=== PATIENT | male | born 1985 | race Caucasian/White ===

== ENCOUNTER 2023-02-18 16:45 | Emergency (ER) | payer MEDICARE, MEDICAID, SELFPAY ==
[2023-02-18 17:31] VITALS: BP 145/98; PULSE 99; RESP 16; TEMP 36.6; O2SAT 96; BMI 38.1
[2023-02-18 19:08] LABS: Basophils Percent Auto 0.4 % (0.2-2.0); Eosinophils Absolute Auto 0.1 10^3/uL (0.0-0.7); Eosinophils Percent Auto 1.4 % (0.9-7.0); Hematocrit 43.2 % (42.0-54.0); Hemoglobin 15.4 g/dL (14.0-18.0); Immature Granulocytes Abs Auto 0.06 10^3/uL (0.00-0.03); Immature Granulocytes Pct Auto 0.6 % (0.0-0.5); Lymphocytes Absolute Auto 2.7 10^3/uL (1.2-3.8); Mean Corpuscular HGB Conc 35.6 g/dL (29.9-35.2); Mean Corpuscular Hemoglobin 29.4 pg (25.9-34.0); Mean Corpuscular Volume 82.4 fL (80.0-94.0); Monocytes Absolute Auto 0.6 10^3/uL (0.3-0.8); Monocytes Percent Auto 6.5 % (1.7-12.0); Neutrophils Absolute Auto 5.8 10^3/uL (1.4-6.5); Neutrophils Percent Auto 62.1 % (43.0-75.0); Platelet Count 236 10^3/uL (150-450); Red Blood Count 5.24 10^6/uL (4.70-6.10); Red Cell Distribution Width 13.1 % (11.0-15.0); White Blood Count 9.4 10^3/uL (4.0-11.0)
--- NOTE | 2023-02-18 19:10 | ED_ITS ---
Documented by User: Melissa Treadwell 02/18/23 19:13 HPI - General Adult General Chief complaint: Skin/Abscess/Foreign Body Stated complaint: diabetic sore on leg Time Seen by Provider: 02/18/23 19:01 Source: patient Mode of arrival: walk-in Limitations: no limitations History of Present Illness HPI narrative: 37-year-old male presents here with a chief complaint of a wound to the left posterior leg. He states he had three mosquito bites that he scratched open. Small area of induration noted. He denies a fevers or chills. Patient is type I diabetic and states his sugars have been elevated but he recently has had medication changes causing his sugars to be elevated. Patient has mosquito bites that are scratched and raw to the posterior leg. No drainage swelling no sign of cellulitis. Related Data Allergies Allergy/AdvReac Type Severity Reaction Status Date / Time No Known Drug Allergies Allergy Verified 02/18/23 17:30 Review of Systems ROS Narrative All Systems are negative except as noted/marked.All systems reviewed and otherwise negative PFSH PFSH Social History Smoking status: Never smoker Exam Narrative Exam Narrative: Nurses note and vital signs reviewed and patient is not hypoxic. General: The patient appears well and in no apparent distress. Patient is resting comfortably on cart. Skin: Warm, dry, no pallor noted. Left posterior leg 2 x 3 cm area of redness with infected mosquito bite no drainage or discharge scabbing noted Head: Normocephalic, atraumatic Eye: Normal conjunctiva, no drainage, EOMI. PERRL Ears, Nose, Mouth, and Throat: oral mucosa is moist. Nares patent. Mouth without vesicles. Ear canals patent. Tm's without Erythema Musculoskeletal: The patient has no evidence of calf tenderness, no pitting edema, symmetrical pulses noted bilaterally Neurological: A&O x4, normal speech Psychiatric: Cooperative Constitutional Vital Signs, click to edit/add: Last Vital Signs Temp 98.1 F 02/18/23 19:34 Pulse 91 H 02/18/23 19:34 Resp 16 02/18/23 19:34 BP 133/80 02/18/23 19:34 Pulse Ox 96 02/18/23 19:34 O2 Del Method Room Air 02/18/23 19:34 Course Vital Signs Vital signs: Vital Signs Temperature 97.9 F 02/18/23 17:31 Pulse Rate 99 H 02/18/23 17:31 Respiratory Rate 16 02/18/23 17:31 Blood Pressure 145/98 H 02/18/23 17:31 Pulse Oximetry 96 02/18/23 17:31 Oxygen Delivery Method Room Air 02/18/23 17:31 Temperature 98.1 F 02/18/23 19:34 Pulse Rate 91 H 02/18/23 19:34 Respiratory Rate 16 02/18/23 19:34 Blood Pressure 133/80 02/18/23 19:34 Pulse Oximetry 96 02/18/23 19:34 Oxygen Delivery Method Room Air 02/18/23 19:34 Medical Decision Making MDM Narrative Medical decision making narrative: She presented with chief complaint of redness to where he had three mosquito bites. He has scratched Demerol. The area is slightly reddened there is no drainage or discharge no infection appreciated. He is a diabetic she will be placed on Keflex. Medicated here with one Keflex and discharged home area cleaned with saline and Hibiclens covered with bacitracin dressing. Lab Data Labs: Lab Results 02/18/23 Range/Units 18:55 WBC 9.4 (4.0-11.0) 10^3/uL RBC 5.24 (4.70-6.10) 10^6/uL Hgb 15.4 (14.0-18.0) g/dL Hct 43.2 (42.0-54.0) % MCV 82.4 (80.0-94.0) fL MCH 29.4 (25.9-34.0) pg MCHC 35.6 H (29.9-35.2) g/dL RDW 13.1 (11.0-15.0) % Plt Count 236 (150-450) 10^3/uL MPV 11.0 (9.5-13.5) fL Neut % (Auto) 62.1 (43.0-75.0) % Lymph % (Auto) 29.0 (20.5-60.0) % [place] % (Auto) 6.5 (1.7-12.0) % Eos % (Auto) 1.4 (0.9-7.0) % Baso % (Auto) 0.4 (0.2-2.0) % Neut # (Auto) 5.8 (1.4-6.5) 10^3/uL Lymph # (Auto) 2.7 (1.2-3.8) 10^3/uL [place] # (Auto) 0.6 (0.3-0.8) 10^3/uL Eos # (Auto) 0.1 (0.0-0.7) 10^3/uL Baso # (Auto) 0.0 (0.0-0.1) 10^3/uL Abs Immat Gran (auto) 0.06 H (0.00-0.03) 10^3/uL Imm/Tot Granulo (auto) 0.6 H (0.0-0.5) % Sodium 136 (136-145) mmol/L Potassium 3.9 (3.5-5.1) mmol/L Chloride 101 (98-107) mmol/L Carbon Dioxide 26.5 (21.0-32.0) mmol/L Anion Gap 12.4 BUN 16.0 (7.0-18.0) mg/dL Creatinine 1.13 (0.70-1.30) mg/dL Est GFR ( Amer) >60 (>=60) Est GFR (Non-Af Amer) >60 (>=60) BUN/Creatinine Ratio 14.2 Glucose 277 H (74-106) mg/dL Calcium 8.8 (8.5-10.1) mg/dL Discharge Plan Discharge Chief Complaint: Skin/Abscess/Foreign Body Clinical Impression: Insect bites Patient Disposition: Home, Self-Care Time of Disposition Decision: 19:05 Condition: Good Mode of Transportation: Private Vehicle Instructions: Dermatitis (ED) Stand Alone Forms: Portal Instructions Referrals: Benji Kulkarni DO [Primary Care Provider] - 1 week Discharge Date/Time: 02/18/23 19:37 Documented by User: Iam Adame MD 02/18/23 20:05 HPI - General Adult General Chief complaint: Skin/Abscess/Foreign Body Stated complaint: diabetic sore on leg Time Seen by Provider: 02/18/23 19:01 Related Data Allergies Allergy/AdvReac Type Severity Reaction Status Date / Time No Known Drug Allergies Allergy Verified 02/18/23 17:30 PFSH PFS Social History Smoking status: Never smoker Exam Constitutional Vital Signs, click to edit/add: Last Vital Signs Temp 98.1 F 02/18/23 19:34 Pulse 91 H 02/18/23 19:34 Resp 16 02/18/23 19:34 BP 133/80 02/18/23 19:34 Pulse Ox 96 02/18/23 19:34 O2 Del Method Room Air 02/18/23 19:34 Course Vital Signs Vital signs: Vital Signs Temperature 97.9 F 02/18/23 17:31 Pulse Rate 99 H 02/18/23 17:31 Respiratory Rate 16 02/18/23 17:31 Blood Pressure 145/98 H 02/18/23 17:31 Pulse Oximetry 96 02/18/23 17:31 Oxygen Delivery Method Room Air 02/18/23 17:31 Temperature 98.1 F 02/18/23 19:34 Pulse Rate 91 H 02/18/23 19:34 Respiratory Rate 16 02/18/23 19:34 Blood Pressure 133/80 02/18/23 19:34 Pulse Oximetry 96 02/18/23 19:34 Oxygen Delivery Method Room Air 02/18/23 19:34 Medical Decision Making MDM Narrative Medical decision making narrative: She presented with chief complaint of redness to where he had three mosquito b ites. He has scratched Demerol. The area is slightly reddened there is no drainage or discharge no infection appreciated. He is a diabetic she will be placed on Keflex. Medicated here with one Keflex and discharged home area cleaned with saline and Hibiclens covered with bacitracin dressing. I, Dr Adame, have reviewed the above progress note and course of action in the ER; agree with the above. I have personally seen and evaluated this patient, gone over history and physical, and discussed disposition and treatment plan with the patient. Lab Data Labs: Lab Results 02/18/23 Range/Units 18:55 WBC 9.4 (4.0-11.0) 10^3/uL RBC 5.24 (4.70-6.10) 10^6/uL Hgb 15.4 (14.0-18.0) g/dL Hct 43.2 (42.0-54.0) % MCV 82.4 (80.0-94.0) fL MCH 29.4 (25.9-34.0) pg MCHC 35.6 H (29.9-35.2) g/dL RDW 13.1 (11.0-15.0) % Plt Count 236 (150-450) 10^3/uL MPV 11.0 (9.5-13.5) fL Neut % (Auto) 62.1 (43.0-75.0) % Lymph % (Auto) 29.0 (20.5-60.0) % [place] % (Auto) 6.5 (1.7-12.0) % Eos % (Auto) 1.4 (0.9-7.0) % Baso % (Auto) 0.4 (0.2-2.0) % Neut # (Auto) 5.8 (1.4-6.5) 10^3/uL Lymph # (Auto) 2.7 (1.2-3.8) 10^3/uL [place] # (Auto) 0.6 (0.3-0.8) 10^3/uL Eos # (Auto) 0.1 (0.0-0.7) 10^3/uL Baso # (Auto) 0.0 (0.0-0.1) 10^3/uL Abs Immat Gran (auto) 0.06 H (0.00-0.03) 10^3/uL Imm/Tot Granulo (auto) 0.6 H (0.0-0.5) % Sodium 136 (136-145) mmol/L Potassium 3.9 (3.5-5.1) mmol/L Chloride 101 (98-107) mmol/L Carbon Dioxide 26.5 (21.0-32.0) mmol/L Anion Gap 12.4 BUN 16.0 (7.0-18.0) mg/dL Creatinine 1.13 (0.70-1.30) mg/dL Est GFR ( Amer) >60 (>=60) Est GFR (Non-Af Amer) >60 (>=60) BUN/Creatinine Ratio 14.2 Glucose 277 H (74-106) mg/dL Calcium 8.8 (8.5-10.1) mg/dL Discharge Plan Discharge Chief Complaint: Skin/Abscess/Foreign Body Clinical Impression: Insect bites Patient Disposition: Home, Self-Care Time of Disposition Decision: 19:05 Condition: Good Mode of Transportation: Private Vehicle Instructions: Dermatitis (ED) Stand Alone Forms: Portal Instructions Referrals: Benji Kulkarni DO [Primary Care Provider] - 1 week Discharge Date/Time: 02/18/23 19:37
--- NOTE | 2023-02-18 19:14 | PC.NURSE ---
States had an insect bite lower calf left leg that he scratched till it opened up and then put rubbing alcohol on it. Small area is scabbed over with red border. Area marked
[2023-02-18 19:23] LABS: Anion Gap 12.4; BUN Creatinine Ratio 14.2; Calcium 8.8 mg/dL (8.5-10.1); Carbon Dioxide 26.5 mmol/L (21.0-32.0); Chloride 101 mmol/L (98-107); Estimated GFR (African America >60 (>=60); Estimated GFR (Non-African Ame >60 (>=60); Glucose 277 mg/dL (74-106); Potassium 3.9 mmol/L (3.5-5.1); Sodium 136 mmol/L (136-145)
[2023-02-18] MEDS: CEPHALEXIN 500 MG CAPSULE PO (19:24)
[2023-02-18] MEDS: BACITRACIN 0.9 GM PACKET 1 PACKET TOPICAL (19:24)
[2023-02-18 19:34] VITALS: BP 133/80; PULSE 91; RESP 16; TEMP 36.7; O2SAT 96
--- NOTE | 2023-02-18 19:35 | PC.NURSE ---
Wound cleansed with Hibicleanse rinsed and dried. Bacitracin, adaptic and Coban placed
== END 2023-02-18 19:37 | disposition home or self-care (01) ==
PROVIDERS: Emergency Provider Emergency Medicine; PCP Internal Medicine
DX: S80.862A Insect bite (nonvenomous), left lower leg, initial encounter (principal); W57.XXXA Bitten or stung by nonvenomous insect and other nonvenomous arthropods, initial encounter
CPT/HCPCS: 36415; 80048; 85025; 99284

== ENCOUNTER 2023-03-04 10:54 | Outpatient (OUT) | payer MEDICARE, MEDICAID, SELFPAY ==
[2023-03-04 12:17] LABS: Chol HDL Ratio 8.4; Cholesterol 253 mg/dL (<=200); Glucose 278 mg/dL (74-106); HDL Cholesterol 30 mg/dL (40-60); Thyroid Stimulating Hormone 3.039 uIU/mL (0.358-3.740); Triglycerides 435 mg/dL (<=150)
[2023-03-04 12:22] LABS: LDL Cholesterol Direct 143 mg/dL
[2023-03-05 13:08] LABS: C-Peptide, Serum 4.2 ng/mL (1.1-4.4)
[2023-03-13 02:07] LABS: Insulin Antibodies 80 uU/mL (.)
== END 2023-03-04 10:55 | disposition home or self-care (01) ==
LOC: LAB 10:54
PROVIDERS: PCP Internal Medicine
DX: E11.65 Type 2 diabetes mellitus with hyperglycemia (principal); E55.9 Vitamin D deficiency, unspecified
CPT/HCPCS: 36415; 80061; 82306; 82607; 82947; 83721; 84443; 84681; 86337; 86341

== ENCOUNTER 2024-01-05 00:22 | Emergency (ER) | payer MEDICARE, MEDICAID, SELFPAY ==
[2024-01-05 00:32] VITALS: BP 174/100; PULSE 97; TEMP 36.8; BMI 39.7
[2024-01-05 00:50] LABS: Glucometer 160 mg/dL (74-106)
--- NOTE | 2024-01-05 01:12 | ED_ITS ---
HPI HPI - General Adult General Chief complaint: Extremity Injury, Lower Stated complaint: RT FOOT SWELLING Time Seen by Provider: 01/05/24 00:58 Source: patient Mode of arrival: walk-in Limitations: no limitations History of Present Illness HPI narrative: This 38-year-old male who is a diabetic presents for evaluation of a small area on the dorsal aspect of his right foot approximately 2 x 1.5 cm where there are 5 small circular scabs. The patient was out in the grass on Tuesday and has multiple mosquito bites on his leg. His states he always wears his socks and shoes in the grass. It looks like he has 5 small bites on the dorsal aspect of his foot with a local inflammatory reaction. The foot is also moderately swollen. There is no lymphangitic streaking. He has not had a fever. His glucose in the emergency department was 160. He explained to me that he is concerned because his 's uncle lost her foot due to diabetic foot infections. He does not have any notable infections of his toe or the remainder of his foot. He has been applying ice but not soaking the foot. He states that this time the foot is throbbing and stabbing and aching. Related Data Home Medications ?Medication ?Instructions ?Recorded ?Confirmed atorvastatin 20 mg tablet 20 mg PO DAILY 01/05/24 01/05/24 empagliflozin 25 mg tablet 25 mg PO DAILY 01/05/24 01/05/24 (Jardiance) insulin degludec 200 unit/mL (3 67 unit subcut DAILY 01/05/24 01/05/24 mL) subcutaneous pen (Tresiba FlexTouch U-200 insulin) insulin lispro 100 unit/mL 45 unit subcut AC 01/05/24 01/05/24 subcutaneous pen (Humalog KwikPen (U-100) Insulin) insulin lispro 200 unit/mL (3 mL) 1 sliding scale dose subcut DAILY 01/05/24 01/05/24 subcutaneous pen (Humalog KwikPen U-200 Insulin) Allergies Allergy/AdvReac Type Severity Reaction Status Date / Time No Known Drug Allergies Allergy Verified 01/05/24 00:37 Opioid HPI Opioid Management Most Recent Opioid Data: Last Pain Scale 6 01/05/24 00:55 Last ED Pain Assessment 01/05/24 00:55 Review of Systems ROS Status of ROS 10 or more systems reviewed and unremark able except as noted in history and below [facility] Medical History (Updated 01/05/24 @ 01:19 by Margret Ji MD) Diabetic acidosis, type I ?E10.10 - Type 1 diabetes mellitus with ketoacidosis without coma (ICD-10) Surgical History (Updated 01/05/24 @ 00:38 by Smiley Blake) H/O knee surgery ?Z98.890 - Other specified postprocedural states (ICD-10) Previous back surgery ?Z98.890 - Other specified postprocedural states (ICD-10) Social History Smoking status: Never smoker Exam Narrative Exam Narrative: Vital signs and Nursing Notes reviewed: Patient is afebrile with a normal pulse, blood pressure is elevated 174/100 General: Awake, alert, oriented, overweight male, no respiratory distress HEENT: Normocephalic atraumatic, mucous membranes are moist and pink, eyes are clear, normal conjunctiva, vision is grossly intact Chest: Lungs are clear to auscultation with good air entry, there is no wheezing rhonchi or rales appreciated no accessory muscle use, patient is speaking in complete sentences-no chest wall tenderness to palpation CVS: Regular rate and rhythm S1-S2, no murmurs rubs or gallops, pulses are brisk and equal bilaterally Extremities: There is an approximately 1.5 x 2 cm area of redness with 5 small circular scabs in the center of this area. They appear to be some kind of bug bite. There is mild swelling of the foot without lymphangitic streaking or other notable abnormality. Toes are warm and sensate. There is no appreciable diabetic foot ulcer in addition to this area on the dorsal aspect of the foot. Skin: There are multiple small circular sores on the patient's right lower leg that he explains are mosquito bites from being outside with his dog Neuro: No focal deficits Constitutional Vital Signs, click to edit/add: Last Vital Signs Temp 98.3 F 01/05/24 00:32 Pulse 97 H 01/05/24 00:32 Resp 16 01/05/24 00:32 BP 174/100 H 01/05/24 00:32 Course Vital Signs Vital signs: Vital Signs Temperature 98.3 F 01/05/24 00:32 Pulse Rate 97 H 01/05/24 00:32 Respiratory Rate 16 01/05/24 00:32 Blood Pressure 174/100 H 01/05/24 00:32 Temperature 98.3 F 01/05/24 00:32 Pulse Rate 97 H 01/05/24 00:32 Respiratory Rate 16 01/05/24 00:32 Blood Pressure 174/100 H 01/05/24 00:32 Medical Decision Making MDM Narrative Medical decision making narrative: This 38-year-old male presents for evaluation of a small erythematous area on the right foot with some localized swelling. The symptoms have been present for the past several days after the patient was outside over the weekend. He has multiple mosquito bites on his right lower leg and an approximately 2 cm x 1.5 cm area of redness that appears to be somewhat excoriated with 5 small circular scabs in the center of this area that in my opinion are likely some kind of bug bite or irritation from his shoe. There is mild swelling of the foot as well. There is no lymphangitic streaking or sign of ascending infection. He has not had a fever. Vital signs are stable with exception of elevated blood pressure at 174/100. His glucose here was 160. He was medicated emergency department with a dose of Augmentin. I suggested that he soak the foot in warm Epsom salt water and continue taking the antibiotics for the next 10 days. He was given the first dose of Augmentin in the emergency department as well as 1 dose of Howell and Zofran for his discomfort. He was encouraged to return the emergency department for enlarging redness, fever, lymphangitic streaking or any concerns. Lab Data Labs: Lab Results 01/05/24 Range/Units 00:46 POC Glucose 160 H (74-106) mg/dL Discharge Plan Discharge Stand Alone Forms: Portal Instructions Chief Complaint: Extremity Injury, Lower Clinical Impression: Local skin infection Patient Disposition: Home, Self-Care Time of Disposition Decision: 01:18 Condition: Good Prescriptions / Home Meds: No Action atorvastatin 20 mg tablet 20 mg PO DAILY Jardiance 25 mg tablet 25 mg PO DAILY insulin degludec [Tresiba FlexTouch U-200] 200 unit/mL (3 mL) insulin pen 67 unit SUBCUT DAILY insulin lispro [Humalog KwikPen Insulin] 100 unit/mL insulin pen 45 unit SUBCUT AC Humalog KwikPen Insulin 200 unit/mL (3 mL) insulin pen 1 sliding scale dose SUBCUT DAILY Print Language: Lebanese Instructions: Acute Wounds (ED) Additional Instructions: Soak your foot in warm Epsom salt water 3-4 times a day for at least 20 to 30 minutes. Use antibiotics as directed. Return to the emergency department for increasing redness, swelling, streaks up your legs or fever. Referrals: Benji Kulkarni DO [Primary Care Provider] - 1 week
[2024-01-05] MEDS: HYDROCODONE/ACET 5-325 MG TABLET 1 TAB PO (01:19)
[2024-01-05] MEDS: AMOXICILLIN/POTASSIUM CLAV 1 TAB TABLET PO (01:19)
[2024-01-05] MEDS: ONDANSETRON 4 MG RAPDIS TABLET SL (01:19)
[2024-01-05 01:36] VITALS: BP 151/83; PULSE 92; O2SAT 16
== END 2024-01-05 01:38 | disposition home or self-care (01) ==
PROVIDERS: Emergency Provider Emergency Medicine; PCP Internal Medicine
DX: L08.9 Local infection of the skin and subcutaneous tissue, unspecified (principal); E11.9 Type 2 diabetes mellitus without complications; Z79.4 Long term (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 insulin
CPT/HCPCS: 36415; 99284; Q0162

== ENCOUNTER 2024-05-28 14:29 | Outpatient (OUT) | payer MEDICARE, MEDICAID, SELFPAY ==
--- NOTE | 2024-05-28 14:36 | XR_ITS ---
The [address] [address] Patient Name: KALEIGH MOTLEY MRN: [id number] date: 1985 Sex: M Assigned Patient Location: [facility] Current Patient Location: [facility] Accession/Order Number: [id number] Exam Date: 05/28/2024 14:43 Report Date: 05/28/2024 15:28 At the request of: CLAIRE ACUÑA Procedure: XR chest 2V EXAM: XR chest 2V HISTORY: Cough COMPARISON: 05/16/2021 TECHNIQUE: Upright PA and lateral chest x-ray FINDINGS: The heart is not enlarged and the vasculature is not distended. No acute infiltrate, effusion or pneumothorax is identified. The osseous structures are grossly intact. XR/XR chest 2V IMPRESSION: No acute infiltrate or evidence of cardiac decompensation. The overall appearance of the chest has not changed significantly. Electronically authenticated by: ALEN CARR Date: 05/28/2024 15:28
--- OUTSIDE RECORDS SUMMARY | 2024-05-28 14:41 | XMS_ITS | CCD ---
Author Organization 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 Name Role Phone WARREN CARLSON Attending Unavailable WARREN CARLSON Admitting Unavailable ROSALINE Referring Unavailable BENJI KULKARNI Primary Care Unavailable SHAD, DR SAWYER Admitting Unavailable SHAD, DR SAWYER Attending Unavailable SHAD, DR SAWYER Primary Care Unavailable SHAD, DR SAWYER Admitting Unavailable BALL, DR SAWYER Attending Unavailable BALL, DR SAWYER Primary Care Unavailable BALL, DR SAWYER Consulting Unavailable BALL, DR SAWYER Admitting Unavailable SHAD, DR SAWYER Attending Unavailable SHAD, DR SAWYER Primary Care Unavailable SHAD, DR SAWYER Primary Care Unavailable ISAURA, DR DEV Odell Consulting Unavailable HOY, DR VIDALES Admitting Unavailable HOY, DR VIDALES Attending Unavailable WIECEK, DR MELINA Medina Consulting Unavailable ZIEBER, DR TREMAYNE Odell Consulting Unavailable ADDISON, JEAN CLAUDE Consulting Unavailable FAWWAD, SHAIKH Izzy Consulting Unavailable SAID, SEVERO Consulting Unavailable DARAMOLA, IAN Consulting Unavailable Benji Kulkarni Unavailable Efren, Alycia Unavailable Kaylynn Nova Unavailable DO Benji Kulkarni Primary Care Provider [phone] NICKI Schwartz Attending Provider Unavailable Primary Care Provider UnavailBenji Ortega Primary Care Unavailable Alycia Schwartz Attending Unavailable Alycia Schwartz Admitting Unavailable Unavailable Primary Care Provider UnavailAZEB Villela Attending Unavailable Allergies Allergy Classification Reported Allergen(s) Allergy Type Date of Onset Reaction(s) Facility (2 sources) Naproxen Drug Allergy 3 The [facility] (20 sources) Acarbose Drug Allergy 4 Other: See Comments [facility] (20 sources) liraglutide Drug Allergy 4 Other: See Comments [facility] (20 sources) metFORMIN Drug Allergy 4 Unknown [facility] (9 sources) patient allergy list reviewed by nurse or physicia Propensity to adverse reactions 9 Comment:Done [place] Other (20 sources) Precose *ANTIDIABETICS* Propensity to adverse reactions 4 Comment:ACARAB OSE [facility] (5 sources) Naproxen; Translations: [naproxen] Drug Allergy 3 Hives [facility] Medications Current Medications Medication Drug Class(es) Dates Sig (Normalized) Sig (Original) acetaminophen 325 mg / HYDROcodone bitartrate 5 mg oral tablet (1 source) Opioid Agonist Start: 01-10-2018 take 1 tablet by mouth every six hours Hydrocodone-Acetam inophen (Palmer) 5-325 mg tablet Active 1 TAB PO Q6H 10 3 January 10, 2018 atorvastatin 20 mg oral tablet (20 sources) HMG-CoA Reductase Inhibitor Start: 01-10-2018 take 1 tablet by mouth once daily at bedtime atorvastatin (LIPITOR) 20 mg tablet Take 20 mg by mouth daily at bedtime. 08/25/2023 Active Comment on above: Take 20 mg by mouth daily at bedtime. BD Ultra-Fine Micro Pen Needle (20 sources) BD Ultra-Fine Micro Pen Needle 1 each In vitro 4 times daily for 90 days Okay to dispense insurance preferred equivalent Dx E11.65 Active BD Ultra-Fine Mi microsoft infrastructure consultant Pen Needle 1 each In vitro 6 times per day for 90 days Okay to dispense insurance preferred equivalent Active BD Ultra-Fine Mi microsoft infrastructure consultant Pen Needle Active benazepril hydrochloride 5 mg oral tablet (1 source) Angiotensin Converting Enzyme Inhibitor Start: 01-10-2018 take 5 mg by mouth once daily Benazepril Active 5 MG PO Daily January 09, 2018 11:00pm cefuroxime 500 mg oral tablet (1 source) Cephalosporin Antibacterial Start: 08-29-2023 take 1 tablet by mouth every twelve hours Cefuroxime Axetil 500 MG 1 tablet Orally every 12 hrs for 5 days Aug, Active cephalexin 500 mg oral capsule (1 source) Cephalosporin Antibacterial Start: 01-10-2018 take 1 capsule by mouth four times daily Cephalexin (Keflex) 500 mg capsule Active 500 MG PO Four times daily 40 January 09, 2018 11:00pm Dexcom G7 Sensor - (20 sources) Start: 02-14-2023 Dexcom G7 Sensor - as directed in vitro every 10 days for 90 [place] [facility] [place] Basal Bolus insulin / mdi Jan, Active Dexcom G7 Sensor - as directed in vitro every 10 days [place] [facility] [place] Basal Bolus insulin / mdi Active Dexcom G7 Sensor - as directed in vitro every 10 days for 90 days [place] [facility] [place] Basal Bolus insulin / mdi Active diazePAM 2 mg oral tablet (1 source) Benzodiazepine Start: 09-09-2023 End: 09-12-2023 take 1 tablet by mouth once daily as needed for anxiety diazePAM (VALIUM) 2 mg tablet Indications: Demyelinating disease of central nervous system (HCC) Take 1 tablet by mouth once daily as needed for anxiety or sedation (for MRI) for up to 3 days. 3 tablet 0 09/09/2023 09/12/2023 Active Comment on above: Take 1 tablet by santiago th once daily as needed for anxiety or sedation (for MRI) for up to 3 days. 0.5 ml dulaglutide 1.5 mg/ml auto-injector (1 source) GLP-1 Receptor Agonist Start: 01-10-2018 Dulaglutide (Trulicity) 0.75 mg/0.5 mL pen injector Active 0.75 UNITS SUBCUT January 09, 2018 11:00pm empagliflozin 25 mg oral tablet (11 sources) Sodium-Glucose Cotransporter 2 Inhibitor Start: 07-14-2023 take 10 mg by mouth once daily JARDIANCE 10 mg daily orally Jun, Active Start: 01-10-2018 take 1 tablet by mouth once JA RDIANCE 25 mg tablet Take 1 tablet by mouth every afternoon. 08/04/2023 Active Comment on above: Take 1 tablet by santiago th every afternoon. 3 ml insulin aspart, human 100 unt/ml pen injector (10 sources) Insulin Analog Start: inject 45 [IU] by subcutaneous injection three times daily before mealtime Fiasp FlexTouch 100 UNIT/ML 45 units Subcutaneous before meals tid for 30 days sliding scale with meals Jan, Active Start: 01-19-2023 NovoLOG FlexPe n 100 UNIT/ML 45 units Subcutaneous before each meal for 30 days Jan, Active 3 ml insulin degludec 200 unt/ml pen injector (9 sources) Insulin Analog Start: 08-04-2023 insulin deglud ec (TRESIBA) 200 unit/mL (3 mL) injection Inject subcutaneously every 24 hours. 08/04/2023 Active Start: 08-04-2023 inject 67 [IU] by avalos bcutaneous injection once daily Tresiba FlexTouch 200 UNIT/ML 67 u Subcutaneous daily for 90 days Titrate to 80 u daily (E11.65) Jul, Active Start: 06-28-2023 inject 55 [IU] by avalos bcutaneous injection once daily, then inject 80 [IU] by subcutaneous injection once daily TRESIBA FLEXTOUCH U-200 200 unit/mL (3 mL) injection INJECT 55 UNITS SUBCUTANEOUSLY ONCE DAILY - TITRATE TO 80 UNITS PER DAY 06/28/2023 Active Comment on above: INJECT 55 UNITS SUBC UTANEOUSLY ONCE DAILY - TITRATE TO 80 UNITS PER DAY Inject subcutaneousl y every 24 hours. 3 ml insulin detemir 100 unt/ml pen injector (19 sources) Insulin Analog Start: 02-14-2023 Levemir FlexPen 100 UNIT/ML 25 u Subcutaneous twice daily Jan, Active Levemir FlexPen 100 UNIT/ML 67 units Subcutaneous bid for 90 days Not-Taking/PRN 3 ml insulin glargine 100 unt/ml pen injector (1 source) Insulin Analog Start: 01-10-2018 Insulin Glargi ne (Basaglar Kwikpen U-100 Insulin) 100 unit/mL (3 mL) insulin pen Active 36 UNITS SUBCUT 1-2 TIMES DAILY January 09, 2018 11:00pm 3 ml insulin lispro 200 unt/ml pen injector (20 sources) Insulin Analog Start: 02-09-2023 HUMALOG KWIKPE N INSULIN 200 unit/mL (3 mL) injection inject subcutaneously four times a day ACCORDING TO ISS 1:7, ICR 1:2, EXPECT 220 UNITS PER DAY 08/29/2023 Active HumaLOG KwikPen 200 UNIT/ML ISS 1: 7, ICR 1:2 EXPECT 220 UNITS PER DAY Subcutaneous 4 x daily Not-Taking/PRN HumaLOG KwikPen 200 UNIT/ML ISS 1: 7, ICR 1:2 subcutaneously 4 TIMES A DAY for 90 DAYS EXPECT 220 UNITS PER DAY Subcutaneous 4 x daily for 30 days Expect up to 220 u per day Active HumaLOG KwikPen 200 UNIT/ML ISS 1: 7, ICR 1:2 subcutaneously 4 TIMES A DAY for 90 DAYS EXPECT 200 UNITS PER DAY Subcutaneous 4 x daily Expect up to 200 u per day Active HumaLOG KwikPen 100 UNIT/ML 45 units SC before each meal Subcutaneous daily Active HumaLOG KwikPen 100 UNIT/ML 39 units SC before each meal, 10 additional units as needed Subcutaneous daily for 30 days Active Comment on above: inject subcutaneousl y four times a day ACCORDING TO ISS 1:7, ICR 1:2, EXPECT 220 UNITS PER DAY iv contrast (will be provided with radiology test) (1 source) Start: 2023 End: 2023 inject 1 dose intravenously once iv contrast (will be provided with radiology test) Indications: Demyelinating disease of central nervous system (HCC) MRI Brain Inject, intravenously, once for 1 dose.No IV access, insert saline lock prior to beginning of sedation, infusion, injection of imaging exam.Discontinue saline lock post exam. If Pt. has a central line or IVAD, may access for administration according to line specific nursing protocol.Once exam is complete flush line and de-access according to line specific nursing protocol in the MR contrast administration guidelines link 1 Each 0 09/09/2023 09/10/2023 Active Comment on above: MRI Brain Inject, in travenously, once for 1 dose.No IV access, insert saline lock prior to beginning of sedation, infusion, injection of imaging exam.Discontinue saline lock post exam. If Pt. has a central line or IVAD, may access for administration according to line specific nursing protocol.Once exam is complete flush line and de-access according to line specific nursing protocol in the MR contrast administration guidelines link Multivitamin preparation (8 sources) take 1 tablet by mouth once daily Multivitamin - 1 tablet Orally Once a day Active One Touch Glucometer (20 sources) Start: 2022 One Touch Glucometer test blood sugar invitro 4 times daily for 365 days or insurance preferred Dx E11.65 Jan, Active semaglutide 3 mg oral tablet (20 sources) Start: 2022 take 3 mg by mouth once daily Rybelsus 3 MG as directed Orally Once a day Jan, Active sildenafil 25 mg oral tablet (2 sources) Phosphodiesterase 5 Inhibitor Start: 2023 End: 2023 take 1 tablet by mouth once daily as needed sildenafil (VIAGRA) 25 mg tablet Take 1 tablet by mouth once daily as needed. 30 tablet 5 09/30/2023 03/28/2024 Active Tresiba U-200 solution injectable 3ml/ 600 units (14 sources) Tresiba U-200 solution injectable 3ml/ 600 units 67 units injectable DAILY for 90 days E 11.65, Z 79.4. Titrate to 100 u per day Active Tresiba U-200 so lution injectable 3ml/ 600 units 67 u injectable DAILY for 90 days E 11.65, Z 79.4. Titrate to 80 u per day Active Tresiba U-200 so lution injectable 3ml/ 600 units 55 u injectable DAILY E 11.65, Z 79.4. Titrate to 80 u per day Active Tresiba U-200 so lution injectable 3ml/ 600 units 65 u injectable DAILY E 11.65, Z 79.4. Titrate to 80 u per day Active Tresiba U-200 so lution injectable 3ml/ 600 units 55 u injectable DAILY for 90 days E 11.65, Z 79.4. Titrate to 80 u per day Active Vit B Comp and C-Vit E-FA-Se l-Zn 0.4 mg tab (3 sources) Vit B Comp and C -Vit E-FA-Shanda-Zn 0.4 mg tab Take by mouth every 24 hours. Active Vit B Comp and C -Vit E-FA-Shanda-Zn 0.4 mg tab Take by mouth every 24 hours. 0 Active Comment on above: Take by mouth every 24 hours. Completed/Discontinued Medications Medication Drug Class(es) Dates Sig (Normalized) Sig (Original) amoxicillin 875 mg oral tablet (20 sources) Penicillin-class Antibacterial Start: 08-09-2022 take 1 tablet by mouth every twelve hours Amoxicillin 875 MG 1 tablet Orally Twice a day for 7 days Jul, Not-Taking/PRN azithromycin 250 mg oral tablet (10 sources) Macrolide Antimicrobial Start: 05-30-2023 Azithromycin 250 MG as directed Orally daily for 5 days May, Not-Taking/PRN Cholecalciferol (20 sources) Vitamin D Start: 04-06-2023 take 1 capsule by mouth every week as needed Cholecalciferol 1.25 MG (37510 UT) 1 capsule Orally weekly for 56 days follow with 4000 ut OTC Mar, Not-Taking/PRN Start: 04-06-2023 take 1 capsule by mo uth every week Cholecalciferol 1.25 MG (47853 UT) 1 capsule Orally weekly for 56 days follow with 4000 ut OTC Mar, Not-Taking Start: 04-06-2023 take 1 capsule by mo uth every week Cholecalciferol 1.25 MG (21284 UT) 1 capsule Orally weekly for 56 days follow with 4000 ut OTC Mar, Active Start: 03-29-2023 take 1 capsule by mo uth every week Cholecalciferol 1.25 MG (60690 UT) 1 capsule Orally WEEKLY for 56 days when RX complete, start D3 4000 ut once daily OTC Mar, Not-Taking/PRN Start: 03-29-2023 take 1 capsule by mo uth every week Cholecalciferol 1.25 MG (30080 UT) 1 capsule Orally WEEKLY for 56 days when RX complete, start D3 4000 ut once daily OTC Mar, Not-Taking Start: 03-29-2023 take 1 capsule by mo uth every week Cholecalciferol 1.25 MG (65787 UT) 1 capsule Orally WEEKLY for 56 days when RX complete, start D3 4000 ut once daily OTC Mar, Active take 2 tablets by mo uth every twenty-four hours Vitamin D3 50 MCG (2000 UT) 2 tablets Orally Once a day Active Dexcom 7 (20 sources) Start: 02-08-2023 Dexcom 7 senso rs for 30 days Dx E11.65 Jan, Not-Taking/PRN Start: 02-08-2023 Dexcom 7 senso rs for 30 days Dx E11.65 Jan, Not-Taking Start: 09-13-2022 Dexcom 7 Use f or testing home BS transcutaneous 6x daily for 365 days 1 sensor and 1 reader Aug, Active Dexcom 7 Use to test home BS SC continuous monitoring - Travel Registered Nurse Oncology for 365 days DX E11.65 Not-Taking/PRN Dexcom 7 Use to test home BS SC continuous monitoring - Travel Registered Nurse Oncology for 365 days DX E11.65 Not-Taking Dexcom 7 Use to test home BS SC continuous monitoring for 365 days Active Dexcom G6 Sensor - (20 sources) Dexcom G6 Sensor - as directed Not-Taking/PRN Dexcom G6 Sensor - as directed Not-Taking Dexcom G6 Sensor - as directed Active Dexcom G6 Transmitter - (20 sources) Dexcom G6 Transm itter - as directed Not-Taking/PRN Dexcom G6 Transm itter - as directed Not-Taking Dexcom G6 Transm itter - as directed Active fenofibrate 145 mg oral tablet (20 sources) Peroxisome Proliferator Receptor alpha Agonist take 1 tablet by mouth every twenty-four hours Fenofibrate 145 MG 1 tablet Orally Once a day Not-Taking/PRN LEVEMIR FLEXTOUCH 100 UNIT/ ML (20 sources) LEVEMIR FLEXTOUC H 100 UNIT/ ML 50 units Subcutaneous hs for 30 days Not-Taking/PRN LEVEMIR FLEXTOUC H 100 UNIT/ ML 50 units Subcutaneous hs for 30 days Not-Taking LEVEMIR FLEXTOUC H 100 UNIT/ ML 50 units Subcutaneous hs for 30 days Active LEVEMIR FLEXTOUC H 100 UNIT/ ML 50 units SC q HS, 15 EACH Subcutaneous daily Active OneTouch Ultra Blue (20 sources) OneTouch Ultra B lue strips Not-Taking/PRN OneTouch Ultra B lue strips Not-Taking OneTouch Ultra B lue strips Active tiZANidine 4 mg oral tablet (20 sources) Central alpha-2 Adrenergic Agonist take 1 tablet by mouth every eight hours tiZANidine HCl 4 MG 1 tablet as needed Orally Three times a day Not-Taking/PRN Problems Active Problems Problem Classification Problem Date Documented Date Episodic/Chronic Abdominal pain (20 sources) Unspecified abdominal pain; Translations: [Periumbilical pain] Onset: 12-31-2021 Episodic Acute bronchitis (9 sources) Acute bronchitis; Translations: [Acute bronchitis due to other specified organisms] Episodic Administrative/social admission (4 sources) Dietary counseling and surveillance Episodic Chronic obstructive pulmonary disease and bronchiectasis (1 source) Bronchitis, not specified as acute or chronic Episodic Developmental disorders (20 sources) Developmental academic disorder; Translations: [Developmental disorder of scholastic skills, unspecified] Chronic Diabetes mellitus with complications (20 sources) Type 2 diabetes mellitus; Translations: [Type 2 diabetes mellitus with hyperglycemia] Onset: 01-07-2014 Chronic Diabetes mellitus with complications (1 source) Diabetes mellitus with complications; Translations: [Diabetes mellitus without mention of complication, type II or unspecified type, uncontrolled] Onset: 01-07-2014 Diabetes mellitus without complication (20 sources) Type 2 diabetes mellitus without complications; Translations: [Diabetes mellitus without complication] Onset: 01-06-2022 Chronic Disorders of lipid metabolism (20 sources) Hyperlipidemia, unspecified; Translations: [Mixed hyperlipidemia] Onset: 01-06-2022 Chronic Essential hypertension (20 sources) Essential hypertension; Translations: [Essential (primary) hypertension] Onset: 02-07-2014 Chronic Essential hypertension (1 source) Essential hypertension; Translations: [Essential hypertension, benign] Onset: 02-07-2014 Genitourinary symptoms and ill-defined conditions (18 sources) Urinary incontinence; Translations: [Unspecified urinary incontinence] Onset: 07-03-2014 Chronic Intestinal obstruction without hernia (20 sources) Other intestinal obstruction unspecified as to partial versus complete obstruction; Translations: [Intestinal obstruction] Onset: 01-06-2022 Episodic Joint disorders and dislocations; trauma-related (9 sources) Derangement of knee; Translations: [Unspecified internal derangement of knee] Chronic Nutritional deficiencies (20 sources) Vitamin D deficiency; Translations: [Vitamin D deficiency, unspecified] Chronic Osteoarthritis (9 sources) Osteoarthritis; Translations: [Polyosteoarthritis, unspecified] Chronic Other aftercare (10 sources) microsoft dynamics ax developer (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 insulin; Translations: [HYDROELECTRIC MECHANIC CURRENT USE OF INSULIN] Onset: 08-10-2022 Episodic Other aftercare (20 sources) Long-term current use of insulin; Translations: [FCI (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 insulin] Episodic Other connective tissue disease (2 sources) Fibromyalgia; Translations: [FIBROMYALGIA] Onset: 01-06-2022 Episodic Other connective tissue disease (20 sources) Lateral epicondylitis; Translations: [Lateral epicondylitis, left elbow] Episodic Other connective tissue disease (20 sources) Fibromyalgia; Translations: [Fibromyalgia] Episodic Other connective tissue disease (2 sources) Lateral epicondylitis, left elbow; Translations: [Epicondylitis, lateral, left] Episodic Other hereditary and degenerative nervous system conditions (8 sources) Mild cognitive disorder ; Translations: [Mild cognitive impairment, so stated] Onset: 06-02-2016 Chronic Other hereditary and degenerative nervous system conditions (1 source) Mild cognitive impairment, so stated; Translations: [Mild cognitive impairment, so stated] Onset: 06-02-2016 Chronic Other nervous system disorders (1 source) Demyelinating disease of central nervous system; Translations: [Demyelinating disease of central nervous system, unspecified] 09-09-2023 Chronic Other nutritional; endocrine; and metabolic disorders (5 sources) Morbid (severe) obesity due to excess calories; Translations: [MORBID SEVERE OBES D/T EXCESS CAITLIN] Onset: 01-06-2022 Chronic Other nutritional; endocrine; and metabolic disorders (1 source) Body mass index (BMI) 33.0-33.9, adult; Translations: [BODY MASS INDEX BMI 33.0-33.9 ADULT] Onset: 01-06-2022 Chronic Other nutritional; endocrine; and metabolic disorders (20 sources) Morbid obesity; Translations: [Morbid (severe) obesity due to excess calories] Chronic Other nutritional; endocrine; and metabolic disorders (20 sources) Body mass index 30+ - obesity; Translations: [Body mass index (BMI) 38.0-38.9, adult] Chronic Other nutritional; endocrine; and metabolic disorders (20 sources) Severe obesity; Translations: [Morbid (severe) obesity due to excess calories] Chronic Other nutritional; endocrine; and metabolic disorders (9 sources) Simple obesity ; Translations: [Other obesity due to excess calories] Onset: 06-18-2014 Chronic Other nutritional; endocrine; and metabolic disorders (9 sources) Obesity; Translations: [Obesity, unspecified] Onset: 06-18-2014 Chronic Other nutritional; endocrine; and metabolic disorders (20 sources) Obese class II; Translations: [Body mass index 35.0-35.9, adult] Onset: 08-25-2015 Chronic Other nutritional; endocrine; and metabolic disorders (16 sources) Obese class I; Translations: [Body mass index 34.0-34.9, adult] Onset: 08-25-2015 Chronic Other nutritional; endocrine; and metabolic disorders (6 sources) Body mass index (BMI) 38.0-38.9, adult Chronic Other upper respiratory disease (20 sources) Seasonal allergy; Translations: [Other seasonal allergic rhinitis] Chronic Other upper respiratory disease (8 sources) Seasonal allergic rhinitis; Translations: [Other seasonal allergic rhinitis] Chronic Other upper respiratory disease (2 sources) Other seasonal allergic rhinitis; Translations: [Seasonal allergies] Chronic Other upper respiratory infections (20 sources) Acute maxillary sinusitis, unspecified; Translations: [Acute maxillary sinusitis] Onset: 11-18-2014 Episodic Danika-; endo-; and myocarditis; cardiomyopathy (except that caused by tuberculosis or sexually transmitted disease) (18 sources) Myocarditis; Translations: [Myocarditis, unspecified] Onset: 09-18-2013 Chronic Residual codes; unclassified (1 source) Sleep apnea, unspecified; Translations: [SLEEP APNEA UNSPECIFIED] Onset: 01-06-2022 Chronic Residual codes; unclassified (20 sources) Obstructive sleep apnea syndrome; Translations: [Obstructive sleep apnea (adult) (pediatric)] Onset: 10-11-2013 Chronic Residual codes; unclassified (6 sources) Obstructive sleep apnea (adult) (pediatric); Translations: [Obstructive sleep apnea (adult) (pediatric)] Chronic Residual codes; unclassified (8 sources) H/O: Disorder; Translations: [Personal history of other specified conditions] Episodic Residual codes; unclassified (1 source) Personal history of other specified conditions; Translations: [Personal history of other specified conditions] Episodic Spondylosis; intervertebral disc disorders; other back problems (20 sources) Lumbar spondylosis; Translations: [Spondylosis without myelopathy or radiculopathy, lumbar region] Onset: 12-26-2014 Chronic Systemic lupus erythematosus and connective tissue disorders (9 sources) Systemic sclerosis; Translations: [Systemic sclerosis, unspecified] Onset: 10-04-2013 Chronic Unclassified (1 source) CONTACT W/AND (SUSP) EXPOS COVID-19; Translations: [CONTACT W/AND (SUSP) EXPOS COVID-19] Onset: 01-06-2022 Unclassified (9 sources) Exposure to acute respiratory syndrome coronavirus 2; Translations: [Contact with and (suspected) exposure to COVID-19] Unclassified (8 sources) Long-term current use of drug therapy; Translations: [Long-term (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 other medications] Onset: 06-17-2017 Unclassified (1 source) Routine general medical examination at health care facility; Translations: [Routine general medical examination at health care facility] Onset: 01-04-2018 Unclassified (1 source) Sprain and strain of calcaneofibular (ligament); Translations: [Sprain and strain of calcaneofibular (ligament)] Onset: 07-03-2014 Unclassified (1 source) Pain in joint, site unspecified; Translations: [Pain in joint, site unspecified] Onset: 08-27-2013 Unclassified (1 source) Body mass index 35.0-35.9, adult; Translations: [Body mass index 35.0-35.9, adult] Onset: 08-25-2015 Unclassified (1 source) Body mass index 34.0-34.9, adult; Translations: [Body mass index 34.0-34.9, adult] Onset: 08-25-2015 Unclassified (1 source) Long-term (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 other medications; Translations: [Long-term (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 other medications] Onset: 06-17-2017 Unclassified (1 source) Body mass index 33.0-33.9, adult; Translations: [Body mass index 33.0-33.9, adult] Onset: 08-25-2015 Past or Other Problems Problem Classification Problem Date Documented Date Episodic/Chronic Anal and rectal conditions (9 sources) Anorectal abscess; Translations: [Anorectal abscess] Onset: 04-11-2015 Episodic Bacterial infection; unspecified site (9 sources) Bacterial infectious disease; Translations: [Bacterial infection, unspecified, in conditions classified elsewhere and of unspecified site] Onset: 02-21-2017 Episodic Blindness and vision defects (9 sources) Visual disturbance; Translations: [Other visual disturbances] Onset: 01-07-2014 Episodic Diseases of mouth; excluding dental (9 sources) Sialoadenitis; Translations: [Sialoadenitis, unspecified] Resolved: 06-16-2021 Episodic Disorders of teeth and jaw (9 sources) Temporomandibular joint disorder; Translations: [Unspecified temporomandibular joint disorder, unspecified side] Resolved: 09-14-2021 Episodic Genitourinary symptoms and ill-defined conditions (9 sources) Urgent desire to urinate; Translations: [Urgency of urination] Onset: 08-01-2014 Episodic Malaise and fatigue (9 sources) Malaise and fatigue; Translations: [Other malaise and fatigue] Onset: 06-02-2016 Episodic Nausea and vomiting (9 sources) Nausea and vomiting; Translations: [Nausea with vomiting, unspecified] Onset: 07-22-2017 Episodic Nonspecific chest pain (9 sources) Chest pain; Translations: [Other chest pain] Onset: 07-15-2016 Episodic Open wounds of extremities (9 sources) Open wound of hand except fingers with complication; Translations: [Puncture wound with foreign body of left hand, initial encounter] Onset: 01-11-2018 Episodic Other acquired deformities (9 sources) Acquired deformity of ankle AND/OR foot; Translations: [Other acquired deformity of ankle and foot] Onset: 09-20-2014 Episodic Other aftercare (1 source) Other senior care (current) drug therapy; Translations: [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] Onset: 01-06-2022 Episodic Other circulatory disease (1 source) Elevated blood-pressure reading, without diagnosis of hypertension; Translations: [ELEVATED BP READING W/O DX HTN] Onset: 01-06-2022 Episodic Other circulatory disease (8 sources) Cardiovascular symptoms; Translations: [Other specified symptoms and signs involving the circulatory and respiratory systems] Resolved: 06-16-2021 Episodic Other circulatory disease (1 source) Other specified symptoms and signs involving the circulatory and respiratory systems; Translations: [Other specified symptoms and signs involving the circulatory and respiratory systems] Resolved: 06-16-2021 Episodic Other ear and sense organ disorders (8 sources) Acute actinic otitis externa; Translations: [Acute actinic otitis externa, left ear] Resolved: 06-16-2021 Episodic Other ear and sense organ disorders (1 source) Acute actinic otitis externa, left ear; Translations: [Acute actinic otitis externa, left ear] Resolved: 06-16-2021 Episodic Other injuries and conditions due to external causes (9 sources) Traumatic injury of common peroneal nerve; Translations: [Injury of peroneal nerve at lower leg level, unspecified leg, initial encounter] Onset: 08-26-2014 Episodic Other nervous system disorders (8 sources) Paresthesia; Translations: [Paresthesia of skin] Onset: 07-03-2014 Episodic Other nervous system disorders (8 sources) Skin sensation disturbance; Translations: [Other disturbances of skin sensation] Onset: 01-24-2017 Episodic Other nervous system disorders (1 source) Paresthesia of skin; Translations: [Paresthesia of skin] Onset: 07-03-2014 Episodic Other nervous system disorders (1 source) Other disturbances of skin sensation; Translations: [Other disturbances of skin sensation] Onset: 01-24-2017 Episodic Other non-traumatic joint disorders (8 sources) Joint pain; Translations: [Pain in joint, site unspecified] Onset: 08-27-2013 Episodic Other skin disorders (9 sources) Sebaceous cyst; Translations: [Sebaceous cyst] Onset: 04-18-2015 Episodic Skin and subcutaneous tissue infections (9 sources) Furuncle of left foot; Translations: [Furuncle of left foot] Onset: 11-05-2016 Episodic Spondylosis; intervertebral disc disorders; other back problems (18 sources) Low back pain; Translations: [Lumbago] Onset: 07-03-2014 Episodic Sprains and strains (17 sources) Sprain of calcaneofibular ligament; Translations: [Sprain and strain of calcaneofibular (ligament)] Onset: 07-03-2014 Episodic Unclassified (1 source) Suspected COVID-19 virus infection Z20.822 Viral infection (1 source) COVID-19 Results Test Name Value Interpretation Reference Range Facility [facility] 02-16-2024 CNPN Telephone (NIQ) KALEIGH MOTLEY ([id number]) 1985 M Date Time Provider Department 02/16/24 AZEB MATHUR During your visit today, we recorded the following information about you: Ana Anderson 02/16/2024 2:59 PM Signed Called to reschedule 04/[address] mathur since she is out of the office. LVM and sent reminder in the mail. Allergies As of Date: 02/16/2024 Noted Allergy Reaction ACARBOSE 09/09/2023 14 - Other: See Comments LIRAGLUTIDE 08/04/2023 14 - Other: See Comments METFORMIN 08/04/2023 16 - Unknown NAPROXEN 07/01/2013 4 - Hives Date Reviewed: 09/09/2023 Reviewed by: Shari Peacock MA - Fully Assessed Reason for Visit: Appointment [[id number]] Cmt: Called to reschedule 04/[address] mathur since she is out of the office. [facility] and sent reminder in the mail. Prescriptions as of 02/16/2024 - sildenafil (VIAGRA) 25 mg tablet Take 1 tablet by mouth once daily as needed. - Vit B Comp and C-Vit E-FA-Shanda-Zn 0.4 mg tab Take by mouth every 24 hours. - HUMALOG KWIKPEN INSULIN 200 unit/mL (3 mL) injection inject subcutaneously four times a day ACCORDING TO ISS 1:7, ICR 1:2, EXPECT 220 UNITS PER DAY - atorvastatin (LIPITOR) 20 mg tablet Take 20 mg by mouth daily at bedtime. - TRESIBA FLEXTOUCH U-200 200 unit/mL (3 mL) injection INJECT 55 UNITS SUBCUTANEOUSLY ONCE DAILY - TITRATE TO 80 UNITS PER DAY - insulin degludec (TRESIBA) 200 unit/mL (3 mL) injection Inject subcutaneously every 24 hours. - JARDIANCE 25 mg tablet Take 1 tablet by mouth every afternoon. Problem List As Of Date: 02/16/2024 (None) Encounter Status:Closed by ANA ANDERSON on 02/16/24 [facility] CNOVon 09-09-2023 CNOV Office Visit (NEMSMN) KALEIGH MOTLEY ([id number]) 1985 M Date Time Provider Department 09/09/23 10:30 AM AZEB MATHUR During your visit today, we recorded the following information about you: Pulse Blood pressure Weight Height 94/minute 130/92 144 kg 1.905 m Azeb Mathur DO 09/09/2023 4:05 PM [facility] NEW PATIENT EVALUATION/CONSULTAT ION Referral source: No referring provider defined for this encounter. Also followed by: No care executive team leader to display PRINCIPAL NEUROLOGIC DIAGNOSIS: Multiple neurological symptoms, work-up in progress DISEASE SUMMARY Date of onset: 2013 vs 2022 Date of diagnosis of MS: n/a Disease course at onset: Relapsing-Remitting Current disease course: Relapsing-Remitting Previous disease therapies: none Current disease therapy: none Most recent MRI brain: none Most recent MRI cervical spine: none CSF: none JCV serology result and date: none HISTORY OF ILLNESS: An opinion on this 38 year old right handed male was requested by the patient for a second opinion on neurological symptoms. The patient was accompanied by and sister. Previous records (physician notes, laboratory reports, and radiology reports) and imaging studies were reviewed and summarized. My recommendations will be communicated back to the patient's physician(s) via electronic medical record. Follow-up is expected to be with me at the [facility]. When he was younger he had multiple concussions and recovered. At 16 he had mycarditis attributed to significant caffeine intake and pericarditis. His first neurological symptom occurred around 28 years old. 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 At work that day he stood up and heard a pop in his back. He collapsed, felt like he couldn't move his legs for several hours, and he had dfificulty walking and had radiating pain. It worsened and he developed a right foot drop during this time. His left foot does also get weak. He has a brace, but doesn't use it. 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 After the surgery the foot drop signficiant improved. He got some strength back in his legs, but not completely. He also has a history of knee surgery on his left knee twice In his upper extremities he will get weakness and pain in his shoulders. When he wakes up he feels like it takes it time for his arms to wake up . This is new in the last few months. He also has numbness and tingling in his hands. 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 He was told it was neuropathy form his diabetes. The first time he noticed the tingling was a few years after the back surgery. Colder weather makes it worse. It overall has stayed the same. In the last year he has had more bad days then good days. He has had type II diabeties since his late 20s, At the time of diagnosis he was in a diabetic coma. His Hga1c at diagnosis was 16. He is now at 7.5, but it was high or many years, often his glucose was in the 400s. It has only been well controlled for about the last year since establishing with an gun fitter. In May he had a significant migraine with flashing lights and slow motion experience in his vision. He will have intermittent migraines that occur. These have occurred for many years. He can go months to sometimes years without one. 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 He had two sisters with MS (Ally and Betsy, both cared for by Nasima at [place]). His last MRI lumbar was prior to his surgery. He is very claustrphobic. Last EMG was before his lumbar surgery. [facility] Neuro-QoL Functions (higher=better functioning) Flowsheet Row Office Visit from 09/09/2023 in [facility] Upper Extremity Domain T Score 41.48 Lower Extremity Domain T Score 42.17 Cognitive Function Domain T Score 44.4 Positive Affect Well Being T Score -- Ability To Participate In Social Roles T Score 43.48 Satisfaction With Social Roles T Score 43.36 Neuro-QoL Symptoms (higher=worse symptoms) Flowsheet Row Office Visit from 09/09/2023 in [facility] Sleep Domain T Score 65.45 Fatigue Domain T Score 56.28 Anxiety Domain T Score 56.26 Depression Domain T Score 52.13 Stigma Domain T Score 52.77 Emotional Behavior Dyscontrol T Score -- PAST HISTORY: has a past medical history of Diabetes mellitus (HCC). has a past surgical history that includes lumbar. has a current medication list which includes the following prescription(s): vit b comp and c-vit e-fa-shanda-zn, humalog kwikpen insulin, atorvastatin, tresiba flextouch u-200, insulin degludec, jardiance, iv contrast, and diazepam. Social History Tobacco Use Smoking status: Never Smokeless tobacco: Never family history includes MS in his sister and sister. PHYSICAL EXAM: BP (more content not included)... [facility] Glucose - FINGER STICKon Glucose [Mass/Vol] 150 mg/dL [place] Other A1C HEMOGLOBINon 06-06-2023 HbA1c (Bld) [Mass fraction] 9.5 % [place] Other Glucose - FINGER STICKon Glucose [Mass/Vol] 249 mg/dL [place] Other HbA1c (Bld) [Mass fraction]o n 06-06-2023 A1C HEMOGLOBIN [place] Other A1C HEMOGLOBINon 02-09-2023 HbA1c (Bld) [Mass fraction] 8.3 % [place] Other Glucose - FINGER STICKon Glucose [Mass/Vol] 289 mg/dL [facility] Other HbA1c (Bld) [Mass fraction]o n 02-09-2023 A1C HEMOGLOBIN [place] Other BASIC METABOLIC PANELon 12-16 Calcium [Mass/Vol] 8.5 mg/dL Low 8.6-10.3 [facility] Comment on above: Order Comment: No: D o not add to previous draw Performed By: #### [id number] #### [facility] [address] [place] [address], [facility] Chloride [Moles/Vol] 108 mmol/L High 98-107 [facility] Comment on above: Order Comment: No: D o not add to previous draw Performed By: #### [id number] #### [facility] [address] [address], [place] CO2 [Moles/Vol] 27 mmol/L Normal 21-31 The [facility] Comment on above: Order Comment: No: D o not add to previous draw Performed By: #### [id number] #### [facility] [address] [facility]. [place] [id number], [place] Creatinine [Mass/Vol] 0.89 mg/dL Normal 0.70-1.30 [facility] Comment on above: Order Comment: No: D o not add to previous draw Performed By: #### [id number] #### [facility] [address] [place] [address], [place] GFR/1.73 sq M.predicted among blacks MDRD (S/P/Bld) [Vol rate/Area] mL/min/{1.73_m2} Normal >60 The [facility] Comment on above: Order Comment: No: D o not add to previous draw Performed By: #### [id number] #### [facility] [address] [place] [address], [place] GFR/1.73 sq M.predicted among non-blacks MDRD (S/P/Bld) [Vol rate/Area] mL/min/{1.73_m2} Normal >60 The [facility] Comment on above: Order Comment: No: D o not add to previous draw Performed By: #### [id number] #### [facility] [address] [place] [address], [place] Glucose [Mass/Vol] 151 mg/dL High 70-100 [facility] Comment on above: Order Comment: No: D o not add to previous draw Performed By: #### [id number] #### [facility] [address] [place] [address], [place] Potassium [Moles/Vol] 3.8 mmol/L Normal 3.5-5.1 [facility] Comment on above: Order Comment: No: D o not add to previous draw Performed By: #### [id number] #### [facility] [address] [place] [address], [place] Sodium [Moles/Vol] 141 mmol/L Normal 136-145 The [facility] Comment on above: Order Comment: No: D o not add to previous draw Performed By: #### [id number] #### [facility] [address] [place] [address], [place] Urea nitrogen [Mass/Vol] 9 mg/dL Normal 7-25 [facility] Comment on above: Order Comment: No: D o not add to previous draw Performed By: #### [id number] #### [facility] [address] [place] [address], [facility] CBC COMPLETE BLOOD COUNTon 0 01-03-2022 Erythrocyte distribution width (RBC) [Ratio] 13.4 % Normal 11.5-15.0 [facility] Comment on above: Order Comment: No: D o not add to previous draw Performed By: #### [id number] #### [facility] [address] [place] [address], [facility] Hematocrit (Bld) [Volume fraction] 39.8 % Normal 39.0-50.0 The [facility] Comment on above: Order Comment: No: D o not add to previous draw Performed By: #### [id number] #### [facility] [address] [place] [address], [facility] Hemoglobin (Bld) [Mass/Vol] 13.6 g/dL Normal 13.0-17.0 [facility] Comment on above: Order Comment: No: D o not add to previous draw Performed By: #### [id number] #### [facility] [address] [place] [address], [place] MCH (RBC) [Entitic mass] 28.6 pg Normal 27.0-33.0 [facility] Comment on above: Order Comment: No: D o not add to previous draw Performed By: #### 8 [id number] #### [facility] [address] [place] [address], [place] MCHC (RBC) [Mass/Vol] 34.2 g/dL Normal 32.0-35.0 [facility] Comment on above: Order Comment: No: D o not add to previous draw Performed By: #### 8 [id number] #### [facility] [address] [place] [address], [place] MCV (RBC) [Entitic vol] 83.6 fL Normal 82.0-98.0 [facility] Comment on above: Order Comment: No: D o not add to previous draw Performed By: #### 8 [id number] #### [facility] [address] [place] [address], [facility] Nucleated RBC/100 WBC (Bld) [Ratio] 0 % Normal 0-0 The [facility] Comment on above: Order Comment: No: D o not add to previous draw Performed By: #### 8 [id number] #### [facility] [address] [place] [address], [place] PLAT CNT 236 10*3/uL Normal 150-400 The [facility] Comment on above: Order Comment: No: D o not add to previous draw Performed By: #### 8 [id number] #### [facility] [address] [place] [address], [facility] RBC (Bld) [#/Vol] 4.76 10*6/uL Normal 4.20-5.70 The [facility] Comment on above: Order Comment: No: D o not add to previous draw Performed By: #### 8 [id number] #### [facility] [address] [place] [address], [place] WBC (Bld) [#/Vol] 6.91 10*3/uL Normal 4.00-10.60 [facility] Comment on above: Order Comment: No: D o not add to previous draw Performed By: #### 8 [id number] #### [facility] [address] [place] [address], [place] POC GLUCOSE LABon 01-03-2022 Glucose [Mass/Vol] 185 mg/dL High 70-100 The [facility] Comment on above: Performed By: #### 8 [id number] #### [facility] [address] [place] [address], [place] Glucose [Mass/Vol] 164 mg/dL High 70-100 The [facility] Comment on above: Performed By: #### 8 [id number] #### [facility] [address] [place] [address], [place] HEMOGLOBIN A1Con 01-02-2022 Glucose [Moles/Vol] 223 mmol/L Normal [facility] Comment on above: Order Comment: No: D o not add to previous draw Performed By: #### 3 1791 #### [facility] [address] [place] [address], [place] HbA1c (Bld) [Mass fraction] 9.4 % High 4.0-6.0 [facility] Comment on above: Order Comment: No: D o not add to previous draw Performed By: #### 3 1791 #### [facility] [address] [place] [address], [place] POC GLUCOSE LABon 01-02-2022 Glucose [Mass/Vol] 212 mg/dL High 70-100 The [facility] Comment on above: Performed By: #### 8 [id number] #### [facility] [address] [place] [address], [place] Glucose [Mass/Vol] 233 mg/dL High 70-100 The [facility] Comment on above: Performed By: #### 8 [id number] #### [facility] [address] [place] [address], [place] Glucose [Mass/Vol] 124 mg/dL High 70-100 The [facility] Comment on above: Performed By: #### 8 [id number] #### [facility] [address] [place] [address], [place] Glucose [Mass/Vol] 110 mg/dL High 70-100 The [facility] Comment on above: Performed By: #### 8 [id number] #### [facility] [address] [place] [address], [place] Glucose [Mass/Vol] 116 mg/dL High 70-100 [facility] Comment on above: Performed By: #### 8 [id number] #### [place] [address], [facility] ABDOMEN SERIES W CHESTon ABDOMEN SERIES W CHEST [facility] Department of Radiology [address] [place] [address] Patient Name: KALEIGH MOTLEY : 1985 Sex: M Age: Race: White Pt. Location: [id number] Patient Status: I Ordered Date: 01/01/2022 8:55:00 PM Completed Date: 01/01/2022 09:36 PM Requesting Provider: SLADE BROWNING Attending Provider: WARREN CARLSON Report Copy To: Signs & Symptoms: Abdomen Pain Generalized History: See Comments Comments: evaluate Obstruction Exam: ABDOMEN SERIES W CHEST ABDOMEN SERIES W CHEST 01/01/2022 9:36 PM CLINICAL INDICATIONS: Abdomen Pain Generalized TECHNOLOGIST COMMENTS:abdomen pain and distention, patient transferred here for bowel obstruction, patient had SBFT procedure at outside hospital 12-31-21 QUESTION FOR THE RADIOLOGIST: evaluate Obstruction PROTOCOL: AP(PA)Chest with Supine and Upright Abdomen views were obtained. COMPARISON: Patient had an abdominal pelvic CT December 31 FINDINGS: Chest: Normal heart size Slight prominence of perihilar markings No acute airspace disease No effusions No visible pneumothorax or apical cavitary process Consider standard PA and lateral views when appropriate and after removing overlying materials Abdomen: No visible free air There is GI contrast in nondilated colon and rectum There is residual dilated small bowel with gas, fluid and dilute contrast throughout the mid abdominal small bowel loops Findings could be seen with a partial small bowel obstruction. Underlying inflammatory or infectious bowel process is also a consideration. Depending on the patient's presentation a short-term follow-up MR enterography study might be useful Otherwise follow-up x-rays to document clearing and normalization when appropriate Small kidney stones better appreciated on CT No suspicious pelvic calcifications No erosive sacroiliitis was seen IMPRESSION: Residual dilated small bowel filled with gas, fluid and dilute contrast suggesting probable partial small bowel obstruction. There could be residual terminal ileitis or inflammatory/infecti ous bowel change Follow-up imaging suggested to show clearing and normalization when appropriate. MRI enterography could provide additional noninvasive imaging workup Slight prominence of perihilar markings without acute pneumonia or CHF Tiny kidney stones bilaterally without suspicious pelvic calcifications Electronically signed: Daniel Smalls. Transcribed by: [email or web address], User Resident: Electronically Signed by: DANIEL SMALLS @ 01/01/2022 09:55 PM Normal [facility] Comment on above: Order Comment: evalu ate Obstruction APTTon 01-01-2022 aPTT Coag (Bld) [Time] 28.6 s Normal 25.0-35.0 [facility] Comment on above: Order Comment: No: D o not add to previous draw Result Comment: ALL RESULTS MUST BE INTERPRETED WITH RESPECT TO BLOOD DRAWING ARTIFACT OR DILUTION ERROR OF ANTICOAGULANT AT THE TIME OF SAMPLING. THE APTT SHOULD NOT BE USED TO MONITOR UNFRACTIONATED HEPARIN THERAPY, THIS LABORATORY NO LONGER HAS AN ESTABLISHED THERAPEUTIC RANGE BASED ON THE APTT. IT IS RECOMMENDED THAT THE [facility] - HEPARIN ASSAY (ANTI-XA ACTIVITY) BE USED FOR THIS PURPOSE. Performed By: #### 8 [id number] #### [facility] [address] [place] [address], [facility] BASIC METABOLIC PANELon 12-16 Calcium [Mass/Vol] 8.6 mg/dL Normal 8.6-10.3 [facility] Comment on above: Order Comment: No: D o not add to previous draw Performed By: #### 0 0071, 71769, 37402, 17967 #### [facility] [address] [place] [address], [place] Chloride [Moles/Vol] 106 mmol/L Normal 98-107 [facility] Comment on above: Order Comment: No: D o not add to previous draw Performed By: #### 0 0071, 18151, 78754, 12489 #### [facility] [address] [place] [address], [place] CO2 [Moles/Vol] 26 mmol/L Normal 21-31 The [facility] Comment on above: Order Comment: No: D o not add to previous draw Performed By: #### 0 0071, 49440, 36789, 80204 #### [facility] [address] [place] [address], [facility] Creatinine [Mass/Vol] 0.78 mg/dL Normal 0.70-1.30 [facility] Comment on above: Order Comment: No: D o not add to previous draw Performed By: #### 0 0071, 38485, 89953, 17272 #### [facility] [address] [place] [address], [place] GFR/1.73 sq M.predicted among blacks MDRD (S/P/Bld) [Vol rate/Area] mL/min/{1.73_m2} Normal >60 The [facility] Comment on above: Order Comment: No: D o not add to previous draw Performed By: #### 0 0071, 72282, 77362, 28057 #### [facility] [address] [place] [address], [place] GFR/1.73 sq M.predicted among non-blacks MDRD (S/P/Bld) [Vol rate/Area] mL/min/{1.73_m2} Normal >60 [facility] [facility] Comment on above: Order Comment: No: D o not add to previous draw Performed By: #### 0 0071, 68973, 27232, 37559 #### [facility] [address] [place] [address], [facility] Glucose [Mass/Vol] 112 mg/dL High 70-100 The [facility] [place] Comment on above: Order Comment: No: D o not add to previous draw Performed By: #### 0 0071, 19083, 61597, 91193 #### [facility] [address] [place] [address], [facility] Potassium [Moles/Vol] 4.0 mmol/L Normal 3.5-5.1 The [facility] Comment on above: Order Comment: No: D o not add to previous draw Performed By: #### 0 0071, 37752, 79267, 96732 #### [facility] [address] [place] [address], [facility] Sodium [Moles/Vol] 139 mmol/L Normal 136-145 The [facility] [place] Comment on above: Order Comment: No: D o not add to previous draw Performed By: #### 0 0071, 94129, 42979, 46612 #### [facility] [address] [place] [place] [address], [facility] Urea nitrogen [Mass/Vol] 10 mg/dL Normal 7-25 The [facility] Comment on above: Order Comment: No: D o not add to previous draw Performed By: #### 0 0071, 46141, 93016, 69467 #### [facility] [address] [place] [address], [facility] CBC W/DIFFon 01-01-2022 ABS IMM GRANS 0.1 10*3/uL Normal 0.0-0.2 The [facility] Comment on above: Performed By: #### 5 0103 #### [facility] [address] [place] [address], [facility] ABS NEUTROPHILS 5.2 10*3/uL Normal 1.6-7.6 The [facility] Comment on above: Performed By: #### 5 3 #### [facility] [address] [place] [address], [facility] Basophils (Bld) [#/Vol] 0.0 10*3/uL Normal 0.0-0.2 The [facility] Comment on above: Performed By: #### 5 0103 #### [facility] [address] [place] [address], [facility] Basophils/100 WBC (Bld) 0.4 % Normal 0.0-1.0 The [facility] Comment on above: Performed By: #### 5 3 #### [facility] [address] [place] [address], [facility] Eosinophils (Bld) [#/Vol] 0.1 10*3/uL Normal 0.0-0.5 The [facility] Comment on above: Performed By: #### 5 3 #### [facility] [address] [place] [address], [facility] Eosinophils/100 WBC (Bld) 1.6 % Normal 0.0-6.0 The [facility] Comment on above: Performed By: #### 5 3 #### [facility] [address] [place] [address], [facility] Erythrocyte distribution width (RBC) [Ratio] 13.0 % Normal 11.5-15.0 The [facility] Comment on above: Performed By: #### 5 3 #### [facility] [address] [place] [address], [facility] Hematocrit (Bld) [Volume fraction] 42.6 % Normal 39.0-50.0 The [facility] Comment on above: Performed By: #### 5 3 #### [facility] [address] [place] [address], [facility] Hemoglobin (Bld) [Mass/Vol] 14.7 g/dL Normal 13.0-17.0 The [facility] Comment on above: Performed By: #### 5 0103 #### [facility] [address] [place] [address], [facility] IMMATURE GRANS 0.7 % Normal 0.0-1.0 The [facility] Comment on above: Performed By: #### 5 0103 #### [facility] [address] [place] [address], [facility] Lymphocytes (Bld) [#/Vol] 1.6 10*3/uL Normal 1.2-4.0 The [facility] Comment on above: Performed By: #### 5 0103 #### [facility] [address] [place] [address], [facility] Lymphocytes/100 WBC (Bld) 21.2 % Normal 20.0-45.0 The [facility] Comment on above: Performed By: #### 5 0103 #### [facility] [address] MCH (RBC) [Entitic mass] 28.9 pg Normal 27.0-33.0 [facility] Comment on above: Performed By: #### 5 0103 #### [facility] [address] [place] [address], [facility] MCHC (RBC) [Mass/Vol] 34.5 g/dL Normal 32.0-35.0 [facility] Comment on above: Performed By: #### 5 0103 #### [facility] [address] [place] [address], [facility] MCV (RBC) [Entitic vol] 83.9 fL Normal 82.0-98.0 [facility] Comment on above: Performed By: #### 5 0103 #### [facility] [address] [place] [address], [facility] Monocytes (Bld) [#/Vol] 0.5 10*3/uL Normal 0.1-1.0 [facility] Comment on above: Performed By: #### 5 0103 #### [facility] [address] [place] [id number], [facility] MONOS 7.0 % Normal 5.0-12.0 The [facility] Comment on above: Performed By: #### 5 0103 #### [facility] [address] [place] [address], [facility] Neutrophils/100 WBC (Bld) 69.1 % Normal 40.0-72.0 [facility] Comment on above: Performed By: #### 5 0103 #### [facility] [address] [place] [id number], [facility] Nucleated RBC/100 WBC (Bld) [Ratio] 0 % Normal 0-0 The [facility] Comment on above: Performed By: #### 5 010 #### [facility] [address] [place] [address], [facility] PLAT CNT 245 10*3/uL Normal 150-400 The [facility] Comment on above: Performed By: #### 5 0103 #### [facility] [address] [place] [id number], [facility] RBC (Bld) [#/Vol] 5.08 10*6/uL Normal 4.20-5.70 The [facility] Comment on above: Performed By: #### 5 0103 #### [facility] [address] [place] [id number], [facility] WBC (Bld) [#/Vol] 7.47 10*3/uL Normal 4.00-10.60 The [facility] Comment on above: Performed By: #### 5 3 #### [facility] [address] [place] [address], [facility] LACTATE WITH REFLEXon 2021 Lactate [Moles/Vol] 0.9 mmol/L Normal .5-2.2 The [facility] Comment on above: Order Comment: No: D o not add to previous draw Performed By: #### 8 5499 #### [facility] [address] [place] [address], [place] LIVER BATTERYon 01-01-2022 Albumin [Mass/Vol] 3.8 g/dL Normal 3.5-5.7 [facility] Comment on above: Order Comment: No: D o not add to previous draw Performed By: #### 0 0071, 67968, 01523, 26213 #### [facility] [address] [place] [address], [place] ALKALINE PHOSPH 72 IU/L Normal 34-104 The [facility] Comment on above: Order Comment: No: D o not add to previous draw Performed By: #### 0 0071, 31281, 41985, 42145 #### [facility] [address] [place] [address], [place] ALT [Catalytic activity/Vol] 23 U/L Normal 7-52 [facility] Comment on above: Order Comment: No: D o not add to previous draw Performed By: #### 0 0071, 03758, 35035, 66813 #### [facility] [address] [place] [address], [place] AST [Catalytic activity/Vol] 14 U/L Normal 13-39 [facility] Comment on above: Order Comment: No: D o not add to previous draw Performed By: #### 0 0071, 50757, 87226, 79481 #### [facility] [address] [place] [address], [place] Bilirubin [Mass/Vol] 1.1 mg/dL High 0.3-1.0 [facility] Comment on above: Order Comment: No: D o not add to previous draw Performed By: #### 0 0071, 79985, 42908, 40522 #### [facility] [address] [place] [address], [place] Bilirubin.direct [Mass/Vol] 0.3 mg/dL High 0.0-0.2 [facility] Comment on above: Order Comment: No: D o not add to previous draw Performed By: #### 0 0071, 49991, 49183, 31130 #### [facility] [address] [place] [address], [facility] Protein [Mass/Vol] 6.0 g/dL Normal 6.0-8.3 The [facility] [place] Comment on above: Order Comment: No: D o not add to previous draw Performed By: #### 0 0071, 36649, 68500, 74150 #### [facility] [address] [place] [address], [facility] MAGNESIUM BLOODon 01-01-2022 Magnesium [Mass/Vol] 2.0 mg/dL Normal 1.9-2.7 The [facility] Comment on above: Order Comment: No: D o not add to previous draw Performed By: #### 0 0071, 51457, 66069, 23251 #### [facility] [address] [place] [address], [facility] PHOSPHORUS BLOODon Phosphate [Mass/Vol] 2.5 mg/dL Normal 2.5-5.0 [facility] Comment on above: Order Comment: No: D o not add to previous draw Performed By: #### 0 0071, 10751, 42256, 26515 #### [facility] [address] [place] [address], [place] POC GLUCOSE LABon 01-01-2022 Glucose [Mass/Vol] 111 mg/dL High 70-100 The [facility] Comment on above: Performed By: #### 8 [id number] #### [facility] [address] [place] [address], [place] POINT OF CARE GLUCOSEon 12-16 Glucose [Mass/Vol] 100 mg/dL Normal 74-106 [facility] Comment on above: Performed By: #### P OCGLUC #### [facility] [address] [place] [address] [address] Sal Dick Glucose [Mass/Vol] 89 mg/dL Normal 74-106 [facility] Comment on above: Performed By: #### P OCGLUC #### [facility] [address] [place], [place] [address] Dr. Sal Dick PROTHROMBIN TIMEon 2 INR Coag (PPP) [Relative time] 1.14 {INR} Normal 0.91-1.16 The [facility] Comment on above: Order Comment: No: D o not add to previous draw Result Comment: ACCC P RECOMMENDED INR FOR WARFARIN THERAPY ----- ------- CONDITION INR PROPHYLAXIS OF VENOUS THROMBOSIS 2-3 (HIGH-RISK SURGERY) TREATMENT OF VENOUS THROMBOSIS 2-3 TREATMENT OF PULMONARY EMBOLISM 2-3 PREVENTION OF SYSTEMIC EMBOLISM: 2-3 ACUTE MYOCARDIAL INFARCTION TISSUE HEART VALVES VALVULAR HEART DISEASE ATRIAL FIBRILLATION RECURRENT SYSTEMIC EMBOLISM MECHANICAL HEART VALVE 2.5-3.5 FROM: ORAL ANTICOAGULANTS. MECHANISM OF ACTION, CLINICAL EFFECTIVENESS, AND OPTIMAL THERAPEUTIC RANGE. CHEST 1995;108:231S-246S. Performed By: #### 8 [id number] #### [facility] [address] [place] [address], [facility] PT Coag (PPP) [Time] 14.6 s Normal 12.3-14.8 [facility] Comment on above: Order Comment: No: D o not add to previous draw Result Comment: ALL RESULTS MUST BE INTERPRETED WITH RESPECT TO BLOOD DRAWING ARTIFACT OR DILUTION ERROR OF ANTICOAGULANT AT THE TIME OF SAMPLING. Performed By: #### 8 [id number] #### [facility] [address] [place] [address], [facility] XR ABD FLAT UP_PA Red 01-01 XR ABD FLAT UP_PA CH EXAMINATION: XR ABD FLAT UP_PA CH HISTORY: ABDOMINAL DISTENSION (GASEOUS) COMPARISON: XR small bowel follow-through 12/31/2021 FINDINGS: BOWEL GAS PATTERN: Air-filled small bowel distended up to 5.5 cm within left upper quadrant. Oral contrast has likely passed through nearly the entire small bowel, now present within the distal small bowel. No contrast within the colon. FREE AIR: None. CALCIFICATIONS: None significant. BONES: No fracture or visible bone lesion. OTHER: Negative. IMPRESSION: 1. Patient is 24 hours post initially drinking contrast, with contrast within distal small bowel. No contrast within colon. Findings would suggest complete mechanical obstruction of distal small bowel at site seen on yesterday's CT study. Consider CT imaging of the abdomen and pelvis for confirmation. Electronically authenticated by: TREMAYNE ANDERSON Date: 2022-01-01 08:07 Normal [facility] AMYLASEon 12-31-2021 Amylase [Catalytic activity/Vol] 38 U/L Normal 25-115 [facility] Comment on above: Performed By: #### C MP, BABAK, LIPA #### [facility] [address] [place] [address] Dr. Sal Dick CBC AUTO DIFFon 12-31-2021 BASO # 0.1 103/ul Normal 0.0-0.1 [facility] Comment on above: Performed By: #### C BC #### [facility] [address] [place] [address] [address] Sal Dick Basophils/100 WBC (Bld) 0.5 % Normal 0.2-2.0 [facility] Comment on above: Performed By: #### C BC #### [facility] [address] [place] [address] Dr. Sal Dick EO # 0.2 103/ul Normal 0.0-0.7 [facility] Comment on above: Performed By: #### C BC #### [facility] [address] [place] [address] Dr. Sal Dick Eosinophils/100 WBC (Bld) 1.9 % Normal 0.9-7.0 [facility] Comment on above: Performed By: #### C BC #### [facility] [address] [place] [address] Dr. Sal Dick Erythrocyte distribution width (RBC) [Ratio] 13.2 % Normal 11.0-15.0 [facility] Comment on above: Performed By: #### C BC #### [facility] [address] [place] [address] Dr. Sal Dick Hematocrit (Bld) [Volume fraction] 49.6 % Normal 42.0-54.0 [facility] Comment on above: Performed By: #### C BC #### [facility] [address] [place] [address] Dr. Sal Dick Hemoglobin (Bld) [Mass/Vol] 17.0 g/dL Normal 14.0-18.0 [facility] Comment on above: Performed By: #### C BC #### [facility] [address] [place] [address] Dr. Sal Dick IG # 0.05 10e3/ul Critically high 0.00-0.03 [facility] Comment on above: Performed By: #### C BC #### [facility] [address] [place] [address] Dr. Sal Dick IG % 0.5 % Normal 0.0-0.5 [facility] Comment on above: Performed By: #### C BC #### [facility] [address] [place] [address] Dr. Sal Dick LYMPH # 2.3 103/ul Normal 1.2-3.8 [facility] Comment on above: Performed By: #### C BC #### [facility] [address] [place] [address] Dr. Sal Dick Lymphocytes/100 WBC (Bld) 21.1 % Normal 20.5-60.0 [facility] Comment on above: Performed By: #### C BC #### [facility] [address] [place] [address] Dr. Sal Dick MANUAL DIFF REQ NO Normal [facility] Comment on above: Performed By: #### C BC #### [facility] [address] [place] [address] Dr. Sal Dick MCH (RBC) [Entitic mass] 28.7 pg Normal 25.9-34.0 [facility] Comment on above: Performed By: #### C BC #### [facility] [address] [place] [address] Dr. Sal Dick MCHC (RBC) [Mass/Vol] 34.3 g/dL Normal 29.9-35.2 [facility] Comment on above: Performed By: #### C BC #### [facility] [address] [place] [address] Dr. Sal Dick MCV (RBC) [Entitic vol] 83.8 fL Normal 80.0-94.0 [facility] Comment on above: Performed By: #### C BC #### [facility] [address] [place] [address] Dr. Sal Dick MONO # 0.9 103/ul Critically high 0.3-0.8 [facility] Comment on above: Performed By: #### C BC #### [facility] [address] [place] [address] Dr. Sal Dick Monocytes/100 WBC (Bld) 8.4 % Normal 1.7-12.0 [facility] Comment on above: Performed By: #### C BC #### [facility] [address] [place] [address] Dr. Sal Dick NEUT # 7.2 103/ul Critically high 1.4-6.5 [facility] Comment on above: Performed By: #### C BC #### [facility] [address] [place] [address] Dr. Sal Dick Neutrophils/100 WBC (Bld) 67.6 % Normal 43.0-75.0 [facility] Comment on above: Performed By: #### C BC #### [facility] [address] [place] [address] Dr. Sal Dick Platelet mean volume (Bld) [Entitic vol] 10.8 fL Normal 9.5-13.5 [facility] Comment on above: Performed By: #### C BC #### [facility] [address] [place] [address] [address] Sal Dick PLT 273 103/ul Normal 150-450 [facility] Comment on above: Performed By: #### C BC #### [facility] [address] [place] [id number] Sal Dick RBC 5.92 106/ul Normal 4.70-6.10 [facility] Comment on above: Performed By: #### C BC #### [facility] [address] [place], [place] [address] Dr. Sal Dick WBC 10.7 103/ul Normal 4.0-11.0 [facility] Comment on above: Performed By: #### C BC #### [facility] [address] [place] [address] ABD/PELV W CONon 01-01-20 CT ABD/PELV W CON EXAM: CT ABD/PELV W CON 12/31/2021 1:04 AM EDT [id number] CLINICAL STATEMENT: ABDOMINAL DISTENSION (GASEOUS) COMPARISON: No prior studies are available at the time of dictation. TECHNIQUE: Helically acquired images were obtained of the abdomen and pelvis following 100 cc of Omnipaque 300 IV contrast. No oral contrast was administered. Dose reduction techniques were achieved by using automated exposure control and/or adjustment of mA and/or kV according to patient size and/or use of iterative reconstruction technique. 2-D reconstructed images are provided. FINDINGS: The gallbladder is unremarkable. The upper abdominal solid organs are unremarkable. Multiple dilated loops of small bowel transient point in the distal small bowel suggesting high-grade mechanical small bowel obstruction. There is no free air. There is no ascites. There is no evidence of aortic aneurysm or dissection. The celiac artery, superior mesenteric artery, and superior mesenteric vein are grossly patent. There is no retroperitoneal adenopathy. There is no appendicitis or diverticulitis. There are no pelvic masses or loculated fluid collections. The lung bases are clear. Straightening of the normal lordotic curvature of the lumbosacral spine. Posterior asymmetric disc bulges at L3-L4 and L4-L5. There are no destructive bone lesions identified. IMPRESSION: Multiple dilated loops of small bowel transient point in the distal small bowel suggesting high-grade mechanical small bowel obstruction. FOLLOW-UP: Follow-up as clinically indicated. Electronically authenticated by: SEVERO MARTINEZ Date: 2021-12-31 04:28 Normal [facility]on [facility]-16 SARS-CoV-2 (COVID-19) RNA CANDY+probe Ql (Unsp spec) Not detected Normal NOT DETECTED [facility] Comment on above: Result Comment: When diagnostic testing is negative, the possibility of a false negative should be considered in the context of a patient's recent exposures and the presence of clinical signs and symptoms consistent with SARS-CoV-2. This test is not yet approved or cleared by the [place] FDA. When there are no FDA-approved or cleared tests available, and other criteria are met, FDA can make tests available under an emergency access mechanism called an Emergency Use Authorization (EUA). The EUA for this test is supported by the [place] of Health and Human Service's declaration that circumstances exist to justify the emergency use of in vitro diagnostics for the detection and/or diagnosis of the virus that causes COVID-19. This EUA will remain in effect for the duration of the COVID-19 declaration justifying emergency of IVDs, unless it is terminated or revoked by the FDA (after which the test may no longer be used). Performed By: #### C VDTBH #### [facility] [address] [place] [address] [address] Sal Dick LIPASEon 12-31-2021 Lipase [Catalytic activity/Vol] 251.0 U/L Normal 73.0-393.0 [facility] Comment on above: Performed By: #### C MP, BABAK, LIPA #### [facility] [address] [place] [address] [address] Sal Dick POINT OF CARE GLUCOSEon 12-16 Glucose [Mass/Vol] 100 mg/dL Normal 74-106 [facility] Comment on above: Performed By: #### P OCGLUC #### [facility] [address] [place] [address] [address] Sal Dick Glucose [Mass/Vol] 113 mg/dL Critically high 74-106 [facility] Comment on above: Performed By: #### P OCGLUC #### [facility] [address] [place] [address] Dr. Sal Dick Glucose [Mass/Vol] 132 mg/dL Critically high 74-106 [facility] Comment on above: Performed By: #### P OCGLUC #### [facility] [address] [place] [address] Dr. Sal Dick PROF 14(COMP METB)on 022 Albumin [Mass/Vol] 3.6 g/dL Normal 3.4-5.0 [facility] Comment on above: Performed By: #### P OCGLUC #### [facility] [address] [place] [address] Dr. Sal Dick Albumin/Globulin [Mass ratio] 0.9 {ratio} Normal [facility] Comment on above: Performed By: #### P OCGLUC #### [facility] [address] [place] [address] Dr. Sal Dick ALP [Catalytic activity/Vol] 88 U/L Normal 46-116 [facility] Comment on above: Performed By: #### P OCGLUC #### [facility] [address] [place] [address] Dr. Sal Dick ALT [Catalytic activity/Vol] 50 U/L Normal 16-63 [facility] Comment on above: Performed By: #### P OCGLUC #### [facility] [address] [place] [address] Dr. Sal Dick Anion gap [Moles/Vol] 11.1 mmol/L Normal [facility] Comment on above: Performed By: #### P OCGLUC #### [facility] [address] [place] [address] Dr. Sal Dick AST [Catalytic activity/Vol] 19 U/L Normal 15-37 [facility] Comment on above: Performed By: #### P OCGLUC #### [facility] [address] [place] [address] Dr. Sal Dick Bilirubin [Mass/Vol] 0.7 mg/dL Normal 0.2-1.0 [facility] Comment on above: Performed By: #### P OCGLUC #### [facility] [address] [place] [address] [address] Sal Dick Calcium [Mass/Vol] 9.1 mg/dL Normal 8.5-10.1 [facility] Comment on above: Performed By: #### P OCGLUC #### [facility] [address] [place] [address] [address] Sal Dick Chloride [Moles/Vol] 103 mmol/L Normal 98-107 [facility] Comment on above: Performed By: #### P OCGLUC #### [facility] [address] [place] [address] [address] Sal Dick CO2 [Moles/Vol] 30.4 mmol/L Normal 21.0-32.0 [facility] Comment on above: Performed By: #### P OCGLUC #### [facility] [address] [place] [address] Dr. Sal Dick Creatinine [Mass/Vol] 1.16 mg/dL Normal 0.70-1.30 [facility] Comment on above: Performed By: #### P OCGLUC #### [facility] [address] [place] [address] Dr. Sal Dick EGFR-AF LUXEMBOURGER >60 Normal >=60 [facility] Comment on above: Performed By: #### P OCGLUC #### [facility] [address] [place] [address] Dr. Sal Dick EGFR-NON AF LUXEMBOURGER >60 Normal >=60 [facility] Comment on above: Performed By: #### P OCGLUC #### [facility] [address] [address] [address] Sal Dick Globulin (S) [Mass/Vol] 4.2 g/dL Normal [facility] Comment on above: Performed By: #### P OCGLUC #### [facility] [address] [place] [address] Dr. Sal Dick Glucose [Mass/Vol] 230 mg/dL Critically high 74-106 [facility] Comment on above: Performed By: #### P OCGLUC #### [facility] [address] [address] [address] Sal Dick Potassium [Moles/Vol] 3.5 mmol/L Normal 3.5-5.1 [facility] Comment on above: Performed By: #### P OCGLUC #### [facility] [address] [address] [address] Sal Dick Protein [Mass/Vol] 7.8 g/dL Normal 6.4-8.2 [facility] Comment on above: Performed By: #### P OCGLUC #### [facility] [address] [address] [address] Sal Dick Sodium [Moles/Vol] 141 mmol/L Normal 136-145 [facility] Comment on above: Performed By: #### P OCGLUC #### [facility] [address] [address] [address] Sal Dick Urea nitrogen [Mass/Vol] 14.0 mg/dL Normal 7.0-18.0 [facility] Comment on above: Performed By: #### P OCGLUC #### [facility] [address] [address] [address] Sal Dick Urea nitrogen/Creatinin e [Mass ratio] 12.1 mg/mg Normal [facility] Comment on above: Performed By: #### P OCGLUC #### [facility] [address] [address] [address] Sal Dick XR ABD FLAT UP_PA Red 12-31 XR ABD FLAT UP_PA CH XR ABD FLAT UP_PA CH 12/31/2021 12:47 AM EDT INDICATION: Pain COMPARISON: None. TECHNIQUE: Multiple views of the abdomen were obtained. FINDINGS: No visible free air. There is diffuse dilation of small bowel throughout the abdomen. There is gas in the colon. No pathological calcification is identified. No acute abnormalities of the osseous structures. IMPRESSION: Appearance of the small bowel suggests high-grade obstruction, but some gas is noted in the colon which might suggest a partial or intermittent obstruction. CT abdomen and pelvis has been ordered for further evaluation. Electronically authenticated by: JEAN CLAUDE JAIME Date: 2021-12-31 02:14 Normal [facility] XR SMALL BOWEL FOLLOW THOUGH on 12-31-2021 XR SMALL BOWEL FOLLOW THOUGH EXAMINATION: XR SMALL BOWEL FOLLOW THOUGH HISTORY: ABDOMINAL DISTENSION (GASEOUS) COMPARISON: CT abdomen pelvis 12/31/2021 TECHNIQUE: Small bowel series was performed in the usual manner. 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 Standard level fluoroscopic mode of operation utilized. FINDINGS: DUODENUM: Mildly distended; filled with air and fluid. JEJUNUM: Mildly distended filled with air and contrast. ILEUM: Moderately distended filled with air. OTHER: Negative. IMPRESSION: 1. Mildly distended small bowel throughout its entire length with oral contrast having passed through approximately 50% of the bowel at 7 hours. No interval increase in amount of bowel distention since beginning of the study. Findings consistent with distal small bowel obstruction versus ileus. Electronically authenticated by: TREMAYNE ANDERSON Date: 2021-12-31 16:22 Normal [facility] Vital Signs Date Time Vital Sign Value Performing Clinician Facility 09-09-2023 09:59-0500 Body height 190.5 cm [employer] DO Work Phone: [facility] 09-09-2023 09:59-0500 Body weight 144.02 kg Azeb Davonte DO Work Phone: [facility] 09-09-2023 09:59-0500 Diastolic blood pressure 92 mm[Hg] Azeb Davonte DO Work Phone: [facility] 09-09-2023 09:59-0500 Heart rate 94 /min Azeb Davonte DO Work Phone: [facility] 09-09-2023 09:59-0500 Systolic blood pressure 130 mm[Hg] Azeb Davonte DO Work Phone: [facility] 08-04-2023 09:45-0500 Body height 190.5 cm Alycia Schwartz Other [facility] 08-04-2023 09:45-0500 Body mass index (BMI) [Ratio] 40.13 kg/m2 Alycia Schwartz Other [facility] 08-04-2023 09:45-0500 Body weight 145.65 kg Alycia Scally Other [facility] 08-04-2023 09:45-0500 Body weight 145.64 kg DO Benji Ball Work Phone: [facility] 08-04-2023 09:45-0500 Diastolic blood pressure 77 mm[Hg] Alycia Scally Other [facility] 08-04-2023 09:45-0500 Respiratory rate 18 /min Alycia Scally Other [facility] Other 08-04-2023 09:45-0500 SaO2% (BldA) [Mass fraction] 96 % Alycia Scally Other [facility] Other 08-04-2023 09:45-0500 Systolic blood pressure 122 mm[Hg] Alycia Scally Other [facility] 06-08-2023 15:30-0500 Body height 190.5 cm Benji Ball Other [facility] Other 06-08-2023 15:30-0500 Body mass index (BMI) [Ratio] 39.32 kg/m2 Benji Ball Other [facility] Other 06-08-2023 15:30-0500 Body weight 142.7 kg Benji Ball Other [facility] Other 06-08-2023 15:30-0500 Diastolic blood pressure 84 mm[Hg] Benji Ball Other [facility] Other 06-08-2023 15:30-0500 Respiratory rate 16 /min Benji Ball Other [facility] Other 06-08-2023 15:30-0500 Systolic blood pressure 135 mm[Hg] Benji Ball Other [facility] Other 06-06-2023 15:30-0500 Body height 190.5 cm Alycia Scally Other [facility] Other 06-06-2023 15:30-0500 Body mass index (BMI) [Ratio] 38.78 kg/m2 Alycia Scally Other [facility] Other 06-06-2023 15:30-0500 Body weight 140.75 kg Alycia Scally Other [facility] Other 06-06-2023 15:30-0500 Diastolic blood pressure 82 mm[Hg] Alycia Scally Other [facility] Other 06-06-2023 15:30-0500 Respiratory rate 18 /min Alycia Scally Other [facility] Other 06-06-2023 15:30-0500 SaO2% (BldA) [Mass fraction] 97 % Alycia Scally Other [facility] Other 06-06-2023 15:30-0500 Systolic blood pressure 117 mm[Hg] Alycia Scally Other [facility] Other 05-30-2023 12:00-0500 Body height 190.5 cm Benji Ball Other [facility] Other 05-30-2023 12:00-0500 Body temperature 98.6 [degF] Benji Ball Other [facility] Other 03-24-2023 11:15-0400 Body height 190.5 cm Alycia Scally Other [facility] Other 03-24-2023 11:15-0400 Body mass index (BMI) [Ratio] 38.57 kg/m2 Alycia Scally Other [facility] Other 03-24-2023 11:15-0400 Body weight 139.98 kg Alycia Scally Other [facility] Other 03-24-2023 11:15-0400 Diastolic blood pressure 80 mm[Hg] Alycia Scally Other [facility] Other 03-24-2023 11:15-0400 Respiratory rate 18 /min Alycia Scally Other [facility] Other 03-24-2023 11:15-0400 SaO2% (BldA) [Mass fraction] 95 % Alycia Scally Other [facility] Other 03-24-2023 11:15-0400 Systolic blood pressure 124 mm[Hg] Alycia Scally Other [facility] Other 03-08-2023 15:30-0400 Body height 190.5 cm Benji Ball Other [facility] Other 03-08-2023 15:30-0400 Body mass index (BMI) [Ratio] 38.04 kg/m2 Benji Ball Other [facility] Other 03-08-2023 15:30-0400 Body weight 138.08 kg Benji Ball Other [facility] Other 03-08-2023 15:30-0400 Diastolic blood pressure 102 mm[Hg] Benji Ball Other [facility] Other 03-08-2023 15:30-0400 Respiratory rate 12 /min Benji Ball Other [facility] Other 03-08-2023 15:30-0400 Systolic blood pressure 137 mm[Hg] Benji Ball Other [facility] Other 02-09-2023 15:00-0400 Body height 190.5 cm Alycia Scally Other [facility] Other 02-09-2023 15:00-0400 Body mass index (BMI) [Ratio] 38.23 kg/m2 Alycia Scally Other [facility] Other 02-09-2023 15:00-0400 Body weight 138.76 kg Alycia Scally Other [facility] Other 02-09-2023 15:00-0400 Diastolic blood pressure 72 mm[Hg] Alycia Scally Other [facility] Other 02-09-2023 15:00-0400 Respiratory rate 18 /min Alycia Scally Other [facility] Other 02-09-2023 15:00-0400 SaO2% (BldA) [Mass fraction] 96 % Alycia Scally Other [facility] Other 02-09-2023 15:00-0400 Systolic blood pressure 147 mm[Hg] Alycia Scally Other [facility] Other 09-03-2022 15:00-0500 Body height 190.5 cm Benji Ball Other [facility] Other 09-03-2022 15:00-0500 Body mass index (BMI) [Ratio] 37.77 kg/m2 Benji Ball Other [facility] Other 09-03-2022 15:00-0500 Body weight 137.08 kg Benji Ball Other [facility] Other 09-03-2022 15:00-0500 Diastolic blood pressure 70 mm[Hg] [facility]ji [employer] Other [facility] Other 09-03-2022 15:00-0500 Respiratory rate 20 /min [facility] [employer] Other [facility] Other 09-03-2022 15:00-0500 Systolic blood pressure 118 mm[Hg] [facility] [employer] Other [facility] Other Encounters Encounter Date Encounter Type Care Provider Facility Start: 03-16-2024 End: 03-16-2024 Telephone encounter Azeb Mathur DO Work Phone: [facility] Comment on above: Request Outside [facility] Records Start: 02-16-2024 Telephone encounter Azeb marks DO Work Phone: Neurology Comment on above: Appointment (Called to reschedule 04/[address] mathur since she is out of the office. LVM and sent reminder in the mail.) Start: 09-09-2023 End: 09-09-2023 ambulatory AZEB MATHUR Facility:[facility] Start: 09-09-2023 End: 09-09-2023 Patient encounter procedure Azeb Mathur DO Work Phone: [facility] Comment on above: Demyelinating diseas e of central nervous system (HCC) (Primary Dx); Diabetic polyneuropathy associated with type 2 diabetes mellitus (HCC) Start: 08-29-2023 End: 08-29-2023 ambulatory Benji Kulkarni Other [facility] Other Start: 08-29-2023 Office outpatient vi sit 15 minutes Benji Kulkarni [facility] Start: 08-04-2023 (DM) Diabetes Alycia Novakket[facility]ah [facility] Start: 08-04-2023 End: 08-05-2023 ambulatory DO Benji Kulkarni Work Phone: [facility] Other Start: 08-04-2023 End: 08-04-2023 Discharged Recurring DO Benji Kulkarni Work Phone: [facility] Work Phone: Start: 08-04-2023 End: 08-04-2023 Patient encounter procedure DO Benji Kulkarni Work Phone: [facility] Start: 08-02-2023 End: 08-02-2023 ambulatory Alycia Schwartz Other [facility] Other Start: 08-02-2023 Telephone encounter Alycia [facility] Start: 07-13-2023 End: 07-13-2023 ambulatory Alycia Schwartz Other [facility] Other Start: 07-13-2023 Nursing evaluation o f patient and report Alycia Schwartz [facility] Start: 07-01-2023 End: 07-01-2023 ambulatory Alycia Schwartz Other [facility] Other Start: 07-01-2023 Telephone encounter Alycia Molina [facility] Start: 06-21-2023 End: 06-21-2023 ambulatory Kaylynn Nova Other [facility] Other Start: 06-21-2023 Telephone encounter Kaylynn armenta [facility] Start: 06-08-2023 End: 06-08-2023 ambulatory Benji Kulkarni Other [facility] Other Start: 06-08-2023 Office outpatient vi sit 25 minutes Benji [facility] Start: 06-06-2023 (DM) Diabetes Alyciajose Schawrtz Rylie [facility] Start: 06-06-2023 End: 06-06-2023 ambulatory Alycia Schwartz Other [facility] Other Start: 05-30-2023 End: 05-30-2023 ambulatory Benji Kulkarni Other [facility] Other Start: 05-30-2023 Office outpatient vi sit 15 minutes [facility] Start: 05-25-2023 End: 05-25-2023 ambulatory Alycia Schwartz Other [facility] Other Start: 05-25-2023 Telephone encounter Alycia Samroz [facility] Start: 05-19-2023 End: 05-19-2023 ambulatory Alycia Schwartz Other [facility] Other Start: 05-19-2023 Nursing evaluation o f patient and report Alycia Fields [facility] Start: 05-16-2023 End: 05-16-2023 ambulatory Alycia Schwartz Other [facility] Other Start: 05-16-2023 Telephone encounter Alcyia Samroz [facility] Start: 04-20-2023 End: 04-20-2023 ambulatory Alycia Schwartz Other [facility] Other Start: 04-20-2023 Telephone encounter Alyciaizzy Schwartz Jesse [facility] Start: 03-24-2023 (DM) Diabetes Alycia Youngblood [facility] Start: 03-24-2023 End: 03-24-2023 ambulatory Alycia Schwartz Other [facility] Other Start: 03-17-2023 End: 03-17-2023 ambulatory Alycia Schwartz Other [facility] Other Start: 03-17-2023 Telephone encounter Alycia Molina [facility] Start: 03-15-2023 End: 03-15-2023 ambulatory Benji Kulkarni Other [facility] Other Start: 03-15-2023 Telephone encounter Benji Kulkarni [facility] Start: 03-08-2023 End: 03-08-2023 ambulatory Benji Shad Other [facility] Other Start: 03-08-2023 Office outpatient vi sit 25 minutes Benji Kulkarni [facility] Start: 03-04-2023 End: 03-04-2023 ambulatory Alycia Schwartz Other [facility] Other Start: 03-04-2023 Telephone encounter Alycia Molina [facility] Start: 02-24-2023 End: 02-24-2023 ambulatory Alycia Schwartz Other [facility] Other Start: 02-24-2023 Telephone encounter Alycia Molina [facility] Start: 02-21-2023 End: 02-21-2023 ambulatory Alycia Schwartz Other [facility] Other Start: 02-21-2023 Nursing evaluation o f patient and report Alycia Fields [facility] Start: 02-17-2023 End: 02-17-2023 ambulatory Alycia Schwartz Other [facility] Other Start: 02-17-2023 Telephone encounter Alycia howard [facility] Start: 02-16-2023 End: 02-16-2023 ambulatory Benji Kulkarni Other [facility] Other Start: 02-16-2023 Telephone encounter Benji Kulkarni [facility] Start: 02-14-2023 End: 02-14-2023 ambulatory Alycia Schwartz Other [facility] Other Start: 02-14-2023 Telephone encounter Aylcia howard [facility] Start: 02-10-2023 End: 02-10-2023 ambulatory Alycia Schwartz Other [facility] Other Start: 02-10-2023 Telephone encounter Alycia howard [facility] Start: 02-09-2023 End: 02-09-2023 ambulatory Benji Kulkarni Other [facility] Other Start: 02-09-2023 FQHC visit new patient Alycia Pleitez [facility] Start: 02-09-2023 Telephone encounter Benji Kulkarni [facility] Start: 01-19-2023 End: 01-19-2023 ambulatory Benji Kulkarni Other [facility] Other Start: 01-19-2023 Telephone encounter Benji Ball [facility] Start: 12-28-2022 End: 12-28-2022 ambulatory Benji Ball Other [facility] Other Start: 12-28-2022 Telephone encounter Benji Ball [facility] Start: 10-11-2022 End: 10-11-2022 ambulatory Benji Ball Other [facility] Other Start: 10-11-2022 Telephone encounter Benji Kulkarni [facility] Start: 09-13-2022 End: 09-13-2022 ambulatory Benji Kulkarni Other [facility] Other Start: 09-13-2022 Telephone encounter Benji Kulkarni [facility] Start: 09-07-2022 End: 09-07-2022 ambulatory Benji Kulkarni Other [facility] Other Start: 09-07-2022 Telephone encounter Benji Kulkarni [facility] Start: 09-03-2022 End: 09-03-2022 ambulatory Benji Kulkarni Other [facility] Other Start: 09-03-2022 Office outpatient vi sit 25 minutes Benji Kulkarni [facility] Start: 08-10-2022 End: 08-10-2022 ambulatory Benji Kulkarni Other [facility] Other Start: 08-10-2022 Telephone encounter Benji Kulkarni [facility] Start: 08-09-2022 End: 08-09-2022 ambulatory Benji Kulkarni Other [facility] Other Start: 08-09-2022 Office outpatient vi sit 15 minutes Benji Kulkarni [facility] Start: 08-05-2022 End: 08-05-[address] BENJI KULKARNI Facility:[facility] Start: 08-03-2022 End: 08-03-2022 ambulatory Benji Kulkarni Other [facility] Other Start: 08-03-2022 Encounter for genera l adult medical examination without abnormal findings Benji Kulkarni [facility] Start: 08-03-2022 Telephone encounter Benji [facility] Start: 01-01-2022 End: 01-03-2022 Evaluation and management of inpatient WARREN CARLSON Facility:[facility] Start: 12-31-2021 End: 01-01-[address] BENJI KULKARNI Facility:[facility] Start: 12-30-[address] BENJI KULKARNI Faciltay ty:[facility] Start: 11-04-[address] BENJI Ordonez ty:[facility] Start: 10-08-2020 Adult health examination Keo Kulk[facility]i Other [facility] Other Procedures Date Procedure Procedure Detail Performing Clinician Start: 01-04-2018 General examination of patient Benji Kulkarni Other Plan of Treatment Date Care Activity Detail Author Start: 01-11-2028 Urine microalbumin profile DTaP,Tdap,Td Vaccine (3 - Td or Tdap) [facility] Start: 05-04-2024 End: 05-04-2024 Patient encounter procedure 05/04/2024 2:30 PM EDT Office Visit [facility] [address] [place], [place] [id number] Azeb Mathur DO [address] [place] [address] MRI BRAIN [facility] Comment on above: MRI BRAIN Start: 05-04-2024 End: 05-04-2024 Patient encounter procedure MRI Q Comment on above: Demyelinating dis ease of central nervous system (HCC) [G37.9] oct Start: 03-18-2024 Influenza vaccination Influenza Vacc ine (#1) [facility] Start: 07-18-2023 Depression Assessment Depression Ass essment [facility] Start: 03-18-2023 Covid-19 Vaccine ( season) Covid-19 Vaccine ( season) [facility] Start: 03-18-2023 Influenza vaccination Influenza Vacc ine (#1) [facility] Start: 2018 Lipid panel Lipid Screening [facility] Start: 2002 Hepatitis B Vaccine (1 of 3 - 19+ 3-dose series) Hepatitis B Vaccine (1 of 3 - 19+ 3-dose series) [facility] Start: 2001 Anxiety Screening Anxiety Screening [facility] Start: 2001 Depression Screening Depression Scre ening [facility] Start: 2001 Hepatitis C screening Hepatitis C Sc bryanna [facility] Start: 2001 HIV screening HIV Screening [facility] Start: 1983 Covid-19 Vaccine (#1) Covid-19 Vacci ne (#1) [facility] Start: 1983 Hepatitis B Vaccine (1 of 3 - 3-dose series) Hepatitis B Vaccine (1 of 3 - 3-dose series) [facility] End: 10-08-2024 MR Brain WO and W contrast IV MRI BRAIN WO/W IVCON Radiology Routine Demyelinating disease of central nervous system (HCC) 1 Occurrences starting 09/09/2023 until 10/08/2024 [facility] Work Phone: Comment on above: 1 Occurrences starti ng 09/09/2023 until 10/08/2024 End: 03-02-2025 OCT NEURO INST OCT NEURO INST OPHT Imaging Routine Demyelinating disease of central nervous system (HCC) 1 Occurrences starting 09/09/2023 until 03/02/2025 [facility] Work Phone: Comment on above: 1 Occurrences starti ng 09/09/2023 until 03/02/2025 [facility] Immunizations Immunization Date Immunization Notes Care Provider Gonzalo brody 01-10-2018 diphtheria, tetanus toxoids and acellular pertussis vaccine, unspecified formulation Benji Kulkarni Other [facility] 01-10-2018 tetanus toxoid, redu tiffany diphtheria toxoid, and acellular pertussis vaccine, adsorbed DO Benji Kulkarni Work Phone: [facility] Payers Date Payer Category Payer Medicaid [id number] 2022 Medicaid [id number] 2016 Medicare MEDICARE MEDICAR E A AND B [id number] 2016-Present [phone] [address] [address] [place] [address] Medicare [id number] 1983 Unknown [id number] 1983 Unknown [id number] 1983 Unknown [id number] 1983 Unknown [id number] 1983 Unknown [id number] 1961 Medicare [id number] 1961 Self-pay 1959 Unknown [id number] Medicaid [employer] [id number] Unknown [id number] Social History Date Type Detail Facility Start: 09-09-2023 Sex Assigned At [facility] Other Start: 08-04-2023 End: 09-09-2023 Tobacco smoking status NHIS Never smoked tobacco (finding) [facility] Start: 1985 Sex Assigned At Male [facility] Start: 09-09-2023 Tobacco use and exposure Smokeless tobacco non-user [facility] Start: 09-09-2023 History of Social function [facility] National Score (1-10 0), lower number is lower risk 64 [facility] Start: 09-09-2023 Gender identity Identifies as male gender (finding) [facility] Start: 09-09-2023 Sexual orientation Heterosexual (finding) [facility] Medical Equipment Procedure Code Equipment Code Equipment Origin al Text Equipment Identifier Dates Start: 02-14-2023 Clinical Notes 01-25-2022 to 03-16-2024 Telephone Encounter - Judith Geiger LPN - 03/16/2024 11:19 AM EDTTelephone Encounter - Judith Geiger LPN - 03/16/2024 11:19 AM Azeb Garcia DO - 09/09/2023 10:30 AM EST Note Date & Type Note Facility 03-16-2024 Telephone encounter Note .[facility] NEW PATIENT REFERRAL TRIAGE Referral source:self No referring provider defined for this encounter. Referral Reason: for a second opinion on neurological symptoms Care Everywhere Completed Connection: [x]Yes or []No MyChart Dot Phrase Sent if Records were not sent MyChart Account?: [x]Yes or []No MyChart Dot Phrase Sent: Date 04/16/2024 Judith Geiger LPN [facility] 03-16-2024 Miscellaneous Notes .[facility] NEW PATIENT REFERRAL TRIAGE Referral source:self No referring provider defined for this encounter. Referral Reason: for a second opinion on neurological symptoms Care Everywhere Completed Connection: [x]Yes or []No MyChart Dot Phrase Sent if Records were not sent MyChart Account?: [x]Yes or []No MyChart Dot Phrase Sent: Date 04/16/2024 Judith Geiger LPN documented in this encounter [facility] 02-16-2024 Telephone encounter Note Called to reschedule 04/[address] mathur since she is out of the office. LVM and sent reminder in the mail. [facility] 02-16-2024 Miscellaneous Notes Called to reschedule 04/[address] mathur since she is out of the office. LVM and sent reminder in the mail. documented in this encounter [facility] 09-09-2023 History of Present illness Narrative Images from the original note were not included. [facility] NEW PATIENT EVALUATION/CONSULTATION Referral source: No referring provider defined for this encounter. Also followed by: No care executive team leader to display PRINCIPAL NEUROLOGIC DIAGNOSIS: Multiple neurological symptoms, work-up in progress DISEASE SUMMARY Date of onset: 2013 vs 2022 Date of diagnosis of MS: n/a Disease course at onset: Relapsing-Remitting Current disease course: Relapsing-Remitting Previous disease therapies: none Current disease therapy: none Most recent MRI brain: none Most recent MRI cervical spine: none CSF: none JCV serology result and date: none HISTORY OF ILLNESS: An opinion on this 38 year old right handed male was requested by the patient for a second opinion on neurological symptoms. The patient was accompanied by and sister. Previous records (physician notes, laboratory reports, and radiology reports) and imaging studies were reviewed and summarized. My recommendations will be communicated back to the patient's physician(s) via electronic medical record. Follow-up is expected to be with me at the [facility]. When he was younger he had multiple concussions and recovered. At 16 he had mycarditis attributed to significant caffeine intake and pericarditis. His first neurological symptom occurred around 28 years old. 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 At work that day he stood up and heard a pop in his back. He collapsed, felt like he couldn't move his legs for several hours, and he had dfificulty walking and had radiating pain. It worsened and he developed a right foot drop during this time. His left foot does also get weak. He has a brace, but doesn't use it. 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 After the surgery the foot drop signficiant improved. He got some strength back in his legs, but not completely. He also has a history of knee surgery on his left knee twice In his upper extremities he will get weakness and pain in his shoulders. When he wakes up he feels like it takes it time for his arms to wake up . This is new in the last few months. He also has numbness and tingling in his hands. 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 He was told it was neuropathy form his diabetes. The first time he noticed the tingling was a few years after the back surgery. Colder weather makes it worse. It overall has stayed the same. In the last year he has had more bad days then good days. He has had type II diabeties since his late 20s, At the time of diagnosis he was in a diabetic coma. His Hga1c at diagnosis was 16. He is now at 7.5, but it was high or many years, often his glucose was in the 400s. It has only been well controlled for about the last year since establishing with an gun fitter. In May he had a significant migraine with flashing lights and slow motion experience in his vision. He will have intermittent migraines that occur. These have occurred for many years. He can go months to sometimes years without one. 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 He had two sisters with MS (Ally and Betsy, both cared for by Davonte/Ariadna at [place]). His last MRI lumbar was prior to his surgery. He is very claustrphobic. Last EMG was before his lumbar surgery. [facility] Neuro-QoL Functions (higher=better functioning) Flowsheet Row Office Visit from 09/09/2023 in [facility] Upper Extremity Domain T Score 41.48 Lower Extremity Domain T Score 42.17 Cognitive Function Domain T Score 44.4 Positive Affect Well Being T Score -- Ability To Participate In Social Roles T Score 43.48 Satisfaction With Social Roles T Score 43.36 Neuro-QoL Symptoms (higher=worse symptoms) Flowsheet [facility] Office Visit from 09/09/2023 in [facility] Sleep Domain T Score 65.45 Fatigue Domain T Score 56.28 Anxiety Domain T Score 56.26 Depression Domain T Score 52.13 Stigma Domain T Score 52.77 Emotional Behavior Dyscontrol T Score -- PAST HISTORY: has a past medical history of Diabetes mellitus (HCC). has a past surgical history that includes lumbar. has a current medication list which includes the following prescription(s): vit b comp and c-vit e-fa-shanda-zn, humalog kwikpen insulin, atorvastatin, tresiba flextouch u-200, insulin degludec, jardiance, iv contrast, and diazepam. Social History Tobacco Use Smoking status: Never Smokeless tobacco: Never family history includes MS in his sister and sister. PHYSICAL EXAM: BP 130/92 Pulse 94 Ht 190.5 cm (6' 3 ) Wt (!) 144 kg (317 lb 8 oz) BMI 39.68 kg/m Multiple Sclerosis Performance Test Flowsheet Row Office Visit from 09/09/2023 in [facility] Processing Speed Total Number Correct 41 Low-contrast letter acuity test-2.5 percent opacity 34 Low-contrast letter acuity test-100 percent opacity 59 Dominant hand Right hand MDT Left Hand Time 27.06 MDT Right Hand Time 29.06 Walking Speed Test (25 feet) 6.72 Hair, skin, nails, and joints were normal. Neck was supple without Lhermitte's phenomenon. Heart was regular with no murmurs. Lungs were clear to auscultation bilaterally. There was no peripheral edema. The patient was alert and oriented to person, place, and time with normal language, attention and concentration, recent and remote memory, praxis, and intellectual function. Affect was normal. The patient did not appear depressed. Visual estes were full to confrontation. Pupils were 3 mm and briskly reactive OU without a relative afferent pupillary defect. Funduscopic examination was normal without disc edema, erythema, or atrophy. Ocular ductions were full without nystagmus or ataxia. Facial sensation was normal. Muscles of mastication and facial expression moved normally. Hearing was intact to finger rub bilaterally. Palatal movements were normal. Sternocleidomastoid and trapezius power were normal. Tongue movements were normal. There was no dysarthria. Motor Examination: There was no pronator drift. Restricted movement at shoulders bilaterally Right Upper Extremity: Left Upper Extremity: Deltoid 5/5 Deltoid 5/5 Biceps 5/5 Biceps 5/5 Triceps 5/5 Triceps 5/5 Wrist extensors 5/5 Wrist extensors 5/5 Wrist flexors 5/5 Wrist flexors 5/5 Dorsal interossei 5/5 Dorsal interossei 5/5 Abductor pollicis 5/5 Abductor pollicis 5/5 Tone (Derek scale) 0 Tone (Derek scale) 0 Right Lower Extremity: Left Lower Extremity: Hip flexors 5/5 Hip flexors 5-/5 Hip extensors 5/5 Hip extensors 5/5 Knee flexors 5/5 Knee flexors 5/5 Knee extensors 5/5 Knee extensors 5/5 Dorsiflexors 5/5 Dorsiflexors 5/5 Plantarflexors 4/5 Plantarflexors 5/5 Toe extensors 5/5 Toe extensors 5/5 Toe flexors 5/5 Toe flexors 5/5 Tone (Derek scale) 0 Tone (Derek scale) 0 Reflexes: brachioradialis + brachioradialis + biceps + biceps + triceps + triceps + patellar + patellar + Achilles 0 Achilles 0 Mustafa's sign absent Mustafa's sign absent clonus absent clonus absent plantar response down plantar response down Coordination testing in the arms and legs was performed including [id number], rapid-alternating, and fine movements. Rapid movements were smooth with good felicia and there was no dysmetria or ataxia. No signs of cerebellar dysfunction. Sensory examination: Light touch: Normal all four extremities. Vibration: significant diminished bilateral feet R worse than left Pinprick: only aware of touch in feet, unable to detect sharp until about mid calf, similar hands only minimal pinprick detection Proprioception: Diminished bilateral lower extremities. Romberg's test was normal. Gait was slight right foot drop, difficulty with heel and toe walk, unable to tandem REVIEW OF RECORDS: None REVIEW OF IMAGING STUDIES: None ASSESSMENT: 38 y/o M with a PMHx of DM II, lumbar DJD s/p surgery, and hx of myocarditis/pericarditis presents for initial evaluation of multiple neurological symptoms. He had one distinct event of acute onset LE numbness and weakness about 10 years ago that progressed over a year ultimately resulting in lumbar surgery with some resolution post surgery. He subsequently has developed further numbness tingling in his feet and hands over the years that can affect his walking and dexterity at time. More recently in the last few months he will wake up with arm heaviness and increased tingling that does improve once he is up. On exam today he has diminished reflexes throughout, impaired sensation to all modalities in a stocking/glove distribution, mild RLE distal weakness, and mildly impaired gait. We discussed today that his symptoms could be related to a variety of factors. First, his lower extremity symptoms could be explained by the combination of prior lumbar disc disease plus diabetic neuropathy. Although his UE symptoms could also be explained by a combination joint degeneration given restriction of movement at the shoulder plus diabetic neuropathy the more sudden interchange agent the last few months of numbness and weakness in the morning in the setting of better glucose control make it important to investigate other etiologies. Additionally, when someone has uncontrolled diabetes the peripheral process can sometimes mask upper motor neuron signs. Finally given both of his sisters have MS this does further add to the concern to investigate a superimposed central process. We will start with a MRI Brain and OCT, if these are normal then would not continue a work-up for MS. If there are any lesions suspicious for MS then will want to obtain spinal cord imaging. He is significantly claustrophobic so we are choosing to start with the Brain and then pursue further spinal cord imaging to break up time in the MRI. Finally, given the remote hx of myocarditis/pericarditis along with joint pain he may need further work-up for rheumatological conditions if Brain imaging is unrevealing. PLAN: -MRI Brain -OCT -Valium for MRI -consider SHELBIE panel/rheumatology work-up pending up -Consider MRI Cervical and/or Lumbar pending above findings -Follow up after MRI Office Visit on 09/09/23 MRI BRAIN WO/W IVCON OCT NEURO INST The chart was reviewed for possible participation in the following studies: None I spent a total of 60 minutes on the date of the service which included preparing to see the patient, [id number] patient care, completing clinical documentation, obtaining and/or reviewing separately obtained history, performing a medically appropriate examination, counseling and educating the patient/family/caregiver, ordering medications, tests, or procedures, communicating with other HCPs (not separately reported), independently interpreting results (not separately reported), communicating results to the patient/family/caregiver, and care coordination (not separately reported). Azeb Mathur DO [facility] documented in this encounter [facility] 09-09-2023 Note HNO ID: [id number] Author: AZEB MATHUR DO Service: ? Author Type: Physician Type: Progress Notes Filed: 09/09/2023 16:05 Note Text: [facility] NEW PATIENT EVALUATION/CONSULTATION Referral source: No referring provider defined for this encounter. Also followed by: No care executive team leader to display PRINCIPAL NEUROLOGIC DIAGNOSIS: Multiple neurological symptoms, work-up in progress DISEASE SUMMARY Date of onset: 2013 vs 2022 Date of diagnosis of MS: n/a Disease course at onset: Relapsing-Remitting Current disease course: Relapsing-Remitting Previous disease therapies: none Current disease therapy: none Most recent MRI brain: none Most recent MRI cervical spine: none CSF: none JCV serology result and date: none HISTORY OF ILLNESS: An opinion on this 38 year old right handed male was requested by the patient for a second opinion on neurological symptoms. The patient was accompanied by and sister. Previous records (physician notes, laboratory reports, and radiology reports) and imaging studies were reviewed and summarized. My recommendations will be communicated back to the patient's physician(s) via electronic medical record. Follow-up is expected to be with me at the [facility]. When he was younger he had multiple concussions and recovered. At 16 he had mycarditis attributed to significant caffeine intake and pericarditis. His first neurological symptom occurred around 28 years old. 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 At work that day he stood up and heard a pop in his back. He collapsed, felt like he couldn't move his legs for several hours, and he had dfificulty walking and had radiating pain. It worsened and he developed a right foot drop during this time. His left foot does also get weak. He has a brace, but doesn't use it. 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 After the surgery the foot drop signficiant improved. He got some strength back in his legs, but not completely. He also has a history of knee surgery on his left knee twice In his upper extremities he will get weakness and pain in his shoulders. When he wakes up he feels like it takes it time for his arms to wake up . This is new in the last few months. He also has numbness and tingling in his hands. 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 He was told it was neuropathy form his diabetes. The first time he noticed the tingling was a few years after the back surgery. Colder weather makes it worse. It overall has stayed the same. In the last year he has had more bad days then good days. He has had type II diabeties since his late 20s, At the time of diagnosis he was in a diabetic coma. His Hga1c at diagnosis was 16. He is now at 7.5, but it was high or many years, often his glucose was in the 400s. It has only been well controlled for about the last year since establishing with an gun fitter. In May he had a significant migraine with flashing lights and slow motion experience in his vision. He will have intermittent migraines that occur. These have occurred for many years. He can go months to sometimes years without one. 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 He had two sisters with MS (Ally and Betsy, both cared for by Nasima at [place]). His last MRI lumbar was prior to his surgery. He is very claustrphobic. Last EMG was before his lumbar surgery. [facility] Neuro-QoL Functions (higher=better functioning) Flowsheet Row Office Visit from 09/09/2023 in [facility] Upper Extremity Domain T Score 41.48 Lower Extremity Domain T Score 42.17 Cognitive Function Domain T Score 44.4 Positive Affect Well Being T Score -- Ability To Participate In Social Roles T Score 43.48 Satisfaction With Social Roles T Score 43.36 Neuro-QoL Symptoms (higher=worse symptoms) Flowsheet Row Office Visit from 09/09/2023 in [facility] Sleep Domain T Score 65.45 Fatigue Domain T Score 56.28 Anxiety Domain T Score 56.26 Depression Domain T Score 52.13 Stigma Domain T Score 52.77 Emotional Behavior Dyscontrol T Score -- PAST HISTORY: has a past medical history of Diabetes mellitus (HCC). has a past surgical history that includes lumbar. has a current medication list which includes the following prescription(s): vit b comp and c-vit e-fa-shanda-zn, humalog kwikpen insulin, atorvastatin, tresiba flextouch u-200, insulin degludec, jardiance, iv contrast, and diazepam. Social History Tobacco Use Smoking status: Never Smokeless tobacco: Never family history includes MS in his sister and sister. PHYSICAL EXAM: BP 130/92 Pulse 94 Ht 190.5 cm (6' 3 ) Wt (!) 144 kg (317 lb 8 oz) BMI 39.68 kg/m? Multiple Sclerosis Performance Test Flowsheet Row Office Visit from 09/09/2023 in [facility] Processing Speed Total Number Correct 41 Low-contrast letter acuity test-2.5 p (more content not included)... [facility] 08-29-[facility] Evaluation note Encounter Date Diagnosis Assessment Notes Aug, COVID-19 (ICD-10 - U07.1) Self isolate at home. - Cannot work - avoid contact with others - avoid pets - wipe counters, door knobs if touched - if can't avoid leaving home, must wear mask to protect others - need to stay isolated for 10 days from onset of symptoms - to discontinue isolation must be 5 days AND must be without fever for 24 hours AND symptoms must be improving. Always wear a mask in public places for complete 10 days Past the 5 days to initiate Paxlovid treatment. Suggest treat for secondary infection Aug, Bronchitis, not specified as acute or chronic (ICD-10 - J40) Instructed to use Robitussin or Mucinex for cough, saline or Flonase NS for congestion, Tylenol for pain and fever. Aug, Type 2 diabetes mellitus with hyperglycemia (ICD-10 - E11.65) Increases risk for more serious, prolonged illness. Monitor BS closely [facility] Other 01-18-2024 Evaluation note* Encounter Date Diagnosis Assessment Notes Treatment Notes Treatment Clinical Notes Jul, Primary hypertension (ICD-10 - I10) This patient is instructed to consume a healthy, low-fat, low-salt diet. They are also encouraged to continue exercise to achieve/maintain a normal BMI. Jul, Type 2 diabetes mellitus with hyperglycemia (ICD-10 - E11.65) ASSESSMENT: 1. Uncontrolled, a Type 2 diabetes with A1c of 9.5%, as high as 15% at diabetes diagnosis per his report. GMI today 8.1% showing improved on Jardiance 2. Above goal, possibly significant improvement. Appropriately reduce Tresiba to 67 units once daily, we will continue this, I will also increase Jardiance to 25 mg once daily with improved glycemia. He will continue Humalog 1 unit for every 70 mg/dL above goal and 1 unit for every 2 carbohydrates. We will adjust the sensitivities ongoing he should report any urinary tract issues or yeast issues maintain hydration and hold Jardiance for any times n.p.o. or decreased fluid intake Research shows that stamina with the current regime may fatigue, as would outcomes and CGM is equitable compaired to disease instability. Patient also maintains active lifestyle which increases cumbersome nature of current regime. Consideration for GLP-1 RA slow titration due to history of gastroparesis in the past no known pancreatitis s. Written information has been given . We discussed small bowel obstruction history, concerns for Ozempic contribution. Dr. Kulkarni is concerned for DEBI presentation of diabetes, 3. Patient is alert, oriented and receptive to making changes or counseling. Notes: Seen for an assessment of current glucose pattern, changes in treatment plan, counseling and coordination of care related to diabetes, risks, and benefits of treatment, medications, side effects. Given handouts to reinforce concepts reviewed during counseling, see scanned notes. TOPICS REVIEWED: 1. Time was spent reviewing: a. Basic concepts of diabetes, progressive beta cell , concepts of basal/bolus/corre ctive insulin requirements. Basal: The goal is fasting blood glucose of 90-130mg. IF fasting blood glucose starts to run under 100mg 3x's/ week, decrease dose by 10%. Bolus: The goal is to hold the blood glucose level steady meal to meal. If pt. is going to have increased physical activity after a meal, decrease the schedule meal dose prior to the activity by 30-50%. If pt. skips a meal do not take this dose. Correction: The goal is to correct an elevated glucose back into the 100-150mg range b. Nutrition: Concepts of healthy diet, encouraged to decrease saturated fat in diet and increase non-starchy vegetables and fruits in diet. BMI: Pt. needs to select one small change to decrease caloric intake or increase physical activity to help decrease weight. c. Correct treatment of hypoglycemia, carry a glucose source at all times on your person, in vehicles, and at bedside. Can use glucose tablets/4, four ounces of pop or juice equal to 15 G of carbohydrate. Blood glucose should be 100 mg/dl or higher when driving. d. ADA glucose goals for age and medical complexity reviewed e. Patient questions addressed 2. Activity/exercise : Encouraged to start any form of physical activity. Start low level and increase slowly to a minimal goal of 150 minutes/week. Limit activity to what is allowed by other issues such as cardiac, pulmonary or orthopedic restrictions. 3. Standards of care: Reminded to have an annual dilated eye exam, A1C every 3 months, urine testing for microalbumin once/year, check feet daily and report any cuts or sores that do not appear to be healing. 4. Meter: Plan to check blood glucose: Please check blood glucose levels 4 times/day. Back to back meals reveal effectiveness of bolus dosing. The blood glucose data is used to determine insulin doses and confirm symptoms for hypoglycemia and hyperglcyemia. 5. [facility]. Contact office if any issues or concerns with patterns of hypoglycemia, hyperglycemia, or diabetes medication issues. 6. Prescriptions: tresiba, new meds Jul, Type 2 diabetes mellitus with diabetic polyneuropathy (ICD-10 - E11.42) Inspect feet daily for cuts and calluses.Recommend diabetic shoes and inserts to prevent callus formation.Fall precautions. Jul, Hyperlipidemia, mixed (ICD-10 - E78.2) Instructed on diet and exercise with continued statin therapy.Discussed the beneficial effects of lowering cholesterol in reducing the risk for cerebrovascular and cardiovascular disease. Jul, Obstructive sleep apnea (ICD-10 - G47.33) This patient is aware of the benefits associated with MARIFER: With continued use, the patient reduces the risk for NH, CVA, HTN, cardiac dysrhythmias and sudden cardiac deaths.The patient is also aware of the association between MARIFER and morning headaches, daytime somnolence, fatigue and obesity. Instructed to contact the sleep lab Jul, Morbid (severe) obesity due to excess calories (ICD-10 - E66.01) This patient has been instructed on a low-fat, high-fiber diet. They are instructed to reduce calories, portion sizes and snacks. It is recommended that they exercise for 30 minutes, 3-5 times weekly. He has gained 20lbs in past year. Stressed importance of losing weight to improve his insulin resistance. Jul, Body mass index [BMI] 38.0-38.9, adult (ICD-10 - Z68.38) Jul, FCI (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 insulin (ICD-10 - Z79.4) Jul, Vitamin D deficiency (ICD-10 - E55.9) Learning About Vitamin D material was published to portal Jul, Hyperlipidemia (ICD-10 - E78.5) Learning About High Cholesterol material was published to portal Jul, HTN (hypertension) (ICD-10 - I10) High Blood Pressure: Care Instructions material was published to portal Above goal today, discussed goal of under 130/80 for kidney protection Jul, Dietary counseling and surveillance (ICD-10 - Z71.3) Learning About Healthy Weight material was published to portal Jul, Other I have spent 30 minutes with this patient and over 50% of the visit was counseling done by myself, Riddhi LEUNG. [facility] 12-27-2023 Evaluation note* Encounter Date Diagnosis Assessment Notes Treatment Notes Treatment Clinical Notes Jun, Type 2 diabetes mellitus with hyperglycemia (ICD-10 - E11.65) Jon and his came in today for download and evaluation of his Dexcom report. Jon has been logging his insulin in his Dexcom cynthia but it is not showing up on the report or in on the website. He is using Humalog U-200 insulin with his meals with a 1:2 ICR and a 1:7 ISF. He is counting his carbs correctly as far as I can tell and he said that he is taking his insulin before his meals. He is taking Tresiba U-200 74 units daily. His average BG was 257. 9% in range, 34% high, 56% very high and <1% low. He has tried GLP-1s in the past with poor side effects, He no longer tolerates Metformin, he took it for a year or 2 and then he starrted getting an extreemly upset stomach and could not tolerate it anymore. He has taken Jardiance in the past and tolerated well but his PCP stopped it when he started insulin. Jardiance was resumed at 10mg daily. Jon was given a 3 week sample. 60 minutes were spent evaluating the patient's report and discussing the findings with the patient by Mathew Byers RN, [facility]. Alycia Schwartz 07/14/2023 01:13:59 PM >discussed, reviewd and endorsed day of appt [facility] 12-15-2023 Evaluation note* Encounter Date Diagnosis Assessment Notes Treatment Notes Treatment Clinical Notes Jun, Type 2 diabetes mellitus with hyperglycemia (ICD-10 - E11.65) Jun, Type 2 diabetes mellitus with hyperglycemia, unspecified senior care insulin use status (ICD-10 - E11.65) [facility] 11-22-2023 Evaluation note* Encounter Date Diagnosis Assessment Notes Treatment Notes Treatment Clinical Notes May, Hyperlipidemia, mixed (ICD-10 - E78.2) Instructed on diet and exercise with continued statin therapy.Discussed the beneficial effects of lowering cholesterol in reducing the risk for cerebrovascular and cardiovascular disease. May, Primary hypertension (ICD-10 - I10) This patient is instructed to consume a healthy, low-fat, low-salt diet. They are also encouraged to continue exercise to achieve/maintain a normal BMI. May, Obstructive sleep apnea (ICD-10 - G47.33) This patient is aware of the benefits associated with MARIFER: With continued use, the patient reduces the risk for NH, CVA, HTN, cardiac dysrhythmias and sudden cardiac deaths.The patient is also aware of the association between MARIFER and morning headaches, daytime somnolence, fatigue and obesity. Instructed to contact the sleep lab May, Type 2 diabetes mellitus with hyperglycemia (ICD-10 - E11.65) This patient is following a comprehensive diabetic treatment plan. They are checking their feet daily for calluses and nonhealing ulcers. They are being seen for yearly dilated eye examinations. Goals: SBP less than 130, LDL less than 100, FBS less than 140, A1C less than 7%. They are checking their BS daily, will which are reviewed at the office visit. Continue regular routine monitoring of A1C,] Microalbumin, Dilated eye exam and Foot exam May, Type 2 diabetes mellitus with diabetic polyneuropathy (ICD-10 - E11.42) Inspect feet daily for cuts and calluses.Recommend diabetic shoes and inserts to prevent callus formation.Fall precautions. May, Morbid (severe) obesity due to excess calories (ICD-10 - E66.01) This patient has been instructed on a low-fat, high-fiber diet. They are instructed to reduce calories, portion sizes and snacks. It is recommended that they exercise for 30 minutes, 3-5 times weekly. He has gained 20lbs in past year. Stressed importance of losing weight to improve his insulin resistance. 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 Uncontrolled, a Type 2 diabetes with A1c of 9.5%, as high as 15% at diabetes diagnosis per his report. GMI today 9.6% 2. Above goal, possibly mild improvement. Will increase Tresiba to 74 units subcu once daily, and since sensitivity scale with Humalog U200 1 unit for every 2 carbohydrates and 1 unit for every 7 mg/dL above goal. All this was explained to him and his . Research shows that stamina with the current regime may fatigue, as would outcomes and CGM is equitable compaired to disease instability. Patient also maintains active lifestyle which increases cumbersome nature of current regime. Consideration for GLP-1 RA slow titration due to history of gastroparesis in the past no known pancreatitis s. Written information has been given . We discussed small bowel obstruction history, concerns for Ozempic contribution. Dr. Kulkarni is concerned for DEBI presentation of diabetes, 3. Patient is alert, oriented and receptive to making changes or counseling. Notes: Seen for an assessment of current glucose pattern, changes in treatment plan, counseling and coordination of care related to diabetes, risks, and benefits of treatment, medications, side effects. Given handouts to reinforce concepts reviewed during counseling, see scanned notes. TOPICS REVIEWED: 1. Time was spent reviewing: a. Basic concepts of diabetes, progressive beta cell , concepts of basal/bolus/correc tive insulin requirements. Basal: The goal is fasting blood glucose of 90-130mg. IF fasting blood glucose starts to run under 100mg 3x's/ week, decrease dose by 10%. Bolus: The goal is to hold the blood glucose level steady meal to meal. If pt. is going to have increased physical activity after a meal, decrease the schedule meal dose prior to the activity by 30-50%. If pt. skips a meal do not take this dose. Correction: The goal is to correct an elevated glucose back into the 100-150mg range b. Nutrition: Concepts of healthy diet, encouraged to decrease saturated fat in diet and increase non-starchy vegetables and fruits in diet. BMI: Pt. needs to select one small change to decrease caloric intake or increase physical activity to help decrease weight. c. Correct treatment of hypoglycemia, carry a glucose source at all times on your person, in vehicles, and at bedside. Can use glucose tablets/4, four ounces of pop or juice equal to 15 G of carbohydrate. Blood glucose should be 100 mg/dl or higher when driving. d. ADA glucose goals for age and medical complexity reviewed e. Patient questions addressed 2. Activity/exercise: Encouraged to start any form of physical activity. Start low level and increase slowly to a minimal goal of 150 minutes/week. Limit activity to what is allowed by other issues such as cardiac, pulmonary or orthopedic restrictions. 3. Standards of care: Reminded to have an annual dilated eye exam, A1C every 3 months, urine testing for microalbumin once/year, check feet daily and report any cuts or sores that do not appear to be healing. 4. Meter: Plan to check blood glucose: Please check blood glucose levels 4 times/day. Back to back meals reveal effectiveness of bolus dosing. The blood glucose data is used to determine insulin doses and confirm symptoms for hypoglycemia and hyperglcyemia. 5. [facility] Contact office if any issues or concerns with patterns of hypoglycemia, hyperglycemia, or diabetes medication issues. 6. Prescriptions: New patient 02-09-2023 uses [facility]. May, Vitamin D deficiency (ICD-10 - E55.9) Learning About Vitamin D material was published to portal May, Dietary counseling and surveillance (ICD-10 - Z71.3) Learning About Healthy Weight material was published to portal May, Hyperlipidemia (ICD-10 - E78.5) Learning About High Cholesterol material was published to portal May, HTN (hypertension) (ICD-10 - I10) High Blood Pressure: Care Instructions material was published to portal Above goal today, discussed goal of under 130/80 for kidney protection May, [facility] current use of insulin (ICD-10 - Z79.4) May, BMI 38.0-38.9,adult (ICD-10 - Z68.38) May, Other I have spent 30 minutes with this patient and over 50% of the visit was counseling done by myself, Riddhi LEUNG. [facility] Other 11-13-2023 Evaluation note* Encounter Date Diagnosis Assessment Notes Treatment Notes Treatment Clinical Notes May, Acute non-recurrent maxillary sinusitis (ICD-10 - J01.00) Instructed to use Robitussin or Mucinex for cough, saline or Flonase NS for congestion, Tylenol for pain and fever. May, Suspected COVID-19 virus infection (ICD-10 - Z20.822) Self isolate at home. - Cannot work - avoid contact with others - avoid pets - wipe counters, door knobs if touched - if can't avoid leaving home, must wear mask to protect others - need to stay isolated for 10 days from onset of symptoms - to discontinue isolation must be 5 days AND must be without fever for 24 hours AND symptoms must be improving. Always wear a mask in public places for complete 10 days He is past the 5 days where testing and treatment would be of benefit. However, as far as contagiousness, would be beneficial to know. Encouraged to test for COVID May, Type 2 diabetes mellitus with hyperglycemia (ICD-10 - E11.65) Increases his risk for prolonged symptoms and more serious infection. 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 He said that he has been using more insulin than he is prescribed and thinks that he is becoming resistant to it or allergic to it. He does not show any signs of allergy but does seem to be insulin resistant. We discussed his most recent meals and the amount of insulin he took for these meals and I determined that he is using about 2 times what his scales are written for. He said that he has been compliant with taking his Tresiba daily at 55 units and never misses it. I spoke with Riddhi Schwartz APRN and we decided to increase his ICR to 1:2 and his Corrective Scale to a 1:7, We also increased his Tresiba to 65 units daily. Jon has a scheduled appointment with Riddhi Schwartz one week from today. He is to log every carb he eats and every unit of insulin he takes for the next 7 days. 45 minutes were spent evaluating the patient's report and discussing his insulin by Mathew Byers RN, [facility]. [facility] Other 09-07-2023 Evaluation note* Encounter Date Diagnosis Assessment Notes Treatment Notes Treatment Clinical Notes Mar, Type 2 diabetes mellitus with hyperglycemia (ICD-10 - E11.65) ASSESSMENT: 1. Uncontrolled, a Type 2 diabetes with A1c of 8.3 %, as high as 15% at diabetes diagnosis per his report 2. Above goal as evidenced by hemoglobin A1c of 8.3%. Blood glucose characterization per Dexcom, see above. Still significantly above target. We will transition to Tresiba as a possibility of antibodies to insulin product, we did discuss how to titrate Tresiba based on trends. We will strengthen his Humalog coverage U200 1 unit for every 15 g/dL above 150 and 1 unit for every 5 carbohydrates. He is able to provide accurate examples. Written information has been given . We discussed small bowel obstruction history, concerns for Ozempic contribution. Dr. Kulkarni is concerned for DEBI presentation of diabetes, 3. Patient is alert, oriented and receptive to making changes or counseling. Notes: Seen for an assessment of current glucose pattern, changes in treatment plan, counseling and coordination of care related to diabetes, risks, and benefits of treatment, medications, side effects. Given handouts to reinforce concepts reviewed during counseling, see scanned notes. TOPICS REVIEWED: 1. Time was spent reviewing: a. Basic concepts of diabetes, progressive beta cell , concepts of basal/bolus/correcti ve insulin requirements. Basal: The goal is fasting blood glucose of 90-130mg. IF fasting blood glucose starts to run under 100mg 3x's/ week, decrease dose by 10%. Bolus: The goal is to hold the blood glucose level steady meal to meal. If pt. is going to have increased physical activity after a meal, decrease the schedule meal dose prior to the activity by 30-50%. If pt. skips a meal do not take this dose. Correction: The goal is to correct an elevated glucose back into the 100-150mg range b. Nutrition: Concepts of healthy diet, encouraged to decrease saturated fat in diet and increase non-starchy vegetables and fruits in diet. BMI: Pt. needs to select one small change to decrease caloric intake or increase physical activity to help decrease weight. c. Correct treatment of hypoglycemia, carry a glucose source at all times on your person, in vehicles, and at bedside. Can use glucose tablets/4, four ounces of pop or juice equal to 15 G of carbohydrate. Blood glucose should be 100 mg/dl or higher when driving. d. ADA glucose goals for age and medical complexity reviewed e. Patient questions addressed 2. Activity/exercise: Encouraged to start any form of physical activity. Start low level and increase slowly to a minimal goal of 150 minutes/week. Limit activity to what is allowed by other issues such as cardiac, pulmonary or orthopedic restrictions. 3. Standards of care: Reminded to have an annual dilated eye exam, A1C every 3 months, urine testing for microalbumin once/year, check feet daily and report any cuts or sores that do not appear to be healing. 4. Meter: Plan to check blood glucose: Please check blood glucose levels 4 times/day. Back to back meals reveal effectiveness of bolus dosing. The blood glucose data is used to determine insulin doses and confirm symptoms for hypoglycemia and hyperglcyemia. 5. [facility]. Contact office if any issues or concerns with patterns of hypoglycemia, hyperglycemia, or diabetes medication issues. 6. Prescriptions: New patient 02-09-2023 uses [facility]. Mar, Vitamin D deficiency (ICD-10 - E55.9) Learning About Vitamin D material was published to portal Mar, Dietary counseling and surveillance (ICD-10 - Z71.3) Learning About Healthy Weight material was published to portal Mar, Hyperlipidemia (ICD-10 - E78.5) Learning About High Cholesterol material was published to portal Mar, HTN (hypertension) (ICD-10 - I10) High Blood Pressure: Care Instructions material was published to portal Above goal today, discussed goal of under 130/80 for kidney protection Mar, [facility] current use of insulin (ICD-10 - Z79.4) Mar, BMI 38.0-38.9,adult (ICD-10 - Z68.38) Mar, Other I have spent 30 minutes with this patient and over 50% of the visit was counseling done by myself, Riddhi LEUNG. [facility] Other 08-29-2023 Evaluation note* Encounter Date Diagnosis Assessment Notes Treatment Notes Treatment Clinical Notes Feb, Hyperlipidemia, mixed (ICD-10 - E78.2) [facility] 08-22-2023 Evaluation note* Encounter Date Diagnosis Assessment Notes Treatment Notes Treatment Clinical Notes Feb, Type 2 diabetes mellitus with diabetic polyneuropathy (ICD-10 - E11.42) Inspect feet daily for cuts and calluses.Recommend diabetic shoes and inserts to prevent callus formation.Fall precautions. Feb, Type 2 diabetes mellitus with hyperglycemia (ICD-10 - E11.65) This patient is following a comprehensive diabetic treatment plan. They are checking their feet daily for calluses and nonhealing ulcers. They are being seen for yearly dilated eye examinations. Goals: SBP less than 130, LDL less than 100, FBS less than 140, AC and A1C less than 7%. They are checking their BS daily, will which are reviewed at the office visit. Continue regular routine monitoring of A1C,] Microalbumin, Dilated eye exam and Foot exam Feb, [facility] (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 insulin (ICD-10 - Z79.4) Feb, Hyperlipidemia, mixed (ICD-10 - E78.2) Instructed on diet and exercise .Discussed the beneficial effects of lowering cholesterol in reducing the risk for cerebrovascular and cardiovascular disease. Recent labs w/ LDL > 100 Restart Statin therapy w/ goal of LDL < 100 Feb, Obstructive sleep apnea (ICD-10 - G47.33) This patient is aware of the benefits associated with MARIFER: With continued use, the patient reduces the risk for NH, CVA, HTN, cardiac dysrhythmias and sudden cardiac deaths.The patient is also aware of the association between MARIFER and morning headaches, daytime somnolence, fatigue and obesity Awaiting for insurance approval for titration study. Feb, Morbid (severe) obesity due to excess calories (ICD-10 - E66.01) This patient has been instructed on a low-fat, high-fiber diet. They are instructed to reduce calories, portion sizes and snacks. It is recommended that they exercise for 30 minutes, 3-5 times weekly. 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 His average BG was 288. 15 % high and 85% very high. I asked him if he is using both of his corrective scales. He didn't know he had 2. I printed the scales again so that he has copies of both the ICR and ISS. We went through a few examples of meals and BGs and he was able to calculate the correct dose for each. He has not had his labs done yet but he plans to have them done as soon as he leave the office today. We discussed the possibility of using an insulin pump in the future, especially if his labs verify that he has type 1 diabetes. He was asked to start logging all of his food and insulin so that we can make better treatment adjustments. He will be seen by Riddhi Schwartz in one month. 60 minutes were spent evaluating the patient's report and discussing its findings with him and his by Mathew Byers RN, [facility]. 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 Uncontrolled, a Type 2 diabetes with A1c of 8.3 %, as high as 15% at diabetes diagnosis per his report 2. Above goal as evidenced by hemoglobin A1c of 8.3%.Blood glucose characterization minimal, glucometer does not have time or date but reflect 2-3 times per day based on recall, does not hold more than 10 blood glucose levels, see scanned. We did sample him Dexcom G7 for placement. We will connect him to our practice when placed. We will have him continue Levemir, discussed splitting dose to 25 units twice daily. If blood glucose consistently under 100 12 hours Premeal/post dose reduce by 2 units. I did sample Humalog U200. Provided and reviewed sliding scale based on basal insulin dose to 1 unit for every 20 mg/dL above goal, half the dose at hour of sleep in addition to insulin to carb ratio of 1 unit for every 5 carbohydrates. I did discuss with the patient how to scale back if he is having postprandial low blood sugars. We discussed small bowel obstruction history, concerns for Ozempic contribution. Dr. Kulkarni is concerned for DEBI presentation of diabetes, will follow through on these labs with C-peptide and insulin antibodies to assure type II presentation, we will consider SGLT2 based on the outcome. Reports initial diabetes presentation with hospitalization, and severe blood sugar elevations, does not believe he was on insulin drip. He seems to believe he was not in DKA . Patient is a reasonable historian regarding his care. He does have a component of insulin resistance, 3. Patient is alert, oriented and receptive to making changes or counseling. Notes: Seen for an assessment of current glucose pattern, changes in treatment plan, counseling and coordination of care related to diabetes, risks, and benefits of treatment, medications, side effects. Given handouts to reinforce concepts reviewed during counseling, see scanned notes. TOPICS REVIEWED: 1. Time was spent reviewing: a. Basic concepts of diabetes, progressive beta cell , concepts of basal/bolus/correcti ve insulin requirements. Basal: The goal is fasting blood glucose of 90-130mg. IF fasting blood glucose starts to run under 100mg 3x's/ week, decrease dose by 10%. Bolus: The goal is to hold the blood glucose level steady meal to meal. If pt. is going to have increased physical activity after a meal, decrease the schedule meal dose prior to the activity by 30-50%. If pt. skips a meal do not take this dose. Correction: The goal is to correct an elevated glucose back into the 100-150mg range b. Nutrition: Concepts of healthy diet, encouraged to decrease saturated fat in diet and increase non-starchy vegetables and fruits in diet. BMI: Pt. needs to select one small change to decrease caloric intake or increase physical activity to help decrease weight. c. Correct treatment of hypoglycemia, carry a glucose source at all times on your person, in vehicles, and at bedside. Can use glucose tablets/4, four ounces of pop or juice equal to 15 G of carbohydrate. Blood glucose should be 100 mg/dl or higher when driving. d. ADA glucose goals for age and medical complexity reviewed e. Patient questions addressed 2. Activity/exercise: Encouraged to start any form of physical activity. Start low level and increase slowly to a minimal goal of 150 minutes/week. Limit activity to what is allowed by other issues such as cardiac, pulmonary or orthopedic restrictions. 3. Standards of care: Reminded to have an annual dilated eye exam, A1C every 3 months, urine testing for microalbumin once/year, check feet daily and report any cuts or sores that do not appear to be healing. 4. Meter: Plan to check blood glucose: Please check blood glucose levels 4 times/day. Back to back meals reveal effectiveness of bolus dosing. The blood glucose data is used to determine insulin doses and confirm symptoms for hypoglycemia and hyperglcyemia. 5. [facility]. Contact office if any issues or concerns with patterns of hypoglycemia, hyperglycemia, or diabetes medication issues. 6. Prescriptions: New patient 02-09-2023 uses [facility]. Jan, Vitamin D deficiency (ICD-10 - E55.9) Learning About Vitamin D material was published to portal Jan, Dietary counseling and surveillance (ICD-10 - Z71.3) Learning About Healthy Weight material was published to portal Jan, Hyperlipidemia (ICD-10 - E78.5) Learning About High Cholesterol material was published to portal Jan, HTN (hypertension) (ICD-10 - I10) High Blood Pressure: Care Instructions material was published to portal Above goal today, discussed goal of under 130/80 for kidney protection Jan, [facility] current use of insulin (ICD-10 - Z79.4) Jan, BMI 38.0-38.9,adult (ICD-10 - Z68.38) Jan, Other I have spent 60 minutes with this patient and over 50% of the visit was counseling done by myself, Riddhi LEUNG. [facility] 07-05-2023 Evaluation note* Encounter Date Diagnosis Assessment Notes Treatment Notes Treatment Clinical Notes Jan, Type 2 diabetes mellitus with hyperglycemia (ICD-10 - E11.65) [facility] 06-13-2023 Evaluation note* Encounter Date Diagnosis Assessment Notes Treatment Notes Treatment Clinical Notes Dec, Type 2 diabetes mellitus with hyperglycemia (ICD-10 - E11.65) [facility] 03-27-2023 Evaluation note* Encounter Date Diagnosis Assessment Notes Treatment Notes Treatment Clinical Notes Sep, Type 2 diabetes mellitus with hyperglycemia (ICD-10 - E11.65) [facility] 02-17-2023 Evaluation note* Encounter Date Diagnosis Assessment Notes Treatment Notes Treatment Clinical Notes Aug, Obstructive sleep apnea (ICD-10 - G47.33) This patient is aware of the benefits associated with MARIFER: With continued use, the patient reduces the risk for NH, CVA, HTN, cardiac dysrhythmias and sudden cardiac deaths.The patient is also aware of the association between MARIFER and morning headaches, daytime somnolence, fatigue and obesity, which also has been improved with continued use.The patient is compliant with treatment, wearing the equipment every night for greater than 4 hours.The patient is instructed to continue use of the CPAP for MARIFER treatment. Noncomplianty, needs new machine, instructed to call sleep lab Aug, Type 2 diabetes mellitus with hyperglycemia (ICD-10 - E11.65) This patient is following a comprehensive diabetic treatment plan. They are checking their feet daily for calluses and nonhealing ulcers. They are being seen for yearly dilated eye examinations. Goals: SBP less than 130, LDL less than 100, FBS less than 140, AC and A1C less than 7%. They are checking their BS daily, will which are reviewed at the office visit. A1C: [ ] Microalbumin: [ ] Eye exam: [ ] Foot exam: [ ] Aug, Hyperlipidemia, mixed (ICD-10 - E78.2) Diet and exercise with continued statin therapy. Aug, Morbid obesity (ICD-10 - E66.01) This patient has been instructed on a low-fat, high-fiber diet. They are instructed to reduce calories, portion sizes and snacks. It is recommended that they exercise for 30 minutes, 3-5 times weekly. Aug, Lumbar spondylosis (ICD-10 - M47.816) The patient is instructed to avoid bending, twisting or lifting. They are to use intermittent heat and ice as needed. They may schedule a massage or gentle manipulation. They may safely use Tylenol as needed. Aug, [facility] (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 insulin (ICD-10 - Z79.4) [facility] Other 01-24-2023 Evaluation note* Encounter Date Diagnosis Assessment Notes Treatment Notes Treatment Clinical Notes Jul, Acute non-recurrent maxillary sinusitis (ICD-10 - J01.00) [facility] 01-23-2023 Evaluation note* Encounter Date Diagnosis Assessment Notes Treatment Notes Treatment Clinical Notes Jul, Acute non-recurrent maxillary sinusitis (ICD-10 - J01.00) Instructed to use Robitussin or Mucinex for cough, saline or Flonase NS for congestion, Tylenol for pain and fever. Jul, Type 2 diabetes mellitus with hyperglycemia (ICD-10 - E11.65) This patient is following a comprehensive diabetic treatment plan. They are checking their feet daily for calluses and nonhealing ulcers. They are being seen for yearly dilated eye examinations. Goals: SBP less than 130, LDL less than 100, FBS less than 140, AC and A1C less than 7%. They are checking their BS daily, will which are reviewed at the office visit. 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 Name: Kaleigh Motley Admitted: 01/01/2022 Discharged: 01/03/2022 Date of : 1985 Physician: Warren Carlson M.D. DISCHARGE SUMMARY INPATIENT DISCHARGE SUMMARY: ADMITTING PROVIDER: Warren Carlson MD. DISCHARGE PROVIDER: Warren Carlson MD. ADMISSION DATE: 01/01/2022. DISCHARGE DATE: 01/03/2022. PRIMARY DISCHARGE DIAGNOSIS: Small bowel obstruction. SECONDARY DISCHARGE DIAGNOSIS: Type 1 diabetes mellitus. DISCHARGE DISPOSITION: Home. CODE STATUS AT DISCHARGE: Full. ACTIVE ISSUES REQUIRING FOLLOWUP: Follow up with PCP. Follow up with GI. DETAILS OF HOSPITAL STAY: PRESENTING PROBLEMS/HISTORY OF PRESENT ILLNESS: This patient was admitted from outside facility due to CT findings concerning for a small bowel obstruction. Began experiencing increasing nausea, vomiting after eating dinner the night before prior to presentation. He was treated conservatively at the outside hospital and sent to [facility] for further management. HOSPITAL COURSE: The patient was feeling much improved after transfer to our facility. He was advanced to clear liquids with little nausea, so his diet was advanced to clear liquids. He was passing gas and ambulating without issue. His glucose was controlled. He was advanced to regular diet. The patient was kept for one more day to ensure resolution of partial small bowel obstruction. Based on his presentation, age, and history, it was explained to the patient that he should follow up with GI to be evaluated for Crohn's or other inflammatory illnesses. The location of partial small bowel obstruction was suspicious for ileal changes. He is a reliable patient, and voiced understanding. He will follow up with general surgery as needed. TREATMENTS: IV hydration, analgesia, and antiemetic. CONSULTS: None. PROCEDURES: None. PHYSICAL EXAMINATION AT DISCHARGE: GENERAL: No acute distress, resting comfortably. RESPIRATORY: No increased inspiratory effort, on room air. CARDIAC: Regular rate and rhythm, normotensive. ABDOMEN: Soft, nondistended, nontender, no peritoneal signs. EXTREMITIES: Nonedematous. Electronically Signed by: Warren Carlson M.D. 01/25/2022 10:45 A Warren Carlson M.D. I personally saw this patient on the day of the encounter, performed the loja portion(s) of the service and participated in the management and confirm the resident's documentation. Please note there may be an additional personal documentation from me. Date Dict: 01/24/2022/09:42 P/Era Patel MD Date Trans: 01/25/2022 02:34 A/kevin GARCIA_[email or web address]:[id number] cc: Benji Kulkarni D.O. [address] [place] [address] A [facility] [id number] Children's Hospital Medical CenterEvaluation noteNo InformationNortJefferson Hospital [employer] Other Evaluation noteNo assessment information available [facility] Work Phone: Evaluation note* Diagnosis Demyelinating disease of central nervous system (HCC)- Primary Demyelinating disease of central nervous system, unspecified Diabetic polyneuropathy associated with type 2 diabetes mellitus (HCC) documented in this encounter [facility] general Narrative - Reported* Type Description Date Medical History Type 2 diabetes chilango itus with hyperglycemia, unspecified senior care insulin use status Medical History FCI current use of insulin Medical History SBO (small bowel obstruction) Medical History Abdominal pain, periumbilical Medical History Seasonal allergies Medical History Obstructive sleep apnea Medical History Hyperlipidemia, mixed Medical History Lumbar spondylosis Medical History Morbid obesity Medical History Type 2 diabetes mellitus with di abetic polyneuropathy Medical History Epicondylitis, lateral, left Medical History Learning disability Medical History Fibromyalgia Surgical History ARTHROSCOPY LEFT KNEE X2 Surgical History LUMBAR LAMINECTOMY/DISCECTOMY Hospitalization History SEE SURGICAL HX [facility] [employer] Other Summary Purpose Family History Relationship Condition Age at Onset Recorded Date/T justyna father Hypertension Unknown Not Specified Depression Unknown Diabetes mellitus Unknown Hypertension Unknown Advance Directives Advance Directive Response Recorded Date/ Time Advance Directives No January 10 6:22pm Chief Complaint and Reason for Visit Chief Complaint Dm DM Reason for Referral Specialty Diagnoses / Procedures Referred By Contac t Referred To Contact MR IMAGING Diagnoses Demyelinating disease of central nervous system (HCC) Procedures MRI BRAIN WO/W IVCON MRI BRAIN BRAIN STEM W/O W/CONTRAST MATERIAL Azeb Mathur DO [address] [place] [address] Mr Imaging [id number] Referral ID Status Reason Start Date Expiration Date Visits Requested Visits Authorized [id number] Pending Review Auto-Generat ed Referral 09/09/2023 10/08/2024 1 1 Additional Source Comments (unrecognized sect ion and content) No Status Records FoundNo Status Records FoundNo Status Records FoundNo Status Records Found INFORMATION SOURCE (unrecogn ized section and content) DATE CREATED AUTHOR 01/25/2022 [facility] DATE CREATED AUTHOR AUTHOR'S ORGANIZ ATION 08/23/2022 [facility] DATE CREATED AUTHOR AUTHOR'S ORGANIZ ATION 09/15/2023 [facility] DATE CREATED AUTHOR AUTHOR'S ORGANIZ ATION 02/19/2024 [facility] REASON FOR VISIT (unrecogniz ed section and content) Reason Comments Request Outside Medical Records Reason Comments Appointment Called to reschedule 04/[address] mathur since she is out of the office. LVM and sent reminder in the mail. Reason Comments New Patient Evaluation COVID Positive- [phone], 3 month Follow upDS DM patient cancelledDS refill humalog/ rescheduleDM, DM 6 week follow up, Type 2Cancelled apptDS [id number], body aches, sore throat [phone] lost medicationDS BG Control/RefillDM 6 week follow up, Type 2DS Lab resultsRefill3 month Follow upDCS Dexcom 7DCS Lab orderDexcom G7 DownloadDS leg sores infectedBug BiteDS pen needles/blood sugar highType 2DS DexcomPrescriptionMedication ChangeHumalogDexcom 7Lab Discussion/BS ResultsSore Throat/ Sick Care Teams (unrecognized sec tion and content) Team Status: Active Member Role Status Dates Benji Kulkarni DO Primary Care Provider Active Team Status: Inactive Member Role Status Dates Alycia Schwartz APRN Attending Provider Active Start: August 04, 2023 End: August 04, 2023 Team Status: Inactive Member Role Status Dates Benji Kulkarni DO Primary Care Provider Active Start: August 04, 2023 End: August 04, 2023 Alycia Schwartz APRN Attending Provider Active Start: August 04, 2023 End: August 04, 2023 Goals (unrecognized section and content) Goals may be documented in a n alternate section Source Comments (unrecognize d section and content) In the event this informatio n is protected by the Federal Confidentiality of Alcohol and Drug Abuse Patient Records regulations: The Federal rules restrict any use of the information to criminally investigate or prosecute any alcohol or drug abuse patient.[facility] HospitalIn the event this information is protected by the Federal Confidentiality of Alcohol and Drug Abuse Patient Records regulations: The Federal rules restrict any use of the information to criminally investigate or prosecute any alcohol or drug abuse patient.[facility] HospitalIn the event this information is protected by the Federal Confidentiality of Alcohol and Drug Abuse Patient Records regulations: The Federal rules restrict any use of the information to criminally investigate or prosecute any alcohol or drug abuse patient.[facility] FOR RECORDS PERTAINING TO PATIENTS WHO ARE OR HAVE BEEN ENROLLED IN A CHEMICAL DEPENDENCY/SUBSTANCEABUSE PROGRAM, SOME INFORMATION MAY BE OMITTED. This clinical summary was aggregated from multiple sources. Caution should be exercised in using it in the provision of clinical care. This summary normalizes information from multiple sources, and as a consequence, information in this document may materially change the coding, format and clinical context of patient data. In addition, data may be omitted in some cases. CLINICAL DECISIONS SHOULD BE BASED ON THE PRIMARY CLINICAL RECORDS. [facility] [employer] provides no warranty or guarantee of the accuracy or completeness of information in this document.
== END 2024-05-28 14:30 | disposition home or self-care (01) ==
LOC: RAD 14:31
PROVIDERS: PCP Internal Medicine; Visit Provider Nurse Practitioner Family
DX: R05.9 Cough, unspecified (principal)
CPT/HCPCS: 71046

== ENCOUNTER 2024-06-12 01:46 | Emergency (ER) | payer MEDICARE, MEDICAID, SELFPAY ==
[2024-06-12] VITALS (26 sets, daily range): BP systolic 135–180; BP diastolic 86–118; PULSE 92–105; TEMP 37; O2SAT 95–98; BMI 39.2
--- OUTSIDE RECORDS SUMMARY | 2024-06-12 01:51 | XMS_ITS | CCD ---
Author Organization [facility] Care Team Providers Care Sports Leadership Instructor Name Role Phone WARREN CARLSON Attending Unavailable WARREN CARLSON Admitting Unavailable ROSALINE Referring Unavailable BENJI KULKARNI Primary Care Unavailable SHAD, DR SAWYER Admitting Unavailable SHAD, DR SAWYER Attending Unavailable SHAD, DR SAWYER Primary Care Unavailable SHAD, DR SAWYER Admitting Unavailable BALL, DR SAWYER Attending Unavailable BALL, DR SAWYER Primary Care Unavailable BALL, DR SAWYER Consulting Unavailable SHAD, DR SAWYER Admitting Unavailable SHAD, [...] Unavailable DO Benji Kulkarni Primary Care Provider [phone] NICKI Schwartz Attending Provider Unavailable Primary Care Provider UnavailBenji Ortega Primary Care Unavailable Alycia Schwartz Attending Unavailable Alycia Schwartz Admitting Unavailable Unavailable Primary Care Provider UnavailAZEB Villela Attending Unavailable Allergies Allergy Classification Reported Allergen(s) Allergy Type Date of Onset Reaction(s) Facility (2 sources) Naproxen Drug Allergy 3 [facility] Repository (20 sources) Acarbose Drug Allergy 4 Other: See Comments [facility] (20 sources) liraglutide Drug Allergy 4 Other: See Comments [facility] (20 sources) metFORMIN Drug Allergy 4 Unknown [facility] (9 sources) patient allergy list reviewed by nurse or physicia Propensity to adverse reactions 9 Comment:Done [facility] Other (20 sources) Precose *ANTIDIABETICS* Propensity to adverse reactions 4 Comment:ACARAB OSE [facility] (5 sources) Naproxen; Translations: [naproxen] Drug Allergy 3 Hives [facility] Medications Current Medications Medication Drug Class(es) Dates Sig (Normalized) Sig (Original) acetaminophen 325 mg / HYDROcodone bitartrate 5 mg oral tablet (1 source) Opioid Agonist Start: 01-10-2018 take 1 tablet by mouth every six hours Hydrocodone-Acetam inophen (Veyo) 5-325 mg tablet Active 1 TAB PO [...] equivalent Dx E11.65 Active BD Ultra-Fine Mi cross cut sawyer Pen Needle 1 each In vitro 6 times per day for 90 days Okay to dispense insurance preferred equivalent Active BD Ultra-Fine Mi cross cut sawyer Pen Needle Active benazepril hydrochloride 5 mg [...] 10 days for 90 days [place] [facility] [place] Basal Bolus insulin / mdi Jan, Active Dexcom G7 Sensor - as directed in vitro every 10 days [place] [facility] [place] patient [place] Basal Bolus insulin / mdi Active Dexcom G7 Sensor - as directed in vitro every 10 days for 90 days S[place] [facility] [place] patient [place] Basal Bolus insulin / mdi [...] every week as needed Cholecalciferol 1.25 MG (12340 UT) 1 capsule Orally weekly for 56 days follow with 4000 ut OTC Mar, Not-Taking/PRN Start: 04-06-2023 take 1 capsule by mo uth every week Cholecalciferol 1.25 MG (42846 UT) 1 capsule Orally weekly for 56 days follow with 4000 ut OTC Mar, Not-Taking Start: 04-06-2023 take 1 capsule by mo uth every week Cholecalciferol 1.25 MG (19305 UT) 1 capsule Orally weekly for 56 days follow with 4000 ut OTC Mar, Active Start: 03-29-2023 take 1 capsule by mo uth every week Cholecalciferol 1.25 MG (79914 UT) 1 capsule Orally WEEKLY for 56 days when RX complete, start D3 4000 ut once daily OTC Mar, Not-Taking/PRN Start: 03-29-2023 take 1 capsule by mo uth every week Cholecalciferol 1.25 MG (71982 UT) 1 capsule Orally WEEKLY for 56 days when RX complete, start D3 4000 ut once daily OTC Mar, Not-Taking Start: 03-29-2023 take 1 capsule by mo uth every week Cholecalciferol 1.25 MG (36634 UT) 1 capsule Orally WEEKLY for 56 [...] test home BS SC continuous monitoring - Information Assurance Engineer for 365 days DX E11.65 Not-Taking/PRN Dexcom 7 Use to test home BS SC continuous monitoring - Information Assurance Engineer for 365 days DX E11.65 Not-Taking Dexcom [...] [Polyosteoarthritis, unspecified] Chronic Other aftercare (10 sources) intermission coordinator (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 insulin; Translations: [FEEDER TENDER CURRENT USE OF INSULIN] Onset: 08-10-2022 Episodic [...] 09-20-2014 Episodic Other aftercare (1 source) Other fci (current) drug therapy; Translations: [OTH FEEDER TENDER CURRENT DRUG THERAPY] Onset: 01-06-2022 Episodic Other [...] Test Name Value Interpretation Reference Range Facility [facility] 02-16-2024 CNPN Telephone (NIQ) KALEIGH MOTLEY ([id number]) 1985 M Date Time Provider Department 02/16/24 [...] since she is out of the office. [facility] and sent reminder in the mail. [...] Of Date: 02/16/2024 (None) Encounter Status:Closed by NAA ANDERSON on 02/16/24 [facility] CNOVon 09-09-2023 CNOV Office Visit (NEMSMN) KALEIGH MOTLEY ([id number]) 1985 M Date Time Provider Department 09/09/23 10:30 AM AZEB MATHUR During your visit today, we recorded the following information about you: Pulse Blood pressure Weight Height 94/minute 130/92 144 kg 1.905 m Azeb Mathur DO 09/09/2023 4:05 PM [facility] NEW PATIENT EVALUATION/CONSULTAT ION Referral source: No referring provider defined for this encounter. Also followed by: No care grocery team member to display PRINCIPAL NEUROLOGIC DIAGNOSIS: Multiple neurological [...] expected to be with me at the [facility]. When he was younger he had multiple concussions and recovered. At 16 he had mycarditis attributed to significant caffeine intake and pericarditis. His first neurological symptom occurred around 28 years old. 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 He was told it was [...] the last year since establishing with an kiln transfer operator. In May he had a significant migraine with flashing lights and slow motion experience in his vision. He will have intermittent migraines that occur. These have occurred for many years. He can go months to sometimes years without one. 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 He had two sisters with MS (Ally and Betsy, both cared for by Nasima at [place] [facility]). His last MRI lumbar was prior to his surgery. He is very claustrphobic. Last EMG was before his lumbar surgery. [facility] Neuro-QoL Functions (higher=better functioning) Flowsheet Row Office Visit from 09/09/2023 in [facility] Upper Extremity Domain T Score 41.48 Lower Extremity Domain T Score 42.17 Cognitive Function Domain T Score 44.4 Positive Affect Well Being T Score -- Ability To Participate In Social Roles T Score 43.48 Satisfaction With Social Roles T Score 43.36 Neuro-QoL Symptoms (higher=worse symptoms) Flowsheet Row Office Visit from 09/09/2023 in [facility] Sleep Domain T Score 65.45 Fatigue Domain [...] EXAM: BP (more content not included)... Normal [facility] Glucose - FINGER STICKon Glucose [Mass/Vol] 150 mg/dL [facility] Other A1C HEMOGLOBINon 06-06-2023 HbA1c (Bld) [Mass fraction] 9.5 % [facility] Other Glucose - FINGER STICKon Glucose [Mass/Vol] 249 mg/dL [facility] Other HbA1c (Bld) [Mass fraction]o n 06-06-2023 A1C HEMOGLOBIN Team [employer] Other A1C HEMOGLOBINon 02-09-2023 HbA1c (Bld) [Mass fraction] 8.3 % [facility] Other Glucose - FINGER STICKon Glucose [Mass/Vol] 289 mg/dL [facility] Other HbA1c (Bld) [Mass fraction]o n 02-09-2023 A1C HEMOGLOBIN Team [employer] Other BASIC METABOLIC PANELon 12-16 Calcium [Mass/Vol] 8.5 mg/dL Low 8.6-10.3 [facility] Comment on above: Order Comment: No: D o not add to previous draw Performed By: #### 8 [id number] #### [facility] [address] [place] [address], [facility] Chloride [Moles/Vol] 108 mmol/L High 98-107 [facility] Comment on above: Order Comment: No: D o not add to previous draw Performed By: #### 8 [id number] #### [facility] [address] [place] [address], [place] CO2 [Moles/Vol] 27 mmol/L Normal 21-31 [facility] Comment on above: Order Comment: No: D o not add to previous draw Performed By: #### 8 [id number] #### [facility] [address] [facility] [place] [id number], [place] Creatinine [Mass/Vol] 0.89 mg/dL Normal 0.70-1.30 [facility] Comment on above: Order Comment: No: D o not add to previous draw Performed By: #### 8 [id number] #### [facility] [address] [place] [address], [place] GFR/1.73 sq M.predicted among blacks MDRD (S/P/Bld) [Vol rate/Area] mL/min/{1.73_m2} Normal >60 [facility] Comment on above: Order Comment: No: D o not add to previous draw Performed By: #### 8 [id number] #### [facility] [address] [place] [address], [place] GFR/1.73 sq M.predicted among non-blacks MDRD (S/P/Bld) [Vol rate/Area] mL/min/{1.73_m2} Normal >60 [facility] Comment on above: Order Comment: No: D o not add to previous draw Performed By: #### 8 [id number] #### [facility] [address] [place] [address], [place] Glucose [Mass/Vol] 151 mg/dL High 70-100 [facility] Comment on above: Order Comment: No: D o not add to previous draw Performed By: #### 8 [id number] #### [facility] [address] [place] [address], [place] Potassium [Moles/Vol] 3.8 mmol/L Normal 3.5-5.1 [facility] Comment on above: Order Comment: No: D o not add to previous draw Performed By: #### 8 5499 #### [facility] [address] [place] [address], [place] Sodium [Moles/Vol] 141 mmol/L Normal 136-145 [facility] Comment on above: Order Comment: No: D o not add to previous draw Performed By: #### 8 5499 #### [facility] [address] [place] [address], [place] Urea nitrogen [Mass/Vol] 9 mg/dL Normal 7-25 [facility] Comment on above: Order Comment: No: D o not add to previous draw Performed By: #### 8 [id number] #### [facility] [address] [place] [address], [facility] CBC COMPLETE BLOOD COUNTon 0 01-03-2022 Erythrocyte distribution width (RBC) [Ratio] 13.4 % Normal 11.5-15.0 [facility] Comment on above: Order Comment: No: D o not add to previous draw Performed By: #### 8 [id number] #### [facility] [address] [place] [address], [facility] Hematocrit (Bld) [Volume fraction] 39.8 % Normal 39.0-50.0 [facility] Comment on above: Order Comment: No: D o not add to previous draw Performed By: #### 8 [id number] #### [facility] [address] [place] [address], [facility] Hemoglobin (Bld) [Mass/Vol] 13.6 g/dL Normal 13.0-17.0 [facility] Comment on above: Order Comment: No: D o not add to previous draw Performed By: #### 8 [id number] #### [facility] [address] [place] [address], [place] MCH (RBC) [Entitic mass] 28.6 pg Normal 27.0-33.0 [facility] Comment on above: Order Comment: No: D o not add to previous draw Performed By: #### 8 [id number] #### [facility] [address] [place] [address], [place] MCHC (RBC) [Mass/Vol] 34.2 g/dL Normal 32.0-35.0 [facility] Comment on above: Order Comment: No: D o not add to previous draw Performed By: #### 8 [id number] #### [facility] [address] [place] [address], [place] MCV (RBC) [Entitic vol] 83.6 fL Normal 82.0-98.0 [facility] Comment on above: Order Comment: No: D o not add to previous draw Performed By: #### 8 5499 #### [facility] [address] [place] [address], [facility] Nucleated RBC/100 WBC (Bld) [Ratio] 0 % Normal 0-0 [facility] Comment on above: Order Comment: No: D o not add to previous draw Performed By: #### 8 [id number] #### [facility] [address] [place] [address], [place] PLAT CNT 236 10*3/uL Normal 150-400 The [facility] Comment on above: Order Comment: No: D o not add to previous draw Performed By: #### 8 5499 #### [facility] [address] [place] [address], [facility] RBC (Bld) [#/Vol] 4.76 10*6/uL Normal 4.20-5.70 [facility] Comment on above: Order Comment: No: D o not add to previous draw Performed By: #### 8 [id number] #### [facility] [address] [place] [address], [place] WBC (Bld) [#/Vol] 6.91 10*3/uL Normal 4.00-10.60 [facility] Comment on above: Order Comment: No: D o not add to previous draw Performed By: #### 8 [id number] #### [facility] [address] [place] [address], [place] POC GLUCOSE LABon 01-03-2022 Glucose [Mass/Vol] 185 mg/dL High 70-100 [facility] Comment on above: Performed By: #### 8 5499 #### [facility] [address] [place] [address], [place] Glucose [Mass/Vol] 164 mg/dL High 70-100 [facility] Comment on above: Performed By: #### 8 5499 #### [facility] [address] [place] [address], [place] HEMOGLOBIN A1Con 01-02-2022 Glucose [Moles/Vol] 223 mmol/L Normal [facility] Comment on above: Order Comment: No: D o not add to previous draw Performed By: #### 3 1791 #### [facility] [address] [place] [address], [place] HbA1c (Bld) [Mass fraction] 9.4 % High 4.0-6.0 [facility] Comment on above: Order Comment: No: D o not add to previous draw Performed By: #### 3 1791 #### [facility] [address] [place] [address], [place] POC GLUCOSE LABon 01-02-2022 Glucose [Mass/Vol] 212 mg/dL High 70-100 [facility] Comment on above: Performed By: #### 8 [id number] #### [facility] [address] [place] [address], [place] Glucose [Mass/Vol] 233 mg/dL High 70-100 [facility] Comment on above: Performed By: #### 8 5499 #### [facility] [address] [place] [address], [place] Glucose [Mass/Vol] 124 mg/dL High 70-100 [facility] Comment on above: Performed By: #### 8 5499 #### [facility] [address] [place] [address], [place] Glucose [Mass/Vol] 110 mg/dL High 70-100 [facility] Comment on above: Performed By: #### 8 5499 #### [facility] [address] [place] [address], [place] Glucose [Mass/Vol] 116 mg/dL High 70-100 [facility] Comment on above: Performed By: #### 8 5499 #### [place] [address], [facility] ABDOMEN SERIES W CHESTon ABDOMEN SERIES W CHEST [facility] Department of Radiology [address] [place] [address] Patient Name: KALEIGH MOTLEY : 1985 Sex: M Age: Race: White Pt. Location: [id number] Patient Status: I Ordered Date: 01/01/2022 8:55:00 [...] calcifications Electronically signed: Daniel Smalls. Transcribed by: [email or web address], User Resident: Electronically Signed by: DANIEL SMALLS @ 01/01/2022 09:[address] [facility] Comment on above: Order Comment: evalu ate Obstruction APTTon 01-01-2022 aPTT Coag (Bld) [Time] 28.6 s Normal 25.0-35.0 [facility] Comment on above: Order Comment: No: D [...] PURPOSE. Performed By: #### 8 [id number] #### [facility] [address] [place] [address], [facility] BASIC METABOLIC PANELon 12-16 Calcium [Mass/Vol] 8.6 mg/dL Normal 8.6-10.3 [facility] Comment on above: Order Comment: No: D o not add to previous draw Performed By: #### 0 0071, 21377, 57084, 67857 #### [facility] [address] [place] [address], [place] Chloride [Moles/Vol] 106 mmol/L Normal 98-107 [facility] Comment on above: Order Comment: No: D o not add to previous draw Performed By: #### 0 0071, 21615, 78231, 77765 #### [facility] [address] [place] [address], [place] CO2 [Moles/Vol] 26 mmol/L Normal 21-31 [facility] Comment on above: Order Comment: No: D o not add to previous draw Performed By: #### 0 0071, 68080, 75680, 30788 #### [facility] [address] [place] [address], [facility] Creatinine [Mass/Vol] 0.78 mg/dL Normal 0.70-1.30 [facility] Comment on above: Order Comment: No: D o not add to previous draw Performed By: #### 0 0071, 23738, 63098, 74337 #### [facility] [address] [place] [address], [place] GFR/1.73 sq M.predicted among blacks MDRD (S/P/Bld) [Vol rate/Area] mL/min/{1.73_m2} Normal >60 [facility] Comment on above: Order Comment: No: D o not add to previous draw Performed By: #### 0 0071, 88721, 53605, 39007 #### [facility] [address] [place] [address], [place] GFR/1.73 sq M.predicted among non-blacks MDRD (S/P/Bld) [Vol rate/Area] mL/min/{1.73_m2} Normal >60 [facility] Comment on above: Order Comment: No: D o not add to previous draw Performed By: #### 0 0071, 10776, 41784, 75006 #### [facility] [address] [place] [address], [facility] Glucose [Mass/Vol] 112 mg/dL High 70-100 [facility] Comment on above: Order Comment: No: D o not add to previous draw Performed By: #### 0 0071, 82384, 59452, 80787 #### [facility] [address] [place] [address], [facility] Potassium [Moles/Vol] 4.0 mmol/L Normal 3.5-5.1 [facility] Comment on above: Order Comment: No: D o not add to previous draw Performed By: #### 0 0071, 75482, 49257, 62622 #### [facility] [address] [place] [address], [facility] Sodium [Moles/Vol] 139 mmol/L Normal 136-145 [facility] Comment on above: Order Comment: No: D o not add to previous draw Performed By: #### 0 0071, 94319, 43809, 23775 #### [facility] [address] [place] [address], [facility] Urea nitrogen [Mass/Vol] 10 mg/dL Normal 7-25 [facility] Comment on above: Order Comment: No: D o not add to previous draw Performed By: #### 0 0071, 30988, 72198, 31902 #### [facility] [address] [place] [address], [facility] CBC W/DIFFon 01-01-2022 ABS IMM GRANS 0.1 10*3/uL Normal 0.0-0.2 [facility] Comment on above: Performed By: #### 5 0103 #### [facility] [address] [place] [address], [facility] ABS NEUTROPHILS 5.2 10*3/uL Normal 1.6-7.6 [facility] Comment on above: Performed By: #### 5 3 #### [facility] [address] [place] [address], [facility] Basophils (Bld) [#/Vol] 0.0 10*3/uL Normal 0.0-0.2 [facility] Comment on above: Performed By: #### 5 0103 #### [facility] [address] [place] [address], [facility] Basophils/100 WBC (Bld) 0.4 % Normal 0.0-1.0 [facility] Comment on above: Performed By: #### 5 3 #### [facility] [address] [place] [address], [facility] Eosinophils (Bld) [#/Vol] 0.1 10*3/uL Normal 0.0-0.5 [facility] Comment on above: Performed By: #### 5 3 #### [facility] [address] [place] [address], [facility] Eosinophils/100 WBC (Bld) 1.6 % Normal 0.0-6.0 [facility] Comment on above: Performed By: #### 5 3 #### [facility] [address] [place] [address], [facility] Erythrocyte distribution width (RBC) [Ratio] 13.0 % Normal 11.5-15.0 [facility] Comment on above: Performed By: #### 5 3 #### [facility] [address] [place] [address], [facility] Hematocrit (Bld) [Volume fraction] 42.6 % Normal 39.0-50.0 [facility] Comment on above: Performed By: #### 5 3 #### [facility] [address] [place] [address], [facility] Hemoglobin (Bld) [Mass/Vol] 14.7 g/dL Normal 13.0-17.0 [facility] Comment on above: Performed By: #### 5 0103 #### [facility] [address] [place] [address], [facility] IMMATURE GRANS 0.7 % Normal 0.0-1.0 [facility] Comment on above: Performed By: #### 5 0103 #### [facility] [address] [place] [address], [facility] Lymphocytes (Bld) [#/Vol] 1.6 10*3/uL Normal 1.2-4.0 [facility] Comment on above: Performed By: #### 5 0103 #### [facility] [address] [place] [address], [facility] Lymphocytes/100 WBC (Bld) 21.2 % Normal 20.0-45.0 [facility] Comment on above: Performed By: #### 5 0103 #### [facility] [address] MCH (RBC) [Entitic mass] 28.9 pg Normal 27.0-33.0 [facility] Comment on above: Performed By: #### 5 0103 #### [facility] [address] [place] [address], [facility] MCHC (RBC) [Mass/Vol] 34.5 g/dL Normal 32.0-35.0 [facility] Comment on above: Performed By: #### 5 0103 #### [facility] [address] [place] [address], [facility] MCV (RBC) [Entitic vol] 83.9 fL Normal 82.0-98.0 [facility] Comment on above: Performed By: #### 5 0103 #### [facility] [address] [place] [address], [facility] Monocytes (Bld) [#/Vol] 0.5 10*3/uL Normal 0.1-1.0 [facility] Comment on above: Performed By: #### 5 0103 #### [facility] [address] [place] [id number], [facility] MONOS 7.0 % Normal 5.0-12.0 [facility] Comment on above: Performed By: #### 5 0103 #### [facility] [address] [place] [address], [facility] Neutrophils/100 WBC (Bld) 69.1 % Normal 40.0-72.0 [facility] Comment on above: Performed By: #### 5 0103 #### [facility] [address] [place] [id number], [facility] Nucleated RBC/100 WBC (Bld) [Ratio] 0 % Normal 0-0 [facility] Comment on above: Performed By: #### 5 010 #### [facility] [address] [place] [address], [facility] PLAT CNT 245 10*3/uL Normal 150-400 The [facility] Comment on above: Performed By: #### 5 0103 #### [facility] [address] [place] [id number], [facility] RBC (Bld) [#/Vol] 5.08 10*6/uL Normal 4.20-5.70 [facility] Comment on above: Performed By: #### 5 0103 #### [facility] [address] [place] [id number], [facility] WBC (Bld) [#/Vol] 7.47 10*3/uL Normal 4.00-10.60 [facility] Comment on above: Performed By: #### 5 3 #### [facility] [address] [place] [address], [facility] LACTATE WITH REFLEXon 2021 Lactate [Moles/Vol] 0.9 mmol/L Normal .5-2.2 [facility] Comment on above: Order Comment: No: D o not add to previous draw Performed By: #### 8 5499 #### [facility] [address] [place] [address], [place] LIVER BATTERYon 01-01-2022 Albumin [Mass/Vol] 3.8 g/dL Normal 3.5-5.7 [facility] Comment on above: Order Comment: No: D o not add to previous draw Performed By: #### 0 0071, 22952, 22521, 63137 #### [facility] [address] [place] [address], [place] ALKALINE PHOSPH 72 IU/L Normal 34-104 [facility] Comment on above: Order Comment: No: D o not add to previous draw Performed By: #### 0 0071, 98038, 42128, 03790 #### [facility] [address] [place] [address], [place] ALT [Catalytic activity/Vol] 23 U/L Normal 7-52 [facility] Comment on above: Order Comment: No: D o not add to previous draw Performed By: #### 0 0071, 05326, 28473, 98882 #### [facility] [address] [place] [address], [place] AST [Catalytic activity/Vol] 14 U/L Normal 13-39 [facility] Comment on above: Order Comment: No: D o not add to previous draw Performed By: #### 0 0071, [id number], [id number], [id number] #### [facility] [address] [place] [address], [place] Bilirubin [Mass/Vol] 1.1 mg/dL High 0.3-1.0 [facility] Comment on above: Order Comment: No: D o not add to previous draw Performed By: #### 0 0071, [id number], [id number], 82804 #### [facility] [address] [place] [address], [place] Bilirubin.direct [Mass/Vol] 0.3 mg/dL High 0.0-0.2 [facility] Comment on above: Order Comment: No: D o not add to previous draw Performed By: #### 0 0071, 02830, [id number], [id number] #### [facility] [address] [place] [address], [facility] Protein [Mass/Vol] 6.0 g/dL Normal 6.0-8.3 [facility] Comment on above: Order Comment: No: D o not add to previous draw Performed By: #### 0 0071, [id number], 96849, [id number] #### [facility] [address] [place] [address], [facility] MAGNESIUM BLOODon 01-01-2022 Magnesium [Mass/Vol] 2.0 mg/dL Normal 1.9-2.7 [facility] Comment on above: Order Comment: No: D o not add to previous draw Performed By: #### 0 0071, [id number], 84150, 20060 #### [facility] [address] [place] [address], [facility] PHOSPHORUS BLOODon Phosphate [Mass/Vol] 2.5 mg/dL Normal 2.5-5.0 [facility] Comment on above: Order Comment: No: D o not add to previous draw Performed By: #### 0 0071, [id number], 78992, 50692 #### [facility] [address] [place] [address], [place] POC GLUCOSE LABon 01-01-2022 Glucose [Mass/Vol] 111 mg/dL High 70-100 [facility] Comment on above: Performed By: #### 8 [id number] #### [facility] [address] [place] [address], [place] POINT OF CARE GLUCOSEon 12-16 Glucose [Mass/Vol] 100 mg/dL Normal 74-106 [facility] Comment on above: Performed By: #### P OCGLUC #### [facility] [address] [address] [address] Sal Dick Glucose [Mass/Vol] 89 mg/dL Normal 74-106 [facility] Comment on above: Performed By: #### P OCGLUC #### [facility] [address] [place], [place] [address] Dr. Sal Dick PROTHROMBIN TIMEon 2 INR Coag (PPP) [Relative time] 1.14 {INR} Normal 0.91-1.16 [facility] Comment on above: Order Comment: [...] 1995;[id number]. Performed By: #### 8 [id number] #### [facility] [address] [place] [address], [facility] PT Coag (PPP) [Time] 14.6 s Normal 12.3-14.8 [facility] Comment on above: Order Comment: No: D o not add to previous draw Result Comment: ALL RESULTS MUST BE INTERPRETED WITH RESPECT TO BLOOD DRAWING ARTIFACT OR DILUTION ERROR OF ANTICOAGULANT AT THE TIME OF SAMPLING. Performed By: #### 8 [id number] #### [facility] [address] [place] [address], [facility] XR ABD FLAT UP_PA Red 01-01 XR [...] TREMAYNE ANDERSON Date: 2022-01-01 08:07 Normal [address] [facility] AMYLASEon 12-31-2021 Amylase [Catalytic activity/Vol] 38 U/L Normal 25-[address] [facility] Comment on above: Performed By: #### C MP, BABAK, LIPA #### [facility] [address] [place] [address] Dr. Sal Dick CBC AUTO DIFFon 12-31-2021 BASO # 0.1 103/ul Normal 0.0-0.1 [facility] Comment on above: Performed By: #### C BC #### [facility] [address] [address] [address] Sal Dick Basophils/100 WBC (Bld) 0.5 % Normal 0.2-2.[address] [facility] Comment on above: Performed By: #### C BC #### [facility] [address] [place] [address] Dr. Sal Dick EO # 0.2 103/ul Normal 0.0-0.7 [facility] Comment on above: Performed By: #### C BC #### [facility] [address] [place] [address] Dr. Sal Dick Eosinophils/100 WBC (Bld) 1.9 % Normal 0.9-7.0 [facility] Comment on above: Performed By: #### C BC #### [facility] [address] [place] [address] Dr. Sal Dick Erythrocyte distribution width (RBC) [Ratio] 13.2 % Normal 11.0-15.0 [facility] Comment on above: Performed By: #### C BC #### [facility] [address] [place] [address] Dr. Sal Dick Hematocrit (Bld) [Volume fraction] 49.6 % Normal 42.0-54.0 [facility] Comment on above: Performed By: #### C BC #### [facility] [address] [place] [address] Dr. Sal Dick Hemoglobin (Bld) [Mass/Vol] 17.0 g/dL Normal 14.0-18.0 [facility] Comment on above: Performed By: #### C BC #### [facility] [address] [place] [address] Dr. Sal Dick IG # 0.05 10e3/ul Critically high 0.00-0.03 [facility] Comment on above: Performed By: #### C BC #### [facility] [address] [place] [address] Dr. Sal Dick IG % 0.5 % Normal 0.0-0.5 [facility] Comment on above: Performed By: #### C BC #### [facility] [address] [place] [address] Dr. Sal Dick LYMPH # 2.3 103/ul Normal 1.2-3.8 [facility] Comment on above: Performed By: #### C BC #### [facility] [address] [place] [address] Dr. Sal Dick Lymphocytes/100 WBC (Bld) 21.1 % Normal 20.5-60.0 [facility] Comment on above: Performed By: #### C BC #### [facility] [address] [place] [address] Dr. Sal Dick MANUAL DIFF REQ NO Normal [facility] Comment on above: Performed By: #### C BC #### [facility] [address] [place] [address] Dr. Sal Dick MCH (RBC) [Entitic mass] 28.7 pg Normal 25.9-34.0 [facility] Comment on above: Performed By: #### C BC #### [facility] [address] [place] [address] Dr. Sal Dick MCHC (RBC) [Mass/Vol] 34.3 g/dL Normal 29.9-35.2 [facility] Comment on above: Performed By: #### C BC #### [facility] [address] [place] [address] Dr. Sal Dick MCV (RBC) [Entitic vol] 83.8 fL Normal 80.0-94.0 [facility] Comment on above: Performed By: #### C BC #### [facility] [address] [place] [address] Dr. Sal Dick MONO # 0.9 103/ul Critically high 0.3-0.8 [facility] Comment on above: Performed By: #### C BC #### [facility] [address] [place] [address] Dr. Sal Dick Monocytes/100 WBC (Bld) 8.4 % Normal 1.7-12.0 [facility] Comment on above: Performed By: #### C BC #### [facility] [address] [place] [address] Dr. Sal Dick NEUT # 7.2 103/ul Critically high 1.4-6.5 [facility] Comment on above: Performed By: #### C BC #### [facility] [address] [place] [address] Dr. Sal Dick Neutrophils/100 WBC (Bld) 67.6 % Normal 43.0-75.0 [facility] Comment on above: Performed By: #### C BC #### [facility] [address] [place] [address] Dr. Sal Dick Platelet mean volume (Bld) [Entitic vol] 10.8 fL Normal 9.5-13.5 [facility] Comment on above: Performed By: #### C BC #### [facility] [address] [address] [address] Sal Dick PLT 273 103/ul Normal 150-[address] [facility] Comment on above: Performed By: #### C BC #### [facility] [address] [id number] Sal Dick RBC 5.92 106/ul Normal 4.70-6.10 [facility] Comment on above: Performed By: #### C BC #### [facility] [address] [place], [place] [address] Dr. Sal Dick WBC 10.7 103/ul Normal 4.0-11.0 [facility] Comment on above: Performed By: #### C BC #### [facility] [address] [place] [address] ABD/PELV W CONon [...] SEVERO MARTINEZ Date: 2021-12-31 04:28 Normal [address] [facility]-16 SARS-CoV-2 (COVID-19) RNA CANDY+probe Ql (Unsp spec) Not detected Normal NOT DETECTED [facility] Comment on above: Result Comment: When diagnostic [...] for this test is supported by the [place] of Health and Human Service's declaration that [...] used). Performed By: #### C VDTBH #### [facility] [address] [address] [address] Sal Dick LIPASEon 12-31-2021 Lipase [Catalytic activity/Vol] 251.0 U/L Normal 73.0-393.0 [facility] Comment on above: Performed By: #### C MP, BABAK, LIPA #### [facility] [address] [address] [address] Sal Dick POINT OF CARE GLUCOSEon 12-16 Glucose [Mass/Vol] 100 mg/dL Normal 74-106 [facility] Comment on above: Performed By: #### P OCGLUC #### [facility] [address] [address] [address] Sal Dick Glucose [Mass/Vol] 113 mg/dL Critically high 74-106 [facility] Comment on above: Performed By: #### P OCGLUC #### [facility] [address] [place] [address] Dr. Sal Dick Glucose [Mass/Vol] 132 mg/dL Critically high 74-106 [facility] Comment on above: Performed By: #### P OCGLUC #### [facility] [address] [place] [address] Dr. Sal Dick PROF 14(COMP METB)on 022 Albumin [Mass/Vol] 3.6 g/dL Normal 3.4-5.0 [facility] Comment on above: Performed By: #### P OCGLUC #### [facility] [address] [place] [address] Dr. Sal Dick Albumin/Globulin [Mass ratio] 0.9 {ratio} Normal [facility] Comment on above: Performed By: #### P OCGLUC #### [facility] [address] [place] [address] Dr. Sal Dick ALP [Catalytic activity/Vol] 88 U/L Normal 46-116 [facility] Comment on above: Performed By: #### P OCGLUC #### [facility] [address] [place] [address] Dr. Sal Dick ALT [Catalytic activity/Vol] 50 U/L Normal 16-63 [facility] Comment on above: Performed By: #### P OCGLUC #### [facility] [address] [place] [address] Dr. Sal Dick Anion gap [Moles/Vol] 11.1 mmol/L Normal [facility] Comment on above: Performed By: #### P OCGLUC #### [facility] [address] [place] [address] Dr. Sal Dick AST [Catalytic activity/Vol] 19 U/L Normal 15-37 [facility] Comment on above: Performed By: #### P OCGLUC #### [facility] [address] [place] [address] Dr. Sal Dick Bilirubin [Mass/Vol] 0.7 mg/dL Normal 0.2-1.0 [facility] Comment on above: Performed By: #### P OCGLUC #### [facility] [address] [address] [address] Sal Dick Calcium [Mass/Vol] 9.1 mg/dL Normal 8.5-10.1 [facility] Comment on above: Performed By: #### P OCGLUC #### [facility] [address] [address] [address] Sal Dick Chloride [Moles/Vol] 103 mmol/L Normal 98-107 [facility] Comment on above: Performed By: #### P OCGLUC #### [facility] [address] [address] [address] Sal Dick CO2 [Moles/Vol] 30.4 mmol/L Normal 21.0-32.0 [facility] Comment on above: Performed By: #### P OCGLUC #### [facility] [address] [place] [address] Dr. Sal Dick Creatinine [Mass/Vol] 1.16 mg/dL Normal 0.70-1.30 [facility] Comment on above: Performed By: #### P OCGLUC #### [facility] [address] [place] [address] Dr. Sal Dick EGFR-AF CROATIAN >60 Normal >=60 [facility] Comment on above: Performed By: #### P OCGLUC #### [facility] [address] [place] [address] Dr. Sal Dick EGFR-NON AF CROATIAN >60 Normal >=60 [facility] Comment on above: Performed By: #### P OCGLUC #### [facility] [address] [address] [address] Sal Dick Globulin (S) [Mass/Vol] 4.2 g/dL Normal [facility] Comment on above: Performed By: #### P OCGLUC #### [facility] [address] [place] [address] Dr. Sal Dick Glucose [Mass/Vol] 230 mg/dL Critically high 74-106 [facility] Comment on above: Performed By: #### P OCGLUC #### [facility] [address] [address] [address] Sal Dick Potassium [Moles/Vol] 3.5 mmol/L Normal 3.5-5.1 [facility] Comment on above: Performed By: #### P OCGLUC #### [facility] [address] [address] [address] Sal Dick Protein [Mass/Vol] 7.8 g/dL Normal 6.4-8.2 [facility] Comment on above: Performed By: #### P OCGLUC #### [facility] [address] [address] [address] Sal Dick Sodium [Moles/Vol] 141 mmol/L Normal 136-145 [facility] Comment on above: Performed By: #### P OCGLUC #### [facility] [address] [address] [address] Sal Dick Urea nitrogen [Mass/Vol] 14.0 mg/dL Normal 7.0-18.0 [facility] Comment on above: Performed By: #### P OCGLUC #### [facility] [address] [address] [address] Sal Dick Urea nitrogen/Creatinin e [Mass ratio] 12.1 mg/mg Normal [facility] Comment on above: Performed By: #### P OCGLUC #### [facility] [address] [address] [address] Sal Dick XR ABD FLAT UP_PA [...] CLAUDE JAIME Date: 2021-12-31 02:14 Normal [facility] XR SMALL BOWEL FOLLOW THOUGH on 12-31-2021 XR SMALL BOWEL FOLLOW THOUGH EXAMINATION: XR SMALL BOWEL FOLLOW THOUGH HISTORY: ABDOMINAL DISTENSION (GASEOUS) COMPARISON: CT abdomen pelvis 12/31/2021 TECHNIQUE: Small bowel series was performed in the usual manner. No barrel inspector tight abdominal radiograph was performed. Standard level fluoroscopic [...] TREMAYNE ANDERSON Date: 2021-12-31 16:22 Normal [address] [facility] Vital Signs Date Time Vital Sign Value Performing Clinician Facility 09-09-2023 09:59-0500 Body height 190.5 cm Finconinley DO Work Phone: [facility] 09-09-2023 09:59-0500 Body weight 144.02 kg Azeb Davonte DO Work Phone: [facility] 09-09-2023 09:59-0500 Diastolic blood pressure 92 mm[Hg] Azeb Davonte DO Work Phone: [facility] 09-09-2023 09:59-0500 Heart rate 94 /min Azeb Davonte DO Work Phone: [facility] 09-09-2023 09:59-0500 Systolic blood pressure 130 mm[Hg] Azeb Davonte DO Work Phone: [facility] 08-04-2023 09:45-0500 Body height 190.5 cm Alycia Schwartz Other [facility] 08-04-2023 09:45-0500 Body mass index (BMI) [Ratio] 40.13 kg/m2 Alycia Schwartz Other [facility] Other 08-04-2023 09:45-0500 Body weight 145.65 kg Alycia Scally Other [facility] Other 08-04-2023 09:45-0500 Body weight 145.64 kg DO Benji Ball Work Phone: [facility] 08-04-2023 09:45-0500 Diastolic blood pressure 77 mm[Hg] Alycia Scally Other [facility] 08-04-2023 09:45-0500 Respiratory rate 18 /min Alycia Scally Other [facility] Other 08-04-2023 09:45-0500 SaO2% (BldA) [Mass fraction] 96 % Alycia Scally Other [facility] Other 08-04-2023 09:45-0500 Systolic blood pressure 122 mm[Hg] Alycia Scally Other [facility] 06-08-2023 15:30-0500 Body height 190.5 cm Benji Ball Other [facility] Other 06-08-2023 15:30-0500 Body mass index (BMI) [Ratio] 39.32 kg/m2 Benji Ball Other [facility] Other 06-08-2023 15:30-0500 Body weight 142.7 kg Benji Ball Other [facility] Other 06-08-2023 15:30-0500 Diastolic blood pressure 84 mm[Hg] Benji Ball Other [facility] Other 06-08-2023 15:30-0500 Respiratory rate 16 /min Benji Ball Other [facility] Other 06-08-2023 15:30-0500 Systolic blood pressure 135 mm[Hg] Benji Ball Other [facility] Other 06-06-2023 15:30-0500 Body height 190.5 cm Alycia Scally Other [facility] Other 06-06-2023 15:30-0500 Body mass index (BMI) [Ratio] 38.78 kg/m2 Alycia Scally Other [facility] Other 06-06-2023 15:30-0500 Body weight 140.75 kg Alycia Scally Other [facility] Other 06-06-2023 15:30-0500 Diastolic blood pressure 82 mm[Hg] Alycia Scally Other [facility] Other 06-06-2023 15:30-0500 Respiratory rate 18 /min Alycia Scally Other [facility] Other 06-06-2023 15:30-0500 SaO2% (BldA) [Mass fraction] 97 % Alycia Scally Other [facility] Other 06-06-2023 15:30-0500 Systolic blood pressure 117 mm[Hg] Alycia Scally Other [facility] Other 05-30-2023 12:00-0500 Body height 190.5 cm Benji Ball Other [facility] Other 05-30-2023 12:00-0500 Body temperature 98.6 [degF] Benji Ball Other [facility] Other 03-24-2023 11:15-0400 Body height 190.5 cm Alycia Scally Other [facility] Other 03-24-2023 11:15-0400 Body mass index (BMI) [Ratio] 38.57 kg/m2 Alycia Scally Other [facility] Other 03-24-2023 11:15-0400 Body weight 139.98 kg Alycia Scally Other [facility] Other 03-24-2023 11:15-0400 Diastolic blood pressure 80 mm[Hg] Alycia Scally Other [facility] Other 03-24-2023 11:15-0400 Respiratory rate 18 /min Alycia Scally Other [facility] Other 03-24-2023 11:15-0400 SaO2% (BldA) [Mass fraction] 95 % Alycia Scally Other [facility] Other 03-24-2023 11:15-0400 Systolic blood pressure 124 mm[Hg] Alycia Scally Other [facility] Other 03-08-2023 15:30-0400 Body height 190.5 cm Benji Ball Other [facility] Other 03-08-2023 15:30-0400 Body mass index (BMI) [Ratio] 38.04 kg/m2 Benji Ball Other [facility] Other 03-08-2023 15:30-0400 Body weight 138.08 kg Benji Ball Other [facility] Other 03-08-2023 15:30-0400 Diastolic blood pressure 102 mm[Hg] Benji Ball Other [facility] Other 03-08-2023 15:30-0400 Respiratory rate 12 /min Benji Ball Other [facility] Other 03-08-2023 15:30-0400 Systolic blood pressure 137 mm[Hg] Benji Ball Other [facility] Other 02-09-2023 15:00-0400 Body height 190.5 cm Alycia Scally Other [facility] Other 02-09-2023 15:00-0400 Body mass index (BMI) [Ratio] 38.23 kg/m2 Alycia Scally Other [facility] Other 02-09-2023 15:00-0400 Body weight 138.76 kg Alycia Scally Other [facility] Other 02-09-2023 15:00-0400 Diastolic blood pressure 72 mm[Hg] Alycia Scally Other [facility] Other 02-09-2023 15:00-0400 Respiratory rate 18 /min Alycia Scally Other [facility] Other 02-09-2023 15:00-0400 SaO2% (BldA) [Mass fraction] 96 % Alycia Scally Other [facility] Other 02-09-2023 15:00-0400 Systolic blood pressure 147 mm[Hg] Alycia Scally Other [facility] Other 09-03-2022 15:00-0500 Body height 190.5 cm Benji Ball Other [facility] Other 09-03-2022 15:00-0500 Body mass index (BMI) [Ratio] 37.77 kg/m2 Benji Ball Other [facility] Other 09-03-2022 15:00-0500 Body weight 137.08 kg Benji Ball Other [facility] Other 09-03-2022 15:00-0500 Diastolic blood pressure 70 mm[Hg] Benji Encover Other [facility] Other 09-03-2022 15:00-0500 Respiratory rate 20 /min Benji Encover Other [facility] Other 09-03-2022 15:00-0500 Systolic blood pressure 118 mm[Hg] Benji Encover Other [facility] Other Encounters Encounter Date Encounter Type Care Provider Facility Start: 03-16-2024 End: 03-16-2024 Telephone encounter Azeb Mathur DO Work Phone: [facility] Comment on above: Request Outside [facility] Records Start: 02-16-2024 Telephone encounter Azeb marks DO Work Phone: Neurology Comment on above: Appointment (Called to reschedule 04/[address] mathur since she is out of the office. LVM and sent reminder in the mail.) Start: 09-09-2023 End: 09-09-2023 ambulatory AZEB MATHUR Facility:[facility] Start: 09-09-2023 End: 09-09-2023 Patient encounter procedure Azeb Mathur DO Work Phone: [facility] Comment on above: Demyelinating diseas e of central nervous system (HCC) (Primary Dx); Diabetic polyneuropathy associated with type 2 diabetes mellitus (HCC) Start: 08-29-2023 End: 08-29-2023 ambulatory Benji Kulkarni Other [facility] Other Start: 08-29-2023 Office outpatient vi sit 15 minutes Benji Kulkarni [facility] Start: 08-04-2023 (DM) Diabetes Alycia Novakketurah [facility] Start: 08-04-2023 End: 08-05-2023 ambulatory DO Benji Kulkarni Work Phone: [facility] Other Start: 08-04-2023 End: 08-04-2023 Discharged Recurring DO Benji Kulkarni Work Phone: [facility] Work Phone: Start: 08-04-2023 End: 08-04-2023 Patient encounter procedure DO Benji Kulkarni Work Phone: [facility]- Start: 08-02-2023 End: 08-02-2023 ambulatory Alycia Schwartz Other [facility] Other Start: 08-02-2023 Telephone encounter Alycia [facility]ina [facility] Start: 07-13-2023 End: 07-13-2023 ambulatory Alycia Schwartz Other [facility] Other Start: 07-13-2023 Nursing evaluation o f patient and report Alycia Schwartz [facility] Start: 07-01-2023 End: 07-01-2023 ambulatory Alycia Schwartz Other [facility] Other Start: 07-01-2023 Telephone encounter Alycia Molina [facility] Start: 06-21-2023 End: 06-21-2023 ambulatory Kaylynn Nova Other [facility] Other Start: 06-21-2023 Telephone encounter Kaylynn armenta [facility] Start: 06-08-2023 End: 06-08-2023 ambulatory Benji Kulkarni Other [facility] Other Start: 06-08-2023 Office outpatient vi sit 25 minutes Benji Encover [facility] Start: 06-06-2023 (DM) Diabetes Alyciajose Schwartz Rylie [facility] Start: 06-06-2023 End: 06-06-2023 ambulatory Alycia Schwartz Other [facility] Other Start: 05-30-2023 End: 05-30-2023 ambulatory Benji Kulkarni Other [facility] Other Start: 05-30-2023 Office outpatient vi sit 15 minutes [facility] Start: 05-25-2023 End: 05-25-2023 ambulatory Alycia Schwartz Other [facility] Other Start: 05-25-2023 Telephone encounter Alycia Samroz [facility] Start: 05-19-2023 End: 05-19-2023 ambulatory Alycia Schwartz Other [facility] Other Start: 05-19-2023 Nursing evaluation o f patient and report Alycia Fields [facility] Start: 05-16-2023 End: 05-16-2023 ambulatory Alycia Schwartz Other [facility] Other Start: 05-16-2023 Telephone encounter Alycia Samroz [facility] Start: 04-20-2023 End: 04-20-2023 ambulatory Alycia Schwartz Other [facility] Other Start: 04-20-2023 Telephone encounter Alyciaizzy Schwartz [facility] Start: 03-24-2023 (DM) Diabetes Alycia [facility] Start: 03-24-2023 End: 03-24-2023 ambulatory Alycia Schwartz Other [facility] Other Start: 03-17-2023 End: 03-17-2023 ambulatory Alycia Schwartz Other [facility] Other Start: 03-17-2023 Telephone encounter Alycia Molina [facility] Start: 03-15-2023 End: 03-15-2023 ambulatory Benji Kulkarni Other [facility] Other Start: 03-15-2023 Telephone encounter Benji Kulkarni [facility] Start: 03-08-2023 End: 03-08-2023 ambulatory Benji Shad Other [facility] Other Start: 03-08-2023 Office outpatient vi sit 25 minutes Benji Kulkarni [facility] Start: 03-04-2023 End: 03-04-2023 ambulatory Alycia Schwartz Other [facility] Other Start: 03-04-2023 Telephone encounter Alycia Molina [facility] Start: 02-24-2023 End: 02-24-2023 ambulatory Alycia Schwartz Other [facility] Other Start: 02-24-2023 Telephone encounter Alycia Molina [facility] Start: 02-21-2023 End: 02-21-2023 ambulatory Alycia Schwartz Other [facility] Other Start: 02-21-2023 Nursing evaluation o f patient and report Alycia Fields [facility] Start: 02-17-2023 End: 02-17-2023 ambulatory Alycia Schwartz Other [facility] Other Start: 02-17-2023 Telephone encounter Alycia howard [facility] Start: 02-16-2023 End: 02-16-2023 ambulatory Benji Kulkarni Other [facility] Other Start: 02-16-2023 Telephone encounter Benji Kulkarni [facility] Start: 02-14-2023 End: 02-14-2023 ambulatory Alycia Schwartz Other [facility] Other Start: 02-14-2023 Telephone encounter Alycia howard [facility] Start: 02-10-2023 End: 02-10-2023 ambulatory Alycia Schwartz Other [facility] Other Start: 02-10-2023 Telephone encounter Alycia howard [facility] Start: 02-09-2023 End: 02-09-2023 ambulatory Benji Kulkarni Other [facility] Other Start: 02-09-2023 FQHC visit new patient Alycia Pleite[facility] Start: 02-09-2023 Telephone encounter Benji Kulkarni [facility] Start: 01-19-2023 End: 01-19-2023 ambulatory Benji Kulkarni Other [facility] Other Start: 01-19-2023 Telephone encounter Benji Ball [facility] Start: 12-28-2022 End: 12-28-2022 ambulatory Benji Ball Other [facility] Other Start: 12-28-2022 Telephone encounter Benji Ball [facility] Start: 10-11-2022 End: 10-11-2022 ambulatory Benji Ball Other [facility] Other Start: 10-11-2022 Telephone encounter Benji Kulkarni [facility] Start: 09-13-2022 End: 09-13-2022 ambulatory Benji Kulkarni Other [facility] Other Start: 09-13-2022 Telephone encounter Benji Kulkarni [facility] Start: 09-07-2022 End: 09-07-2022 ambulatory Benji Kulkarni Other [facility] Other Start: 09-07-2022 Telephone encounter Benji Kulkarni [facility] Start: 09-03-2022 End: 09-03-2022 ambulatory Benji Kulkarni Other [facility] Other Start: 09-03-2022 Office outpatient vi sit 25 minutes Benji Kulkarni [facility] Start: 08-10-2022 End: 08-10-2022 ambulatory Benji Kulkarni Other [facility] Other Start: 08-10-2022 Telephone encounter Benji Kulkarni [facility] Start: 08-09-2022 End: 08-09-2022 ambulatory Benji Kulkarni Other [facility] Other Start: 08-09-2022 Office outpatient vi sit 15 minutes Benji Kulkarni [facility] Start: 08-05-2022 End: 08-05-[address] BENJI KULKARNI Facility:[facility] Start: 08-03-2022 End: 08-03-2022 ambulatory Benji Kulkarni Other [facility] Other Start: 08-03-2022 Encounter for genera l adult medical examination without abnormal findings Benji Kulkarni [facility] Start: 08-03-2022 Telephone encounter Benji FONTENOT [facility] Start: 01-01-2022 End: 01-03-2022 Evaluation and management of inpatient WARREN CARLSON Facility:[facility] Start: 12-31-2021 End: 01-01-[address] BENJI KULKARNI Facility:[facility] Start: 12-30-[address] BENJI KULKARNI Faciltay ty:[facility] Start: 11-04-[address] BENJI Ordonez ty:[facility] Start: 10-08-2020 Adult health examination Keo Kulkarni Other [facility] Other Procedures Date Procedure Procedure Detail Performing Clinician Start: 01-04-2018 General examination of patient Benji Kulkarni Other Plan of Treatment Date Care Activity Detail Author Start: 01-11-2028 Urine microalbumin profile DTaP,Tdap,Td Vaccine (3 - Td or Tdap) [facility] Start: 05-04-2024 End: 05-04-2024 Patient encounter procedure 05/04/2024 2:30 PM EDT Office Visit [facility] [address] [place], [place] [id number] Azeb Mathur DO [address] [place] [address] MRI BRAIN [facility] Comment on above: MRI BRAIN Start: 05-04-2024 End: 05-04-2024 Patient encounter procedure MRI Q Comment on above: Demyelinating dis ease of central nervous system (HCC) [G37.9] oct Start: 03-18-2024 Influenza vaccination Influenza Vacc ine (#1) [facility] Start: 07-18-2023 Depression Assessment Depression Ass essment [facility] Start: 03-18-2023 Covid-19 Vaccine ( season) Covid-19 Vaccine ( season) [facility] Start: 03-18-2023 Influenza vaccination Influenza Vacc ine (#1) [facility] Start: 2018 Lipid panel Lipid Screening [facility] Start: 2002 Hepatitis B Vaccine (1 of 3 - 19+ 3-dose series) Hepatitis B Vaccine (1 of 3 - 19+ 3-dose series) [facility] Start: 2001 Anxiety Screening Anxiety Screening [facility] Start: 2001 Depression Screening Depression Scre ening [facility] Start: 2001 Hepatitis C screening Hepatitis C Sc bryanna [facility] Start: 2001 HIV screening HIV Screening [facility] Start: 1983 Covid-19 Vaccine (#1) Covid-19 Vacci ne (#1) [facility] Start: 1983 Hepatitis B Vaccine (1 of 3 - 3-dose series) Hepatitis B Vaccine (1 of 3 - 3-dose series) [facility] End: 10-08-2024 MR Brain WO and W contrast IV MRI BRAIN WO/W IVCON Radiology Routine Demyelinating disease of central nervous system (HCC) 1 Occurrences starting 09/09/2023 until 10/08/2024 [facility] Work Phone: Comment on above: 1 Occurrences starti ng 09/09/2023 until 10/08/2024 End: 03-02-2025 OCT NEURO INST OCT NEURO INST OPHT Imaging Routine Demyelinating disease of central nervous system (HCC) 1 Occurrences starting 09/09/2023 until 03/02/2025 [facility] Work Phone: Comment on above: 1 Occurrences starti ng 09/09/2023 until 03/02/2025 [facility] Immunizations Immunization Date Immunization Notes Care Provider Gonzalo brody 01-10-2018 diphtheria, tetanus toxoids and acellular pertussis vaccine, unspecified formulation Benji Kulkarni Other [facility] 01-10-2018 tetanus toxoid, redu tiffany diphtheria toxoid, and acellular pertussis vaccine, adsorbed DO Benji Kulkarni Work Phone: [facility] Payers Date Payer Category Payer Medicaid [id number] 2022 Medicaid [id number] 2016 Medicare MEDICARE MEDICAR E A AND B [id number] 2016-Present [phone] [address] [address] [place] [address] Medicare [id number] 1983 Unknown [id number] 1983 Unknown [id number] 1983 Unknown [id number] 1983 Unknown [id number] 1983 Unknown [id number] 1959 Medicare [id number] 1959 Self-pay 1959 Unknown [id number] Medicaid [place] Advantage [id number] 201 [id number] Unknown [id number] Social History Date Type Detail Facility Start: 09-09-2023 Sex Assigned At [facility] Other Start: 08-04-2023 End: 09-09-2023 Tobacco smoking status NHIS Never smoked tobacco (finding) [facility] Start: 1985 Sex Assigned At Male [facility] Start: 09-09-2023 Tobacco use and exposure Smokeless tobacco non-user [facility] Start: 09-09-2023 History of Social function [facility] National Score (1-10 0), lower number is lower risk 64 [facility] Start: 09-09-2023 Gender identity Identifies as male gender (finding) [facility] Start: 09-09-2023 Sexual orientation Heterosexual (finding) [facility] Medical Equipment Procedure Code Equipment Code Equipment Origin al Text Equipment Identifier Dates Start: 02-14-2023 Clinical Notes 01-25-2022 to 03-16-2024 Telephone Encounter - Judith Geiger LPN - 03/16/2024 11:19 AM EDTTelephone Encounter - Judith Geiger LPN - 03/16/2024 11:19 AM Azeb Garcia DO - 09/09/2023 10:30 AM EST Note Date & Type Note Facility 03-16-2024 Telephone encounter Note .[facility] NEW PATIENT REFERRAL TRIAGE Referral source:self No referring provider defined for this encounter. Referral Reason: for a second opinion on neurological symptoms Care Everywhere Completed Connection: [x]Yes or []No MyChart Dot Phrase Sent if Records were not sent MyChart Account?: [x]Yes or []No MyChart Dot Phrase Sent: Date 04/16/2024 Judith Geiger LPN [facility] 03-16-2024 Miscellaneous Notes .[facility] NEW PATIENT REFERRAL TRIAGE Referral source:self No referring provider defined for this encounter. Referral Reason: for a second opinion on neurological symptoms Care Everywhere Completed Connection: [x]Yes or []No MyChart Dot Phrase Sent if Records were not sent MyChart Account?: [x]Yes or []No MyChart Dot Phrase Sent: Date 04/16/2024 Judith Geiger LPN documented in this encounter [facility] 02-16-2024 Telephone encounter Note Called to reschedule 04/[address] mathur since she is out of the office. LVM and sent reminder in the mail. [facility] 02-16-2024 Miscellaneous Notes Called to reschedule 04/[address] mathur since she is out of the office. LVM and sent reminder in the mail. documented in this encounter [facility] 09-09-2023 History of Present illness Narrative Images from the original note were not included. [facility] NEW PATIENT EVALUATION/CONSULTATION Referral source: No referring provider defined for this encounter. Also followed by: No care grocery team member to display PRINCIPAL NEUROLOGIC DIAGNOSIS: Multiple neurological [...] expected to be with me at the [facility]. When he was younger he had multiple concussions and recovered. At 16 he had mycarditis attributed to significant caffeine intake and pericarditis. His first neurological symptom occurred around 28 years old. 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 He was told it was [...] the last year since establishing with an kiln transfer operator. In May he had a significant migraine with flashing lights and slow motion experience in his vision. He will have intermittent migraines that occur. These have occurred for many years. He can go months to sometimes years without one. 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 He had two sisters with MS (Ally and Betsy, both cared for by Davonte/Ariadna at [facility]). His last MRI lumbar was prior to his surgery. He is very claustrphobic. Last EMG was before his lumbar surgery. [facility] Neuro-QoL Functions (higher=better functioning) Flowsheet Row Office Visit from 09/09/2023 in [facility] Upper Extremity Domain T Score 41.48 Lower Extremity Domain T Score 42.17 Cognitive Function Domain T Score 44.4 Positive Affect Well Being T Score -- Ability To Participate In Social Roles T Score 43.48 Satisfaction With Social Roles T Score 43.36 Neuro-QoL Symptoms (higher=worse symptoms) Flowsheet [facility] Office Visit from 09/09/2023 in [facility] Sleep Domain T Score 65.45 Fatigue Domain [...] Flowsheet Row Office Visit from 09/09/2023 in [facility] Processing Speed Total Number Correct 41 Low-contrast [...] the arms and legs was performed including [id number], rapid-alternating, and fine movements. 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 Azeb Mathur DO [facility] documented in this encounter [facility] 09-09-2023 Note HNO ID: [id number] Author: AZEB MATHUR DO Service: ? Author Type: Physician Type: Progress Notes Filed: 09/09/2023 16:05 Note Text: [facility] NEW PATIENT EVALUATION/CONSULTATION Referral source: No referring provider defined for this encounter. Also followed by: No care grocery team member to display PRINCIPAL NEUROLOGIC DIAGNOSIS: Multiple neurological [...] expected to be with me at the [facility]. When he was younger he had multiple concussions and recovered. At 16 he had mycarditis attributed to significant caffeine intake and pericarditis. His first neurological symptom occurred around 28 years old. 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 He was told it was [...] the last year since establishing with an kiln transfer operator. In May he had a significant migraine with flashing lights and slow motion experience in his vision. He will have intermittent migraines that occur. These have occurred for many years. He can go months to sometimes years without one. 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 He had two sisters with MS (Ally and Betsy, both cared for by Nasima at [facility]). His last MRI lumbar was prior to his surgery. He is very claustrphobic. Last EMG was before his lumbar surgery. [facility] Neuro-QoL Functions (higher=better functioning) Flowsheet Row Office Visit from 09/09/2023 in [facility] Upper Extremity Domain T Score 41.48 Lower Extremity Domain T Score 42.17 Cognitive Function Domain T Score 44.4 Positive Affect Well Being T Score -- Ability To Participate In Social Roles T Score 43.48 Satisfaction With Social Roles T Score 43.36 Neuro-QoL Symptoms (higher=worse symptoms) Flowsheet Row Office Visit from 09/09/2023 in [facility] Sleep Domain T Score 65.45 Fatigue Domain [...] Flowsheet Row Office Visit from 09/09/2023 in [facility] Processing Speed Total Number Correct 41 Low-contrast letter acuity test-2.5 p (more content not included)... [facility] 08-29-2023 Evaluation note Encounter Date Diagnosis Assessment [...] more serious, prolonged illness. Monitor BS closely [facility] Other 01-18-2024 Evaluation note* Encounter Date Diagnosis [...] use, the patient reduces the risk for OK, CVA, HTN, cardiac dysrhythmias and sudden cardiac [...] was counseling done by myself, Riddhi LEUNG. [facility] Other 12-27-2023 Evaluation note* Encounter Date Diagnosis [...] with the patient by Mathew Byers RN, [facility]. Alycia Schwartz 07/14/2023 01:13:59 PM >discussed, reviewd and endorsed day of appt [facility] Other 12-15-2023 Evaluation note* Encounter Date Diagnosis Assessment Notes Treatment Notes Treatment Clinical Notes Jun, Type 2 diabetes mellitus with hyperglycemia (ICD-10 - E11.65) Jun, Type 2 diabetes mellitus with hyperglycemia, unspecified fci insulin use status (ICD-10 - E11.65) [facility] Other 11-22-2023 Evaluation note* Encounter Date Diagnosis [...] use, the patient reduces the risk for OK, CVA, HTN, cardiac dysrhythmias and sudden cardiac [...] [BMI] 38.0-38.9, adult (ICD-10 - Z68.38) May, intermission coordinator (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 insulin (ICD-10 - Z79.4) [facility] Other 11-20-2023 Evaluation note* Encounter Date Diagnosis [...] was counseling done by myself, Riddhi LEUNG. 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 [facility] Other 09-07-2023 Evaluation note* Encounter Date Diagnosis [...] was counseling done by myself, Riddhi LEUNG. [facility] Other 08-29-2023 Evaluation note* Encounter Date Diagnosis Assessment Notes Treatment Notes Treatment Clinical Notes Feb, Hyperlipidemia, mixed (ICD-10 - E78.2) [facility] Other 08-22-2023 Evaluation note* Encounter Date Diagnosis [...] use, the patient reduces the risk for OK, CVA, HTN, cardiac dysrhythmias and sudden cardiac [...] index [BMI] 38.0-38.9, adult (ICD-10 - Z68.38) [facility] Other 08-07-2023 Evaluation note* Encounter Date Diagnosis Assessment Notes Treatment Notes Treatment Clinical Notes Feb, Type 2 diabetes mellitus with hyperglycemia, unspecified 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 [facility] Other 07-31-2023 Evaluation note* Encounter Date Diagnosis Assessment Notes Treatment Notes Treatment Clinical Notes Jan, Type 2 diabetes mellitus with hyperglycemia, unspecified middle or intermediate school principal insulin use status (ICD-10 - E11.65) [facility] Other 07-26-2023 Evaluation note* Encounter Date Diagnosis [...] was counseling done by myself, Riddhi LEUNG. [facility] Other 07-05-2023 Evaluation note* Encounter Date Diagnosis Assessment Notes Treatment Notes Treatment Clinical Notes Jan, Type 2 diabetes mellitus with hyperglycemia (ICD-10 - E11.65) [facility] Other 06-13-2023 Evaluation note* Encounter Date Diagnosis Assessment Notes Treatment Notes Treatment Clinical Notes Dec, Type 2 diabetes mellitus with hyperglycemia (ICD-10 - E11.65) [facility] Other 03-27-2023 Evaluation note* Encounter Date Diagnosis Assessment Notes Treatment Notes Treatment Clinical Notes Sep, Type 2 diabetes mellitus with hyperglycemia (ICD-10 - E11.65) [facility] Other 02-17-2023 Evaluation note* Encounter Date Diagnosis Assessment Notes Treatment Notes Treatment Clinical Notes Aug, Obstructive sleep apnea (ICD-10 - G47.33) This patient is aware of the benefits associated with MARIFER: With continued use, the patient reduces the risk for OK, CVA, HTN, cardiac dysrhythmias and sudden cardiac [...] (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 insulin (ICD-10 - Z79.4) [facility] Other 01-24-2023 Evaluation note* Encounter Date Diagnosis Assessment Notes Treatment Notes Treatment Clinical Notes Jul, Acute non-recurrent maxillary sinusitis (ICD-10 - J01.00) [facility] Other 01-23-2023 Evaluation note* Encounter Date Diagnosis [...] are reviewed at the office visit. Jul, intermission coordinator (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 insulin (ICD-10 - Z79.4) [facility] Other 01-17-2023 Evaluation note* Encounter Date Diagnosis Assessment Notes Treatment Notes Treatment Clinical Notes Jul, Wellness examination (ICD-10 - Z00.00) [facility] Other 07-11-2022 NoteMR#: [id number] I [facility] Pt. Name: Kaleigh Motley Admitted: 01/01/2022 Discharged: [...] at the outside hospital and sent to [facility] for further management. HOSPITAL COURSE: The patient [...] Patel MD Date Trans: 01/25/2022 02:34 A/kevin GARCIA_MICH:[id number] cc: Benji Kulkarni D.O. [address] [place] [address] A [facility] [id number]. John of God HospitalEvaluation noteNo InformationNortSelect Specialty Hospital [facility] [employer] Other Evaluation noteNo assessment information available [facility] Work Phone: Evaluation note* Diagnosis Demyelinating disease of central nervous system (HCC)- Primary Demyelinating disease of central nervous system, unspecified Diabetic polyneuropathy associated with type 2 diabetes mellitus (HCC) documented in this encounter [facility] general Narrative - Reported* Type Description Date Medical History Type 2 diabetes chilango itus with hyperglycemia, unspecified fci insulin use status Medical History [facility] current [...] LUMBAR LAMINECTOMY/DISCECTOMY Hospitalization History SEE SURGICAL HX [facility] [employer] Other Summary Purpose Family History Relationship Condition [...] Azeb Mathur DO [address] [place] [address] Mr Imaging [facility] Referral ID Status Reason Start Date Expiration Date Visits Requested Visits Authorized [id number] Pending Review Auto-Generat ed Referral 09/09/2023 10/08/2024 1 1 Additional Source Comments (unrecognized sect ion and content) No Status Records FoundNo Status Records FoundNo Status Records FoundNo Status Records Found INFORMATION SOURCE (unrecogn ized section and content) DATE CREATED AUTHOR 01/25/2022 [facility] DATE CREATED AUTHOR AUTHOR'S ORGANIZ ATION 08/23/2022 [facility] DATE CREATED AUTHOR AUTHOR'S ORGANIZ ATION 09/15/2023 [place] DATE CREATED AUTHOR AUTHOR'S ORGANIZ ATION 02/19/2024 [facility] REASON FOR VISIT (unrecogniz ed section and content) Reason Comments Request Outside Medical Records Reason Comments Appointment Called to reschedule 04/[address] mathur since she is out of the office. LVM and sent reminder in the mail. Reason Comments New Patient Evaluation COVID Positive- [phone], 3 month Follow upDS DM patient cancelledDS refill humalog/ rescheduleDM, DM 6 week follow up, Type 2Cancelled apptDS [id number], body aches, sore throat [phone] lost medicationDS BG Control/RefillDM 6 week follow [...] or prosecute any alcohol or drug abuse patient.[facility] the event this information is protected by the Federal Confidentiality of Alcohol and Drug Abuse Patient Records regulations: The Federal rules restrict any use of the information to criminally investigate or prosecute any alcohol or drug abuse patient.[facility] the event this information is protected by the Federal Confidentiality of Alcohol and Drug Abuse Patient Records regulations: The Federal rules restrict any use of the information to criminally investigate or prosecute any alcohol or drug abuse patient.[facility] FOR RECORDS PERTAINING TO PATIENTS WHO [...] BE BASED ON THE PRIMARY CLINICAL RECORDS. [facility] [employer] provides no warranty or guarantee of the accuracy or completeness of information in this document.
--- NOTE | 2024-06-12 02:03 | ED.NECK1 ---
HPI HPI - Neck Pain/Injury General Chief Complaint: Neck Pain/Injury Stated Complaint: NECK, SHOULDER PAIN Time Seen by Provider: 06/12/24 01:55 Source: patient Mode of arrival: walk-in Limitations: no limitations History of Present Illness HPI Narrative: history of myocarditis 2001. History of fibromyalgia and will experience pain at back of his head and neck tylor with change in weather. Over past 3 days has been experiencing pain back of his head and neck per usual Fibromyalgia but also has pain bilat shoulder and pressure bilat chest. Also sensation of smelling something burning. No dyspnea or nausea. No weakness of the upper and lower extremities Related Data Home Medications ?Medication ?Instructions ?Recorded ?Confirmed atorvastatin 20 mg tablet 20 mg PO DAILY 01/05/24 06/12/24 empagliflozin 25 mg tablet 25 mg PO DAILY 01/05/24 06/12/24 (Jardiance) insulin degludec 200 unit/mL (3 67 unit subcut DAILY 01/05/24 06/12/24 mL) subcutaneous pen (Tresiba FlexTouch U-200 insulin) insulin lispro 100 unit/mL 45 unit subcut AC 01/05/24 06/12/24 subcutaneous pen (Humalog KwikPen (U-100) Insulin) insulin lispro 200 unit/mL (3 mL) 1 sliding scale dose subcut DAILY 01/05/24 06/12/24 subcutaneous pen (Humalog KwikPen U-200 Insulin) sitagliptin phosphate 50 mg tablet 50 mg PO DAILY 06/12/24 06/12/24 (Januvia) Allergies Allergy/AdvReac Type Severity Reaction Status Date / Time No Known Drug Allergies Allergy Verified 06/12/24 01:56 Opioid HPI Opioid Management Most Recent Opioid Data: Last Pain Scale 5 01/05/24 01:19 01/05/24 Review of Systems ROS Status of ROS 10 or more systems reviewed and unremarkable except as noted in history and below [facility] Medical History (Updated 06/12/24 @ 05:46 by Rakan Pimentel MD) Diabetic acidosis, type I ?E10.10 - Type 1 diabetes mellitus with ketoacidosis without coma (ICD-10) Surgical History (Updated 01/05/24 @ 00:38 by Smiley Blake) H/O knee surgery ?Z98.890 - Other specified postprocedural states (ICD-10) Previous back surgery ?Z98.890 - Other specified postprocedural states (ICD-10) Social History Smoking status: Never smoker Little interest or pleasure in doing things: not at all Feeling down, depressed, or hopeless: not at all Exam Constitutional Vital Signs, click to edit/add: Last Vital Signs Temp 98.6 F 06/12/24 01:50 Pulse 101 H 06/12/24 04:10 Resp 18 06/12/24 04:10 BP 135/86 06/12/24 03:30 Pulse Ox 97 06/12/24 02:20 O2 Del Method Room Air 06/12/24 01:50 Common normals: no apparent distress, average body habitus, oriented x3, no limitations, healthy appearing, alert and well nourished HENKY Common normals: normocephalic and head/scalp atraumatic Eye Common normals: EOMs intact bilaterally and conjunctivae normal Neck & C-Spine Common normals: full ROM Other: tenderness bilat posterior para cervical musculature Respiratory Common normals: normal respiratory effort, no retractions, no use of accessory muscles and clear to auscultation bilaterally Cardio Common normals: regular rate, regular rhythm, S1 normal heart sound and S2 normal heart sound Extremity Common normals: normal to inspection and full ROM Neuro Common normals: oriented x3, CN's II-XII intact bilaterally, moves all extremities and no focal motor deficits Psych Appearance: grossly normal Course Vital Signs Vital signs: Vital Signs Temperature 98.6 F 06/12/24 01:50 Pulse Rate 102 H 06/12/24 01:50 Respiratory Rate 20 06/12/24 01:50 Blood Pressure 180/118 H 06/12/24 01:50 Pulse Oximetry 98 06/12/24 01:50 Oxygen Delivery Method Room Air 06/12/24 01:50 Temperature 98.6 F 06/12/24 01:50 Pulse Rate 101 H 06/12/24 04:10 Respiratory Rate 18 06/12/24 04:10 Blood Pressure 135/86 06/12/24 03:30 Pulse Oximetry 97 06/12/24 02:20 Oxygen Delivery Method Room Air 06/12/24 01:50 MDM - Neck Pain/Injury MDM Narrative Medical decision making narrative: history of fibromyalgia manifested as pain base of his head/neck , Pain this time also included discomfort across the top of his chest and bilat shoulders. Ongoing for several hours. No associated dyspnea or nausea. d-dimer neg. Serial troponin neg. normal EKG. Treated with magnesium and solumedrol and chest and shoulder symptoms completely resolved and significant improvement in his fibromyalgia head and neck pain. Discharged home with working diagnosis of atypical musculosketal chest wall pain Lab Data Labs: Lab Results 06/12/24 06/12/24 Range/Units 02:10 05:00 WBC 9.5 (4.0-11.0) 10^3/uL RBC 5.55 (4.70-6.10) 10^6/uL Hgb 16.3 (14.0-18.0) g/dL Hct 46.7 (42.0-54.0) % MCV 84.1 (80.0-94.0) fL MCH 29.4 (25.9-34.0) pg MCHC 34.9 (29.9-35.2) g/dL RDW 12.7 (11.0-15.0) % Plt Count 215 (150-450) 10^3/uL MPV 11.0 (9.5-13.5) fL Neut % (Auto) 60.2 (43.0-75.0) % Lymph % (Auto) 30.7 (20.5-60.0) % Pacific % (Auto) 6.6 (1.7-12.0) % Eos % (Auto) 1.6 (0.9-7.0) % Baso % (Auto) 0.5 (0.2-2.0) % Neut # (Auto) 5.7 (1.4-6.5) 10^3/uL Lymph # (Auto) 2.9 (1.2-3.8) 10^3/uL Pacific # (Auto) 0.6 (0.3-0.8) 10^3/uL Eos # (Auto) 0.2 (0.0-0.7) 10^3/uL Baso # (Auto) 0.1 (0.0-0.1) 10^3/uL Abs Immat Gran (auto) 0.04 H (0.00-0.03) 10^3/uL Imm/Tot Granulo (auto) 0.4 (0.0-0.5) % D-Dimer 0.54 (<=0.59) mg/L FEU Sodium 142 (136-145) mmol/L Potassium 4.0 (3.5-5.1) mmol/L Chloride 107 (98-107) mmol/L Carbon Dioxide 24.9 (21.0-32.0) mmol/L Anion Gap 14.1 BUN 16.0 (7.0-18.0) mg/dL Creatinine 1.07 (0.70-1.30) mg/dL Est GFR ( Amer) >60 (>=60 mL/min/1.73m^2) Est GFR (Non-Af Amer) >60 (>=60 mL/min/1.73m^2) BUN/Creatinine Ratio 15.0 Glucose 174 H (74-106) mg/dL Calcium 9.4 (8.5-10.1) mg/dL Troponin I High Sens 6.3 6.0 (4.0-76.1) pg/mL Discharge Plan Discharge Chief Complaint: Neck Pain/Injury Clinical Impression: Atypical chest pain Patient Disposition: Home, Self-Care Prescriptions / Home Meds: No Action atorvastatin 20 mg tablet 20 mg PO DAILY Jardiance 25 mg tablet 25 mg PO DAILY insulin degludec [Tresiba FlexTouch U-200] 200 unit/mL (3 mL) insulin pen 67 unit SUBCUT DAILY insulin lispro [Humalog KwikPen Insulin] 100 unit/mL insulin pen 45 unit SUBCUT AC Humalog KwikPen Insulin 200 unit/mL (3 mL) insulin pen 1 sliding scale dose SUBCUT DAILY Januvia 50 mg tablet 50 mg PO DAILY Print Language: Maldivian Instructions: Noncardiac Chest Pain (ED) Additional Instructions: follow up with your doctor early next week Referrals: Benji Kulkarni DO [Primary Care Provider] - 1 week
--- NOTE | 2024-06-12 02:07 | XR_ITS ---
The [address] [address] Patient Name: KALEIGH MOTLEY MRN: [id number] date: 1985 Sex: M Assigned Patient Location: ER Current Patient Location: ER Accession/Order Number: [id number] Exam Date: 06/12/2024 02:33 Report Date: 06/12/2024 04:36 At the request of: ITA HOPKINS Procedure: XR chest 2V EXAMINATION: XR chest 2V HISTORY: chest pain COMPARISON: XR chest 05/28/2024, 09/05/2017 FINDINGS: LUNGS: No significant pulmonary parenchymal abnormalities. VASCULATURE: No increased pulmonary vasculature. PLEURA: No pneumothorax, effusion, or pleural thickening. CARDIAC: No cardiomegaly or cardiac silhouette abnormality. MEDIASTINUM: No visible mass or adenopathy. BONES: No fracture or visible bone lesion. OTHER: Negative. XR/XR chest 2V IMPRESSION: 1. No acute cardiopulmonary process. Stable chest. Electronically authenticated by: TREMAYNE ANDERSON Date: 06/12/2024 04:36
--- NOTE | 2024-06-12 02:08 | CT_ITS ---
The [address] [address] Patient Name: KALEIGH MOTLEY MRN: [id number] date: 1985 Sex: M Assigned Patient Location: ER Current Patient Location: ER Accession/Order Number: [id number] Exam Date: 06/12/2024 02:33 Report Date: 06/12/2024 04:32 At the request of: ITA HOPKINS Procedure: CT facial bones wo con EXAMINATION: CT facial bones wo con HISTORY: sinus pressure COMPARISON: No relevant comparison available. TECHNIQUE: Axial and Coronal CT images were created without and/or with IV contrast as indicated by examination type. Dose reduction techniques were achieved by using automated exposure control and/or adjustment of mA and/or kV according to patient size and/or use of iterative reconstruction technique. FINDINGS: MAXILLARY SINUSES: Trace amount mucosal thickening bilaterally. No fluid.. Infundibula are patent. No significant anomalous inferior orbital ethmoid (Silas) air cells. ETHMOID SINUSES: No significant mucosal thickening or fluid. Fovea ethmoidali and lamina papyracea are symmetric and intact. SPHENOID SINUSES: No significant mucosal thickening or fluid. Sphenoethmoidal recesses are patent. No bony dehiscence. FRONTAL SINUSES: No significant mucosal thickening or fluid. Frontal recesses are patent. NASAL FOSSA: No significant deviation of the nasal septum. No chucho bullosa or paradoxical turbinates are identified. OTHER: Negative. Limited views of the skull base and orbits are unremarkable. CT/CT facial bones wo con IMPRESSION: 1. Minimal chronic sinusitis involving the maxillary sinuses. 2. No acute findings. Electronically authenticated by: TREMAYNE ANDERSON Date: 06/12/2024 04:32
--- NOTE | 2024-06-12 02:08 | ECG_ITS ---
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
[2024-06-12] MEDS: METHYLPREDNISOLONE SOD SUCC PF 125 MG/2 ML VIAL IVP (02:24)
[2024-06-12] MEDS: MAGNESIUM SULFATE IN WATER 2 GM/50 ML PREMIX IV (02:25)
[2024-06-12 02:26] LABS: Basophils Absolute Auto 0.1 10^3/uL (0.0-0.1); Basophils Percent Auto 0.5 % (0.2-2.0); Eosinophils Absolute Auto 0.2 10^3/uL (0.0-0.7); Eosinophils Percent Auto 1.6 % (0.9-7.0); Hematocrit 46.7 % (42.0-54.0); Hemoglobin 16.3 g/dL (14.0-18.0); Immature Granulocytes Abs Auto 0.04 10^3/uL (0.00-0.03); Immature Granulocytes Pct Auto 0.4 % (0.0-0.5); Lymphocytes Absolute Auto 2.9 10^3/uL (1.2-3.8); Lymphocytes Percent Auto 30.7 % (20.5-60.0); Mean Corpuscular HGB Conc 34.9 g/dL (29.9-35.2); Mean Corpuscular Hemoglobin 29.4 pg (25.9-34.0); Mean Corpuscular Volume 84.1 fL (80.0-94.0); Monocytes Absolute Auto 0.6 10^3/uL (0.3-0.8); Monocytes Percent Auto 6.6 % (1.7-12.0); Neutrophils Absolute Auto 5.7 10^3/uL (1.4-6.5); Neutrophils Percent Auto 60.2 % (43.0-75.0); Platelet Count 215 10^3/uL (150-450); Red Blood Count 5.55 10^6/uL (4.70-6.10); Red Cell Distribution Width 12.7 % (11.0-15.0); White Blood Count 9.5 10^3/uL (4.0-11.0)
[2024-06-12 02:40] LABS: D Dimer 0.54 mg/L FEU (<=0.59)
[2024-06-12 02:43] LABS: Anion Gap 14.1; Calcium 9.4 mg/dL (8.5-10.1); Carbon Dioxide 24.9 mmol/L (21.0-32.0); Chloride 107 mmol/L (98-107); Estimated GFR (African America >60 (>=60 mL/min/1.73m^2); Estimated GFR (Non-African Ame >60 (>=60 mL/min/1.73m^2); Glucose 174 mg/dL (74-106); Sodium 142 mmol/L (136-145); Troponin I High Sensitivity 6.3 pg/mL (4.0-76.1)
== END 2024-06-12 05:59 | disposition home or self-care (01) ==
PROVIDERS: Emergency Provider Internal Medicine; PCP Internal Medicine
DX: R07.89 Other chest pain (principal); M79.7 Fibromyalgia
CPT/HCPCS: 36415; 70486; 71046; 80048; 84484; 85025; 85378; 93005; 96365; 96375; 99285; J2919; J3475

== ENCOUNTER 2024-08-20 12:20 | Outpatient (OUT) | payer MEDICARE, MEDICAID, SELFPAY ==
--- OUTSIDE RECORDS SUMMARY | 2024-08-20 12:25 | XMS_ITS | CCD ---
Author Organization [facility] Care Team Providers Care Professor Of Geology Name Role Phone WARREN CARLSON Attending Unavailable WARREN CARLSON Admitting Unavailable ROSALINE Referring Unavailable BENJI KULKARNI Primary Care Unavailable JORDIN, DR SAWYER Admitting Unavailable JORDIN, DR SAWYER Attending Unavailable JORDIN, DR SAWYER Primary Care Unavailable JORDIN, DR SAWYER Admitting Unavailable BALL, DR SAWYER Attending Unavailable BALL, DR SAWYER Primary Care Unavailable BALL, DR SAWYER Consulting Unavailable BALL, DR SAWYER Admitting Unavailable JORDIN, DR SAWYER Attending Unavailable JORDIN, DR SAWYER Primary Care Unavailable JORDIN, DR SAWYER Primary Care Unavailable ISAURA, DR DEV Odell Consulting Unavailable HOY, DR VIDALES Admitting Unavailable HOY, DR VIDALES Attending Unavailable WIECEK, DR MELINA Medina Consulting Unavailable ZIEBER, DR TREMAYNE Odell Consulting Unavailable ADDISON, JEAN CLAUDE Consulting Unavailable FAWWAD, SHAIKH Ghazal Consulting Unavailable SAID, SEVERO Consulting Unavailable DARAMOLA, IAN Consulting Unavailable Benji Kulkarni Unavailable Efren, Alycia Unavailable Kaylynn Nova Unavailable DO Benji Kulkarni Primary Care Provider NICKI Schwartz Attending Provider Unavailable Primary Care Provider UnavailBenji Ortega Primary Care Unavailable Alycia Schwartz Attending Unavailable Alycia Schwartz Admitting Unavailable Unavailable Primary Care Provider UnavailAZEB Villela Attending Unavailable Allergies Allergy Classification Reported Allergen(s) Allergy Type Date of Onset Reaction(s) Facility (2 sources) Naproxen Drug Allergy 3 [facility] Repository (20 sources) Acarbose Drug Allergy 4 Other: See Comments [facility] (20 sources) liraglutide Drug Allergy 4 Other: See Comments [facility] (20 sources) metFORMIN Drug Allergy 4 Unknown [facility] (9 sources) patient allergy list reviewed by nurse or physicia Propensity to adverse reactions 9 Comment:Done Big Cont[facility] Other (20 sources) Precose *ANTIDIABETICS* Propensity to adverse reactions 4 Comment:ACARAB OSE [facility] (5 sources) Naproxen; Translations: [naproxen] Drug Allergy 3 Hives [facility] Medications Current Medications Medication Drug Class(es) Dates Sig (Normalized) Sig (Original) acetaminophen 325 mg / HYDROcodone bitartrate 5 mg oral tablet (1 source) Opioid Agonist Start: 01-10-2018 take 1 tablet by mouth every six hours Hydrocodone-Acetam inophen (Normangee) 5-325 mg tablet Active 1 TAB PO [...] equivalent Dx E11.65 Active BD 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-Fine 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 1 each In vitro 6 times per day for 90 days Okay to dispense insurance preferred equivalent Active BD Ultra-Fine 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 Active Vit B Comp and C -Vit E-FA-Rk-Zn 0.4 mg tab Take by mouth every [...] every week as needed Cholecalciferol 1.25 MG (18565 UT) 1 capsule Orally weekly for 56 days follow with 4000 ut OTC Mar, Not-Taking/PRN Start: 04-06-2023 take 1 capsule by mo uth every week Cholecalciferol 1.25 MG (46098 UT) 1 capsule Orally weekly for 56 days follow with 4000 ut OTC Mar, Not-Taking Start: 04-06-2023 take 1 capsule by mo uth every week Cholecalciferol 1.25 MG (39352 UT) 1 capsule Orally weekly for 56 days follow with 4000 ut OTC Mar, Active Start: 03-29-2023 take 1 capsule by mo uth every week Cholecalciferol 1.25 MG (84041 UT) 1 capsule Orally WEEKLY for 56 days when RX complete, start D3 4000 ut once daily OTC Mar, Not-Taking/PRN Start: 03-29-2023 take 1 capsule by mo uth every week Cholecalciferol 1.25 MG (80640 UT) 1 capsule Orally WEEKLY for 56 days when RX complete, start D3 4000 ut once daily OTC Mar, Not-Taking Start: 03-29-2023 take 1 capsule by mo uth every week Cholecalciferol 1.25 MG (93603 UT) 1 capsule Orally WEEKLY for 56 [...] test home BS SC continuous monitoring - Legal Arbitrator for 365 days DX E11.65 Not-Taking/PRN Dexcom 7 Use to test home BS SC continuous monitoring - Legal Arbitrator for 365 days DX E11.65 Not-Taking Dexcom [...] [Polyosteoarthritis, unspecified] Chronic Other aftercare (10 sources) prison (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 insulin; Translations: [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 CURRENT USE OF INSULIN] Onset: 08-10-2022 Episodic Other aftercare (20 sources) Long-term current use of insulin; 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 [facility] and sent reminder in the mail. Prescriptions as of 02/16/2024 - sildenafil (VIAGRA) 25 mg tablet Take 1 tablet by mouth once daily as needed. - Vit B Comp and C-Vit E-FA-Rk-Zn 0.4 mg tab Take by mouth every [...] Encounter Status:Closed by ANA ANDERSON on 02/16/24 [facility] CNOVon 09-09-2023 CNOV Office Visit (NEMSMN) JANUSZ MOTLEY ([id number]) 1985 M Date Time Provider Department 09/09/23 10:30 AM AZEB MATHUR During your visit today, we recorded the following information about you: Pulse Blood pressure Weight Height 94/minute 130/92 144 kg 1.905 m Azeb Mathur DO 09/09/2023 4:05 PM [facility] NEW PATIENT EVALUATION/CONSULTAT ION Referral source: No referring provider defined for this encounter. Also followed by: No care steam press tender to display PRINCIPAL NEUROLOGIC DIAGNOSIS: Multiple neurological [...] expected to be with me at the [facility]. When he was younger he had multiple concussions and recovered. At 16 he had mycarditis attributed to significant caffeine intake and pericarditis. His first neurological symptom occurred around 28 years old. 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 He was told it [...] the last year since establishing with an orthodontic laboratory technician. In May he had a significant migraine with flashing lights and slow motion experience in his vision. He will have intermittent migraines that occur. These have occurred for many years. He can go months to sometimes years without one. 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 He had two sisters with MS (Ally and Betsy, both cared for by Nasima at [facility]). His last MRI lumbar was prior to his surgery. He is very claustrphobic. Last EMG was before his lumbar surgery. [facility] Neuro-QoL Functions (higher=better functioning) Flowsheet Row Office Visit from 09/09/[address] [facility] Upper Extremity Domain T Score 41.48 Lower Extremity Domain T Score 42.17 Cognitive Function Domain T Score 44.4 Positive Affect Well Being T Score -- Ability To Participate In Social Roles T Score 43.48 Satisfaction With Social Roles T Score 43.36 Neuro-QoL Symptoms (higher=worse symptoms) Flowsheet Row Office Visit from 09/09/[address] [facility] Sleep Domain T Score 65.45 Fatigue Domain [...] following prescription(s): vit b comp and c-vit e-fa-rk-zn, humalog kwikpen insulin, atorvastatin, tresiba flextouch u-200, insulin degludec, jardiance, iv contrast, and diazepam. Social History Tobacco Use Smoking status: Never Smokeless tobacco: Never family history includes MS in his sister and sister. PHYSICAL EXAM: BP (more content not included)... Normal [facility] Glucose - FINGER STICKon Glucose [Mass/Vol] 150 mg/dL [facility] Other A1C HEMOGLOBINon 06-06-2023 HbA1c (Bld) [Mass fraction] 9.5 % [facility] Other Glucose - FINGER STICKon Glucose [Mass/Vol] 249 mg/dL Big [facility] Other HbA1c (Bld) [Mass fraction]o n 06-06-2023 A1C HEMOGLOBIN Info[employer] Other A1C HEMOGLOBINon 02-09-2023 HbA1c (Bld) [Mass fraction] 8.3 % [facility] Other Glucose - FINGER STICKon Glucose [Mass/Vol] 289 mg/dL [facility]acts Other HbA1c (Bld) [Mass fraction]o n 02-09-2023 A1C HEMOGLOBIN [employer] Other BASIC METABOLIC PANELon 12-16 Calcium [Mass/Vol] 8.5 mg/dL Low 8.6-10.[address] [facility] Comment on above: Order Comment: No: D o not add to previous draw Performed By: #### 8 [id number] #### [facility] [address] [facility] [place] [address], [facility] Chloride [Moles/Vol] 108 mmol/L High 98-107 [facility] Comment on above: Order Comment: No: D o not add to previous draw Performed By: #### 8 [id number] #### [facility] [address] [facility] [place] [place] [address], [place] CO2 [Moles/Vol] 27 mmol/L Normal 21-31 [facility] Comment on above: Order Comment: No: D o not add to previous draw Performed By: #### 8 5499 #### [facility] [address] [facility] [place] [id number], [place] Creatinine [Mass/Vol] 0.89 mg/dL Normal 0.70-1.30 [facility] Comment on above: Order Comment: No: D o not add to previous draw Performed By: #### 8 5499 #### [facility] [address] [place] [address], [place] GFR/1.73 sq M.predicted among blacks MDRD (S/P/Bld) [Vol rate/Area] mL/min/{1.73_m2} Normal >60 [facility] Comment on above: Order Comment: No: D o not add to previous draw Performed By: #### 8 5499 #### [facility] [address] [place] [address], [place] GFR/1.73 sq M.predicted among non-blacks MDRD (S/P/Bld) [Vol rate/Area] mL/min/{1.73_m2} Normal >60 [facility] Comment on above: Order Comment: No: D o not add to previous draw Performed By: #### 8 5499 #### [facility] [address] [place] [address], [place] Glucose [Mass/Vol] 151 mg/dL High 70-100 [facility] Comment on above: Order Comment: No: D o not add to previous draw Performed By: #### 8 5499 #### [facility] [address] [place] [address], [place] Potassium [Moles/Vol] 3.8 mmol/L Normal 3.5-5.1 [facility] Comment on above: Order Comment: No: D o not add to previous draw Performed By: #### 8 5499 #### [facility] [address] [place] [address], [place] Sodium [Moles/Vol] 141 mmol/L Normal 136-145 [facility] Comment on above: Order Comment: No: D o not add to previous draw Performed By: #### 8 5499 #### [facility] [address] [place] [address], [place] Urea nitrogen [Mass/Vol] 9 mg/dL Normal 7-25 [facility] Comment on above: Order Comment: No: D o not add to previous draw Performed By: #### 8 [id number] #### [facility] [address] [place] [address], [facility] CBC COMPLETE BLOOD COUNTon 0 01-03-2022 Erythrocyte distribution width (RBC) [Ratio] 13.4 % Normal 11.5-15.0 [facility] Comment on above: Order Comment: No: D o not add to previous draw Performed By: #### 8 [id number] #### [facility] [address] [place] [address], [facility] Hematocrit (Bld) [Volume fraction] 39.8 % Normal 39.0-50.0 [facility] Comment on above: Order Comment: No: D o not add to previous draw Performed By: #### 8 [id number] #### [facility] [address] [place] [address], [facility] Hemoglobin (Bld) [Mass/Vol] 13.6 g/dL Normal 13.0-17.0 [facility] Comment on above: Order Comment: No: D o not add to previous draw Performed By: #### 8 5499 #### [facility] [address] [place] [address], [place] MCH (RBC) [Entitic mass] 28.6 pg Normal 27.0-33.0 [facility] Comment on above: Order Comment: No: D o not add to previous draw Performed By: #### 8 5499 #### [facility] [address] [place] [address], [place] MCHC (RBC) [Mass/Vol] 34.2 g/dL Normal 32.0-35.0 [facility] Comment on above: Order Comment: No: D o not add to previous draw Performed By: #### 8 5499 #### [facility] [address] [place] [address], [place] MCV (RBC) [Entitic vol] 83.6 fL Normal 82.0-98.0 [facility] Comment on above: Order Comment: No: D o not add to previous draw Performed By: #### 8 5499 #### [facility] [address] [place] [address], [facility] Nucleated RBC/100 WBC (Bld) [Ratio] 0 % Normal 0-0 [facility] Comment on above: Order Comment: No: D o not add to previous draw Performed By: #### 8 5499 #### [facility] [address] [place] [address], [place] PLAT CNT 236 10*3/uL Normal 150-[address] [facility] Comment on above: Order Comment: No: D o not add to previous draw Performed By: #### 8 5499 #### [facility] [address] [place] [address], [facility] RBC (Bld) [#/Vol] 4.76 10*6/uL Normal 4.20-5.70 The [facility] Comment on above: Order Comment: No: D o not add to previous draw Performed By: #### 8 5499 #### [facility] [address] [place] [address], [place] WBC (Bld) [#/Vol] 6.91 10*3/uL Normal 4.00-10.60 The [facility] Comment on above: Order Comment: No: D o not add to previous draw Performed By: #### 8 5499 #### [facility] [address] [place] [address], [place] POC GLUCOSE LABon 01-03-2022 Glucose [Mass/Vol] 185 mg/dL High 70-100 The [facility] Comment on above: Performed By: #### 8 5499 #### [facility] [address] [place] [address], [place] Glucose [Mass/Vol] 164 mg/dL High 70-100 The [facility] Comment on above: Performed By: #### 8 5499 #### [facility] [address] [place] [address], [place] HEMOGLOBIN A1Con 01-02-2022 Glucose [Moles/Vol] 223 mmol/L Normal [facility] Comment on above: Order Comment: No: D o not add to previous draw Performed By: #### 3 1791 #### [facility] [address] [place] [address], [place] HbA1c (Bld) [Mass fraction] 9.4 % High 4.0-6.0 [facility] Comment on above: Order Comment: No: D o not add to previous draw Performed By: #### 3 1791 #### [facility] [address] [place] [address], [place] POC GLUCOSE LABon 01-02-2022 Glucose [Mass/Vol] 212 mg/dL High 70-100 [facility] Comment on above: Performed By: #### 8 5499 #### [facility] [address] [place] [address], [place] Glucose [Mass/Vol] 233 mg/dL High 70-100 The [facility] Comment on above: Performed By: #### 8 5499 #### [facility] [address] [place] [address], [place] Glucose [Mass/Vol] 124 mg/dL High 70-100 The [facility] Comment on above: Performed By: #### 8 5499 #### [facility] [address] [place] [address], [place] Glucose [Mass/Vol] 110 mg/dL High 70-100 The [facility] Comment on above: Performed By: #### 8 5499 #### [facility] [address] [place] [address], [place] Glucose [Mass/Vol] 116 mg/dL High 70-100 [facility] Comment on above: Performed By: #### 8 5499 #### [place] [address], [facility] ABDOMEN SERIES W CHESTon ABDOMEN SERIES W CHEST [facility] Department of Radiology [address] [place] [address] Patient Name: JANUSZ MOTLEY : 1985 Sex: M Age: Race: White Pt. Location: [id number] Patient Status: I Ordered Date: 01/01/2022 8:55:00 [...] calcifications Electronically signed: Daniel Smalls. Transcribed by: [email or web address], User Resident: Electronically Signed by: DANIEL SMALLS @ 01/01/2022 09:55 PM Normal [facility] Comment on above: Order Comment: evalu ate Obstruction APTTon 01-01-2022 aPTT Coag (Bld) [Time] 28.6 s Normal 25.0-35.0 [facility] Comment on above: Order Comment: No: [...] PURPOSE. Performed By: #### 8 5499 #### [facility] [address] [place] [address], [facility] BASIC METABOLIC PANELon 12-16 Calcium [Mass/Vol] 8.6 mg/dL Normal 8.6-10.[address] [facility] Comment on above: Order Comment: No: D o not add to previous draw Performed By: #### 0 0071, 42000, 98432, 21996 #### [facility] [address] [place] [address], [place] Chloride [Moles/Vol] 106 mmol/L Normal 98-107 The [facility] Comment on above: Order Comment: No: D o not add to previous draw Performed By: #### 0 0071, 80596, 28652, 58651 #### [facility] [address] [place] [address], [place] CO2 [Moles/Vol] 26 mmol/L Normal 21-31 The [facility] Comment on above: Order Comment: No: D o not add to previous draw Performed By: #### 0 0071, 46045, 66412, 29021 #### [facility] [address] [place] [address], [facility] Creatinine [Mass/Vol] 0.78 mg/dL Normal 0.70-1.30 [facility] Comment on above: Order Comment: No: D o not add to previous draw Performed By: #### 0 0071, 82815, 96696, 47017 #### [facility] [address] [place] [address], [place] GFR/1.73 sq M.predicted among blacks MDRD (S/P/Bld) [Vol rate/Area] mL/min/{1.73_m2} Normal >60 [facility] Comment on above: Order Comment: No: D o not add to previous draw Performed By: #### 0 0071, 84494, 49196, 32313 #### [facility] [address] [place] [address], [place] GFR/1.73 sq M.predicted among non-blacks MDRD (S/P/Bld) [Vol rate/Area] mL/min/{1.73_m2} Normal >60 [facility] Comment on above: Order Comment: No: D o not add to previous draw Performed By: #### 0 0071, 44859, 41582, 45679 #### [facility] [address] [place] [address], [facility] Glucose [Mass/Vol] 112 mg/dL High 70-100 The [facility] Comment on above: Order Comment: No: D o not add to previous draw Performed By: #### 0 0071, 25804, 13744, 75169 #### [facility] [address] [place] [address], [facility] Potassium [Moles/Vol] 4.0 mmol/L Normal 3.5-5.1 The [facility] Comment on above: Order Comment: No: D o not add to previous draw Performed By: #### 0 0071, 15568, 33478, 43964 #### [facility] [address] [place] [address], [facility] Sodium [Moles/Vol] 139 mmol/L Normal 136-145 The [facility] Comment on above: Order Comment: No: D o not add to previous draw Performed By: #### 0 0071, 30656, 74046, 89386 #### [facility] [address] [facility] [place] [address], [facility] Urea nitrogen [Mass/Vol] 10 mg/dL Normal 7-25 The [facility] Comment on above: Order Comment: No: D o not add to previous draw Performed By: #### 0 0071, 25462, 74638, 18800 #### [facility] [address] [facility] [place] [address], [facility] CBC W/DIFFon 01-01-2022 ABS IMM GRANS 0.1 10*3/uL Normal 0.0-0.2 The [facility] Comment on above: Performed By: #### 5 0103 #### [facility] [address] [place] [address], [facility] ABS NEUTROPHILS 5.2 10*3/uL Normal 1.6-7.6 The [facility] Comment on above: Performed By: #### 5 3 #### [facility] [address] [place] [address], [facility] Basophils (Bld) [#/Vol] 0.0 10*3/uL Normal 0.0-0.2 The [facility] Comment on above: Performed By: #### 5 0103 #### [facility] [address] [place] [address], [facility] Basophils/100 WBC (Bld) 0.4 % Normal 0.0-1.0 The [facility] Comment on above: Performed By: #### 5 3 #### [facility] [address] [place] [address], [facility] Eosinophils (Bld) [#/Vol] 0.1 10*3/uL Normal 0.0-0.5 The [facility] Comment on above: Performed By: #### 5 3 #### [facility] [address] [place] [address], [facility] Eosinophils/100 WBC (Bld) 1.6 % Normal 0.0-6.0 The [facility] Comment on above: Performed By: #### 5 3 #### [facility] [address] [facility] [place] [address], [facility] Erythrocyte distribution width (RBC) [Ratio] 13.0 % Normal 11.5-15.0 The [facility] Comment on above: Performed By: #### 5 3 #### [facility] [address] [place] [address], [facility] Hematocrit (Bld) [Volume fraction] 42.6 % Normal 39.0-50.0 The [facility] Comment on above: Performed By: #### 5 3 #### [facility] [address] [place] [address], [facility] Hemoglobin (Bld) [Mass/Vol] 14.7 g/dL Normal 13.0-17.0 The [facility] Comment on above: Performed By: #### 5 0103 #### [facility] [address] [place] [address], [facility] IMMATURE GRANS 0.7 % Normal 0.0-1.0 The [facility] Comment on above: Performed By: #### 5 0103 #### [facility] [address] [place] [address], [facility] Lymphocytes (Bld) [#/Vol] 1.6 10*3/uL Normal 1.2-4.0 The [facility] Comment on above: Performed By: #### 5 0103 #### [facility] [address] [place] [address], [facility] Lymphocytes/100 WBC (Bld) 21.2 % Normal 20.0-45.0 The [facility] Comment on above: Performed By: #### 5 0103 #### [facility] [address] MCH (RBC) [Entitic mass] 28.9 pg Normal 27.0-33.0 The [facility] Comment on above: Performed By: #### 5 0103 #### [facility] [address] [place] [address], [facility] MCHC (RBC) [Mass/Vol] 34.5 g/dL Normal 32.0-35.0 The [facility] Comment on above: Performed By: #### 5 0103 #### [facility] [address] [place] [address], [facility] MCV (RBC) [Entitic vol] 83.9 fL Normal 82.0-98.0 The [facility] Comment on above: Performed By: #### 5 0103 #### [facility] [address] [place] [address], [facility] [facility] Monocytes (Bld) [#/Vol] 0.5 10*3/uL Normal 0.1-1.0 [facility] Comment on above: Performed By: #### 5 0103 #### [facility] [address] [place] [id number], [facility] MONOS 7.0 % Normal 5.0-12.0 [facility] Comment on above: Performed By: #### 5 0103 #### [facility] [address] [place] [address], [facility] Neutrophils/100 WBC (Bld) 69.1 % Normal 40.0-72.0 [facility] Comment on above: Performed By: #### 5 0103 #### [facility] [address] [facility] [address] [place] [id number], [facility] Nucleated RBC/100 WBC (Bld) [Ratio] 0 % Normal 0-0 [facility] Comment on above: Performed By: #### 5 010 #### [facility] [address] [place] [address], [facility] PLAT CNT 245 10*3/uL Normal 150-[address] [facility] Comment on above: Performed By: #### 5 0103 #### [facility] [address] [facility] [address] [place] [id number], [facility] RBC (Bld) [#/Vol] 5.08 10*6/uL Normal 4.20-5.70 The [facility] Comment on above: Performed By: #### 5 0103 #### [facility] [address] [facility] [address] [place] [id number], [facility] WBC (Bld) [#/Vol] 7.47 10*3/uL Normal 4.00-10.60 The [facility] Comment on above: Performed By: #### 5 3 #### [facility] [address] [place] [address], [facility] LACTATE WITH REFLEXon 2021 Lactate [Moles/Vol] 0.9 mmol/L Normal .5-2.2 The [facility] Comment on above: Order Comment: No: D o not add to previous draw Performed By: #### 8 5499 #### [facility] [address] [place] [address], [place] LIVER BATTERYon 01-01-2022 Albumin [Mass/Vol] 3.8 g/dL Normal 3.5-5.[address] [facility] Comment on above: Order Comment: No: D o not add to previous draw Performed By: #### 0 0071, 76984, 29963, 62556 #### [facility] [address] [place] [address], [place] ALKALINE PHOSPH 72 IU/L Normal 34-104 The [facility] Comment on above: Order Comment: No: D o not add to previous draw Performed By: #### 0 0071, 85015, 62307, 69927 #### [facility] [address] [place] [address], [place] ALT [Catalytic activity/Vol] 23 U/L Normal 7-52 The [facility] Comment on above: Order Comment: No: D o not add to previous draw Performed By: #### 0 0071, 24612, 11628, 41769 #### [facility] [address] [place] [address], [place] AST [Catalytic activity/Vol] 14 U/L Normal 13-39 The [facility] Comment on above: Order Comment: No: D o not add to previous draw Performed By: #### 0 0071, 88160, 45573, 70408 #### [facility] [address] [place] [address], [place] Bilirubin [Mass/Vol] 1.1 mg/dL High 0.3-1.0 The [facility] Comment on above: Order Comment: No: D o not add to previous draw Performed By: #### 0 0071, 96231, 64835, 91094 #### [facility] [address] [place] [address], [place] Bilirubin.direct [Mass/Vol] 0.3 mg/dL High 0.0-0.2 [facility] Comment on above: Order Comment: No: D o not add to previous draw Performed By: #### 0 0071, 30259, 68405, 72421 #### [facility] [address] [place] [address], [facility] Protein [Mass/Vol] 6.0 g/dL Normal 6.0-8.3 [facility] Comment on above: Order Comment: No: D o not add to previous draw Performed By: #### 0 0071, 86043, 05003, 38364 #### [facility] [address] [place] [address], [facility] MAGNESIUM BLOODon 01-01-2022 Magnesium [Mass/Vol] 2.0 mg/dL Normal 1.9-2.7 The [facility] Comment on above: Order Comment: No: D o not add to previous draw Performed By: #### 0 0071, 61839, 42144, 33564 #### [facility] [address] [place] [address], [facility] PHOSPHORUS BLOODon Phosphate [Mass/Vol] 2.5 mg/dL Normal 2.5-5.0 The [facility] Comment on above: Order Comment: No: D o not add to previous draw Performed By: #### 0 0071, 80209, 15394, 21110 #### [facility] [address] [place] [address], [place] POC GLUCOSE LABon 01-01-2022 Glucose [Mass/Vol] 111 mg/dL High 70-100 [facility] Comment on above: Performed By: #### 8 5499 #### [facility] [address] [place] [address], [place] POINT OF CARE GLUCOSEon 12-16 Glucose [Mass/Vol] 100 mg/dL Normal 74-106 [facility] Comment on above: Performed By: #### P OCGLUC #### [facility] [address] [place] [address] [address] Sal Dick Glucose [Mass/Vol] 89 mg/dL Normal 74-106 [facility] Comment on above: Performed By: #### P OCGLUC #### [facility] [address] [place], [place] [address] Dr. Sal Dick PROTHROMBIN TIMEon 2 INR Coag (PPP) [Relative time] 1.14 {INR} Normal 0.91-1.16 [facility] Comment on above: Order Comment: No: D [...] 1995;[id number]. Performed By: #### 8 5499 #### [facility] [address] [place] [address], [facility] PT Coag (PPP) [Time] 14.6 s Normal 12.3-14.8 [facility] Comment on above: Order Comment: No: D o not add to previous draw Result Comment: ALL RESULTS MUST BE INTERPRETED WITH RESPECT TO BLOOD DRAWING ARTIFACT OR DILUTION ERROR OF ANTICOAGULANT AT THE TIME OF SAMPLING. Performed By: #### 8 5499 #### [facility] [address] [place] [address], [facility] XR ABD FLAT UP_PA Red [...] TREMAYNE ANDERSON Date: 2022-01-01 08:07 Normal [facility] AMYLASEon 12-31-2021 Amylase [Catalytic activity/Vol] 38 U/L Normal 25-115 [facility] Comment on above: Performed By: #### C MP, BABAK, LIPA #### [facility] [address] [place] [address] Dr. Sal Dick CBC AUTO DIFFon 12-31-2021 BASO # 0.1 103/ul Normal 0.0-0.1 [facility] Comment on above: Performed By: #### C BC #### [facility] [address] [place] [address] [address] Sal Dick Basophils/100 WBC (Bld) 0.5 % Normal 0.2-2.0 [facility] Comment on above: Performed By: #### C BC #### [facility] [address] [place] [address] Dr. Sal Dick EO # 0.2 103/ul Normal 0.0-0.7 [facility] Comment on above: Performed By: #### C BC #### [facility] [address] [place] [address] Dr. Sal Dick Eosinophils/100 WBC (Bld) 1.9 % Normal 0.9-7.0 [facility] Comment on above: Performed By: #### C BC #### [facility] [address] [place] [address] Dr. Sal Dick Erythrocyte distribution width (RBC) [Ratio] 13.2 % Normal 11.0-15.0 [facility] Comment on above: Performed By: #### C BC #### [facility] [address] [place] [address] Dr. Sal Dick Hematocrit (Bld) [Volume fraction] 49.6 % Normal 42.0-54.0 [facility] Comment on above: Performed By: #### C BC #### [facility] [address] [place] [address] Dr. Sal Dick Hemoglobin (Bld) [Mass/Vol] 17.0 g/dL Normal 14.0-18.0 [facility] Comment on above: Performed By: #### C BC #### [facility] [address] [place] [address] Dr. Sal Dick IG # 0.05 10e3/ul Critically high 0.00-0.03 [facility] Comment on above: Performed By: #### C BC #### [facility] [address] [place] [address] Dr. Sal Dick IG % 0.5 % Normal 0.0-0.5 [facility] Comment on above: Performed By: #### C BC #### [facility] [address] [place] [address] Dr. Sal Dick LYMPH # 2.3 103/ul Normal 1.2-3.8 [facility] Comment on above: Performed By: #### C BC #### [facility] [address] [place] [address] Dr. Sal Dick Lymphocytes/100 WBC (Bld) 21.1 % Normal 20.5-60.0 [facility] Comment on above: Performed By: #### C BC #### [facility] [address] [place] [address] Dr. Sal Dick MANUAL DIFF REQ NO Normal [facility] Comment on above: Performed By: #### C BC #### [facility] [address] [place] [address] Dr. Sal Dick MCH (RBC) [Entitic mass] 28.7 pg Normal 25.9-34.0 [facility] Comment on above: Performed By: #### C BC #### [facility] [address] [place] [address] Dr. Sal Dick MCHC (RBC) [Mass/Vol] 34.3 g/dL Normal 29.9-35.2 [facility] Comment on above: Performed By: #### C BC #### [facility] [address] [place] [address] Dr. Sal Dick MCV (RBC) [Entitic vol] 83.8 fL Normal 80.0-94.0 [facility] Comment on above: Performed By: #### C BC #### [facility] [address] [place] [address] Dr. Sal Dick MONO # 0.9 103/ul Critically high 0.3-0.8 [facility] Comment on above: Performed By: #### C BC #### [facility] [address] [place] [address] Dr. Sal Dick Monocytes/100 WBC (Bld) 8.4 % Normal 1.7-12.0 [facility] Comment on above: Performed By: #### C BC #### [facility] [address] [place] [address] Dr. Sal Dick NEUT # 7.2 103/ul Critically high 1.4-6.5 [facility] [place] [facility] Comment on above: Performed By: #### C BC #### [facility] [address] [place] [address] Dr. Sal Dick Neutrophils/100 WBC (Bld) 67.6 % Normal 43.0-75.0 [facility] Comment on above: Performed By: #### C BC #### [facility] [address] [place] [address] Dr. Sal Dick Platelet mean volume (Bld) [Entitic vol] 10.8 fL Normal 9.5-13.5 [facility] Comment on above: Performed By: #### C BC #### [facility] [address] [place] [address] [address] Sal Dick PLT 273 103/ul Normal 150-450 [facility] Comment on above: Performed By: #### C BC #### [facility] [address] [place] [id number] [address] Sal Dick RBC 5.92 106/ul Normal 4.70-6.10 [facility] Comment on above: Performed By: #### C BC #### [facility] [address] [place], [place] [address] Dr. Sal Dick WBC 10.7 103/ul Normal 4.0-11.0 [facility] Comment on above: Performed By: #### C BC #### [facility] [address] [place] [address] ABD/PELV W CONon [...] SEVERO MARTINEZ Date: 2021-12-31 04:28 Normal [facility] 12-16 SARS-CoV-2 (COVID-19) RNA CANDY+probe Ql (Unsp spec) Not detected Normal NOT DETECTED [facility] Comment on above: Result Comment: When [...] for this test is supported by the Records Management Coordinator of Health and Human Service's declaration that [...] used). Performed By: #### C VDTBH #### [facility] [address] [place] [address] [address] Sal Dick LIPASEon 12-31-2021 Lipase [Catalytic activity/Vol] 251.0 U/L Normal 73.0-393.0 [facility] Comment on above: Performed By: #### C MP, BABAK, LIPA #### [facility] [address] [place] [address] [address] Sal Dick POINT OF CARE GLUCOSEon 12-16 Glucose [Mass/Vol] 100 mg/dL Normal 74-106 [facility] Comment on above: Performed By: #### P OCGLUC #### [facility] [address] [place] [address] [address] Sal Dick Glucose [Mass/Vol] 113 mg/dL Critically high 74-106 [facility] Comment on above: Performed By: #### P OCGLUC #### [facility] [address] [place] [address] Dr. Sal Dick Glucose [Mass/Vol] 132 mg/dL Critically high 74-106 [facility] Comment on above: Performed By: #### P OCGLUC #### [facility] [address] [place] [address] Dr. Sal Dick PROF 14(COMP METB)on 022 Albumin [Mass/Vol] 3.6 g/dL Normal 3.4-5.0 [facility] Comment on above: Performed By: #### P OCGLUC #### [facility] [address] [place] [address] Dr. Sal Dick Albumin/Globulin [Mass ratio] 0.9 {ratio} Normal [facility] Comment on above: Performed By: #### P OCGLUC #### [facility] [address] [place] [address] Dr. Sal Dick ALP [Catalytic activity/Vol] 88 U/L Normal 46-116 [facility] Comment on above: Performed By: #### P OCGLUC #### [facility] [address] [place] [address] Dr. Sal Dick ALT [Catalytic activity/Vol] 50 U/L Normal 16-63 [facility] Comment on above: Performed By: #### P OCGLUC #### [facility] [address] [place] [address] Dr. Sal Dick Anion gap [Moles/Vol] 11.1 mmol/L Normal [facility] Comment on above: Performed By: #### P OCGLUC #### [facility] [address] [place] [address] Dr. Sal Dick AST [Catalytic activity/Vol] 19 U/L Normal 15-37 [facility] Comment on above: Performed By: #### P OCGLUC #### [facility] [address] [place] [address] Dr. Sal Dick Bilirubin [Mass/Vol] 0.7 mg/dL Normal 0.2-1.0 [facility] Comment on above: Performed By: #### P OCGLUC #### [facility] [address] [place] [address] [address] Sal Dick Calcium [Mass/Vol] 9.1 mg/dL Normal 8.5-10.1 [facility] Comment on above: Performed By: #### P OCGLUC #### [facility] [address] [place] [address] [address] Sal Dick Chloride [Moles/Vol] 103 mmol/L Normal 98-107 [facility] Comment on above: Performed By: #### P OCGLUC #### [facility] [address] [place] [address] [address] Sal Dick CO2 [Moles/Vol] 30.4 mmol/L Normal 21.0-32.0 [facility] Comment on above: Performed By: #### P OCGLUC #### [facility] [address] [place] [address] Dr. Sal Dick Creatinine [Mass/Vol] 1.16 mg/dL Normal 0.70-1.30 [facility] Comment on above: Performed By: #### P OCGLUC #### [facility] [address] [place] [address] Dr. Sal Dick EGFR-AF LATVIAN >60 Normal >=60 [facility] Comment on above: Performed By: #### P OCGLUC #### [facility] [address] [place] [address] Dr. Sal Dick EGFR-NON AF LATVIAN >60 Normal >=60 [facility] Comment on above: Performed By: #### P OCGLUC #### [facility] [address] [place] [address] [address] Sal Dick Globulin (S) [Mass/Vol] 4.2 g/dL Normal [facility] Comment on above: Performed By: #### P OCGLUC #### [facility] [address] [place] [address] Dr. Sal Dick Glucose [Mass/Vol] 230 mg/dL Critically high 74-106 [facility] Comment on above: Performed By: #### P OCGLUC #### [facility] [address] [place] [address] [address] Sal Dick Potassium [Moles/Vol] 3.5 mmol/L Normal 3.5-5.1 [facility] Comment on above: Performed By: #### P OCGLUC #### [facility] [address] [place] [address] [address] Sal Dick Protein [Mass/Vol] 7.8 g/dL Normal 6.4-8.2 [facility] Comment on above: Performed By: #### P OCGLUC #### [facility] [address] [place] [address] [address] Sal Dick Sodium [Moles/Vol] 141 mmol/L Normal 136-145 [facility] Comment on above: Performed By: #### P OCGLUC #### [facility] [address] [place] [address] [address] Sal Dick Urea nitrogen [Mass/Vol] 14.0 mg/dL Normal 7.0-18.0 [facility] Comment on above: Performed By: #### P OCGLUC #### [facility] [address] [place] [address] [address] Sal Dick Urea nitrogen/Creatinin e [Mass ratio] 12.1 mg/mg Normal [facility] Comment on above: Performed By: #### P OCGLUC #### [facility] [address] [place] [address] [address] Sal Dick XR ABD FLAT UP_PA [...] CLAUDE JAIME Date: 2021-12-31 02:14 Normal [facility] XR SMALL BOWEL FOLLOW THOUGH on 12-31-2021 XR SMALL BOWEL FOLLOW THOUGH EXAMINATION: XR SMALL BOWEL FOLLOW THOUGH HISTORY: ABDOMINAL DISTENSION (GASEOUS) COMPARISON: CT abdomen pelvis 12/31/2021 TECHNIQUE: Small bowel series was performed in the usual manner. No market researcher abdominal radiograph was performed. Standard level fluoroscopic [...] TREMAYNE ANDERSON Date: 2021-12-31 16:22 Normal [facility] Vital Signs Date Time Vital Sign Value Performing Clinician Facility 09-09-2023 09:59-0500 Body height 190.5 cm [employer] DO Work Phone: [facility] 09-09-2023 09:59-0500 Body weight 144.02 kg Azeb Davonte DO Work Phone: [facility] 09-09-2023 09:59-0500 Diastolic blood pressure 92 mm[Hg] Azeb Davonte DO Work Phone: [facility] 09-09-2023 09:59-0500 Heart rate 94 /min Azeb Davonte DO Work Phone: [facility] 09-09-2023 09:59-0500 Systolic blood pressure 130 mm[Hg] Azeb Davonte DO Work Phone: [facility] 08-04-2023 09:45-0500 Body height 190.5 cm Alycia Schwartz Other [facility] 08-04-2023 09:45-0500 Body mass index (BMI) [Ratio] 40.13 kg/m2 Alycia Schwartz Other [facility] 08-04-2023 09:45-0500 Body weight 145.65 kg Alycia Scally Other [facility] 08-04-2023 09:45-0500 Body weight 145.64 kg DO Benji Ball Work Phone: [facility] 08-04-2023 09:45-0500 Diastolic blood pressure 77 mm[Hg] Alycia Scally Other [facility] 08-04-2023 09:45-0500 Respiratory rate 18 /min Alycia Scally Other [facility] Other 08-04-2023 09:45-0500 SaO2% (BldA) [Mass fraction] 96 % Alycia Scally Other [facility] Other 08-04-2023 09:45-0500 Systolic blood pressure 122 mm[Hg] Alycia Scally Other [facility] 06-08-2023 15:30-0500 Body height 190.5 cm Benji Ball Other [facility] Other 06-08-2023 15:30-0500 Body mass index (BMI) [Ratio] 39.32 kg/m2 Benji Ball Other [facility] Other 06-08-2023 15:30-0500 Body weight 142.7 kg Benji Ball Other [facility] Other 06-08-2023 15:30-0500 Diastolic blood pressure 84 mm[Hg] Benji Ball Other [facility] Other 06-08-2023 15:30-0500 Respiratory rate 16 /min Benji Ball Other [facility] Other 06-08-2023 15:30-0500 Systolic blood pressure 135 mm[Hg] Benji Ball Other [facility] Other 06-06-2023 15:30-0500 Body height 190.5 cm Alycia Scally Other [facility] Other 06-06-2023 15:30-0500 Body mass index (BMI) [Ratio] 38.78 kg/m2 Alycia Scally Other [facility] Other 06-06-2023 15:30-0500 Body weight 140.75 kg Alycia Scally Other [facility] Other 06-06-2023 15:30-0500 Diastolic blood pressure 82 mm[Hg] Alycia Scally Other [facility] Other 06-06-2023 15:30-0500 Respiratory rate 18 /min Alycia Scally Other [facility] Other 06-06-2023 15:30-0500 SaO2% (BldA) [Mass fraction] 97 % Alycia Scally Other [facility] Other 06-06-2023 15:30-0500 Systolic blood pressure 117 mm[Hg] Alycia Scally Other [facility] Other 05-30-2023 12:00-0500 Body height 190.5 cm Benji Ball Other [facility] Other 05-30-2023 12:00-0500 Body temperature 98.6 [degF] Benji Ball Other [facility] Other 03-24-2023 11:15-0400 Body height 190.5 cm Alycia Scally Other [facility] Other 03-24-2023 11:15-0400 Body mass index (BMI) [Ratio] 38.57 kg/m2 Alycia Scally Other [facility] Other 03-24-2023 11:15-0400 Body weight 139.98 kg Alycia Scally Other [facility] Other 03-24-2023 11:15-0400 Diastolic blood pressure 80 mm[Hg] Alycia Scally Other [facility] Other 03-24-2023 11:15-0400 Respiratory rate 18 /min Alycia Scally Other [facility] Other 03-24-2023 11:15-0400 SaO2% (BldA) [Mass fraction] 95 % Alycia Scally Other [facility] Other 03-24-2023 11:15-0400 Systolic blood pressure 124 mm[Hg] Alycia Scally Other [facility] Other 03-08-2023 15:30-0400 Body height 190.5 cm Benji Ball Other [facility] Other 03-08-2023 15:30-0400 Body mass index (BMI) [Ratio] 38.04 kg/m2 Benji Ball Other [facility] Other 03-08-2023 15:30-0400 Body weight 138.08 kg Benji Ball Other [facility] Other 03-08-2023 15:30-0400 Diastolic blood pressure 102 mm[Hg] Benji Ball Other [facility] Other 03-08-2023 15:30-0400 Respiratory rate 12 /min Benji Ball Other [facility] Other 03-08-2023 15:30-0400 Systolic blood pressure 137 mm[Hg] Benji Ball Other [facility] Other 02-09-2023 15:00-0400 Body height 190.5 cm Alycia Scally Other [facility] Other 02-09-2023 15:00-0400 Body mass index (BMI) [Ratio] 38.23 kg/m2 Alycia Scally Other [facility] Other 02-09-2023 15:00-0400 Body weight 138.76 kg Alycia Scally Other [facility] Other 02-09-2023 15:00-0400 Diastolic blood pressure 72 mm[Hg] Alycia Scally Other [facility] Other 02-09-2023 15:00-0400 Respiratory rate 18 /min Alycia Scally Other [facility] Other 02-09-2023 15:00-0400 SaO2% (BldA) [Mass fraction] 96 % Alycia Scally Other [facility] Other 02-09-2023 15:00-0400 Systolic blood pressure 147 mm[Hg] Alycia Scally Other [facility] Other 09-03-2022 15:00-0500 Body height 190.5 cm Benji Ball Other [facility] Other 09-03-2022 15:00-0500 Body mass index (BMI) [Ratio] 37.77 kg/m2 Benji Ball Other [facility] Other 09-03-2022 15:00-0500 Body weight 137.08 kg Benji Ball Other [facility] Other 09-03-2022 15:00-0500 Diastolic blood pressure 70 mm[Hg] Benji [employer] Other [facility] Other 09-03-2022 15:00-0500 Respiratory rate 20 /min Benji [employer] Other [facility] Other 09-03-2022 15:00-0500 Systolic blood pressure 118 mm[Hg] Benji [employer] Other [facility] Other Encounters Encounter Date Encounter Type Care Provider Facility Start: 03-16-2024 End: 03-16-2024 Telephone encounter Azeb Mathur DO Work Phone: [facility] Comment on above: Request Outside [facility] Start: 02-16-2024 Telephone encounter Azeb marks DO Work Phone: Neurology Comment on above: Appointment (Called to reschedule 04/[address] mathur since she is out of the office. LVM and sent reminder in the mail.) Start: 09-09-2023 End: 09-09-2023 ambulatory AZEB MATHUR Facility:[facility] Start: 09-09-2023 End: 09-09-2023 Patient encounter procedure Azeb Mathur DO Work Phone: [facility] Comment on above: Demyelinating diseas e of central nervous system (HCC) (Primary Dx); Diabetic polyneuropathy associated with type 2 diabetes mellitus (HCC) Start: 08-29-2023 End: 08-29-2023 ambulatory Benji Kulkarni Other [facility] Other Start: 08-29-2023 Office outpatient vi sit 15 minutes Benji Kulkarni [facility] Start: 08-04-2023 (DM) Diabetes [facility] Start: 08-04-2023 End: 08-05-2023 ambulatory DO Benji Kulkarni Work Phone: [facility] Other Start: 08-04-2023 End: 08-04-2023 Discharged Recurring DO Benji Kulkarni Work Phone: [facility] Work Phone: Start: 08-04-2023 End: 08-04-2023 Patient encounter procedure DO Benji Kulkarni Work Phone: [facility]- Start: 08-02-2023 End: 08-02-2023 ambulatory Alycia Schwartz Other [facility] Other Start: 08-02-2023 Telephone encounter [facility] Start: 07-13-2023 End: 07-13-2023 ambulatory Alycia Schwartz Other [facility] Other Start: 07-13-2023 Nursing evaluation o f patient and report Alycia Schwartz [facility] Start: 07-01-2023 End: 07-01-2023 ambulatory Alycia Schwartz Other [facility] Other Start: 07-01-2023 Telephone encounter Alycia [facility] Start: 06-21-2023 End: 06-21-2023 ambulatory Kaylynn Nova Other [facility] Other Start: 06-21-2023 Telephone encounter Kaylynn armenta [facility] Start: 06-08-2023 End: 06-08-2023 ambulatory Benji Kulkarni Other [facility] Other Start: 06-08-2023 Office outpatient vi sit 25 minutes Benji [facility] Start: 06-06-2023 (DM) Diabetes Alyciajose Schwartz Rylie [facility] Start: 06-06-2023 End: 06-06-2023 ambulatory Alycia Schwartz Other [facility] Other Start: 05-30-2023 End: 05-30-2023 ambulatory Benji Kulkarni Other [facility] Other Start: 05-30-2023 Office outpatient vi sit 15 minutes [facility] Start: 05-25-2023 End: 05-25-2023 ambulatory Alycia Schwartz Other [facility] Other Start: 05-25-2023 Telephone encounter Alycia Samroz [facility] Start: 05-19-2023 End: 05-19-2023 ambulatory Alycia Schwartz Other [facility] Other Start: 05-19-2023 Nursing evaluation o f patient and report Alycia Fields [facility] Start: 05-16-2023 End: 05-16-2023 ambulatory Alycia Schwartz Other [facility] Other Start: 05-16-2023 Telephone encounter Alycia Samroz [facility] Start: 04-20-2023 End: 04-20-2023 ambulatory Alycia Schwartz Other [facility] Other Start: 04-20-2023 Telephone encounter Alyciaghazal Schwartz Jesse [facility] Start: 03-24-2023 (DM) Diabetes Alycia Youngblood [facility] Start: 03-24-2023 End: 03-24-2023 ambulatory Alycia Schwartz Other [facility] Other Start: 03-17-2023 End: 03-17-2023 ambulatory Alycia Schwartz Other [facility] Other Start: 03-17-2023 Telephone encounter Alycia Molina [facility] Start: 03-15-2023 End: 03-15-2023 ambulatory Benji Kulkarni Other [facility] [employer] Other Start: 03-15-2023 Telephone encounter Benji Kulkarni [facility] Start: 03-08-2023 End: 03-08-2023 ambulatory Benji Jordin Other [facility] [employer] Other Start: 03-08-2023 Office outpatient vi sit 25 minutes Benji Kulkarni [facility] Start: 03-04-2023 End: 03-04-2023 ambulatory Alycia Schwartz Other [facility] [employer] Other Start: 03-04-2023 Telephone encounter Alycia Molina [facility] Start: 02-24-2023 End: 02-24-2023 ambulatory Alycia Schwartz Other [facility] [employer] Other Start: 02-24-2023 Telephone encounter Alycia Molina [facility] Start: 02-21-2023 End: 02-21-2023 ambulatory Alycia Schwartz Other [facility] Other Start: 02-21-2023 Nursing evaluation o f patient and report Alycia Fields [facility] Start: 02-17-2023 End: 02-17-2023 ambulatory Alycia Schwartz Other [facility] Other Start: 02-17-2023 Telephone encounter Alycia howard [facility] Start: 02-16-2023 End: 02-16-2023 ambulatory Benji Kulkarni Other [facility] [employer] Other Start: 02-16-2023 Telephone encounter Benji Kulkarni [facility] Start: 02-14-2023 End: 02-14-2023 ambulatory Alycia Schwartz Other [facility] [employer] Other Start: 02-14-2023 Telephone encounter Alycia howard [facility] Start: 02-10-2023 End: 02-10-2023 ambulatory Alycia Schwartz Other [facility] Other Start: 02-10-2023 Telephone encounter Alycia howard [facility] Start: 02-09-2023 End: 02-09-2023 ambulatory Benji Kulkarni Other [facility] Other Start: 02-09-2023 FQHC visit new patient Alycia Pleitez [facility] Start: 02-09-2023 Telephone encounter Benji Kulkarni [facility] Start: 01-19-2023 End: 01-19-2023 ambulatory Benji Kulkarni Other [facility] Other Start: 01-19-2023 Telephone encounter Benji Ball [facility] Start: 12-28-2022 End: 12-28-2022 ambulatory Benji Ball Other [facility] Other Start: 12-28-2022 Telephone encounter Benji Ball [facility] Start: 10-11-2022 End: 10-11-2022 ambulatory Benji Ball Other [facility] Other Start: 10-11-2022 Telephone encounter Benji Kulkarni [facility] Start: 09-13-2022 End: 09-13-2022 ambulatory Benji Kulkarni Other [facility] [employer] Other Start: 09-13-2022 Telephone encounter Benji Kulkarni [facility] Start: 09-07-2022 End: 09-07-2022 ambulatory Benji Kulkarni Other [facility] [employer] Other Start: 09-07-2022 Telephone encounter Benji Kulkarni [facility] Start: 09-03-2022 End: 09-03-2022 ambulatory Benji Kulkarni Other [facility] [employer] Other Start: 09-03-2022 Office outpatient vi sit 25 minutes Benji Kulkarni [facility] Start: 08-10-2022 End: 08-10-2022 ambulatory Benji Kulkarni Other [facility] [employer] Other Start: 08-10-2022 Telephone encounter Benji Kulkarni [facility] Start: 08-09-2022 End: 08-09-2022 ambulatory Benji Kulkarni Other [facility] [employer] Other Start: 08-09-2022 Office outpatient vi sit 15 minutes Benji Kulkarni [facility] Start: 08-05-2022 End: 08-05-[address] BENJI KULKARNI Facility:[facility] Start: 08-03-2022 End: 08-03-2022 ambulatory Benji Kulkarni Other [facility] Other Start: 08-03-2022 Encounter for genera l adult medical examination without abnormal findings Benji Kulkarni [facility] Start: 08-03-2022 Telephone encounter Benji FONTENOT [facility] Start: 01-01-2022 End: 01-03-2022 Evaluation and management of inpatient WARREN CARLSON Facility:[facility] Start: 12-31-2021 End: 01-01-[address] BENJI KULKARNI Facility:[facility] Start: 12-30-[address] BENJI KULKARNI Faciltay ty:[facility] Start: 11-04-[address] BENJI Ordonez ty:[facility] Start: 10-08-2020 Adult health examination Keo Kulkarni Other [facility] Other Procedures Date Procedure Procedure Detail Performing Clinician Start: 01-04-2018 General examination of patient Benji Kulkarni Other Plan of Treatment Date Care Activity Detail Author Start: 01-11-2028 Urine microalbumin profile DTaP,Tdap,Td Vaccine (3 - Td or Tdap) [facility] Start: 05-04-2024 End: 05-04-2024 Patient encounter procedure 05/04/2024 2:30 PM [address]T Office Visit [facility] [address] [place], [place] [id number] Azeb Mathur DO [address] [place] [address] [facility] Comment on above: MRI BRAIN Start: 05-04-2024 End: 05-04-2024 Patient encounter procedure MRI Q Comment on above: Demyelinating dis ease of central nervous system (HCC) [G37.9] oct Start: 03-18-2024 Influenza vaccination Influenza Vacc ine (#1) [facility] Start: 07-18-2023 Depression Assessment Depression Ass essment [facility] Start: 03-18-2023 Covid-19 Vaccine ( season) Covid-19 Vaccine ( season) [facility] Start: 03-18-2023 Influenza vaccination Influenza Vacc ine (#1) [facility] Start: 2018 Lipid panel Lipid Screening [facility] Start: 2002 Hepatitis B Vaccine (1 of 3 - 19+ 3-dose series) Hepatitis B Vaccine (1 of 3 - 19+ 3-dose series) [facility] Start: 2001 Anxiety Screening Anxiety Screening [facility] Start: 2001 Depression Screening Depression Scre ening [facility] Start: 2001 Hepatitis C screening Hepatitis C Sc bryanna [facility] Start: 2001 HIV screening HIV Screening [facility] Start: 1983 Covid-19 Vaccine (#1) Covid-19 Vacci ne (#1) [facility] Start: 1983 Hepatitis B Vaccine (1 of 3 - 3-dose series) Hepatitis B Vaccine (1 of 3 - 3-dose series) [facility] End: 10-08-2024 MR Brain WO and W contrast IV MRI BRAIN WO/W IVCON Radiology Routine Demyelinating disease of central nervous system (HCC) 1 Occurrences starting 09/09/2023 until 10/08/2024 [facility] Work Phone: Comment on above: 1 Occurrences starti ng 09/09/2023 until 10/08/2024 End: 03-02-2025 OCT NEURO INST OCT NEURO INST OPHT Imaging Routine Demyelinating disease of central nervous system (HCC) 1 Occurrences starting 09/09/2023 until 03/02/2025 [facility] Work Phone: Comment on above: 1 Occurrences starti ng 09/09/2023 until 03/02/2025 [facility] Immunizations Immunization Date Immunization Notes Care Provider Gonzalo brody 01-10-2018 diphtheria, tetanus toxoids and acellular pertussis vaccine, unspecified formulation Benji Kulkarni Other [facility] 01-10-2018 tetanus toxoid, redu tiffany diphtheria toxoid, and acellular pertussis vaccine, adsorbed DO Benji Kulkarni Work Phone: [facility] Payers Date Payer Category Payer Medicaid [id number] 2022 Medicaid [id number] 2016 Medicare MEDICARE MEDICAR E A AND B [id number] 2016-Present [phone] [address] [address] [place] [address] Medicare [id number] 1983 Unknown [id number] 1983 Unknown [id number] 1983 Unknown [id number] 1983 Unknown [id number] 1983 Unknown [id number] 1959 Medicare [id number] 1959 Self-pay 1959 Unknown [id number] Medicaid [place] Advantage [id number] 201 [id number] Unknown [id number] Social History Date Type Detail Facility Start: 09-09-2023 Sex Assigned At [facility] Start: 08-04-2023 End: 09-09-2023 Tobacco smoking status NHIS Never smoked tobacco (finding) [facility] Start: 1985 Sex Assigned At Male [facility] Start: 09-09-2023 Tobacco use and exposure Smokeless tobacco non-user [facility] Start: 09-09-[address] [facility] National Score (1-10 0), lower number is lower risk 64 [facility] Start: 09-09-2023 Gender identity Identifies as male gender (finding) [facility] Start: 09-09-2023 Sexual orientation Heterosexual (finding) [facility] Medical Equipment Procedure Code Equipment Code Equipment Origin al Text Equipment Identifier Dates Start: 02-14-2023 Clinical Notes 01-25-2022 to 03-16-2024 Telephone Encounter - Judith Geiger LPN - 03/16/2024 11:19 AM EDTTelephone Encounter - Judith Geiger LPN - 03/16/2024 11:19 AM Azeb Garcia DO - 09/09/2023 10:30 AM EST Note Date & Type Note Facility 03-16-2024 Telephone encounter Note .[facility] NEW PATIENT REFERRAL TRIAGE Referral source:self No referring provider defined for this encounter. Referral Reason: for a second opinion on neurological symptoms Care Everywhere Completed Connection: [x]Yes or []No MyChart Dot Phrase Sent if Records were not sent MyChart Account?: [x]Yes or []No MyChart Dot Phrase Sent: Date 04/16/[address] [facility] 03-16-2024 Miscellaneous Notes .[facility] NEW PATIENT REFERRAL TRIAGE Referral source:self No referring provider defined for this encounter. Referral Reason: for a second opinion on neurological symptoms Care Everywhere Completed Connection: [x]Yes or []No MyChart Dot Phrase Sent if Records were not sent MyChart Account?: [x]Yes or []No MyChart Dot Phrase Sent: Date 04/16/2024 Judith Geiger LPN documented in this encounter [facility] 02-16-2024 Telephone encounter Note Called to reschedule 04/[address] mathur since she is out of the office. LVM and sent reminder in the mail. [facility] 02-16-2024 Miscellaneous Notes Called to reschedule 04/[address] mathur since she is out of the office. LVM and sent reminder in the mail. documented in this encounter [facility] 09-09-2023 History of Present illness Narrative Images from the original note were not included. [facility] NEW PATIENT EVALUATION/CONSULTATION Referral source: No referring provider defined for this encounter. Also followed by: No care steam press tender to display PRINCIPAL NEUROLOGIC DIAGNOSIS: Multiple neurological [...] expected to be with me at the [facility]. When he was younger he had multiple concussions and recovered. At 16 he had mycarditis attributed to significant caffeine intake and pericarditis. His first neurological symptom occurred around 28 years old. 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 He was told it [...] the last year since establishing with an orthodontic laboratory technician. In May he had a significant migraine with flashing lights and slow motion experience in his vision. He will have intermittent migraines that occur. These have occurred for many years. He can go months to sometimes years without one. 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 He had two sisters with MS (Ally and Betsy, both cared for by Davonte/Ariadna at [facility]). His last MRI lumbar was prior to his surgery. He is very claustrphobic. Last EMG was before his lumbar surgery. [facility] Neuro-QoL Functions (higher=better functioning) Flowsheet Row Office Visit from 09/09/[address] [facility] Upper Extremity Domain T Score 41.48 Lower Extremity Domain T Score 42.17 Cognitive Function Domain T Score 44.4 Positive Affect Well Being T Score -- Ability To Participate In Social Roles T Score 43.48 Satisfaction With Social Roles T Score 43.36 Neuro-QoL Symptoms (higher=worse symptoms) Flowsheet [facility] Office Visit from 09/09/[address] [facility] Sleep Domain T Score 65.45 Fatigue Domain [...] following prescription(s): vit b comp and c-vit e-fa-rk-zn, humalog kwikpen insulin, atorvastatin, tresiba flextouch u-200, [...] Flowsheet Row Office Visit from 09/09/[address] [facility] Processing Speed Total Number Correct 41 Low-contrast [...] the arms and legs was performed including dolmv-oo-dxulo, rapid-alternating, and fine movements. 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 Azeb Mathur DO [facility] documented in this encounter [facility] 09-09-2023 Note HNO ID: [id number] Author: AZEB MATHUR DO Service: ? Author Type: Physician Type: Progress Notes Filed: 09/09/2023 16:05 Note Text: [facility] NEW PATIENT EVALUATION/CONSULTATION Referral source: No referring provider defined for this encounter. Also followed by: No care steam press tender to display PRINCIPAL NEUROLOGIC DIAGNOSIS: Multiple neurological [...] expected to be with me at the [facility]. When he was younger he had multiple concussions and recovered. At 16 he had mycarditis attributed to significant caffeine intake and pericarditis. His first neurological symptom occurred around 28 years old. 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 He was told it [...] the last year since establishing with an orthodontic laboratory technician. In May he had a significant migraine with flashing lights and slow motion experience in his vision. He will have intermittent migraines that occur. These have occurred for many years. He can go months to sometimes years without one. 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 He had two sisters with MS (Ally and Betsy, both cared for by Nasima at [facility]). His last MRI lumbar was prior to his surgery. He is very claustrphobic. Last EMG was before his lumbar surgery. [facility] Neuro-QoL Functions (higher=better functioning) Flowsheet Row Office Visit from 09/09/[address] [facility] Upper Extremity Domain T Score 41.48 Lower Extremity Domain T Score 42.17 Cognitive Function Domain T Score 44.4 Positive Affect Well Being T Score -- Ability To Participate In Social Roles T Score 43.48 Satisfaction With Social Roles T Score 43.36 Neuro-QoL Symptoms (higher=worse symptoms) Flowsheet Row Office Visit from 09/09/[address] [facility] Sleep Domain T Score 65.45 Fatigue Domain [...] following prescription(s): vit b comp and c-vit e-fa-rk-zn, humalog kwikpen insulin, atorvastatin, tresiba flextouch u-200, [...] Flowsheet Row Office Visit from 09/09/[address] [facility] Processing Speed Total Number Correct 41 Low-contrast letter acuity test-2.5 p (more content not included)... [facility] 08-29-2023 Evaluation note Encounter Date Diagnosis [...] more serious, prolonged illness. 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 [facility] Other 12-27-2023 Evaluation note* Encounter Date Diagnosis [...] with the patient by Mathew Byers RN, [facility]. Alycia Schwartz 07/14/2023 01:13:59 PM >discussed, reviewd and endorsed day of appt [facility] Other 12-15-2023 Evaluation note* Encounter Date Diagnosis Assessment Notes Treatment Notes Treatment Clinical Notes Jun, Type 2 diabetes mellitus with hyperglycemia (ICD-10 - E11.65) Jun, Type 2 diabetes mellitus with hyperglycemia, unspecified detention insulin use status (ICD-10 - E11.65) [facility] Other 11-22-2023 Evaluation note* Encounter Date Diagnosis [...] use, the patient reduces the risk for MD, CVA, HTN, cardiac dysrhythmias and sudden cardiac [...] [BMI] 38.0-38.9, adult (ICD-10 - Z68.38) 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 [facility] Other 11-13-2023 Evaluation note* Encounter Date Diagnosis [...] BS slightly, no change in treatment necessary [facility] Other 11-08-2023 Evaluation note* Encounter Date Diagnosis Assessment Notes Treatment Notes Treatment Clinical Notes May, Type 2 diabetes mellitus with hyperglycemia, unspecified detention insulin use status (ICD-10 - E11.65) [facility] Other 11-02-2023 Evaluation note* Encounter Date Diagnosis Assessment Notes Treatment Notes Treatment Clinical Notes May, Type 2 diabetes mellitus with hyperglycemia, unspecified manager long term care insulin use status (ICD-10 - E11.65) [...] discussing his insulin by Mathew Byers RN, [facility]. 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 [facility] Other 08-29-2023 Evaluation note* Encounter Date Diagnosis Assessment Notes Treatment Notes Treatment Clinical Notes Feb, Hyperlipidemia, mixed (ICD-10 - E78.2) [facility] Other 08-22-2023 Evaluation note* Encounter Date Diagnosis [...] Dilated eye exam and Foot exam Feb, prison (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 insulin (ICD-10 - Z79.4) [...] use, the patient reduces the risk for MD, CVA, HTN, cardiac dysrhythmias and sudden cardiac [...] index [BMI] 38.0-38.9, adult (ICD-10 - Z68.38) [facility] Other 08-07-2023 Evaluation note* Encounter Date Diagnosis Assessment Notes Treatment Notes Treatment Clinical Notes Feb, Type 2 diabetes mellitus with hyperglycemia, unspecified detention insulin use status (ICD-10 - E11.65) Jon [...] him and his by Mathew Byers RN, [facility]. [facility] Other 07-31-2023 Evaluation note* Encounter Date Diagnosis Assessment Notes Treatment Notes Treatment Clinical Notes Jan, Type 2 diabetes mellitus with hyperglycemia, unspecified manager long term care insulin use status (ICD-10 - E11.65) [facility] Other 07-26-2023 Evaluation note* Encounter Date Diagnosis [...] of under 130/80 for kidney protection Jan, prison current use of insulin (ICD-10 - Z79.4) Jan, BMI 38.0-38.9,adult (ICD-10 - Z68.38) Jan, Other I have spent 60 minutes with this patient and over 50% of the visit was counseling done by myself, Riddhi LEUNG. [facility] Other 07-05-2023 Evaluation note* Encounter Date Diagnosis Assessment Notes Treatment Notes Treatment Clinical Notes Jan, Type 2 diabetes mellitus with hyperglycemia (ICD-10 - E11.65) [facility] Other 06-13-2023 Evaluation note* Encounter Date Diagnosis Assessment Notes Treatment Notes Treatment Clinical Notes Dec, Type 2 diabetes mellitus with hyperglycemia (ICD-10 - E11.65) [facility] Other 03-27-2023 Evaluation note* Encounter Date Diagnosis Assessment Notes Treatment Notes Treatment Clinical Notes Sep, Type 2 diabetes mellitus with hyperglycemia (ICD-10 - E11.65) [facility] Other 02-17-2023 Evaluation note* Encounter Date Diagnosis Assessment Notes Treatment Notes Treatment Clinical Notes Aug, Obstructive sleep apnea (ICD-10 - G47.33) This patient is aware of the benefits associated with MARIFER: With continued use, the patient reduces the risk for MD, CVA, HTN, cardiac dysrhythmias and sudden cardiac [...] may safely use Tylenol as needed. Aug, prison (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 insulin (ICD-10 - Z79.4) [facility] Other 01-24-2023 Evaluation note* Encounter Date Diagnosis Assessment Notes Treatment Notes Treatment Clinical Notes Jul, Acute non-recurrent maxillary sinusitis (ICD-10 - J01.00) [facility] Other 01-23-2023 Evaluation note* Encounter Date Diagnosis [...] are reviewed at the office visit. 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 Name: Janusz Motley Admitted: 01/01/2022 Discharged: 01/03/2022 Date of [...] at the outside hospital and sent to [facility] for further management. HOSPITAL COURSE: The patient [...] Patel MD Date Trans: 01/25/2022 02:34 A/kevin [id number]:[id number] cc: Benji Kulkarni D.O. [address] [place] [address] A [facility] [id number] Community HospitalEvaluation noteNo InformationNortHospital of the University of [facility] [employer] Other Evaluation noteNo assessment information available [facility] Work Phone: Evaluation note* Diagnosis Demyelinating disease of central nervous system (HCC)- Primary Demyelinating disease of central nervous system, unspecified Diabetic polyneuropathy associated with type 2 diabetes mellitus (HCC) documented in this encounter [facility] general Narrative - Reported* Type Description Date Medical History Type 2 diabetes chilango itus with hyperglycemia, unspecified detention insulin use status Medical History 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 Medical History SBO [...] LUMBAR LAMINECTOMY/DISCECTOMY Hospitalization History SEE SURGICAL HX [facility] Other Summary Purpose Family History Relationship Condition [...] Azeb Mathur DO [address] [place] [address] Mr Imaging [id number] Referral ID Status Reason Start Date Expiration Date Visits Requested Visits Authorized [id number] Pending Review Auto-Generat ed Referral 09/09/2023 10/08/2024 1 1 Additional Source Comments (unrecognized sect ion and content) No Status Records FoundNo Status Records FoundNo Status Records FoundNo Status Records Found INFORMATION SOURCE (unrecogn ized section and content) DATE CREATED AUTHOR 01/25/2022 [facility] DATE CREATED AUTHOR AUTHOR'S ORGANIZ ATION 08/23/2022 [facility] DATE CREATED AUTHOR AUTHOR'S ORGANIZ ATION 09/15/2023 [facility] DATE CREATED AUTHOR AUTHOR'S ORGANIZ ATION 02/19/2024 [facility] REASON FOR VISIT (unrecogniz ed section and content) Reason Comments Request Outside Medical Records Reason Comments Appointment Called to reschedule 04/[address] mathur since she is out of the office. LVM and sent reminder in the mail. Reason Comments New Patient Evaluation COVID Positive- [phone], 3 month Follow upDS DM patient cancelledDS refill humalog/ rescheduleDM, DM 6 week follow up, Type 2Cancelled apptDS [id number], body aches, sore throat [phone] lost medicationDS BG Control/RefillDM 6 week follow [...] or prosecute any alcohol or drug abuse patient.[facility] the event this information is protected by the Federal Confidentiality of Alcohol and Drug Abuse Patient Records regulations: The Federal rules restrict any use of the information to criminally investigate or prosecute any alcohol or drug abuse patient.[facility] the event this information is protected by the Federal Confidentiality of Alcohol and Drug Abuse Patient Records regulations: The Federal rules restrict any use of the information to criminally investigate or prosecute any alcohol or drug abuse patient.[facility] FOR RECORDS PERTAINING TO PATIENTS WHO ARE [...] BE BASED ON THE PRIMARY CLINICAL RECORDS. [facility] provides no warranty or guarantee of the accuracy or completeness of information in this document.
--- NOTE | 2024-08-20 12:30 | XR_ITS ---
[address] [address] Patient Name: KALEIGH MOTLEY MRN: [id number] date: 1985 Sex: M Assigned Patient Location: [facility] Current Patient Location: Accession/Order Number: [id number] Exam Date: 08/20/2024 12:32 Report Date: 08/23/2024 11:30 At the request of: DIGNA BRENNER Procedure: XR shoulder RT min 2V PROCEDURE: XR shoulder RT min 2V COMPARISON: None. HISTORY: right shoulder pain FINDINGS: BONES:No acute fracture or dislocation. Degenerative changes with marginal osteophyte formation along the inferior glenoid. SOFT TISSUES:Negative. No visible soft tissue swelling. EFFUSION:None visible. OTHER: Negative. XR/XR shoulder RT min 2V IMPRESSION: Osteoarthritis inferior glenoid Electronically authenticated by: OLGA MONDRAGON Date: 08/23/2024 11:30
== END 2024-08-20 12:21 | disposition home or self-care (01) ==
LOC: RAD 12:22
PROVIDERS: PCP Internal Medicine; Visit Provider Internal Medicine
DX: M25.511 Pain in right shoulder (principal); M19.011 Primary osteoarthritis, right shoulder
CPT/HCPCS: 73030

== ENCOUNTER 2024-09-11 17:00 | Outpatient (RCR) | payer MEDICARE, MEDICAID, SELFPAY | END 2024-09-12 08:05 | disposition home or self-care (01) | LOC: PT 17:00 | PROVIDERS: PCP Internal Medicine; Visit Provider Internal Medicine | DX: M25.511 Pain in right shoulder (principal) | CPT/HCPCS: 97162 ==

== ENCOUNTER 2025-01-18 02:20 | Emergency (ER) | payer MEDICARE, MEDICAID, SELFPAY ==
[2025-01-18 02:25] VITALS: BP 160/109; PULSE 95; TEMP 36.7; O2SAT 96; BMI 40.0
--- NOTE | 2025-01-18 02:25 | ECG_ITS ---
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 Measurements Intervals Roberts Rate: 95 P: 58 MT: 114 QRS: 36 QRSD: 82 T: 37 QT: 344 QTc: 396 Interpretive Statements 1100 Sinus rhythm 2210 Short MT interval 8102 Low QRS voltage in chest leads 9150 abnormal ECG Compared to ECG 06/12/2024 02:18:14 Low QRS voltage now present Electronically Signed On 01-20-2025 17:16:20 EDT by ESVIN CORRAL M.D.
--- OUTSIDE RECORDS SUMMARY | 2025-01-18 02:32 | XMS_ITS | CCD ---
Author Organization [facility] Care Team Providers Care Press Setup Operator Name Role Phone WARREN CARLSON Attending Unavailable WARREN CARLSON Admitting Unavailable ROSALINE Referring Unavailable BENJI KULKARNI Primary Care Unavailable JORDIN, DR SAWYER Admitting Unavailable BALL, DR SAWYER Attending Unavailable BALL, DR SAWYER Primary Care Unavailable BALL, DR SAWYER Admitting Unavailable BALL, DR SAWYER Attending Unavailable BALL, DR SAWYER Primary Care Unavailable BALL, DR SAWYER Consulting Unavailable BALL, DR SAWYER Admitting Unavailable BALL, DR SAWYER Attending Unavailable BALL, DR SAWYER Primary Care Unavailable JORDIN, DR [...] (2 sources) Naproxen Drug Allergy 3 [facility] Repository (20 sources) Acarbose Drug Allergy 4 Other: See Comments [facility] (20 sources) liraglutide Drug Allergy 4 Other: See Comments [facility] (20 sources) metFORMIN Drug Allergy 4 Unknown [facility] (9 sources) patient allergy list reviewed by nurse or physicia Propensity to adverse reactions 9 Comment:Done Sojeans Other (20 sources) Precose *ANTIDIABETICS* Propensity to adverse reactions 4 Comment:ACARAB OSE [facility] (6 sources) Naproxen; Translations: [naproxen] Drug Allergy 3 Hives [facility] Medications Current Medications Medication Drug Class(es) Dates Sig (Normalized) Sig (Original) atorvastatin 20 mg oral tablet (20 sources) HMG-CoA Reductase Inhibitor Start: 01-10-2018 End: 05-24-2024 take 1 tablet by mouth once daily Atorvastatin 20 mg tablet Active 20 MG PO Daily 90 90 May 24, 2024 11:07am Comment on above: Take 20 mg by mouth daily at bedtime. BD Ultra-Fine Micro Pen Needle (20 sources) BD Ultra-Fine Mi microsoft exchange administrator Pen Needle 1 each In vitro 4 times daily for 90 days Okay to dispense insurance preferred equivalent Dx E11.65 Active BD Ultra-Fine Mi microsoft exchange administrator Pen Needle 1 each In vitro 6 times per day for 90 days Okay to dispense insurance preferred equivalent Active BD Ultra-Fine Mi microsoft exchange administrator Pen Needle Active Blood-Glucose Sensor (Dexcom G7 Sensor) device (3 sources) Start: 12-12-2024 Blood-Glucose Sensor (Dexcom G7 Sensor) device Active 0 .ROUTE .MEDSUPPLY December 12, 2024 12:00am As directed Start: 11-26-2024 End: 11-26-2024 Blood-Glucose Sensor (Dexcom G7 Sensor) device Discontinued 0 .Route November 26, 2024 1:56pm November 26, 2024 1:57pm As directed Start: 03-27-2024 End: 11-26-2024 Blood-Glucose Sensor (Dexcom G7 Sensor) device Discontinued 0 .Route March 27, 2024 12:00am November 26, 2024 1:57pm As directed cefuroxime 500 mg oral tablet (1 source) Cephalosporin Antibacterial Start: 08-29-2023 take 1 tablet by mouth every twelve hours Cefuroxime Axetil 500 MG 1 tablet Orally every 12 hrs for 5 days Aug, Active cholecalciferol 0.05 mg oral tablet (20 sources) Vitamin D Start: 10-11-2023 take 1 tablet by mouth once daily Cholecalciferol (Vitamin D3) 50 mcg (2,000 unit) tablet Active 100 MCG PO Daily October 11, 2023 12:00am Start: 04-06-2023 take 1 capsule by mo uth every week as needed Cholecalciferol 1.25 MG (03223 UT) 1 capsule Orally weekly for 56 days follow with 4000 ut OTC Mar, Not-Taking/PRN Start: 04-06-2023 take 1 capsule by mo uth every week Cholecalciferol 1.25 MG (97930 UT) 1 capsule Orally weekly for 56 days follow with 4000 ut OTC Mar, Not-Taking Start: 04-06-2023 take 1 capsule by mo uth every week Cholecalciferol 1.25 MG (95528 UT) 1 capsule Orally weekly for 56 days follow with 4000 ut OTC Mar, Active Start: 03-29-2023 take 1 capsule by mo uth every week Cholecalciferol 1.25 MG (54719 UT) 1 capsule Orally WEEKLY for 56 days when RX complete, start D3 4000 ut once daily OTC Mar, Not-Taking/PRN Start: 03-29-2023 take 1 capsule by mo uth every week Cholecalciferol 1.25 MG (15973 UT) 1 capsule Orally WEEKLY for 56 days when RX complete, start D3 4000 ut once daily OTC Mar, Not-Taking Start: 03-29-2023 take 1 capsule by mo uth every week Cholecalciferol 1.25 MG (60328 UT) 1 capsule Orally WEEKLY for 56 days when RX complete, start D3 4000 ut once daily OTC Mar, Active take 2 tablets by mo uth every twenty-four hours Vitamin D3 50 MCG (2000 UT) 2 tablets Orally Once a day Active Dexcom G7 Sensor - (20 sources) Start: 02-14-2023 Dexcom G7 Sens or - as directed in vitro every 10 days for 90 days SEND TO [facility]-- patient on Basal Bolus insulin / mdi Jan, Active Dexcom G7 Sensor - as directed in vitro every 10 days SEND TO [facility] [place]-- patient on Basal Bolus insulin / mdi Active Dexcom G7 Sensor - as directed in vitro every 10 days for 90 days SEND TO [facility] [place]-- patient on Basal Bolus insulin / mdi [...] (for MRI) for up to 3 days. empagliflozin 25 mg oral tablet (15 sources) Sodium-Glucose Cotransporter 2 Inhibitor Start: 07-14-2023 take 10 mg by mouth once daily JARDIANCE 10 mg daily orally Jun, Active Start: 01-10-2018 End: 08-14-2024 take 1 tablet by mouth once daily Empagliflozin 25 mg tablet Active 25 MG PO Daily August 14, 2024 8:49am Comment on above: Take 1 tablet by [...] each meal for 30 days Jan, Active Insulin Degludec (Tresiba Flextouch U-200) 200 unit/mL (3 mL) insulin pen (5 sources) Start: 12-12-2024 Insulin Deglud ec (Tresiba Flextouch U-200) 200 unit/mL (3 mL) insulin pen Active 72 UNIT SUBCUT Daily 10.8 December 12, 2024 3:25pm Titrate to 90 u once daily, has written instructions Start: 08-16-2024 End: 12-12-2024 Insulin Degludec (Tresiba Fl extouch U-200) 200 unit/mL (3 mL) insulin pen Discontinued 62 UNIT SUBCUT Daily August 16, 2024 3:35pm December 12, 2024 3:37pm Titrate to 90 u once daily, has written instructions Start: 06-19-2024 End: 08-16-2024 Insulin Degludec (Tresiba Fl extouch U-200) 200 unit/mL (3 mL) insulin pen Discontinued 62 UNIT SUBCUT Daily June 19, 2024 4:47pm August 16, 2024 3:37pm Titrate to 90 u once daily, has written instructions Start: 04-11-2024 End: 06-19-2024 Insulin Degludec (Tresiba Fl extouch U-200) 200 unit/mL (3 mL) insulin pen Discontinued 70 UNIT SUBCUT Daily April 11, 2024 9:39am June 19, 2024 4:50pm Titrate to 90 u once daily, has written instructions Start: 02-06-2024 End: 04-11-2024 Insulin Degludec (Tresiba Fl extouch U-200) 200 unit/mL (3 mL) insulin pen Discontinued 67 UNIT SUBCUT Daily February 06, 2024 5:25pm April 11, 2024 9:39am Titrate to 90 u once daily, has written instructions 3 ml insulin lispro 200 unt/ml pen injector (20 sources) Insulin Analog Start: 03-08-2024 End: 09-24-2024 Insulin Lispro (Humalog Kwikpen Insulin) 200 unit/mL (3 mL) insulin pen Active 0 SUBCUT .COMPLEX September 24, 2024 3:35pm ICR 1:3 ac tid, ISS 1:12 ac (hs if >200 half dose), EXPECT MAX 220 UNITS/DAY Subcutaneous 4 x daily; Provider: Efren Tong ( ) Start: 10-11-2023 End: 03-08-2024 Insulin Lispro (Humalog Kwik pen Insulin) 200 unit/mL (3 mL) insulin pen Discontinued 0 SUBCUT .COMPLEX February 06, 2024 5:22pm March 08, 2024 1:19pm ISS 1: 7, ICR 1:2 EXPECT 220 UNITS PER DAY Subcutaneous 4 x daily subcutaneously; FreeTextSig: ISS 1: 7, ICR 1:2 EXPECT 220 UNITS PER DAY Subcutaneous 4 x daily; Note: Source Status: Not-TakingundefinedPRN; Provider: Efren Tong ( ) Start: 02-09-2023 HUMALOG KWIKPE N INSULIN 200 [...] needed. 30 tablet 5 09/30/2023 03/28/2024 Active SITagliptin 100 mg oral tablet (3 sources) Dipeptidyl Peptidase 4 Inhibitor Start: 2023 End: 2024 take 1 tablet by mouth once daily Sitagliptin Phosphate 100 mg tablet Active 100 MG PO Daily August 16, 2024 3:37pm Start: 03-27-2024 End: 06-20-2024 take 1 tablet by mouth once daily Sitagliptin Phosphate (Januvia) 50 mg tablet Discontinued 50 MG PO Daily March 27, 2024 12:00am June 20, 2024 10:42am Tresiba U-200 solution injec table 3ml/ 600 units (14 sources) Tresiba U-200 so lution injectable 3ml/ 600 units 67 units injectable [...] / HYDROcodone bitartrate 5 mg oral tablet (2 sources) Opioid Agonist Start: 01-10-2018 End: 10-11-2023 take 1 tablet by mouth every six hours as needed for pain Hydrocodone-Acetam inophen ([place]) 5-325 mg tablet Discontinued 1 TAB PO Q6H as needed for pain 10 January 10, 2018 October 11, 2023 9:44am amoxicillin 875 mg oral tablet (20 sources) Penicillin-class Antibacterial Start: 08-09-2022 take 1 tablet by mouth every twelve hours Amoxicillin 875 MG 1 tablet Orally Twice a day for 7 days Jul, Not-Taking/PRN amoxicillin 875 mg / clavulanate 125 mg oral tablet (2 sources) Penicillin-class Antibacterial Start: 05-24-2024 End: 06-19-2024 take 1 tablet by mouth twice daily Amoxicillin-Pot Clavulanate 875-125 mg tablet Discontinued 1 TAB PO Twice daily 06 05May 24, 2024 1:00am June 19, 2024 4:44pm Start: 11-29-2023 End: 01-10-2024 take 1 tablet by mouth twice daily Amoxicillin-Pot Clavulanate 875-125 mg tablet Discontinued 1 TAB PO Twice daily 06 05November 29, 2023 12:00am January 10, 2024 4:20pm azithromycin 250 mg oral tablet (11 sources) Macrolide Antimicrobial Start: 11-14-2023 End: 11-29-2023 Azithromycin 250 mg tablet Discontinued 250 MG PO As Directed 6 November 14, 2023 12:00am November 29, 2023 2:01pm Start: 05-30-2023 Azithromycin 2 50 MG as directed Orally daily for 5 days May, Not-Taking/PRN benazepril hydrochloride 5 mg oral tablet (2 sources) Angiotensin Converting Enzyme Inhibitor Start: 01-10-2018 End: 10-11-2023 take 1 tablet by mouth once daily Benazepril 5 mg tablet Discontinued 5 MG PO Daily January 10, 2018 12:00am October 11, 2023 9:44am cephalexin 500 mg oral capsule (2 sources) Cephalosporin Antibacterial Start: 01-10-2018 End: 10-11-2023 take 1 capsule by mouth four times daily Cephalexin (Keflex) 500 mg capsule Discontinued 500 MG PO Four times daily 40 January 10, 2018 12:00am October 11, 2023 9:44am Dexcom 7 (20 sources) Start: 02-08-2023 Dexcom 7 sensors for 30 days Dx E11.65 Jan, Not-Taking/PRN Start: 02-08-2023 Dexcom 7 senso rs for 30 days Dx E11.65 Jan, Not-Taking Start: 09-13-2022 Dexcom 7 Use f or testing home BS transcutaneous 6x daily for 365 days 1 sensor and 1 reader Aug, Active Dexcom 7 Use to test home BS SC continuous monitoring - 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75 mg/0.5 mL pen injector Discontinued 0.75 UNITS SUBCUT January 10, 2018 12:00am October 11, 2023 9:44am fenofibrate 145 mg oral tablet (20 sources) Peroxisome Proliferator Receptor alpha Agonist take 1 tablet by mouth every twenty-four hours Fenofibrate 145 MG 1 tablet Orally Once a day Not-Taking/PRN 3 ml insulin degludec 200 unt/ml pen injector (10 sources) Insulin Analog Start: 01-17-2024 End: 02-06-2024 Insulin Degludec (Tresiba Flextouch U-200) 200 unit/mL (3 mL) insulin pen Discontinued 67 UNIT SUBCUT January 17, 2024 12:00am February 06, 2024 5:26pm Start: 08-04-2023 insulin deglud ec (TRESIBA) 200 [...] DAY Inject subcutaneousl y every 24 hours. Insulin Degludec 200 unit/mL (3 mL) insulin pen (1 source) Start: End: Insulin Degludec 200 unit/mL (3 mL) insulin pen Discontinued 62 UNIT SUBCUT Daily 04 16December 07, 2024 12:00am December 12, 2024 3:27pm insulin detemir 100 unt/ml injectable solution (20 sources) Insulin Analog Start: End: inject 50 [IU] by subcutaneous injection at bedtime Insulin Detemir U-100 100 unit/mL solution Discontinued UNIT SUBCUT October 11, 2023 12:00am January 17, 2024 9:27am FreeTextSi units Subcutaneous hs; Note: Source Status: Not-Takingundefined PRN; Refills: 5; Provider: Jordin Morales Start: 02-14-2023 Levemir FlexPe n 100 UNIT/ML 25 u Subcutaneous twice daily Jan, Active Levemir FlexPen 100 UNIT/ML 67 units Subcutaneous bid for 90 days Not-Taking/PRN Insulin Detemir U-100 100 unit/mL (3 mL) insulin pen (1 source) Start: 10-11-2023 End: 01-17-2024 inject 67 [IU] by subcutaneous injection twice daily Insulin Detemir U-100 100 unit/mL (3 mL) insulin pen Discontinued UNIT SUBCUT October 11, 2023 12:00am January 17, 2024 9:27am FreeTextSi units Subcutaneous bid; Note: Source Status: Not-TakingundefinedPRN; Refills: 1; Provider: Efren Black 3 ml insulin glargine 100 unt/ml pen injector (2 sources) Insulin Analog Start: 01-10-2018 End: 10-11-2023 Insulin Glargine (Basaglar Kwikpen U-100 Insulin) 100 unit/mL (3 mL) insulin pen Discontinued 36 UNITS SUBCUT 1-2 TIMES DAILY January 10, 2018 12:00am October 11, 2023 9:44am LEVEMIR FLEXTOUCH 100 UNIT/ ML (20 sources) [...] q HS, 15 EACH Subcutaneous daily Active methylPREDNISolone 4 mg oral tablet (1 source) Corticosteroid Start: 05-29-2024 End: 06-19-2024 take 1 tablet by mouth once Methylprednisolone (Medrol (Ruy)) 4 mg tablets,dose pack Discontinued 0 PO per package directions May 29, 2024 1:00am June 19, 2024 4:48pm PO PER PKG DIR mupirocin 0.02 mg/mg topical ointment (1 source) RNA Synthetase Inhibitor Antibacterial Start: 01-10-2024 End: 03-27-2024 Mupirocin 2 % ointment Discontinued 1 APPLIC TOPICAL Twice daily 08 05January 10, 2024 12:00am March 27, 2024 2:09pm OneTouch Ultra Blue (20 sources) OneTouch Ultra B lue strips Not-Taking/PRN OneTouch Ultra B lue strips Not-Taking OneTouch Ultra B lue strips Active oseltamivir 75 mg oral capsule (1 source) Neuraminidase Inhibitor Start: 09-22-2023 End: 10-11-2023 take 1 capsule by mouth twice daily Oseltamivir (Tamiflu) 75 mg capsule Discontinued 75 MG PO Twice daily 04 21September 22, 2023 1:00am October 11, 2023 9:44am Semaglutide 3 mg tablet (1 source) Start: 10-11-2023 End: 01-10-2024 take 1 mg by mouth once daily Semaglutide 3 mg tablet Discontinued MG PO Daily October 11, 2023 12:00am January 10, 2024 4:13pm FreeTextSig: as directed Orally Once a day; Note: Source Status: Not-Takingundefine dPRN; Provider: Efren Vizcarrazepatide (1 source) Start: 01-17-2024 End: 03-27-2024 Tirzepatide (Mounjaro) 2.5 mg/0.5 mL pen injector Discontinued 2.5 MG SUBCUT every week 09 14January 17, 2024 12:00am March 27, 2024 2:09pm has voucher for 1st month tiZANidine 4 mg oral tablet (20 sources) [...] to other specified organisms] Episodic Administrative/social admission (5 sources) Dietary counseling and surveillance; Translations: [Patient encounter status] Episodic Chronic obstructive pulmonary disease and bronchiectasis (1 source) Bronchitis, not specified as acute or chronic Episodic Developmental disorders (20 sources) Developmental academic disorder; Translations: [Developmental disorder of scholastic skills, unspecified] 10-11-2023 Chronic Diabetes mellitus with complications (20 sources) [...] [Polyosteoarthritis, unspecified] Chronic Other aftercare (10 sources) 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; Translations: [CARE HOME CURRENT USE OF INSULIN] Onset: 08-10-2022 Episodic Other aftercare (20 sources) Long-term current use of insulin; Translations: [FPC (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 insulin] 10-11-2023 Episodic Other connective tissue disease (2 sources) Fibromyalgia; Translations: [FIBROMYALGIA] Onset: 01-06-2022 Episodic Other connective tissue disease (20 sources) Lateral epicondylitis; Translations: [Lateral epicondylitis, left elbow] Episodic Other connective tissue disease (20 sources) Fibromyalgia; Translations: [Fibromyalgia] Episodic Other connective tissue disease (2 sources) Lateral epicondylitis, left elbow; Translations: [Epicondylitis, lateral, left] Episodic Other connective tissue disease (1 source) Tendinitis of right rotator cuff; Translations: [Other shoulder lesions, right shoulder] 08-17-2024 Episodic Other hereditary and degenerative nervous system [...] central nervous system, unspecified] 09-09-2023 Chronic Other non-traumatic joint disorders (1 source) Pain in right shoulder; Translations: [Right shoulder pain] 08-17-2024 Episodic Other nutritional; endocrine; and metabolic disorders (5 [...] Chronic Other nutritional; endocrine; and metabolic disorders (10 sources) Obesity; Translations: [Obesity, unspecified] Onset: 06-18-2014 06-20-2024 Chronic Other nutritional; endocrine; and metabolic disorders (20 sources) Obese class II; Translations: [Body mass index 35.0-35.9, adult] Onset: 08-25-2015 Chronic Other nutritional; endocrine; and metabolic disorders (16 sources) Obese class I; Translations: [Body mass index 34.0-34.9, adult] Onset: 08-25-2015 Chronic Other nutritional; endocrine; and metabolic disorders (6 sources) Body mass index (BMI) 38.0-38.9, adult Chronic Other nutritional; endocrine; and metabolic disorders (1 source) Obesity, unspecified; Translations: [Obesity, unspecified] 12-12-2024 Chronic Other upper respiratory disease (20 sources) Seasonal allergy; Translations: [Other seasonal allergic rhinitis] 10-11-2023 Chronic Other upper respiratory disease (8 sources) [...] [Obstructive sleep apnea (adult) (pediatric)] Onset: 10-11-2013 10-09-2023 Chronic Residual codes; unclassified (7 sources) Obstructive sleep apnea (adult) (pediatric); Translations: [Obstructive sleep apnea (adult)(pediatric)] Chronic Residual codes; unclassified (8 sources) H/O: [...] 09-20-2014 Episodic Other aftercare (1 source) 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 Prescriptions [...] Encounter Status:Closed by ANA ANDERSON on 02/16/24 Normal [facility] CNOVon 09-09-2023 CNOV Office Visit ([facility]) MILENAJANUSZ DUEÑAS ([id number]) 1985 M Date Time Provider Department 09/09/23 10:30 AM AZEB MATHUR During your visit today, we recorded the following information about you: Pulse Blood pressure Weight Height 94/minute 130/92 144 kg 1.905 m Azeb Mathur DO 09/09/2023 4:05 PM Signed [facility] NEW PATIENT EVALUATION/CONSULTAT ION Referral source: No referring provider defined for this encounter. 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 When he was younger he had multiple concussions and recovered. At 16 he had mycarditis attributed to significant caffeine intake and pericarditis. His first neurological symptom occurred around 28 years old. 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 He was told it [...] the last year since establishing with an reinspector. In May he had a significant migraine with flashing lights and slow motion experience in his vision. He will have intermittent migraines that occur. These have occurred for many years. He can go months to sometimes years without one. 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 He had two sisters with MS (Ally and Betsy, both cared for by Davonte[facility]). His last MRI lumbar was prior to his surgery. He is very claustrphobic. Last EMG was before his lumbar surgery. [facility] Neuro-QoL Functions (higher=better functioning) Flowsheet Row Office Visit from 09/09/2023 in [facility] Upper Extremity Domain T Score 41.48 Lower Extremity Domain T Score 42.17 Cognitive Function Domain T Score 44.4 Positive Affect Well Being T Score -- Ability To Participate In Social Roles T Score 43.48 Satisfaction With Social Roles T Score 43.36 Neuro-QoL Symptoms (higher=worse symptoms) Flowsheet Row Office Visit from 09/09/2023 in [facility] Sleep Domain T Score 65.45 Fatigue Domain [...] - FINGER STICKon Glucose [Mass/Vol] 150 mg/dL Sojeans Other A1C HEMOGLOBINon 06-06-2023 HbA1c (Bld) [Mass fraction] 9.5 % Sojeans Other Glucose - FINGER STICKon Glucose [Mass/Vol] 249 mg/dL Sojeans Other HbA1c (Bld) [Mass fraction]o n 06-06-2023 A1C HEMOGLOBIN Acumen Other A1C HEMOGLOBINon 02-09-2023 HbA1c (Bld) [Mass fraction] 8.3 % Sojeans Other Glucose - FINGER STICKon Glucose [Mass/Vol] 289 mg/dL Sojeans Other HbA1c (Bld) [Mass fraction]o n 02-09-2023 A1C HEMOGLOBIN Acumen Other BASIC METABOLIC PANELon 06- Calcium [Mass/Vol] 8.5 mg/dL Low 8.6-10.3 [facility] Comment on above: Order Comment: No: D o not add to previous draw Performed By: #### [id number] #### [facility] [address] [place] [address], [place] Chloride [Moles/Vol] 108 mmol/L High 98-107 [facility] Comment on above: Order Comment: No: D o not add to previous draw Performed By: #### [id number] #### [facility] [address] [place] [address], [place] CO2 [Moles/Vol] 27 mmol/L Normal 21-31 [facility] Comment on above: Order Comment: No: D o not add to previous draw Performed By: #### [id number] #### [facility] [address] [place] [address], [place] Creatinine [Mass/Vol] 0.89 mg/dL Normal 0.70-1.30 [facility] Comment on above: Order Comment: No: D o not add to previous draw Performed By: #### [id number] #### [facility] [address] [place] [address], [place] GFR/1.73 sq M.predicted among blacks MDRD (S/P/Bld) [Vol rate/Area] mL/min/{1.73_m2} Normal >60 [facility] Comment on above: Order Comment: No: D o not add to previous draw Performed By: #### [id number] #### [facility] [address] [place] [address], [place] GFR/1.73 sq M.predicted among non-blacks MDRD (S/P/Bld) [Vol rate/Area] mL/min/{1.73_m2} Normal >60 [facility] Comment on above: Order Comment: No: D o not add to previous draw Performed By: #### [id number] #### [facility] [address] [place] [address], [facility] Glucose [Mass/Vol] 151 mg/dL High 70-100 [facility] Comment on above: Order Comment: No: D o not add to previous draw Performed By: #### [id number] #### [facility] [address] [place] [address], [place] Potassium [Moles/Vol] 3.8 mmol/L Normal 3.5-5.1 [facility] Comment on above: Order Comment: No: D o not add to previous draw Performed By: #### [id number] #### [facility] [address] [place] [id number], [facility] Sodium [Moles/Vol] 141 mmol/L Normal 136-145 [facility] Comment on above: Order Comment: No: D o not add to previous draw Performed By: #### [id number] #### [facility] [address] [place] [id number], [facility] Urea nitrogen [Mass/Vol] 9 mg/dL Normal 7-25 [facility] Comment on above: Order Comment: No: D o not add to previous draw Performed By: #### [id number] #### [facility] [address] [place] [address], [facility] CBC COMPLETE BLOOD COUNTon 0 - Erythrocyte distribution width (RBC) [Ratio] 13.4 % Normal 11.5-15.0 [facility] Comment on above: Order Comment: No: D o not add to previous draw Performed By: #### [id number] #### [facility] [address] [place] [address], [place] Hematocrit (Bld) [Volume fraction] 39.8 % Normal 39.0-50.0 [facility] Comment on above: Order Comment: No: D o not add to previous draw Performed By: #### [id number] #### [facility] [address] [address] Hemoglobin (Bld) [Mass/Vol] 13.6 g/dL Normal 13.0-17.0 [facility] Comment on above: Order Comment: No: D o not add to previous draw Performed By: #### 8 [id number] #### [facility] [address] [place] [address], [facility] MCH (RBC) [Entitic mass] 28.6 pg Normal 27.0-33.0 [facility] Comment on above: Order Comment: No: D o not add to previous draw Performed By: #### 8 5499 #### [facility] [address] [place] [address], [facility] MCHC (RBC) [Mass/Vol] 34.2 g/dL Normal 32.0-35.0 [facility] Comment on above: Order Comment: No: D o not add to previous draw Performed By: #### 8 5499 #### [facility] [address] [place] [address], [facility] MCV (RBC) [Entitic vol] 83.6 fL Normal 82.0-98.0 [facility] Comment on above: Order Comment: No: D o not add to previous draw Performed By: #### 8 5499 #### [facility] [address] [place] [address], [facility] Nucleated RBC/100 WBC (Bld) [Ratio] 0 % Normal 0-0 The [facility] Comment on above: Order Comment: No: D o not add to previous draw Performed By: #### 8 5499 #### [facility] [address] [place] [address], [facility] PLAT CNT 236 10*3/uL Normal 150-400 [facility] Comment on above: Order Comment: No: D o not add to previous draw Performed By: #### 8 5499 #### [facility] [address] [place] [address], [place] RBC (Bld) [#/Vol] 4.76 10*6/uL Normal 4.20-5.[address] [facility] Comment on above: Order Comment: No: D o not add to previous draw Performed By: #### 8 5499 #### [facility] [address] [place] [address], [place] WBC (Bld) [#/Vol] 6.91 10*3/uL Normal 4.00-10.[address] [facility] Comment on above: Order Comment: No: D o not add to previous draw Performed By: #### 8 5499 #### [facility] [address] [place] [address], [place] POC GLUCOSE LABon 01-03-2022 Glucose [Mass/Vol] 185 mg/dL High 70-100 The [facility] Comment on above: Performed By: #### 8 [id number] #### [facility] [address] [place] [address], [place] Glucose [Mass/Vol] 164 mg/dL High 70-100 The [facility] Comment on above: Performed By: #### 8 5499 #### [facility] [address] [place] [address], [place] HEMOGLOBIN A1Con 01-02-2022 Glucose [Moles/Vol] 223 mmol/L Normal [facility] Comment on above: Order Comment: No: D o not add to previous draw Performed By: #### 3 1791 #### [facility] [address] [place] [address], [place] HbA1c (Bld) [Mass fraction] 9.4 % High 4.0-6.0 [facility] Comment on above: Order Comment: No: D o not add to previous draw Performed By: #### 3 1791 #### [facility] [address] [place] [address], [place] POC GLUCOSE LABon 01-02-2022 Glucose [Mass/Vol] 212 mg/dL High 70-100 [facility] Comment on above: Performed By: #### 8 5499 #### [facility] [address] [facility] [place] [address], [place] Glucose [Mass/Vol] 233 mg/dL High 70-100 [facility] Comment on above: Performed By: #### 8 5499 #### [facility] [address] [place] [address], [place] Glucose [Mass/Vol] 124 mg/dL High 70-100 [facility] Comment on above: Performed By: #### 8 5499 #### [facility] [address] [place] [address], [place] Glucose [Mass/Vol] 110 mg/dL High 70-100 [facility] Comment on above: Performed By: #### 8 5499 #### [facility] [address] [place] [address], [place] Glucose [Mass/Vol] 116 mg/dL High 70-100 [facility] Comment on above: Performed By: #### 8 5499 #### [facility] [address] [place] [address], [facility] ABDOMEN SERIES W CHESTon ABDOMEN SERIES W CHEST [facility] Department of Radiology [address] [place] [id number] Patient Name: JANUSZ MOTLEY : 1985 Sex: M Age: Race: White Pt. Location: [id number] Patient Status: I Ordered Date: 01/01/2022 8:55:00 [...] calcifications Electronically signed: Daniel Smalls. Transcribed by: [email or web address], User Resident: Electronically Signed by: DANIEL SMALLS @ 01/01/2022 09:55 PM Normal [facility] Comment on above: Order Comment: radha Whaley 01-01-2022 aPTT Coag (Bld) [Time] 28.6 s Normal 25.0-35.0 [facility] Comment on above: Order Comment: [...] PURPOSE. Performed By: #### 8 [id number] #### [facility] [address] [place] [address], [facility] BASIC METABOLIC PANELon 12-16 Calcium [Mass/Vol] 8.6 mg/dL Normal 8.6-10.3 [facility] Comment on above: Order Comment: No: D o not add to previous draw Performed By: #### 0 0071, 58425, 52321, 08492 #### [facility] [address] [place] [address], [facility] Chloride [Moles/Vol] 106 mmol/L Normal 98-107 [facility] Comment on above: Order Comment: No: D o not add to previous draw Performed By: #### 0 0071, 18845, 81444, 62209 #### [facility] [address] [place] [address], [place] CO2 [Moles/Vol] 26 mmol/L Normal 21-31 The [facility] Comment on above: Order Comment: No: D o not add to previous draw Performed By: #### 0 0071, 76645, 23866, 38992 #### [facility] [address] [place] [address], [place] Creatinine [Mass/Vol] 0.78 mg/dL Normal 0.70-1.30 [facility] Comment on above: Order Comment: No: D o not add to previous draw Performed By: #### 0 0071, 47913, 93743, 82126 #### [facility] [address] [place] [address], [place] GFR/1.73 sq M.predicted among blacks MDRD (S/P/Bld) [Vol rate/Area] mL/min/{1.73_m2} Normal >60 [facility] Comment on above: Order Comment: No: D o not add to previous draw Performed By: #### 0 0071, 92728, 11744, 61372 #### [facility] [address] [place] [address], [place] GFR/1.73 sq M.predicted among non-blacks MDRD (S/P/Bld) [Vol rate/Area] mL/min/{1.73_m2} Normal >60 [facility] Comment on above: Order Comment: No: D o not add to previous draw Performed By: #### 0 0071, 59440, 62336, 25379 #### [facility] [address] [place] [address], [place] Glucose [Mass/Vol] 112 mg/dL High 70-100 The [facility] Comment on above: Order Comment: No: D o not add to previous draw Performed By: #### 0 0071, 49971, 15729, 42212 #### [facility] [address] [place] [address], [place] Potassium [Moles/Vol] 4.0 mmol/L Normal 3.5-5.1 [facility] Comment on above: Order Comment: No: D o not add to previous draw Performed By: #### 0 0071, 51036, 34685, 64119 #### [facility] [address] [place] [address], [place] Sodium [Moles/Vol] 139 mmol/L Normal 136-145 [facility] Comment on above: Order Comment: No: D o not add to previous draw Performed By: #### 0 0071, 69540, 78151, 86012 #### [facility] [address] Urea nitrogen [Mass/Vol] 10 mg/dL Normal 7-25 [facility] Comment on above: Order Comment: No: D o not add to previous draw Performed By: #### 0 0071, 29169, 23723, 83092 #### [facility] [address] CBC W/DIFFon 01-01-2022 ABS IMM GRANS 0.1 10*3/uL Normal 0.0-0.2 The [facility] Comment on above: Performed By: #### 5 0103 #### [facility] [address] ABS NEUTROPHILS 5.2 10*3/uL Normal 1.6-7.6 The [facility] Comment on above: Performed By: #### 5 3 #### [facility] [address] [place] [address], [facility] Basophils (Bld) [#/Vol] 0.0 10*3/uL Normal 0.0-0.2 [facility] Comment on above: Performed By: #### 5 3 #### [facility] [address] Basophils/100 WBC (Bld) 0.4 % Normal 0.0-1.0 [facility] Comment on above: Performed By: #### 5 102 #### [facility] [address] [place] [address], [facility] Eosinophils (Bld) [#/Vol] 0.1 10*3/uL Normal 0.0-0.5 [facility] Comment on above: Performed By: #### 5 0103 #### [facility] [address] [place] [address], [facility] Eosinophils/100 WBC (Bld) 1.6 % Normal 0.0-6.0 [facility] Comment on above: Performed By: #### 5 102 #### [facility] [address] [place] [address], [facility] Erythrocyte distribution width (RBC) [Ratio] 13.0 % Normal 11.5-15.0 [facility] Comment on above: Performed By: #### 102 #### [facility] [address] [place] [address], [facility] Hematocrit (Bld) [Volume fraction] 42.6 % Normal 39.0-50.0 [facility] Comment on above: Performed By: #### 102 #### [facility] [address] [place] [address], [facility] Hemoglobin (Bld) [Mass/Vol] 14.7 g/dL Normal 13.0-17.0 [facility] Comment on above: Performed By: #### 102 #### [facility] [address] [facility] [place] [address], [facility] IMMATURE GRANS 0.7 % Normal 0.0-1.0 The [facility] Comment on above: Performed By: #### 3 #### [facility] [address] [facility] [place] [address], [facility] Lymphocytes (Bld) [#/Vol] 1.6 10*3/uL Normal 1.2-4.0 [facility] Comment on above: Performed By: #### 102 #### [facility] [address] [place] [address], [facility] Lymphocytes/100 WBC (Bld) 21.2 % Normal 20.0-45.0 [facility] Comment on above: Performed By: #### 5 0103 #### [facility] [address] [facility] [place] [address], [facility] MCH (RBC) [Entitic mass] 28.9 pg Normal 27.0-33.0 [facility] Comment on above: Performed By: #### 5 0103 #### [facility] [address] [facility] [address], [facility] MCHC (RBC) [Mass/Vol] 34.5 g/dL Normal 32.0-35.0 [facility] Comment on above: Performed By: #### 5 0103 #### [facility] [address] [place] [address], [facility] MCV (RBC) [Entitic vol] 83.9 fL Normal 82.0-98.0 [facility] Comment on above: Performed By: #### 5 102 #### [facility] [address] [place] [address], [facility] Monocytes (Bld) [#/Vol] 0.5 10*3/uL Normal 0.1-1.0 [facility] Comment on above: Performed By: #### 5 3 #### [facility] [address] [place] [address], [facility] MONOS 7.0 % Normal 5.0-12.0 The [facility] Comment on above: Performed By: #### 5 3 #### [facility] [address] Neutrophils/100 WBC (Bld) 69.1 % Normal 40.0-72.0 [facility] Comment on above: Performed By: #### 5 3 #### [facility] [address] [place] [address], [facility] Nucleated RBC/100 WBC (Bld) [Ratio] 0 % Normal 0-0 [facility] Comment on above: Performed By: #### 5 3 #### [facility] [address] [place] [address], [facility] PLAT CNT 245 10*3/uL Normal 150-400 [facility] Comment on above: Performed By: #### 5 0103 #### [facility] [address] [facility] [place] [address], [facility] RBC (Bld) [#/Vol] 5.08 10*6/uL Normal 4.20-5.[address] [facility] Comment on above: Performed By: #### 5 0103 #### [facility] [address] [facility] [place] [address], [facility] WBC (Bld) [#/Vol] 7.47 10*3/uL Normal 4.00-10.[address] [facility] Comment on above: Performed By: #### 5 3 #### [facility] [address] [place] [address], [facility] LACTATE WITH REFLEXon 2021 Lactate [Moles/Vol] 0.9 mmol/L Normal .5-2.2 [facility] Comment on above: Order Comment: No: D o not add to previous draw Performed By: #### 8 5499 #### [facility] [address] [place] [address], [facility] LIVER BATTERYon 01-01-2022 Albumin [Mass/Vol] 3.8 g/dL Normal 3.5-5.7 The [facility] Comment on above: Order Comment: No: D o not add to previous draw Performed By: #### 0 0071, 79845, 88223, 41235 #### [facility] [address] [place] [address], [facility] ALKALINE PHOSPH 72 IU/L Normal 34-104 The [facility] Comment on above: Order Comment: No: D o not add to previous draw Performed By: #### 0 0071, 13004, 43710, 24291 #### [facility] [address] [facility] [place] [address], [facility] ALT [Catalytic activity/Vol] 23 U/L Normal 7-52 [facility] Comment on above: Order Comment: No: D o not add to previous draw Performed By: #### 0 0071, 03861, 00328, 32622 #### [facility] [address] [place] [address], [place] AST [Catalytic activity/Vol] 14 U/L Normal 13-39 [facility] Comment on above: Order Comment: No: D o not add to previous draw Performed By: #### 0 0071, 62957, 83558, 08356 #### [facility] [address] [place] [address], [facility] Bilirubin [Mass/Vol] 1.1 mg/dL High 0.3-1.0 [facility] Comment on above: Order Comment: No: D o not add to previous draw Performed By: #### 0 0071, 66285, 00165, 08733 #### [facility] [address] [place] [address], [place] Bilirubin.direct [Mass/Vol] 0.3 mg/dL High 0.0-0.2 [facility] Comment on above: Order Comment: No: D o not add to previous draw Performed By: #### 0 0071, 73255, 87859, 01218 #### [facility] [address] [place] [address], [place] Protein [Mass/Vol] 6.0 g/dL Normal 6.0-8.3 [facility] Comment on above: Order Comment: No: D o not add to previous draw Performed By: #### 0 0071, 42587, 60084, 55524 #### [facility] [address] [place] [address], [place] MAGNESIUM BLOODon 01-01-2022 Magnesium [Mass/Vol] 2.0 mg/dL Normal 1.9-2.7 [facility] Comment on above: Order Comment: No: D o not add to previous draw Performed By: #### 0 0071, 95103, 00665, 95476 #### [facility] [address] [place] [address], [facility] PHOSPHORUS BLOODon 2 Phosphate [Mass/Vol] 2.5 mg/dL Normal 2.5-5.0 [facility] Comment on above: Order Comment: No: D o not add to previous draw Performed By: #### 0 0071, 14031, 88428, 96005 #### [facility] [address] [place] [address], [facility] POC GLUCOSE LABon 01-01-2022 Glucose [Mass/Vol] 111 mg/dL High 70-100 The [facility] Comment on above: Performed By: #### 8 5499 #### [facility] [address] [place] [address], [facility] POINT OF CARE GLUCOSEon 12-16 Glucose [Mass/Vol] 100 mg/dL Normal 74-106 [facility] Comment on above: Performed By: #### P OCGLUC #### [facility] [address] [address] [address] Sal Dick Glucose [Mass/Vol] 89 mg/dL Normal 74-106 The [facility] Comment on above: Performed By: #### P OCGLUC #### [facility] [address] [address] [address] Sal Dick PROTHROMBIN TIMEon 2 INR Coag (PPP) [Relative time] 1.14 {INR} Normal 0.91-1.16 [facility] Comment on above: Order Comment: [...] 1995;[id number]. Performed By: #### 8 5499 #### [facility] [address] [facility] [address] PT Coag (PPP) [Time] 14.6 s Normal 12.3-14.8 [facility] Comment on above: Order Comment: No: D o not add to previous draw Result Comment: ALL RESULTS MUST BE INTERPRETED WITH RESPECT TO BLOOD DRAWING ARTIFACT OR DILUTION ERROR OF ANTICOAGULANT AT THE TIME OF SAMPLING. Performed By: #### 8 5499 #### [facility] [address] [facility] [address] XR ABD FLAT UP_PA Red 01-01 XR [...] TREMAYNE ANDERSON Date: 2022-01-01 08:07 Normal The [facility] AMYLASEon 12-31-2021 Amylase [Catalytic activity/Vol] 38 U/L Normal 25-115 [facility] Comment on above: Performed By: #### C MP, BABAK, LIPA #### [facility] [address] [place] [address] Dr. Sal Dick CBC AUTO DIFFon 12-31-2021 BASO # 0.1 103/ul Normal 0.0-0.1 [facility] Comment on above: Performed By: #### C BC #### [facility] [address] [place] [address] Dr. Sal Dick Basophils/100 WBC (Bld) 0.5 % Normal 0.2-2.0 [facility] Comment on above: Performed By: #### C BC #### [facility] [address] [place] [address] Dr. Sal Dick EO # 0.2 103/ul Normal 0.0-0.7 [facility] Comment on above: Performed By: #### C BC #### [facility] [address] [place] [address] Dr. Sal Dick Eosinophils/100 WBC (Bld) 1.9 % Normal 0.9-7.0 [facility] Comment on above: Performed By: #### C BC #### [facility] [address] [place] [address] Dr. Sal Dick Erythrocyte distribution width (RBC) [Ratio] 13.2 % Normal 11.0-15.0 [facility] Comment on above: Performed By: #### C BC #### [facility] [address] [place] [address] Dr. Sal Dick Hematocrit (Bld) [Volume fraction] 49.6 % Normal 42.0-54.0 [facility] Comment on above: Performed By: #### C BC #### [facility] [address] [place] [address] Dr. Sal Dick Hemoglobin (Bld) [Mass/Vol] 17.0 g/dL Normal 14.0-18.0 [facility] Comment on above: Performed By: #### C BC #### [facility] [address] [address] [address] Sal Dick IG # 0.05 10e3/ul Critically high 0.00-0.03 [facility] Comment on above: Performed By: #### C BC #### [facility] [address] [address] [address] Sal Dick IG % 0.5 % Normal 0.0-0.5 [facility] Comment on above: Performed By: #### C BC #### [facility] [address] [place] [address] Dr. Sal Dick LYMPH # 2.3 103/ul Normal 1.2-3.8 [facility] Comment on above: Performed By: #### C BC #### [facility] [address] [place] [address] Dr. Sal Dick Lymphocytes/100 WBC (Bld) 21.1 % Normal 20.5-60.0 [facility] Comment on above: Performed By: #### C BC #### [facility] [address] [place] [address] Dr. Sal Dick MANUAL DIFF REQ NO Normal [facility] Comment on above: Performed By: #### C BC #### [facility] [address] [place] [address] Dr. Sal Dick MCH (RBC) [Entitic mass] 28.7 pg Normal 25.9-34.0 [facility] Comment on above: Performed By: #### C BC #### [facility] [address] [place] [address] Dr. Sal Dick MCHC (RBC) [Mass/Vol] 34.3 g/dL Normal 29.9-35.2 [facility] Comment on above: Performed By: #### C BC #### [facility] [address] [place] [address] Dr. Sal Dick MCV (RBC) [Entitic vol] 83.8 fL Normal 80.0-94.0 [facility] Comment on above: Performed By: #### C BC #### [facility] [address] [address] [address] Sal Dick MONO # 0.9 103/ul Critically high 0.3-0.8 [facility] Comment on above: Performed By: #### C BC #### [facility] [address] [place] [address] Dr. Sal Dick Monocytes/100 WBC (Bld) 8.4 % Normal 1.7-12.0 [facility] Comment on above: Performed By: #### C BC #### [facility] [address] [place] [address] Dr. Sal Dick NEUT # 7.2 103/ul Critically high 1.4-6.5 [facility] Comment on above: Performed By: #### C BC #### [facility] [address] [place] [address] Dr. Sal Dick Neutrophils/100 WBC (Bld) 67.6 % Normal 43.0-75.0 [facility] Comment on above: Performed By: #### C BC #### [facility] [address] [place] [address] Dr. Sal Dick Platelet mean volume (Bld) [Entitic vol] 10.8 fL Normal 9.5-13.5 [facility] Comment on above: Performed By: #### C BC #### [facility] [address] [place] [address] Dr. Sal Dick PLT 273 103/ul Normal 150-450 [facility] Comment on above: Performed By: #### C BC #### [facility] [address] [place] [address] Dr. Sal Dick RBC 5.92 106/ul Normal 4.70-6.10 [facility] Comment on above: Performed By: #### C BC #### [facility] [address] [place] [address] Dr. Sal Dick WBC 10.7 103/ul Normal 4.0-11.0 [facility] Comment on above: Performed By: #### C BC #### [facility] [address] [place] [address] ABD/PELV W CONon [...] SEVERO MARTINEZ Date: 2021-12-31 04:28 Normal [facility] Covid-19 PCR (CVDTB)on 12-16 SARS-CoV-2 (COVID-19) RNA CANDY+probe Ql (Unsp spec) Not detected Normal NOT DETECTED [facility] Comment on above: Result Comment: When [...] for this test is supported by the Environmental [employer] Professor of Health and Human Service's declaration that [...] used). Performed By: #### C VDTBH #### [facility] [address] [place] [address] Dr. Sal Dick LIPASEon 12-31-2021 Lipase [Catalytic activity/Vol] 251.0 U/L Normal 73.0-393.0 [facility] Comment on above: Performed By: #### C BABAK MEYERS LIPA #### [facility] [address] [place] [address] Dr. Sal Dick POINT OF CARE GLUCOSEon 12-16 Glucose [Mass/Vol] 100 mg/dL Normal 74-106 [facility] Comment on above: Performed By: #### P OCGLUC #### [facility] [address] [place] [address] Dr. Sal Dick Glucose [Mass/Vol] 113 mg/dL Critically high 74-106 [facility] Comment on above: Performed By: #### P OCGLUC #### [facility] [address] [place] [address] Dr. Sal Dick Glucose [Mass/Vol] 132 mg/dL Critically high 74-106 [facility] Comment on above: Performed By: #### P OCGLUC #### [facility] [address] [place] [address] Dr. Sal Dick PROF 14(COMP METB)on 022 Albumin [Mass/Vol] 3.6 g/dL Normal 3.4-5.0 [facility] Comment on above: Performed By: #### P OCGLUC #### [facility] [address] [place] [address] Dr. Sal Dick Albumin/Globulin [Mass ratio] 0.9 {ratio} Normal [facility] [facility] Comment on above: Performed By: #### P OCGLUC #### [facility] [address] [address] [address] Sal Dick ALP [Catalytic activity/Vol] 88 U/L Normal 46-116 [facility] Comment on above: Performed By: #### P OCGLUC #### [facility] [address] [address] [address] Sal Dick ALT [Catalytic activity/Vol] 50 U/L Normal 16-63 [facility] Comment on above: Performed By: #### P OCGLUC #### [facility] [address] [address] [address] Sal Dick Anion gap [Moles/Vol] 11.1 mmol/L Normal [facility] Comment on above: Performed By: #### P OCGLUC #### [facility] [address] [address] [address] Sal Dick AST [Catalytic activity/Vol] 19 U/L Normal 15-37 [facility] Comment on above: Performed By: #### P OCGLUC #### [facility] [address] [address] [address] Sal Dick Bilirubin [Mass/Vol] 0.7 mg/dL Normal 0.2-1.0 [facility] Comment on above: Performed By: #### P OCGLUC #### [facility] [address] [address] [address] Sal Dick Calcium [Mass/Vol] 9.1 mg/dL Normal 8.5-10.1 [facility] Comment on above: Performed By: #### P OCGLUC #### [facility] [address] [address] [address] Sal Dick Chloride [Moles/Vol] 103 mmol/L Normal 98-107 [facility] Comment on above: Performed By: #### P OCGLUC #### [facility] [address] [address] [address] Sal Dick CO2 [Moles/Vol] 30.4 mmol/L Normal 21.0-32.0 [facility] Comment on above: Performed By: #### P OCGLUC #### [facility] [address] [address] [address] Sal Dick Creatinine [Mass/Vol] 1.16 mg/dL Normal 0.70-1.30 [facility] Comment on above: Performed By: #### P OCGLUC #### [facility] [address] [place] [address] Dr. Sal Dick EGFR-AF LEBANESE >60 Normal >=60 [facility] Comment on above: Performed By: #### P OCGLUC #### [facility] [address] [address] [address] Sal Dick EGFR-NON AF LEBANESE >60 Normal >=60 [facility] Comment on above: Performed By: #### P OCGLUC #### [facility] [address] [place] [address] Dr. Sal Dick Globulin (S) [Mass/Vol] 4.2 g/dL Normal [facility] Comment on above: Performed By: #### P OCGLUC #### [facility] [address] [address] [address] Sal Dick Glucose [Mass/Vol] 230 mg/dL Critically high 74-106 [facility] Comment on above: Performed By: #### P OCGLUC #### [facility] [address] [place] [address] Dr. Sal Dick Potassium [Moles/Vol] 3.5 mmol/L Normal 3.5-5.1 [facility] Comment on above: Performed By: #### P OCGLUC #### [facility] [address] [place] [address] Dr. Sal Dick Protein [Mass/Vol] 7.8 g/dL Normal 6.4-8.2 [facility] Comment on above: Performed By: #### P OCGLUC #### [facility] [address] [place] [address] Dr. Sal Dick Sodium [Moles/Vol] 141 mmol/L Normal 136-145 [facility] Comment on above: Performed By: #### P OCGLUC #### [facility] [address] [place] [address] Dr. Sal Dick Urea nitrogen [Mass/Vol] 14.0 mg/dL Normal 7.0-18.0 [facility] Comment on above: Performed By: #### P OCGLUC #### [facility] [id number] Sal Dick Urea nitrogen/Creatinin e [Mass ratio] 12.1 mg/mg Normal [facility] Comment on above: Performed By: #### P OCGLUC #### [facility] [address] [place], [place] [address] Dr. Sal Dick XR ABD FLAT UP_PA [...] JEAN CLAUDE JAIME Date: 2021-12-31 02:14 Normal [facility] XR SMALL BOWEL FOLLOW THOUGH on 12-31-2021 XR SMALL BOWEL FOLLOW THOUGH EXAMINATION: XR SMALL BOWEL FOLLOW THOUGH HISTORY: ABDOMINAL DISTENSION (GASEOUS) COMPARISON: CT abdomen pelvis 12/31/2021 TECHNIQUE: Small bowel series was performed in the usual manner. No tieing machine operator abdominal radiograph was performed. Standard level [...] by: TREMAYNE ANDERSON Date: 2021-12-31 16:22 Normal [facility] Vital Signs Date Time Vital Sign Value Performing Clinician Facility 12-12-2024 15:04-0400 Body height 190.5 cm [facility] 12-12-2024 15:04-0400 Body mass index (BMI) [Ratio] 41.1 kg/m2 [facility] 12-12-2024 15:04-0400 Body weight 149.4 kg [facility] 12-12-2024 15:04-0400 Diastolic blood pressure 84 mm[Hg] [facility] 12-12-2024 15:04-0400 Heart rate 101 /min [facility] 12-12-2024 15:04-0400 Respiratory rate 12 /min [facility] 12-12-2024 15:04-0400 Systolic blood pressure 137 mm[Hg] [facility] 09-09-2023 09:59-0500 Body height 190.5 cm Azeb Davonte DO Work Phone: [facility] 09-09-2023 09:59-0500 Body weight 144.02 kg Azeb Davonte DO Work Phone: [facility] 09-09-2023 09:59-0500 Diastolic blood pressure 92 mm[Hg] Azeb Davonte DO Work Phone: [facility] 09-09-2023 09:59-0500 Heart rate 94 /min Azeb Davonte DO Work Phone: [facility] 09-09-2023 09:59-0500 Systolic blood pressure 130 mm[Hg] Azeb Davonte DO Work Phone: [facility] 08-04-2023 09:45-0500 Body height 190.5 cm Alycia Scally Other [facility] 08-04-2023 09:45-0500 Body mass index (BMI) [Ratio] 40.13 kg/m2 Alycia Scally Other [employer] [facility] [employer] Other 08-04-2023 09:45-0500 Body weight 145.65 kg Alycia Scally Other [facility] Other 08-04-2023 09:45-0500 Body weight 145.64 kg DO Benji Ball Work Phone: [facility] 08-04-2023 09:45-0500 Diastolic blood pressure 77 mm[Hg] Alyciajose Vargasly Other [facility] 08-04-2023 09:45-0500 Respiratory rate 18 /min Alycia Samly Other [facility] Other 08-04-2023 09:45-0500 SaO2% (BldA) [Mass fraction] 96 % Alyciajose Vargasly Other [facility] Other 08-04-2023 09:45-0500 Systolic blood pressure 122 mm[Hg] Alycia Samly Other [facility] 06-08-2023 15:30-0500 Body height 190.5 cm Benji Ball Other [facility] Other 06-08-2023 15:30-0500 Body mass index (BMI) [Ratio] 39.32 kg/m2 Benji Ball Other [facility] Other 06-08-2023 15:30-0500 Body weight 142.7 kg Benji Ball Other [facility] Other 06-08-2023 15:30-0500 Diastolic blood pressure 84 mm[Hg] Benji Ball Other [facility] Other 06-08-2023 15:30-0500 Respiratory rate 16 /min Benji Ball Other [facility] Other 06-08-2023 15:30-0500 Systolic blood pressure 135 mm[Hg] Benji Ball Other [facility] Other 06-06-2023 15:30-0500 Body height 190.5 cm Alycia Scally Other [employer] Other 06-06-2023 15:30-0500 Body mass index (BMI) [Ratio] 38.78 kg/m2 Alycia Scally Other [facility] Other 06-06-2023 15:30-0500 Body weight 140.75 kg Alycia Scally Other [facility] Other 06-06-2023 15:30-0500 Diastolic blood pressure 82 mm[Hg] Alycia Scally Other [facility] Other 06-06-2023 15:30-0500 Respiratory rate 18 /min Alycia Scally Other [facility] Other 06-06-2023 15:30-0500 SaO2% (BldA) [Mass fraction] 97 % Alycia Scally Other [employer] Other 06-06-2023 15:30-0500 Systolic blood pressure 117 mm[Hg] Alycia Scally Other [facility] Other 05-30-2023 12:00-0500 Body height 190.5 cm Benji Ball Other [employer] Other 05-30-2023 12:00-0500 Body temperature 98.6 [degF] Benji Ball Other [employer] Other 03-24-2023 11:15-0400 Body height 190.5 cm Alycia Scally Other [employer] Other 03-24-2023 11:15-0400 Body mass index (BMI) [Ratio] 38.57 kg/m2 Alycia Scally Other [facility] Other 03-24-2023 11:15-0400 Body weight 139.98 kg Alycia Scally Other [facility] Other 03-24-2023 11:15-0400 Diastolic blood pressure 80 mm[Hg] Alycia Scally Other [facility] Other 03-24-2023 11:15-0400 Respiratory rate 18 /min Alycia Scally Other [employer] Other 03-24-2023 11:15-0400 SaO2% (BldA) [Mass fraction] 95 % Alycia Scally Other [facility] Other 03-24-2023 11:15-0400 Systolic blood pressure 124 mm[Hg] Alycia Scally Other [employer] Other 03-08-2023 15:30-0400 Body height 190.5 cm Benji Ball Other [employer] Other 03-08-2023 15:30-0400 Body mass index (BMI) [Ratio] 38.04 kg/m2 Benji Ball Other [employer] Other 03-08-2023 15:30-0400 Body weight 138.08 kg Benji Ball Other [facility] Other 03-08-2023 15:30-0400 Diastolic blood pressure 102 mm[Hg] Benji Ball Other [facility] Other 03-08-2023 15:30-0400 Respiratory rate 12 /min Benji Ball Other [facility] Other 03-08-2023 15:30-0400 Systolic blood pressure 137 mm[Hg] Benji Ball Other [facility] Other 02-09-2023 15:00-0400 Body height 190.5 cm Alycia Scally Other [facility] Other 02-09-2023 15:00-0400 Body mass index (BMI) [Ratio] 38.23 kg/m2 Alycia Scally Other [facility] Other 02-09-2023 15:00-0400 Body weight 138.76 kg Alycia Scally Other [facility] Other 02-09-2023 15:00-0400 Diastolic blood pressure 72 mm[Hg] Alycia Scally Other [facility] Other 02-09-2023 15:00-0400 Respiratory rate 18 /min Alycia Scally Other [facility] Other 02-09-2023 15:00-0400 SaO2% (BldA) [Mass fraction] 96 % Alycia Scally Other [facility] Other 02-09-2023 15:00-0400 Systolic blood pressure 147 mm[Hg] Alycia Scally Other [facility] Other 09-03-2022 15:00-0500 Body height 190.5 cm Benji Ball Other [facility] Other 09-03-2022 15:00-0500 Body mass index (BMI) [Ratio] 37.77 kg/m2 [facility] Other [employer] Other 09-03-2022 15:00-0500 Body weight 137.08 kg [facility] Other [facility] Other 09-03-2022 15:00-0500 Diastolic blood pressure 70 mm[Hg] [facility] Other [facility] Other 09-03-2022 15:00-0500 Respiratory rate 20 /min [facility] Other [facility] Other 09-03-2022 15:00-0500 Systolic blood pressure 118 mm[Hg] [facility] Other [facility] Other Encounters Encounter Date Encounter Type Care Provider Facility Start: 12-12-2024 End: 12-12-2024 ambulatory [facility] Work Phone: Start: 12-12-2024 End: 12-12-2024 Patient encounter procedure [facility] Work Phone: Start: 04-08-2024 Patient encounter status [facility] Start: 03-16-2024 End: 03-16-2024 Telephone encounter Azeb Mathur DO Work Phone: [facility] Comment on above: Request Outside [facility] Records Start: 02-16-2024 Telephone encounter Azeb marks DO Work Phone: Neurology Comment on above: Appointment (Called to reschedule 04/[address] mathur since she is out of the office. LVM and sent reminder in the mail.) Start: 09-09-2023 End: 09-09-2023 ambulatory AZEB MATHUR Facility:[facility] Start: 09-09-2023 End: 09-09-2023 Patient encounter procedure Azeb Mathur DO Work Phone: [facility] Comment on above: Demyelinating diseas e of central nervous system (HCC) (Primary Dx); Diabetic polyneuropathy associated with type 2 diabetes mellitus (HCC) Start: 08-29-2023 End: 08-29-2023 ambulatory Benji Kulkarni Other [facility] Other Start: 08-29-2023 Office outpatient vi sit 15 minutes Benji Kulkarni [facility] Start: 08-04-2023 (DM) Diabetes Alycia [facility] Start: 08-04-2023 End: 08-05-2023 ambulatory DO Benji Kulkarni Work Phone: [facility] Other Start: 08-04-2023 End: 08-04-2023 Discharged Recurring DO Benji [employer] Work Phone: [facility] Work Phone: Start: 08-04-2023 End: 08-04-2023 Patient encounter procedure DO Benji [employer] Work Phone: [facility]- Start: 08-02-2023 End: 08-02-2023 ambulatory Alycia Efren Other [facility] Other Start: 08-02-2023 Telephone encounter Alycia howard [facility] Start: 07-13-2023 End: 07-13-2023 ambulatory Alycia Efren Other [facility] Other Start: 07-13-2023 Nursing evaluation o f patient and report Alycia Schwartz [facility] Start: 07-01-2023 End: 07-01-2023 ambulatory Alycia Schwartz Other [facility] Other Start: 07-01-2023 Telephone encounter Alycia howard [facility] Start: 06-21-2023 End: 06-21-2023 ambulatory Kaylynn Nova Other [facility] Other Start: 06-21-2023 [facility] Start: 06-08-2023 End: 06-08-2023 ambulatory Benji Kulkarni Other [facility] Other Start: 06-08-2023 Office outpatient vi sit 25 minutes Benji Kulkanri [facility] Start: 06-06-2023 (DM) [facility] Start: 06-06-2023 End: 06-06-2023 ambulatory Alycia Schwartz Other [facility] Other Start: 05-30-2023 End: 05-30-2023 ambulatory Benji Kulkarni Other [facility] Other Start: 05-30-2023 Office outpatient vi sit 15 minutes Benji Kulkarni [facility] Start: 05-25-2023 End: 05-25-2023 ambulatory Alycia Schwartz Other [facility] Other Start: 05-25-2023 Telephone encounter Alycia Schwartz [facility] Start: 05-19-2023 End: 05-19-2023 ambulatory Alycia Schwartz Other [facility] Other Start: 05-19-2023 Nursing evaluation o f patient and report Alycia Schwartz [facility] Start: 05-16-2023 End: 05-16-2023 ambulatory Alycia Schwartz Other [facility] Other Start: 05-16-2023 Telephone encounter Alycia Schwartz [facility] Start: 04-20-2023 End: 04-20-2023 ambulatory Alycia Schwartz Other [facility] Other Start: 04-20-2023 Telephone encounter Alycia [place] [facility] Start: 03-24-2023 (DM) Diabetes Alycia Youngblood ds [facility] Start: 03-24-2023 End: 03-24-2023 ambulatory Alyciaghazal Schwartz Other [facility] Other Start: 03-17-2023 End: 03-17-2023 ambulatory Alyciaghazal Schwartz Other [facility] Other Start: 03-17-2023 Telephone encounter Alycia howard [facility] Start: 03-15-2023 End: 03-15-2023 ambulatory Benji Kulkarni Other [facility] Other Start: 03-15-2023 Telephone encounter Benji Kulkarni [facility] Start: 03-08-2023 End: 03-08-2023 ambulatory Benji Kulkarni Other [employer] Other Start: 03-08-2023 Office outpatient vi sit 25 minutes Benji Kulkarni [facility] Start: 03-04-2023 End: 03-04-2023 ambulatory Alyciajose Schwartz Other [facility] Other Start: 03-04-2023 Telephone encounter Alycia howard [facility] Start: 02-24-2023 End: 02-24-2023 ambulatory Alyciajose Schwartz Other [facility] Other Start: 02-24-2023 Telephone encounter Alycia howard [facility] Start: 02-21-2023 End: 02-21-2023 ambulatory Alycia Schwartz Other [facility] Other Start: 02-21-2023 Nursing evaluation o f patient and report Alycia [facility] Start: 02-17-2023 End: 02-17-2023 ambulatory Alycia Schwartz Other [facility] Other Start: 02-17-2023 Telephone encounter Alycia stewart [facility] Start: 02-16-2023 End: 02-16-2023 ambulatory Benji Kulkarni Other [facility] Other Start: 02-16-2023 Telephone encounter Benji Kulkarni [facility] Start: 02-14-2023 End: 02-14-2023 ambulatory Alycia Schawrtz Other [facility] Other Start: 02-14-2023 Telephone encounter Alycia Molina [facility] Start: 02-10-2023 End: 02-10-2023 ambulatory Alycia Schwartz Other [facility] Other Start: 02-10-2023 Telephone encounter Alycia Molina [facility] Start: 02-09-2023 End: 02-09-2023 ambulatory Benji Kulkarni Other [facility] Other Start: 02-09-2023 FQHC visit new patient Alycia martínez [facility] Start: 02-09-2023 Telephone encounter Benji Jordin [facility] Start: 01-19-2023 End: 01-19-2023 ambulatory Benji Jordin Other [facility] Other Start: 01-19-2023 Telephone encounter Benji Ball [facility] Start: 12-28-2022 End: 12-28-2022 ambulatory Benji Ball Other [facility] Other Start: 12-28-2022 Telephone encounter Benji Ball [facility] Start: 10-11-2022 End: 10-11-2022 ambulatory Benji Ball Other [facility] Other Start: 10-11-2022 Telephone encounter Benji FONTENOT [facility] Start: 09-13-2022 End: 09-13-2022 ambulatory Benji Kulkarni Other [facility] Other Start: 09-13-2022 Telephone encounter Benji FONTENOT [facility] Start: 09-07-2022 End: 09-07-2022 ambulatory Benji Kulkarni Other [facility] Other Start: 09-07-2022 Telephone encounter Benji FONTENOT [facility] Start: 09-03-2022 End: 09-03-2022 ambulatory Benji Kulkarni Other [facility] Other Start: 09-03-2022 Office outpatient vi sit 25 minutes Benji Kulkarni [facility] Start: 08-10-2022 End: 08-10-2022 ambulatory Benji Kulkarni Other [facility] Other Start: 08-10-2022 Telephone encounter Benji FONTENOT [facility] Start: 08-09-2022 End: 08-09-2022 ambulatory Benji Kulkarni Other [facility] Other Start: 08-09-2022 Office outpatient vi sit 15 minutes [facility] Start: 08-05-2022 End: 08-05-[address] BENJI KULKARNI Facility: Start: 08-03-2022 End: 08-03-2022 ambulatory Benji Kulkarni Other [facility] Other Start: 08-03-2022 Encounter for genera l adult medical examination without abnormal findings Benji Kulkarni [facility] Start: 08-03-2022 Telephone encounter Benji FONTENOT [facility] Start: 01-01-2022 End: 01-03-2022 Evaluation and management of inpatient WARREN MÉNDEZTIP Facility:[facility] Start: 12-31-2021 End: 01-01-[address] BENJI KULKARNI Facility:[facility] Start: 12-30-[address] BENJI KULKARNI Faciltay ty:[facility] Start: 11-04-[address] BENJI Ordonez ty:[facility] Start: 10-08-2020 Adult health examination Keo Kulkarni Other [facility] Other Procedures Date Procedure Procedure Detail Performing Clinician Start: 01-04-2018 General examination of patient Benji Kulkarni Other Plan of Treatment Date Care Activity Detail Author Start: 01-11-2028 Urine microalbumin profile DTaP,Tdap,Td Vaccine (3 - Td or Tdap) [facility] Start: 05-04-2024 End: 05-04-2024 Patient encounter procedure 05/04/2024 2:30 PM EDT Office Visit [facility] [address] [address] Azeb Mathur DO [address] [id number] MRI BRAIN [facility] Comment on above: MRI BRAIN Start: 05-04-2024 End: 05-04-2024 Patient encounter procedure MRI Q Comment on above: Demyelinating dis ease of central nervous system (HCC) [G37.9] oct Start: 03-18-2024 Influenza vaccination Influenza Vacc ine (#1) [facility] Start: 07-18-2023 Depression Assessment Depression Ass essment [facility] Start: 03-18-2023 Covid-19 Vaccine ( season) Covid-19 Vaccine ( season) [facility] Start: 03-18-2023 Influenza vaccination Influenza Vacc ine (#1) [facility] Start: 2018 Lipid panel Lipid Screening [facility] Start: 2002 Hepatitis B Vaccine (1 of 3 - 19+ 3-dose series) Hepatitis B Vaccine (1 of 3 - 19+ 3-dose series) [facility] Start: 2001 Anxiety Screening Anxiety Screening [facility] Start: 2001 Depression Screening Depression Scre ening [facility] Start: 2001 Hepatitis C screening Hepatitis C Sc [place] [facility] Start: 2001 HIV screening HIV Screening [facility] Start: 1983 Covid-19 Vaccine (#1) Covid-19 Vacci ne (#1) [facility] Start: 1983 Hepatitis B Vaccine (1 of 3 - 3-dose series) Hepatitis B Vaccine (1 of 3 - 3-dose series) [facility] End: 10-08-2024 MR Brain WO and W contrast IV MRI BRAIN WO/W IVCON Radiology Routine Demyelinating disease of central nervous system (HCC) 1 Occurrences starting 09/09/2023 until 10/08/2024 [facility] Work Phone: Comment on above: 1 Occurrences starti ng 09/09/2023 until 10/08/2024 End: 03-02-2025 OCT NEURO INST OCT NEURO INST OPHT Imaging Routine Demyelinating disease of central nervous system (HCC) 1 Occurrences starting 09/09/2023 until 03/02/2025 [facility] Work Phone: Comment on above: 1 Occurrences starti ng 09/09/2023 until 03/02/2025 [facility] Immunizations Immunization Date Immunization Notes Care Provider Fa ronn 01-10-2018 diphtheria, tetanus toxoids and acellular pertussis vaccine, unspecified formulation Benji Kulkarni Other [facility] 01-10-2018 tetanus toxoid, redu tiffany diphtheria toxoid, and acellular pertussis vaccine, adsorbed DO Benji Kulkarni Work Phone: [facility] Payers Date Payer Category Payer Medicaid [id number] 2022 Medicaid [id number] 2016 Medicare MEDICARE MEDICAR E A AND B [id number] 2016-Present [phone] [address] [address] [place] [address] Medicare [id number] 1983 Unknown [id number] 1983 Unknown [id number] 1983 Unknown [id number] 1983 Unknown [id number] 1983 Unknown [id number] 1961 Medicare [id number] 1961 Self-pay 1959 Unknown [id number] Medicaid [place] [employer] [id number] Unknown [id number] Social History Date Type Detail Facility Start: 09-09-2023 Sex Assigned At [facility] Other Start: 08-04-2023 End: 08-04-2023 Tobacco smoking status KSIS Never smoked tobacco (finding) [facility] Start: 1985 Sex Assigned At Male [facility] Start: 09-09-2023 Tobacco use and exposure Smokeless tobacco non-user [facility] Start: 09-09-2023 History of Social function [facility] National Score (1-10 0), lower number is lower risk 64 [facility] Start: 09-09-2023 Gender identity Identifies as male gender (finding) [facility] Start: 09-09-2023 Sexual orientation Heterosexual (finding) [facility] Start: 12-12-2024 Sex Male (finding) [facility] Medical Equipment Procedure Code Equipment Code Equipment Origin al Text Equipment Identifier Dates Start: 02-14-2023 Blood Sugar Diagnostic (True Metrix Glucose Test Strip) strip Start: 06-11-2024 Lancets (Comfort Ez Lancets) 28 gauge misc Start: 01-17-2024 Pen Needle, Diab etic (Droplet Pen Needle) 32 gauge x 1/4 needle Start: 08-16-2024 Pen Needle, Diab etic 31 gauge x 5/16 needle Start: 05-03-2024 Blood Sugar Diagnostic (True Metrix Glucose Test Strip) strip Start: 02-14-2024 End: 02-21-2024 Blood Sugar Diagnostic (True Metrix Glucose Test Strip) strip Start: 02-21-2024 End: 06-08-2024 Blood Sugar Diagnostic (True Metrix Glucose Test Strip) strip Start: 06-08-2024 End: 06-11-2024 Blood Sugar Diagnostic (True Metrix Glucose Test Strip) strip Start: 01-17-2024 End: 01-17-2024 Blood Sugar Diagnostic (True Metrix Glucose Test Strip) strip Start: 01-17-2024 End: 02-14-2024 Lancets (Comfort Ez Lancets) 28 gauge misc Start: 01-17-2024 End: 01-17-2024 Pen Needle, Diab etic (Droplet Pen Needle) 32 gauge x 1/4 needle Start: 03-30-2024 End: 08-16-2024 Pen Needle, Diab etic (Droplet Pen Needle) 32 gauge x 1/4 needle Start: 01-17-2024 End: 03-30-2024 Pen Needle, Diab etic 31 gauge x 5/16 needle Start: 05-03-2024 End: 05-03-2024 Clinical Notes 01-25-2022 to 03-16-2024 Telephone Encounter - Judith Geiger LPN - 03/16/2024 11:19 AM EDTTelephone Encounter - Judith Geiger LPN - 03/16/2024 11:19 AM Azeb Garcia DO - 09/09/2023 10:30 AM EST Note Date & Type Note Facility 03-16-2024 Telephone encounter Note .[facility] NEW PATIENT REFERRAL TRIAGE Referral source:self No referring provider defined for this encounter. Referral Reason: for a second opinion on neurological symptoms Care Everywhere Completed Connection: [x]Yes or []No MyChart Dot Phrase Sent if Records were not sent MyChart Account?: [x]Yes or []No MyChart Dot Phrase Sent: Date 04/16/2024 Judith Geiger LPN [facility] 03-16-2024 Miscellaneous Notes [facility] [facility] NEW PATIENT REFERRAL TRIAGE Referral source:self No referring provider defined for this encounter. Referral Reason: for a second opinion on neurological symptoms Care Everywhere Completed Connection: [x]Yes or []No MyChart Dot Phrase Sent if Records were not sent MyChart Account?: [x]Yes or []No MyChart Dot Phrase Sent: Date 04/16/2024 Judith Geiger LPN documented in this encounter [facility] 02-16-2024 Telephone encounter Note Called to reschedule 04/[address] mathur since she is out of the office. LVM and sent reminder in the mail. [facility] 02-16-2024 Miscellaneous Notes Called to reschedule 04/[address] mathur since she is out of the office. LVM and sent reminder in the mail. documented in this encounter [facility] 09-09-2023 History of Present illness Narrative Images from the original note were not included. [facility] NEW PATIENT EVALUATION/CONSULTATION Referral source: No referring provider defined for this encounter. 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 When he was younger he had multiple concussions and recovered. At 16 he had mycarditis attributed to significant caffeine intake and pericarditis. His first neurological symptom occurred around 28 years old. 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 He was told it [...] the last year since establishing with an reinspector. In May he had a significant migraine with flashing lights and slow motion experience in his vision. He will have intermittent migraines that occur. These have occurred for many years. He can go months to sometimes years without one. 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 He had two sisters with MS (Ally and Betsy, both cared for by [facility]). His last MRI lumbar was prior to his surgery. He is very claustrphobic. Last EMG was before his lumbar surgery. [facility] Neuro-QoL Functions (higher=better functioning) Flowsheet Row Office Visit from 09/09/2023 in [facility] Upper Extremity Domain T Score 41.48 Lower Extremity Domain T Score 42.17 Cognitive Function Domain T Score 44.4 Positive Affect Well Being T Score -- Ability To Participate In Social Roles T Score 43.48 Satisfaction With Social Roles T Score 43.36 Neuro-QoL Symptoms (higher=worse symptoms) Flowsheet Row Office Visit from 09/09/2023 in [facility] Sleep Domain T Score 65.45 Fatigue Domain [...] Flowsheet Row Office Visit from 09/09/2023 in [facility] Processing Speed Total Number Correct 41 Low-contrast [...] the arms and legs was performed including [id number], rapid-alternating, and fine movements. Rapid movements were [...] shoulder plus diabetic neuropathy the more sudden pattern changer the last few months of numbness and [...] which included preparing to see the patient, [id number] patient care, completing clinical documentation, obtaining and/or reviewing separately obtained history, performing a medically appropriate examination, counseling and educating the patient/family/caregiver, ordering medications, tests, or procedures, communicating with other HCPs (not separately reported), independently interpreting results (not separately reported), communicating results to the patient/family/caregiver, and care coordination (not separately reported). Azeb Mathur DO [facility] for Multiple Sclerosis documented in this encounter [facility] 09-09-2023 Note HNO ID: [id number] Author: AZEB MATHUR DO Service: ? Author Type: Physician Type: Progress Notes Filed: 09/09/2023 16:05 Note Text: [facility] NEW PATIENT EVALUATION/CONSULTATION Referral source: No referring provider defined for this encounter. 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 When he was younger he had multiple concussions and recovered. At 16 he had mycarditis attributed to significant caffeine intake and pericarditis. His first neurological symptom occurred around 28 years old. 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 He was told it [...] the last year since establishing with an reinspector. In May he had a significant migraine with flashing lights and slow motion experience in his vision. He will have intermittent migraines that occur. These have occurred for many years. He can go months to sometimes years without one. 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 He had two sisters with MS (Ally and Betsy, both cared for by [facility]). His last MRI lumbar was prior to his surgery. He is very claustrphobic. Last EMG was before his lumbar surgery. [facility] Neuro-QoL Functions (higher=better functioning) Flowsheet Row Office Visit from 09/09/2023 in [facility] Upper Extremity Domain T Score 41.48 Lower Extremity Domain T Score 42.17 Cognitive Function Domain T Score 44.4 Positive Affect Well Being T Score -- Ability To Participate In Social Roles T Score 43.48 Satisfaction With Social Roles T Score 43.36 Neuro-QoL Symptoms (higher=worse symptoms) Flowsheet Row Office Visit from 09/09/2023 in [facility] Sleep Domain T Score 65.45 Fatigue Domain [...] Flowsheet Row Office Visit from 09/09/2023 in [facility] Processing Speed Total Number Correct 41 Low-contrast [...] more serious, prolonged illness. Monitor BS closely [facility] Other 01-18-2024 Evaluation note* Encounter Date Diagnosis [...] hyperglycemia, or diabetes medication issues. 6. 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 [facility] Other 12-27-2023 Evaluation note* Encounter Date Diagnosis [...] with the patient by Mathew Byers RN, [facility]. Alycia Schwartz 07/14/2023 01:13:59 PM >discussed, reviewd and endorsed day of appt [facility] Other 12-15-2023 Evaluation note* Encounter Date Diagnosis Assessment Notes Treatment Notes Treatment Clinical Notes Jun, Type 2 diabetes mellitus with hyperglycemia (ICD-10 - E11.65) Jun, Type 2 diabetes mellitus with hyperglycemia, unspecified snf insulin use status (ICD-10 - E11.65) [facility] Other 11-22-2023 Evaluation note* Encounter Date Diagnosis [...] use, the patient reduces the risk for ID, CVA, HTN, cardiac dysrhythmias and sudden cardiac [...] [BMI] 38.0-38.9, adult (ICD-10 - Z68.38) May, FPC (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 insulin (ICD-10 - Z79.4) [facility] Other 11-20-2023 Evaluation note* Encounter Date Diagnosis [...] of under 130/80 for kidney protection 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 [facility] Other 11-13-2023 Evaluation note* Encounter Date Diagnosis [...] BS slightly, no change in treatment necessary [facility] Other 11-08-2023 Evaluation note* Encounter Date Diagnosis Assessment Notes Treatment Notes Treatment Clinical Notes May, Type 2 diabetes mellitus with hyperglycemia, unspecified snf insulin use status (ICD-10 - E11.65) [facility] Other 11-02-2023 Evaluation note* Encounter Date Diagnosis Assessment Notes Treatment Notes Treatment Clinical Notes May, Type 2 diabetes mellitus with hyperglycemia, unspecified snf insulin use status (ICD-10 - E11.65) Jon [...] discussing his insulin by Mathew Byers RN, [facility]. [facility] Other 09-07-2023 Evaluation note* Encounter Date Diagnosis [...] of under 130/80 for kidney protection Mar, FPC current use of insulin (ICD-10 - Z79.4) Mar, BMI 38.0-38.9,adult (ICD-10 - Z68.38) Mar, Other I have spent 30 minutes with this patient and over 50% of the visit was counseling done by myself, Riddhi LEUNG. [facility] Other 08-29-2023 Evaluation note* Encounter Date Diagnosis Assessment Notes Treatment Notes Treatment Clinical Notes Feb, Hyperlipidemia, mixed (ICD-10 - E78.2) [facility] Other 08-22-2023 Evaluation note* Encounter Date Diagnosis [...] Dilated eye exam and Foot exam Feb, FPC (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 insulin (ICD-10 - Z79.4) [...] use, the patient reduces the risk for ID, CVA, HTN, cardiac dysrhythmias and sudden cardiac [...] index [BMI] 38.0-38.9, adult (ICD-10 - Z68.38) [facility] Other 08-07-2023 Evaluation note* Encounter Date Diagnosis Assessment Notes Treatment Notes Treatment Clinical Notes Feb, Type 2 diabetes mellitus with hyperglycemia, unspecified snf insulin use status (ICD-10 - E11.65) Jon [...] him and his by Mathew Byers RN, [facility]. [facility] Other 07-31-2023 Evaluation note* Encounter Date Diagnosis Assessment Notes Treatment Notes Treatment Clinical Notes Jan, Type 2 diabetes mellitus with hyperglycemia, unspecified supervisor intermediates insulin use status (ICD-10 - E11.65) [facility] Other 07-26-2023 Evaluation note* Encounter Date Diagnosis [...] of under 130/80 for kidney protection Jan, FPC current use of insulin (ICD-10 - Z79.4) Jan, BMI 38.0-38.9,adult (ICD-10 - Z68.38) Jan, Other I have spent 60 minutes with this patient and over 50% of the visit was counseling done by myself, Riddhi LEUNG. [facility] Other 07-05-2023 Evaluation note* Encounter Date Diagnosis Assessment Notes Treatment Notes Treatment Clinical Notes Jan, Type 2 diabetes mellitus with hyperglycemia (ICD-10 - E11.65) [facility] Other 06-13-2023 Evaluation note* Encounter Date Diagnosis Assessment Notes Treatment Notes Treatment Clinical Notes Dec, Type 2 diabetes mellitus with hyperglycemia (ICD-10 - E11.65) [facility] Other 03-27-2023 Evaluation note* Encounter Date Diagnosis Assessment Notes Treatment Notes Treatment Clinical Notes Sep, Type 2 diabetes mellitus with hyperglycemia (ICD-10 - E11.65) [facility] Other 02-17-2023 Evaluation note* Encounter Date Diagnosis Assessment Notes Treatment Notes Treatment Clinical Notes Aug, Obstructive sleep apnea (ICD-10 - G47.33) This patient is aware of the benefits associated with MARIFER: With continued use, the patient reduces the risk for ID, CVA, HTN, cardiac dysrhythmias and sudden cardiac [...] may safely use Tylenol as needed. 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 Jul, FPC (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 insulin (ICD-10 - Z79.4) [facility] Other 01-17-2023 Evaluation note* Encounter Date Diagnosis Assessment Notes Treatment Notes Treatment Clinical Notes Jul, Wellness examination (ICD-10 - Z00.00) [facility] Other 07-11-2022 NoteMR#: [id number] I [facility] Pt. Name: Janusz Motley Admitted: 01/01/2022 [...] the day of the encounter, performed the olja portion(s) of the service and participated in the management and confirm the resident's documentation. Please note there may be an additional personal documentation from me. Date Dict: 01/24/2022/09:42 P/Era Patel MD Date Trans: 01/25/2022 02:34 A/kevin [id number] cc: Benji Kulkarni D.O. [address] [place] [id number] County Community HospitalEvaluation noteNo InformationNortSelect Specialty Hospital [facility] [employer] Other Evaluation noteNo assessment information available [facility] Work Phone: Evaluation note* Diagnosis Demyelinating disease of central nervous system (HCC)- Primary Demyelinating disease of central nervous system, unspecified Diabetic polyneuropathy associated with type 2 diabetes mellitus (HCC) [facility] Diagnosis Onset Date Resolution Status Admit Date HTN (hypertension) acute December 122024 2:54pm Moderate nonproliferative di abetic retinopathy acute December 12, 2024 2 :54pm Obesity acute December 12, 2024 2:54pm MARIFER (obstructive sleep apnea) acute December 12, 2024 2:54pm Type 2 diabetes mellitus wit h diabetic polyneuropathy acute November 2:54pm Type 2 diabetes mellitus wit h hyperglycemia acute December 12, 2024 2 :54pm [facility] Work Phone: History general Narrative - Reported* Type Description Date Medical History Type 2 diabetes chilango itus with hyperglycemia, unspecified snf insulin use status 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 Medical History SBO [...] LUMBAR LAMINECTOMY/DISCECTOMY Hospitalization History SEE SURGICAL HX [facility] Other Summary Purpose Family History Relationship Condition Age at Onset Recorded Date/T justyna father Hypertension Unknown Not Specified Depression Unknown Diabetes mellitus Unknown Hypertension Unknown Relationship Condition Age at Onset Recorded Date/T justyna father Hypertension Unknown mother Depression Unknown Diabetes mellitus Unknown Hypertension Unknown Advance Directives Advance Directive Response Recorded Date/ Time Advance Directives No January 10 6:22pm Advance Directive Response Recorded Date/ Time Advance Directives No January 10 7:22pm Chief Complaint and Reason for Visit Chief Complaint Dm DM Chief Complaint Admit Date 3 month follow up December 12, 2024 2:54p m Reason for Visit Admit Date HTN (hypertension) December 12, 2024 2:54p m Moderate nonproliferative diabetic retin opathy December 12, 2024 2:54pm Obesity December 12, 2024 2:54p m MARIFER (obstructive sleep apnea) December 12, 2024 2:54pm Type 2 diabetes mellitus with diabetic p olyneuropathy December 12, 2024 2:54pm Type 2 diabetes mellitus with hyperglyce michelle December 12, 2024 2:54pm Reason for Referral Specialty Diagnoses / Procedures Referred By Praveen ramos Referred To Contact [facility] Diagnoses Demyelinating disease of central nervous system (HCC) Procedures MRI BRAIN WO/W IVCON MRI BRAIN BRAIN STEM W/O W/CONTRAST MATERIAL Azeb Mathur DO [address] [place] [address] [place] [id number] Referral ID Status Reason Start Date Expiration Date Visits Requested Visits Authorized [id number] Pending Review Auto-Generat ed Referral 09/09/2023 10/08/2024 1 1 Additional Source Comments (unrecognized sect ion and content) No Status Records FoundNo Status Records FoundNo Status Records FoundNo Status Records Found INFORMATION SOURCE (unrecogn ized section and content) DATE CREATED AUTHOR 01/25/2022 [facility] DATE CREATED AUTHOR AUTHOR'S ORGANIZ ATION 08/23/2022 [facility] DATE CREATED AUTHOR AUTHOR'S ORGANIZ ATION 09/15/2023 [facility] DATE CREATED AUTHOR AUTHOR'S ORGANIZ ATION 02/19/2024 [facility] REASON FOR VISIT (unrecogniz ed section and content) Reason Comments Request Outside Medical Records Reason Comments Appointment Called to reschedule 04/[address] mathur since she is out of the office. LVM and sent reminder in the mail. Reason Comments New Patient Evaluation COVID Positive- [phone], 3 month Follow upDS DM patient cancelledDS refill humalog/ rescheduleDM, DM 6 week follow up, Type 2Cancelled apptDS [id number], body aches, sore throat [phone] lost medicationDS BG Control/RefillDM 6 week follow up, Type 2DS Lab resultsRefill3 month Follow upDCS Dexcom 7DCS Lab orderDexcom G7 DownloadDS leg sores infectedBug BiteDS pen needles/blood sugar highType 2DS DexcomPrescriptionMedication ChangeHumalogDexcom 7Lab Discussion/BS ResultsSore Throat/ Sick Care Teams (unrecognized sec tion and content) Team Status: Active Member Role Status Dates Benji Kulkarni , Primary Care Provider Active Team Status: Inactive Member Role Status Dates Alycia Schwartz APRN Attending Provider Active Start: August 04, 2023 End: August 04, 2023 Team Status: Inactive Member Role Status Dates Benji Kulkarni , Primary Care Provider Active Start: August 04, 2023 End: August 04, 2023 Alycia Schwartz APRN Attending Provider Active Start: August 04, 2023 End: August 04, 2023 Team Status: Inactive Member Role Status Dates Benji Kulkarni DO Primary Care Provide r, Attending Provider Active Start: December 12, 2024 End: December 12, 2024 Goals (unrecognized section and content) Goals may be documented in a n alternate section Source Comments (unrecognize d section and content) In the event this informatio n is protected by the Federal Confidentiality of Alcohol and Drug Abuse Patient Records regulations: The Federal rules restrict any use of the information to criminally investigate or prosecute any alcohol or drug abuse patient.[facility] the event this information is protected by the Federal Confidentiality of Alcohol and Drug Abuse Patient Records regulations: The Federal rules restrict any use of the information to criminally investigate or prosecute any alcohol or drug abuse patient.[facility] Hospital[facility] the event this information is protected by the Federal Confidentiality of Alcohol and Drug Abuse Patient Records regulations: The Federal rules restrict any use of the information to criminally investigate or prosecute any alcohol or drug abuse patient.[facility] FOR RECORDS PERTAINING TO PATIENTS WHO [...] BE BASED ON THE PRIMARY CLINICAL RECORDS. [facility]. provides no warranty or guarantee of the accuracy or completeness of information in this document.
[2025-01-18 02:40] LABS: Hematocrit 50.7 % (42.0-54.0); Hemoglobin 17.3 g/dL (14.0-18.0); Immature Granulocytes Abs Auto 0.03 10^3/uL (0.00-0.03); Immature Granulocytes Pct Auto 0.3 % (0.0-0.5); Lymphocytes Absolute Auto 2.8 10^3/uL (1.2-3.8); Mean Corpuscular HGB Conc 34.1 g/dL (29.9-35.2); Mean Corpuscular Hemoglobin 29.5 pg (25.9-34.0); Mean Corpuscular Volume 86.5 fL (80.0-94.0); Platelet Count 260 10^3/uL (150-450); Red Blood Count 5.86 10^6/uL (4.70-6.10); White Blood Count 11.0 10^3/uL (4.0-11.0)
--- NOTE | 2025-01-18 02:43 | ED.CHESTPAI1 ---
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 The symptoms have been present after taking 3 sildenafil tablets at 1 AM on January 17. He denies any shortness of breath dizziness or syncope. He has not had any nausea or vomiting. He also has a history of fibromyalgia. He has not had a fever or cough. He denies any diaphoresis. He called his family physician on-call physician who suggest that he come to the emergency department to get checked out. He does not smoke and is a social drinker. Related Data Home Medications �Medication �Instructions �Recorded �Confirmed atorvastatin 20 mg tablet 20 mg PO DAILY 01/05/24 01/18/25 empagliflozin 25 mg tablet 25 mg PO DAILY 01/05/24 01/18/25 (Jardiance) insulin degludec 200 unit/mL (3 67 unit subcut DAILY 01/05/24 01/18/25 mL) subcutaneous pen (Tresiba FlexTouch U-200 insulin) sitagliptin phosphate 50 mg tablet 50 mg PO DAILY 06/12/24 01/18/25 (Januvia) VITAMIN 01/18/25 Allergies Allergy/AdvReac Type Severity Reaction Status Date / Time naproxen (From Naprosyn) Allergy Mild Vomiting Verified 01/18/25 02:31 Review of Systems ROS Status of ROS 10 or more systems reviewed and unremarkable except as noted in history and below [facility] Medical History (Updated 01/18/25 @ 03:24 by Margret Ji MD) Myocarditis �I51.4 - Myocarditis, unspecified (ICD-10) Diabetic acidosis, type I �E10.10 - Type 1 diabetes mellitus with ketoacidosis without coma (ICD-10) Surgical History (Updated 01/05/24 @ 00:38 by Smiley Blake) H/O knee surgery �Z98.890 - Other specified postprocedural states (ICD-10) Previous back surgery �Z98.890 - Other specified postprocedural states (ICD-10) Social History Smoking status: Never smoker Little interest or pleasure in doing things: not at all Feeling down, depressed, or hopeless: not at all Exam Narrative Exam Narrative: Vital signs and Nursing Notes reviewed: Patient is afebrile with a normal pulse, blood pressure is elevated 160/109, he is not hypoxic with pulse ox of 96% on room air General: Awake, alert, oriented, overweight adult male, slightly anxious but otherwise no acute distress, lying comfortably on the stretcher HEENT: Normocephalic atraumatic, mucous membranes are moist and pink, eyes are clear, normal conjunctiva, vision is grossly intact, posterior pharynx is normal in appearance. Neck: Supple, non-tender, no pulsatile masses in the neck Chest: Lungs are clear to auscultation with good air entry, there is no wheezing rhonchi or rales appreciated no accessory muscle use, patient is speaking in complete sentences-no chest wall tenderness to palpation CVS: Regular rate and rhythm S1-S2, no murmurs rubs or gallops, pulses are brisk and equal bilaterally ABD: Soft, nondistended, nontender, no rebound guarding or rigidity, bowel sounds are normal, no pulsatile masses appreciated Extremities: Moving all extremities, no lower extremity tenderness or swelling noted, negative Homans' sign, pulses are brisk and equal bilaterally Skin: Normal in appearance without rash,pallor, petechiae or purpura Neuro: No focal deficits Constitutional Vital Signs, click to edit/add: Last Vital Signs Temp 98.1 F 01/18/25 02:25 Pulse 95 H 01/18/25 02:25 Resp 20 01/18/25 02:25 BP 160/109 H 01/18/25 02:25 Pulse Ox 96 01/18/25 02:25 O2 Del Method Room Air 01/18/25 02:25 Course Vital Signs Vital signs: Vital Signs Temperature 98.1 F 01/18/25 02:25 Pulse Rate 95 H 01/18/25 02:25 Respiratory Rate 01/18/25 02:25 Blood Pressure 160/109 H 01/18/25 02:25 Pulse Oximetry 96 01/18/25 02:25 Oxygen Delivery Method Room Air 01/18/25 02:25 Temperature 98.1 F 01/18/25 02:25 Pulse Rate 95 H 01/18/25 02:25 Respiratory Rate 20 01/18/25 02:25 Blood Pressure 160/109 H 01/18/25 02:25 Pulse Oximetry 96 01/18/25 02:25 Oxygen Delivery Method Room Air 01/18/25 02:25 MDM - Chest Pain MDM Narrative Medical decision making narrative: This 39-year-old male with a history of diabetes and obesity who does not smoke and has a history of myocarditis at age 16 presents for evaluation of pressure in the left side of his chest that goes up into his neck and left arm. The symptoms started over 24 hours ago after taking 3 Viagra tablets. He states these are prescribed by [facility] physician. He states after taking these he started to have the symptoms. He denies any shortness of breath dizziness diaphoresis or syncope. He has no abdominal pain or back pain. He has a normal EKG at 95 bpm. His initial blood pressure reading was elevated but he was visibly anxious. His physical exam is benign. Lungs are clear, pulses are brisk and equal bilaterally. He was given 324 mg baby aspirin and a cardiac workup was ordered. He has a normal white count and stable hemoglobin. Electrolytes are normal with an elevated glucose at 160. Troponin and D-dimer are both normal. 1 view chest x-ray was ordered when the D-dimer came back normal and was reviewed by myself. The chest x-ray does not show any acute infiltrate, cardiomegaly, pneumothorax, pleural effusion with normal cardiac borders and soft tissues. The results of these findings were discussed with him. His blood pressure was retaken and was 130/90. He will be discharged home at this time with recommendation to discontinue use of these medications until he is seen by his family physician and return to the emergency department for ongoing chest pain shortness of breath dizziness diaphoresis or any concerns. Medical Records Data Attestation: I reviewed the patient's medical records. Lab Data Attestation: I reviewed the patient's lab results. Labs: Lab Results 01/18/25 Range/Units 02:34 WBC 11.0 (4.0-11.0) 10^3/uL RBC 5.86 (4.70-6.10) 10^6/uL Hgb 17.3 (14.0-18.0) g/dL Hct 50.7 (42.0-54.0) % MCV 86.5 (80.0-94.0) fL MCH 29.5 (25.9-34.0) pg MCHC 34.1 (29.9-35.2) g/dL RDW 13.2 (11.0-15.0) % Plt Count 260 (150-450) 10^3/uL MPV 10.5 (9.5-13.5) fL Neut % (Auto) 66.6 (43.0-75.0) % Lymph % (Auto) 25.3 (20.5-60.0) % Bibb % (Auto) 6.2 (1.7-12.0) % Eos % (Auto) 1.1 (0.9-7.0) % Baso % (Auto) 0.5 (0.2-2.0) % Neut # (Auto) 7.4 H (1.4-6.5) 10^3/uL Lymph # (Auto) 2.8 (1.2-3.8) 10^3/uL Bibb # (Auto) 0.7 (0.3-0.8) 10^3/uL Eos # (Auto) 0.1 (0.0-0.7) 10^3/uL Baso # (Auto) 0.1 (0.0-0.1) 10^3/uL Abs Immat Gran (auto) 0.03 (0.00-0.03) 10^3/uL Imm/Tot Granulo (auto) 0.3 (0.0-0.5) % D-Dimer 0.42 (<=0.59) mg/L FEU Sodium 142 (136-145) mmol/L Potassium 3.8 (3.5-5.1) mmol/L Chloride 104 (98-107) mmol/L Carbon Dioxide 29.6 (21.0-32.0) mmol/L Anion Gap 12.2 BUN 18.0 (7.0-18.0) mg/dL Creatinine 1.04 (0.70-1.30) mg/dL Est GFR ( Amer) >60 (>=60 mL/min/1.73m^2) Est GFR (Non-Af Amer) >60 (>=60 mL/min/1.73m^2) BUN/Creatinine Ratio 17.3 Glucose 160 H (74-106) mg/dL Calcium 9.0 (8.5-10.1) mg/dL Total Bilirubin 0.5 (0.2-1.0) mg/dL AST 21 (15-37) U/L ALT 56 (16-63) U/L Alkaline Phosphatase 128 H (46-116) U/L Troponin I High Sens 8.7 (4.0-76.1) pg/mL Total Protein 8.0 (6.4-8.2) g/dL Albumin 3.6 (3.4-5.0) g/dL Globulin 4.4 g/dL Albumin/Globulin Ratio 0.8 ECG Data Attestation: I personally reviewed and interpreted this ECG as follows: (EKG interpretation sinus rhythm at 95 bpm, short VT interval at 114 ms, normal axis, no acute ST segment elevation or T wave inversion) Heart Score History: Slightly/Non-Suspicious ECG: Normal Age: <45 years Risk Factors: 1 or 2 Risk Factors Troponin: <Normal Limit Total Heart Score Recommendations & Risks:: 1 Discharge Plan Discharge Chief Complaint: Chest Pain Clinical Impression: Non-cardiac chest pain, Medication side effect Patient Disposition: Home, Self-Care Time of Disposition Decision: 03:24 Condition: Good Prescriptions / Home Meds: No Action atorvastatin 20 mg tablet 20 mg PO DAILY Jardiance 25 mg tablet 25 mg PO DAILY insulin degludec [Tresiba FlexTouch U-200] 200 unit/mL (3 mL) insulin pen 67 unit SUBCUT DAILY Januvia 50 mg tablet 50 mg PO DAILY VITAMIN Print Language: [place] Islander Instructions: Adverse Drug Reaction (ED), Noncardiac Chest Pain (ED) Referrals: Benji Kulkarni DO [Primary Care Provider, Internal Medicine] - 1 week
[2025-01-18] MEDS: ASPIRIN 81 MG TAB.CHEW 324 MG PO (02:47)
[2025-01-18 02:59] LABS: Alanine Aminotransferase 56 U/L (16-63); Albumin Globulin Ratio 0.8; Albumin Level 3.6 g/dL (3.4-5.0); Alkaline Phosphatase 128 U/L (46-116); Anion Gap 12.2; Aspartate Amino Transferase 21 U/L (15-37); Blood Urea Nitrogen 18.0 mg/dL (7.0-18.0); Calcium 9.0 mg/dL (8.5-10.1); Carbon Dioxide 29.6 mmol/L (21.0-32.0); Chloride 104 mmol/L (98-107); Estimated GFR (African America >60 (>=60 mL/min/1.73m^2); Estimated GFR (Non-African Ame >60 (>=60 mL/min/1.73m^2); Globulin 4.4 g/dL; Glucose 160 mg/dL (74-106); Potassium 3.8 mmol/L (3.5-5.1); Sodium 142 mmol/L (136-145); Total Protein 8.0 g/dL (6.4-8.2)
[2025-01-18] MEDS: 0.9 % SODIUM CHLORIDE 1,000 ML 1000 ML IV (03:01)
[2025-01-18 03:41] VITALS: BP 122/99; PULSE 90; O2SAT 98
== END 2025-01-18 03:40 | disposition home or self-care (01) ==
PROVIDERS: Emergency Provider Emergency Medicine; PCP Internal Medicine
DX: R07.89 Other chest pain (principal); E11.42 Type 2 diabetes mellitus with diabetic polyneuropathy; E66.9 Obesity, unspecified; Z68.41 Body mass index [BMI] 40.0-44.9, adult; M79.7 Fibromyalgia; Z79.4 Long term (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 insulin; Z79.85 Long-term (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 injectable non-insulin antidiabetic drugs; T46.7X5A Adverse effect of peripheral vasodilators, initial encounter
CPT/HCPCS: 36415; 71045; 80053; 84484; 85025; 85378; 93005; 99285

== ENCOUNTER 2025-03-28 23:36 | Emergency (ER) | payer MEDICARE, MEDICAID, SELFPAY ==
--- OUTSIDE RECORDS SUMMARY | 2023-12-21 08:03 | XMS_ITS | Continuity of Care Document ---
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 [address], [place], [id number], [place]. tel:[phone] Family History Family Member Type Diagnosis Age At Onset No Information Payers Payer name Insurance type Covered libertarian ID Authoriza tion(s) No Information Social History Type Description Quantity Date Captured Comments Sex Male Smoking Status No Information Sexual Orientation Straight or heterosexual November Gender Identity Male Chief Complaint And Reason For Visit No Information Reason For Referral Reason For Referral No Information History Of Present Illness Encounter Date Complaint History Of Prese nt Illness No Information Functional Status Date Functional Assessmen t No Information Instructions Date Instruction Additional Infor mation No Information Assessments Type Assessment Date No Information Patient Care Teams Name Effective Dates (start - stop) Status Members No Information
--- OUTSIDE RECORDS SUMMARY | 2025-03-28 23:41 | XMS_ITS | Encounter Summary ---
Author Organization [facility] Address [address] [place] [address] Care Team Providers Care Arch Cushion Press Operator Name Role Phone Unavailable Primary Care Provider Unavailabl e Source Comments In the event this information is protected by the Federal Confidentiality of Alcohol and Drug AbusePatient Records regulations: The Federal rules restrict any use of the information to criminally investigate or prosecute any alcohol or drug abuse patient.[facility] Encounter Details Date Type Department Care Team (Late st Contact Info) Description 09/27/[address] [facility] [address] [phone] Azeb Arauz DO [address] [phone] Have question regarding nerves Social History Tobacco Use Types Packs/Day Years Used Date Smoking Tobacco: Never Smokeless Tobacco: Never Area Deprivation Index Answer Date Alber rded National Score (1-100), lower number is lower ri sk 64 09/09/2023 State Score (1-10), lower number is lower risk 4 09/09/2023 Data from: https://www.neighborhoodatlas.medicine.[facility]/. Last address used for calculation [address] 09/09/2023 Sex and Gender Information Value Date Recorded Sex Assigned at Male 09/09/2023 11:45 AM EST Legal Sex Male 9:48 AM EST Gender Identity Male 09/09/2023 11:45 AM EST Sexual Orientation Straight 09/09/2023 11 :45 AM EST documented as of this encounter Plan of Treatment Not on file documented as of this encounter Visit Diagnoses Not on filedocumented in this encounter
--- OUTSIDE RECORDS SUMMARY | 2025-03-28 23:41 | XMS_ITS | Patient Health Record ---
Author Organization [facility] Address [address] [place] [id number] Care Team Providers Care Transitional Care Liaison Name Role Phone Malina Gerard Unavailable [phone] Allergies No Known Allergies Reason For Referral No Information Social History Sex Assigned At : Social History Observation Description Sex Assigned At Male Vital Signs Height-cm 157.48 cm 06/27/2024 Weight-kg 143.79 kg 06/27/2024 Height 5'2 in 06/27/2024 Weight 317 lbs 06/27/2024 BMI 57.97 kg/m2 06/27/2024 Encounters Encounter Location Date Provider Diagnosis [facility] Main [address], [place] [id number] 06/27/2024 Malina Gerard Encounter for scre ening for dental disorders Z13.84 ; Encounter for dental examination and cleaning with abnormal findings Z01.21 and Necrosis of pulp K04.1 Assessments Encounter Date Diagnosis (ICD Code) Assessment Notes Treatment Notes Treatment Clinical Notes Section Notes 06/27/2024 Encounter for screening for dental disorders (ICD-10 - Z13.84) 06/27/2024 Encounter for dental examination and cleaning with abnormal findings (ICD-10 - Z01.21) 06/27/2024 Necrosis of pulp (ICD-10 - K04.1) Plan Of Treatment No Information
--- OUTSIDE RECORDS SUMMARY | 2025-03-28 23:41 | XMS_ITS | Encounter Summary ---
Author Organization [facility] Address [address] [place] [address] Care Team Providers Care Horticultural Therapist Name Role Phone Unavailable Primary Care Provider Unavailabl e Source Comments In the event this information is protected by the Federal Confidentiality of Alcohol and Drug AbusePatient Records regulations: The Federal rules restrict any use of the information to criminally investigate or prosecute any alcohol or drug abuse patient.[facility] Encounter Details Date Type Department Care Team (Latest Contact Info) Description 06/12/2024 Get Medical Advice [facility] [address] [place] [address] Azeb Arauz DO [address] [phone] Fibromyalgia flare up Social History Tobacco Use Types Packs/Day Years Used Date Smoking Tobacco: Never Smokeless Tobacco: Never Area Deprivation Index Answer Date Alber rded National Score (1-100), lower number is lower ri sk 86 05/04/2024 State Score (1-10), lower number is lower risk 8 05/04/2024 Data from: https://www.neighborhoodatlas.medicine.[facility]/. Last address used for calculation [address] 05/04/2024 Sex and Gender Information Value Date Recorded [...]
--- OUTSIDE RECORDS SUMMARY | 2025-03-28 23:41 | XMS_ITS | Clinical Summary ---
Author Organization [facility] Address [facility] [place] [address] Care Team Providers Care Elevator Worker Name Role Phone Unavailable Primary Care Provider Unavailabl e Allergies Active Allergy Reactions Criticality Noted Date Comments Acarbose Other: See Comments 09/09/2023 Liraglutide Other: See Comments 08/04/2023 Metformin Unknown 08/04/2023 Naproxen Hives 07/01/2013 Medications Vit B Comp and C-Vit E-FA-Shanda-Zn 0.4 mg tab Take by mouth every 24 hours. Active HUMALOG KWIKPEN INSULIN 200 unit/mL (3 mL) injection inject subcutaneously four times a day ACCORDING TO ISS 1:7, ICR 1:2, EXPECT 220 UNITS PER DAY 4 Active atorvastatin (LIPITOR) 20 mg tablet Take 20 mg by mouth daily at bedtime. 4 Active TRESIBA FLEXTOUCH U-200 200 unit/mL (3 mL) injection INJECT 55 UNITS SUBCUTANEOUSLY ONCE DAILY - TITRATE TO 80 UNITS PER DAY 3 Active insulin degludec (TRESIBA) 200 unit/mL (3 mL) injection Inject subcutaneously every 24 hours. 4 Active JARDIANCE 25 mg tablet Take 1 tablet by mouth every afternoon. 4 Active Family History Medical History Relation Comments MS Sister 1 MS Sister 2 Relation Status Comments Sister 1 Sister 2 Alive Social History Tobacco Use Types Packs/Day Years Used Date Smoking Tobacco: Never Smokeless Tobacco: Never Area Deprivation Index Answer Date Alber rded National Score (1-100), lower number is lower ri sk 86 05/04/2024 State Score (1-10), lower number is lower risk 8 05/04/2024 Data from: https://www.neighborhoodatlas.medicine.[facility].edu/. Last address used for calculation [address] 05/04/2024 Sex and Gender Information Value Date Recorded Sex Assigned at Male 09/09/2023 11:45 AM EST Legal Sex Male 9:48 AM EST Gender Identity Male 09/09/2023 11:45 AM EST Sexual Orientation Straight 09/09/2023 11 :45 AM EST Last Filed Vital Signs Vital Sign Reading Time Taken Comments Blood Pressure 130/92 09/09/2023 9:59 AM EST Pulse 94 09/09/2023 9:59 AM EST Temperature - - Respiratory Rate - - Oxygen Saturation - - Inhaled Oxygen Concentration - - Weight 144 kg (317 lb 8 oz) 09/09/2023 9:[address] Height 190.5 cm (6' 3 ) 09/09/2023 9:59 AM EST Body Mass Index 39.68 09/09/2023 9:59 AM EST Plan of Treatment Health Maintenance Due Date Last Done Comments Anxiety Screening 2001 Depression Screening 2001 HIV Screening 2001 Hepatitis C Screening 2001 Hepatitis B Vaccine (1 of 3 - 19+ 3-dose series) 2002 HPV Vaccine (1 - 3-dose SCDM series) 2010 Medicare Annual Wellness Visit 02/16/2016 Lipid Screening 2018 Influenza Vaccine (#1) 2025 DTaP,Tdap,Td Vaccine (3 - Td or Tdap) 01/11/2028, 01/10/2018 Insurance [place]ICAID [place] MEDICARE
--- OUTSIDE RECORDS SUMMARY | 2025-03-28 23:41 | XMS_ITS | Encounter Summary ---
Author Organization 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 Encounter Details Date Type Department Care Team (Late st Contact Info) Description 12/01/2023 Patient Msg Dentistry [address] [phone] Provider, [facility] dental information Social History Tobacco Use Types Packs/Day Years Used Date Smoking Tobacco: Never Smokeless Tobacco: Never Area Deprivation Index Answer Date Alber rded National Score (1-100), lower number is lower ri sk 64 09/09/2023 State Score (1-10), lower number is lower risk 4 09/09/2023 Data from: https://www.neighborhoodatlas.medicine.[facility].edu/. Last address used for calculation [address] [...]
--- OUTSIDE RECORDS SUMMARY | 2025-03-28 23:41 | XMS_ITS | Encounter Summary ---
Author Organization [facility] Address [facility] [phone] Care Team Providers Care It Technical Architect Name Role Phone Unavailable Primary Care Provider Unavailabl e Source Comments In the event this information is protected by the Federal Confidentiality of Alcohol and Drug AbusePatient Records regulations: The Federal rules restrict any use of the information to criminally investigate or prosecute any alcohol or drug abuse patient.[facility] Encounter Details Date Type Department Care Team (Late st Contact Info) Description 11/25/2023 [place] [address] Provider, [facility] Questionnaire Submission Social History Tobacco Use Types Packs/Day Years Used Date Smoking Tobacco: Never Smokeless Tobacco: Never Area Deprivation Index Answer Date Alber rded National Score (1-100), lower number is lower ri sk 64 09/09/2023 State Score (1-10), lower number is lower risk 4 09/09/2023 Data from: https://www.neighborhoodatlas.medicine.[facility].edu/. Last address used for calculation [address] [...]
[2025-03-28 23:42] VITALS: BP 142/80; PULSE 97; TEMP 36.6; O2SAT 95; BMI 39.4
[2025-03-28 23:43] VITALS: O2SAT 95
--- NOTE | 2025-03-28 23:48 | ECG_ITS ---
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
[2025-03-28 23:50] VITALS: PULSE 95; O2SAT 95
[2025-03-29] VITALS (11 sets, daily range): BP systolic 110–136; BP diastolic 58–89; PULSE 86–102; O2SAT 92–96
--- NOTE | 2025-03-29 00:11 | XR_ITS ---
The [place] [id number] Patient Name: KALEIGH MOTLEY MRN: [id number] date: 1985 Sex: M Assigned Patient Location: ER Current Patient Location: Accession/Order Number: [id number] Exam Date: 03/29/2025 00:35 Report Date: 03/29/2025 07:57 At the request of: MARBELLA HERCULES MD Procedure: XR chest 1V PORTABLE AP ERECT CHEST 2342 hours CLINICAL HISTORY: Chest pain and shortness of breath COMPARISON: 01/18/2025 The cardiac and mediastinal contours are similar. There is no vascular congestion. Minor scarring or atelectasis is seen. No focal consolidation is identified.. There is no effusion or pneumothorax. The osseous structures are intact. XR/XR chest 1V IMPRESSION: NO ACUTE FINDINGS Impression dictated by: Gifty Lopez M.D. 03/29/2025 7:57 AM Dictation [facility] Electronically authenticated by: [id number] Y Date: 03/29/2025 07:57
--- NOTE | 2025-03-29 00:12 | ED.GENADUL1 ---
HPI HPI - General Adult General Chief complaint: Chest Pain Stated complaint: CHEST/ABDOMINAL PAIN Time Seen by Provider: 03/29/25 00:06 Source: patient Mode of arrival: walk-in History of Present Illness HPI narrative: 40-year-old male presents to the emergency department for chest pain. It started 1-1/2 hours ago while he was riding in a car. It is down the middle of his chest and feels like burning. He has no personal history of CAD. His is worried about him having a heart attack. No fever or cough or shortness of breath. His states that he looked short of breath when the pain was worse earlier. The patient states his pain has been continuous but it not as bad as it was. Related Data Home Medications ?Medication ?Instructions ?Recorded ?Confirmed atorvastatin 20 mg tablet 20 mg PO DAILY 01/05/24 01/18/25 empagliflozin 25 mg tablet 25 mg PO DAILY 01/05/24 01/18/25 (Jardiance) insulin degludec 200 unit/mL (3 67 unit subcut DAILY 01/05/24 01/18/25 mL) subcutaneous pen (Tresiba FlexTouch U-200 insulin) sitagliptin phosphate 50 mg tablet 50 mg PO DAILY 06/12/24 01/18/25 (Januvia) VITAMIN 01/18/25 Allergies Allergy/AdvReac Type Severity Reaction Status Date / Time naproxen (From Naprosyn) Allergy Mild Vomiting Verified 03/28/25 23:42 Opioid HPI Opioid Management Most Recent Opioid Data: Last Pain Scale 8 Today, 00:43 Last ED Pain Assessment Today, 00:30 Review of Systems ROS Narrative A ten point review of systems is negative except as noted above. PFSH PFSH Medical History (Updated 03/29/25 @ 02:04 by Reed Gallo MD) Myocarditis ?I51.4 - Myocarditis, unspecified (ICD-10) Diabetic acidosis, type I ?E10.10 - Type 1 diabetes mellitus with ketoacidosis without coma (ICD-10) Surgical History (Updated 01/05/24 @ 00:38 by Smiley Blake) H/O knee surgery ?Z98.890 - Other specified postprocedural states (ICD-10) Previous back surgery ?Z98.890 - Other specified postprocedural states (ICD-10) Social History Smoking status: Never smoker Little interest or pleasure in doing things: not at all Feeling down, depressed, or hopeless: not at all Exam Narrative Exam Narrative: Nurses note and vital signs reviewed and patient is not hypoxic. General: The patient appears well and in no apparent distress. Patient is resting comfortably on cart. Skin: Warm, dry, no pallor noted. There is no rash noted. Head: Normocephalic, atraumatic Eye: Normal conjunctiva, no drainage Ears, Nose, Mouth, and Throat: oral mucosa is moist. Nares patent. Cardiovascular: Regular Rate and Rhythm Respiratory: Patient is in no distress, no accessory muscle use, lungs are clear to auscultation, no wheezing, rales or rhonchi Back: non-tender GI: Soft and nontender Musculoskeletal: The patient has no evidence of calf tenderness, no pitting edema, symmetrical pulses noted bilaterally Neurological: A&O, normal speech Psychiatric: Cooperative Constitutional Vital Signs, click to edit/add: Last Vital Signs Temp 97.9 F 03/28/25 23:42 Pulse 86 03/29/25 01:30 Resp 16 03/29/25 01:30 BP 136/79 03/29/25 01:30 Pulse Ox 94 L 03/29/25 01:30 O2 Del Method Room Air 03/29/25 00:35 Course Vital Signs Vital signs: Vital Signs Temperature 97.9 F 03/28/25 23:42 Pulse Rate 97 H 03/28/25 23:42 Respiratory Rate 20 03/28/25 23:42 Blood Pressure 142/80 H 03/28/25 23:42 Pulse Oximetry 95 03/28/25 23:42 Oxygen Delivery Method Room Air 03/28/25 23:42 Temperature 97.9 F 03/28/25 23:42 Pulse Rate 86 03/29/25 01:30 Respiratory Rate 16 03/29/25 01:30 Blood Pressure 136/79 03/29/25 01:30 Pulse Oximetry 94 L 03/29/25 01:30 Oxygen Delivery Method Room Air 03/29/25 00:35 Medical Decision Making [facility] Narrative Medical decision making narrative: His workup is negative including 2 troponins. I suspect at this point this is likely GE reflux and there is no evidence of heart disease. He is able to be discharged home. Follow-up with PCP. Treatment diagnosis and follow-up were discussed with the patient and his . Differential Diagnosis Differential Diagnosis: VT, GE reflux, chest wall pain Lab Data Lab results reviewed: Yes I reviewed the patient's lab results Labs: Lab Results 03/29/25 03/29/25 03/29/25 Range/Units 00:25 00:40 01:05 WBC 10.7 (4.0-11.0) 10^3/uL RBC 5.67 (4.70-6.10) 10^6/uL Hgb 16.5 (14.0-18.0) g/dL Hct 47.9 (42.0-54.0) % MCV 84.5 (80.0-94.0) fL MCH 29.1 (25.9-34.0) pg MCHC 34.4 (29.9-35.2) g/dL RDW 13.4 (11.0-15.0) % Plt Count 240 (150-450) 10^3/uL MPV 10.7 (9.5-13.5) fL Neut % (Auto) 60.1 (43.0-75.0) % Lymph % (Auto) 30.1 (20.5-60.0) % Avery % (Auto) 7.3 (1.7-12.0) % Eos % (Auto) 1.4 (0.9-7.0) % Baso % (Auto) 0.5 (0.2-2.0) % Neut # (Auto) 6.4 (1.4-6.5) 10^3/uL Lymph # (Auto) 3.2 (1.2-3.8) 10^3/uL Avery # (Auto) 0.8 (0.3-0.8) 10^3/uL Eos # (Auto) 0.2 (0.0-0.7) 10^3/uL Baso # (Auto) 0.1 (0.0-0.1) 10^3/uL Abs Immat Gran (auto) 0.06 H (0.00-0.03) 10^3/uL Imm/Tot Granulo (auto) 0.6 H (0.0-0.5) % Sodium 142 (136-145) mmol/L Potassium 3.5 (3.5-5.1) mmol/L Chloride 106 (98-107) mmol/L Carbon Dioxide 26.1 (21.0-32.0) mmol/L Anion Gap 13.4 BUN 19.0 H (7.0-18.0) mg/dL Creatinine 1.04 (0.70-1.30) mg/dL Est GFR ( Amer) >60 (>=60 mL/min/1.73m^2) Est GFR (Non-Af Amer) >60 (>=60 mL/min/1.73m^2) BUN/Creatinine Ratio 18.3 Glucose 76 (74-106) mg/dL Calcium 8.9 (8.5-10.1) mg/dL Troponin I High Sens 9.1 7.7 (4.0-76.1) pg/mL POC Glucose 71 L (74-106) mg/dL Imaging Data Chest x-ray: My impression: No acute findings ECG Data Attestation: I personally reviewed and interpreted this ECG as follows: (EKG on my interpretation shows normal sinus rhythm with rate of 96 and no acute change) Discharge Plan Discharge Chief Complaint: Chest Pain Clinical Impression: Chest pain Patient Disposition: Home, Self-Care Time of Disposition Decision: 02:04 Condition: Good Mode of Transportation: Private Vehicle Prescriptions / Home Meds: No Action atorvastatin 20 mg tablet 20 mg PO DAILY Jardiance 25 mg tablet 25 mg PO DAILY insulin degludec [Tresiba FlexTouch U-200] 200 unit/mL (3 mL) insulin pen 67 unit SUBCUT DAILY Januvia 50 mg tablet 50 mg PO DAILY VITAMIN Print Language: Z[place]ian Instructions: Chest Pain (ED) Referrals: Benji Kulkarni DO [Primary Care Provider, Internal Medicine] - 1 week
[2025-03-29] MEDS: ASPIRIN 81 MG TAB.CHEW 324 MG PO (00:28)
[2025-03-29] MEDS: NITROGLYCERIN 0.4 MG BOTTLE SL (00:28)
[2025-03-29 00:31] LABS: Hematocrit 47.9 % (42.0-54.0); Hemoglobin 16.5 g/dL (14.0-18.0); Immature Granulocytes Abs Auto 0.06 10^3/uL (0.00-0.03); Immature Granulocytes Pct Auto 0.6 % (0.0-0.5); Lymphocytes Absolute Auto 3.2 10^3/uL (1.2-3.8); Mean Corpuscular HGB Conc 34.4 g/dL (29.9-35.2); Mean Corpuscular Hemoglobin 29.1 pg (25.9-34.0); Mean Corpuscular Volume 84.5 fL (80.0-94.0); Platelet Count 240 10^3/uL (150-450); Red Blood Count 5.67 10^6/uL (4.70-6.10); White Blood Count 10.7 10^3/uL (4.0-11.0)
[2025-03-29 00:46] LABS: Anion Gap 13.4; Blood Urea Nitrogen 19.0 mg/dL (7.0-18.0); Calcium 8.9 mg/dL (8.5-10.1); Carbon Dioxide 26.1 mmol/L (21.0-32.0); Chloride 106 mmol/L (98-107); Estimated GFR (African America >60 (>=60 mL/min/1.73m^2); Estimated GFR (Non-African Ame >60 (>=60 mL/min/1.73m^2); Glucose 76 mg/dL (74-106); Potassium 3.5 mmol/L (3.5-5.1); Sodium 142 mmol/L (136-145)
[2025-03-29] MEDS: lidocaine HCL 15 ML, MAG HYDROX/ALUMINUM HYD/SIMETH 30 ML, HYOSCYAMINE SULFATE 0.25 MG PO (01:21)
== END 2025-03-29 02:58 | disposition home or self-care (01) ==
PROVIDERS: Emergency Provider Emergency Medicine; PCP Internal Medicine
DX: R07.9 Chest pain, unspecified (principal)
CPT/HCPCS: 36415; 71045; 80048; 82948; 84484; 85025; 93005; 99285